=== PATIENT | female | born 1945 ===

== ENCOUNTER 2020-05-01 12:33 | Inpatient (IN) | payer MEDICARE, OTHER ==
[~2020-05-01] VITALS: Ht 157 cm; Wt 63.8 kg
[2020-05-01] MEDS ORDERED: LACTULOSE SYRUP 10GM/15ML (ENULOSE) 30ML UDC PO PRN (12:45)
[2020-05-01] MEDS ORDERED: DOCUSATE SODIUM 100 MG (COLACE) CAP PO PRN (12:45)
[2020-05-01] MEDS ORDERED: ONDANSETRON 4 MG (ZOFRAN) ORAL DISSOLVE TAB PO PRN (12:45)
[2020-05-01] MEDS ORDERED: FLEET ENEMA ADULT 1 EA BTL PR PRN (12:45)
[2020-05-01] MEDS ORDERED: guaiFENesin/CODEINE (ROBITUSSIN AC) 10ML UDC PO PRN (12:45)
[2020-05-01] MEDS ORDERED: diphenhydrAMINE 25 MG TAB (BENADRYL) PO PRN (12:45)
[2020-05-01] MEDS ORDERED: LOPERAMIDE 2 MG (IMODIUM) TABLET PO PRN (12:45)
[2020-05-01] MEDS ORDERED: ALPRAZolam 0.25 MG (XANAX) TAB PO PRN (12:45)
[2020-05-01] MEDS ORDERED: BISACODYL 10 MG SUPP (DULCOLAX) PR PRN (12:45)
[2020-05-01] MEDS ORDERED: CALCIUM CARBONATE 500 MG (TUMS) TAB.CHEW PO PRN (12:45)
[2020-05-01] MEDS ORDERED: SUCR1TAB PO (13:51)
[2020-05-01] MEDS ORDERED: ASPI-1238 PO (13:51)
[2020-05-01] MEDS ORDERED: LEVE500T6 PO (13:51)
[2020-05-01] MEDS ORDERED: [UNRECOGNIZED DRUG - CODE] IJ (13:51)
[2020-05-01] MEDS ORDERED: ONDA8TAB15 PO (13:51)
[2020-05-01] MEDS ORDERED: FOLIC ACID PO (13:51)
[2020-05-01] MEDS ORDERED: FURO40TA4 PO (13:51)
[2020-05-01] MEDS ORDERED: ATOR40TA70 PO (13:51)
[2020-05-01] MEDS ORDERED: MULT-1136 PO (13:51)
[2020-05-01] MEDS ORDERED: DASA100T PO (13:51)
[2020-05-01] MEDS ORDERED: MAGN400O7 PO (13:51)
[2020-05-01] MEDS ORDERED: CARV3.12 PO (13:51)
[2020-05-01] MEDS ORDERED: SPIR25TA5 PO (13:51)
[2020-05-01] MEDS ORDERED: ACHD5005 PO (13:51)
[2020-05-01] MEDS ORDERED: BISA10SU8 RC (13:51)
[2020-05-01] MEDS ORDERED: [UNRECOGNIZED DRUG - CODE] IH (13:51)
[2020-05-01] MEDS ORDERED: CITA20TA9 PO (13:51)
--- NOTE | 2020-05-01 14:27 | NUR ---
BOB CHICAS admitted to room 233-1, with an admitting diagnosis of CVA, on 05/01/[address] [facility] via PRIVATE VEHICLE, accompanied by FAMILY. BOB CHICAS introduced to surroundings, call light, bed controls, phone, TV, temperature control, lights, meal times, smoking policy, visitor policy, side rail policy, bathrooms and showers. Patient Rights given to patient in the handbook. BOB CHICAS verbalizes understanding that [facility] is not responsible for the loss or damage to any personal effects or valuables that are kept in the patient's possession during their hospitalization. The following Patient Care Plans were discussed with the PATIENT: Discharge Planning, ACTIVITY INTOLERANCE, FATIGUE, HIGH RISK: INJURY, HIGH RISK: IMPAIRED SKIN INTEGRITY, PAIN, POTENTIAL FOR FALL, and KNOWLEDGE DEFICIT. BOB CHICAS verbalizes understanding of Interdisciplinary Patient Education. Patient received Patient Rights Booklet, which includes Privacy Act Statement and Data Collection Information Summary.
[2020-05-01 14:34] VITALS: BP 147/66
[2020-05-01] MEDS ORDERED: FUROSEMIDE 40 MG (LASIX) TAB PO PRN (15:00)
[2020-05-01] MEDS ORDERED: MILK OF MAGNESIA 400 MG/5 ML 30 ML UDC PO PRN (15:00)
[2020-05-01] MEDS ORDERED: NON-FORMULARY MEDICATION 1 EA EA (Ondansetron HCl 8 MG) PO PRN (15:00)
[2020-05-01] MEDS ORDERED: PENTAMIDINE ISETHIONATE 300 MG IH SCH (15:00)
[2020-05-01] MEDS ORDERED: PENTAMIDINE 300 MG IJ SCH (15:00)
--- NOTE | 2020-05-01 15:00 | NUR ---
MED REC WAS ENTERED USING THE [facility] DISCHARGE ORDERS. I WILL SPEAK WITH THE PT AFTER MEDICATIONS ARE CONTINUED AND UPDATE THE MED REC/NOTES NEEDED Addendum: 05/01/20 at 1604 by STEPHANE PEOPLES CPhT BOTH PENTAMIDINE 300MG INHALATION AND INJECTABLE WERE ENTERED ON THE MED REC- THE PT IS ONLY USING THE INHALATION SOLUTION AND NOT THE INJECTABLE. THE MED REC HAS BEEN UPDATED TO REFLECT THOSE CHANGES Addendum: 05/05/20 at 1412 by STEPHANE PEOPLES CPhT MEDICATIONS THAT HAVE BEEN REMOVED DUE TO PT NOT TAKING PRIOR TO [facility]: ASPIRIN 81MG MEDICATIONS THAT HAVE CHANGED: ATORVASTATIN: PRIOR TO [facility] PT WAS TAKING 10MG- [facility] CHANGED THE MED AT DISCHARGE TO 40MG SPIRONOLACTONE 25MG:PRIOR TO [facility] PT WAS TAKING 12.5MG ( OF A 25MG TAB) AND AT DISCHARGE [facility] CHANGED THIS TO 25MG DAILY
[2020-05-01] MEDS: ACETAMINOPHEN 325 MG TABLET PO PRN (15:04)
[2020-05-01] MEDS ORDERED: ACYC800T PO (15:08)
[2020-05-01] MEDS ORDERED: CARV25TA PO (15:34)
--- NOTE | 2020-05-01 15:46 | Physical Therapy Evaluation ---
PT Evaluation-General Medical Diagnosis Admission Date May 01, 2020 at 12:47 Medical Diagnosis: CVA Onset Date: May 01, 2020 Therapy Diagnosis Therapy Diagnosis: weakness; abn gait Precautions Precautions/Isolations: Fall Prevention, Standard Precautions Referral Physician: Leonardo Reason for Referral: Evaluation/Treatment Medical History Pertinent Medical History: Atrial Fib, CVA, DM, Fractures (R LE; right olecranon prcess), HTN, Renal Insufficiency, TBI Additional Medical History Acute respiratory failure with hypoxia, recent olecranon fx right arm ( approx 3 weeks ago), hyperkalemia, anemia, subdural hematoma, CHF Splint in place right UE for ulna/olecranon process fx Current History Pt was found to have a right sided CVA on 04/28/2020, she was treated at an acute care hospital and transferred to this ARU on this date for continued medical managment and skilled therapy services. Reviewed History: Yes Social History Home: Single Level Current Living Status: Spouse Entry Into Home: Ramp Pt reports she rarely is required to use steps. Prior Prior Level of Function SCALE: Activities may be completed with or without assistive devices. 6-Mgjkqvnhpx-ledxtvx completes the activity by him/herself with no assistance from a helper. 5-Set-up or Clean-up Assistance-helper sets up or cleans up; patient completes activity. [place] assists only prior to or following the activity. 4-Supervision or Touching Assistance-helper provides verbal cues and/or touching/steadying and/or contact guard assistance as patient completes activity. Assistance may be provided throughout the activity or intermittently. 3-Partial/Moderate Assistance-helper does LESS THAN HALF the effort. [place] lifts, holds or supports trunk or limbs, but provides less than half the effort. 2-Substantial/Maximal Assistance-helper does MORE THAN HALF the effort. [place] lifts or holds trunk or limbs and provides more than half the effort. 0-Qkwfupdfu-klsevk does ALL the effort. Patient does none of the effort to complete the activity. Or, the assistance of 2 or more helpers is required for the patient to complete the activity. If activity was not attempted, code reason: 7-Patient Refused. 9-Not Applicable-not attempted and the patient did not perform the activity before the current illness, exacerbation or injury. 10-Not Attempted due to Environmental Limitations-(lack of equipment, weather restraints, etc.). 88-Not Attempted due to Medical Conditions or Safety Concerns. Bed Mobility: 6 Transfers (B,C,W/C): 6 Gait: 6 Stairs: 6 Indoor Mobility (Ambulation): Independent Stairs: Independent Prior Device Use: none Pt was indep with all mobility and self care; she was able to drive and ambulate community distances. Reports her is in fairly good health. PT Evaluation-Current Subjective Pt agreeable to PT. No complaints except a oncoming headache, which she reports she has been experiencing since the stroke. Pain Numeric Pain Scale: 2 Location Body Site: Head Pain Description: Ache Comment: "headache" Pt/Family Goals Her goal is to return home with her spouse as befor eand care for herself. Objective Patient Orientation: Person, Place, Time, Situation ROM/Strength ROM Lower Extremities WNL Strength Lower Extremities R LE strength is grossly 5/5 throughout; left LE strength is grossly 4-/5 throughout. Integumentary/Posture Integumentary Refer to nursing notes. Bowel Incontinence: No Bladder Incontinence: No Posture symmetrical Neuromuscular (Tone, Coordination, Reflexes) Intact and functional Sensory Vision: Functional Hearing: Functional Hand Dominance: Right Sensation Right Upper Extremit: Intact Sensation Left Upper Extremity: Intact Sensation Right Lower Extremit: Intact Sensation Left Lower Extremity: Intact Transfers Roll Left & Right (QC): 3 Sit to Lying (QC): 3 Lying to Sitting/Side of Bed(Q: 3 Sit to Stand (QC): 4 Chair/Eeh-fd-Eqpxi Xfer(QC): 4 Toilet Transfer (QC): 3 Car Transfer (QC): 3 Pt requires assist specifically with her left LE for functional transfers and cues for sequencing. Skilled cues for hand placement with sit to stand. Gait Does the Patient Walk?: Yes Mode of Locomotion: Walk Anticipated Mode of Locomotion: Walk Walk 10 feet (QC): 3 Walk 50 ft with 2 Turns(QC): 3 Walk 150 ft (QC): 3 Walking 10ft/uneven surface-QC: 3 Distance: 140 ft with HHC and occas steadying assist for balance. Comments/Gait Description Decreased step length and decreased velocity; slightly unsteady with need for balancing assist at times. Trialed use of SPC in left hand and then in right, pt unable to safely or effectively use in either hand. Pt is walking with HHC currently, may assess use of walker for functional balance and safety--will continue to monitor. Wheelchair Training Does the Pt Use a Wheelchair?: No Wheel 50 ft with 2 turns (QC): 9 Wheel 150 ft (QC): 9 Stairs 1 Step (curb) (QC): 3 4 Steps (QC): 3 12 Steps (QC): 88 min assist for balance and safety. Balance Sitting Static: Normal Sitting Dynamic: Normal Standing Static: Fair Standing Dynamic: Fair Picking up an Object (QC): 88 Treatment Co treat with OT; due to the need for the skill of 2 clinicians to safely and effectively complete treatment tasks. OT addressed use, placment and tasks with the UE as well as self care as PT addressed functional balance, gait, transitional movements with each discipline providing tactile and verbal cues for sequence, technique and completion of task as pt performed bed mobility, multiple transfers from multiple surfaces, toileting, gait training and high level functional balance training. Pt in room post treatment with needs met, up in her chair with call light in reach. Assessment/Needs Post CVA with residual left sided weakness that impairs her functional transfers, bed mobility and gait; she has decreased functional balance and activity tolerance. In addition, recent right olecranon fx of the ulna limits use and mobility of the right UE, she has a splint in place. She will benefit from skilled therapy services to promote functional strength , balance, functional mobility to allow her to return home at a mod indep level of care. Rehab Potential: Good PT Short Term Goals Short Term Goals Time Frame: May 08, 2020 Sit to lyin Lying to sitting on side of be: 4 Sit to stand: 4 Chair/nws-jg-wcvuy transfer: 4 Walk 150 feet: 4 PT Senior Care Goals Petroleum Laboratory Technician Goals PT Petroleum Laboratory Technician Goals Time Frame: May 16, 2020 Roll Left & Right (QC): 6 Sit to Lying (QC): 6 Lying-Sitting on Side/Bed(QC): 6 Sit to Stand (QC): 6 Chair/Wiw-ln-Shxbi Xfer(QC): 6 Toilet Transfer (QC): 6 Car Transfer (QC): 6 Does the Patient Walk: Yes Walk 10 feet (QC): 6 Walk 50ft with 2 Turns (QC): 6 Walk 150 ft (QC): 6 Walking 10ft on Uneven Surface: 6 1 Step (curb) (QC): 6 4 Steps (QC): 6 12 Steps (QC): 6 Picking up an Object (QC): 4 Does the Pt use WC or Scooter?: No Wheel 50 feet with 2 turns (QC: 9 Wheel 150 feet: 9 PT Plan Problem List Problem List: Activity Tolerance, Functional Strength, Safety, Balance, Gait, Transfer, Bed Mobility Treatment/Plan Treatment Plan: Continue Plan of Care Treatment Plan: Bed Mobility, Education, Functional Activity Concepcion, Functional Strength, Group Therapy, Gait, Safety, Therapeutic Exercise, Transfers Treatment Duration: May 16, 2020 Frequency: At least 5 of 7 days/Wk (IRF) Estimated Hrs Per Day: 1.5 hours per day Patient and/or Family Agrees t: Yes Safety Risks/Education Patient Education: Transfer Techniques, Safety Issues Teaching Recipient: Patient Teaching Methods: Demonstration, Discussion Response to Teaching: Reinforcement Needed Discharge Recommendations Therapy Discharge Recommendati: Post Acute PT Time/GCodes Time In: 1400 Time Out: 1410 ([id number]--co treat with OT) Total Billed Treatment Time: 90 Total Billed Treatment visit EVM 10 FA 80 (co treat with OT) JACKLYN GASTON PT May 01, 2020 15:46
--- NOTE | 2020-05-01 15:48 | Occupational Therapy Eval ---
OT Evaluation-General/PLF Medical Diagnosis Admission Date May 01, 2020 at 12:47 Medical Diagnosis: CVA Onset Date: Apr 28, 2020 Therapy Diagnosis Therapy Diagnosis: decreased ADL status, weakness Precautions Precautions/Isolations: Fall Prevention, Standard Precautions Referral Physician: Leonardo Hunter Reason: Evaluation/Treatment Medical History Pertinent Medical History: Atrial Fib, Arthritis, CVA, DM, Fractures (RLE, R olecranon process), HTN, Renal Insufficiency, TBI Additional Medical History Acute respiratory failure with hypoxia, recent olecranon fx right arm ( approx 3 weeks ago), hyperkalemia, anemia, subdural hematoma, CHF Current History Pt was found to have a right sided CVA on 04/28/2020, she was treated at an acute care hospital and transferred to this ARU on this date for continued medical managment and skilled therapy services. Social History Home: Single Level Current Living Status: Significant Other Entry Into Home: Ramp ADL-Prior Level of Function SCALE: Activities may be completed with or without assistive devices. 7-Hkqzklpgoc-fotjylg completes the activity by him/herself with no assistance from a helper. 5-Set-up or Clean-up Assistance-helper sets up or cleans up; patient completes activity. [place] assists only prior to or following the activity. 4-Supervision or Touching Assistance-helper provides verbal cues and/or touching/steadying and/or contact guard assistance as patient completes activity. Assistance may be provided throughout the activity or intermittently. 3-Partial/Moderate Assistance-helper does LESS THAN HALF the effort. [place] lifts, holds or supports trunk or limbs, but provides less than half the effort. 2-Substantial/Maximal Assistance-helper does MORE THAN HALF the effort. [place] lifts or holds trunk or limbs and provides more than half the effort. 0-Jqedmdguw-noslai does ALL the effort. Patient does none of the effort to complete the activity. Or, the assistance of 2 or more helpers is required for the patient to complete the activity. If activity was not attempted, code reason: 7-Patient Refused. 9-Not Applicable-not attempted and the patient did not perform the activity before the current illness, exacerbation or injury. 10-Not Attempted due to Environmental Limitations-(lack of equipment, weather restraints, etc.). 88-Not Attempted due to Medical Conditions or Safety Concerns. ADL PLOF Comments Pt reports being independent with all ADLS and functional mobility at PLOF, no AD/AE. She has a walk in shower with a chair and grab bars, and a tall toilet with grab bars. Self Care: Independent Functional Cognition: Independent DME/Equipment: Bath Chair, Grab Bars, Shower, Tall Toilet OT Current Status Subjective Pt agreeable to OT evaluation and tx. Pt initially denies pain but then reports slight headache starting, nurse notified. Pt did not provide pain rating of head ache. Mental Status/Objective Patient Orientation: Person, Place, Time, Situation Current Hand Dominance: Right Upper Extremity ROM LUE shoulder flexion to approx 130 degrees, WFL at elbow/wrist/hand RUE shoulder flexion to approx 90 degrees, WFL at fingers, elbow/wrist not tested due to UE fracture. Upper Extremity Coordination slightly decreased due RUE fx and slightly decreased LUE due to recent CVA Upper Extremity Sensation pt reports intact sensation BUEs, no tingling/numbness Upper Extremity Strength RUE not tested due to fx, LUE approx 4-/5 MMT ADL-Treatment Eating (QC): 5 (Pt reports requiring set up assistance with breakfast to open containers and cut food, pt states she is then able to use utensils to eat.) Oral Hygiene (QC): 7 Shower/Bathe Self (QC): 7 Upper Body Dressing (QC): 7 Lower Body Dressing (QC): 7 On/Off Footwear (QC): 1 (Pt attempted to bend forward to remove socks but was unsuccessful. Required total assistance doffing/donning gripper socks) Toileting Hygiene (QC): 2 (Pt able to push R side of pants down, required assistance wtih L side. Pt required assistance with hygiene and managing clothes up.) Other Treatments OT educated pt on purpose and benefit of OT, she verbalized understanding. Pt provided information about home set up and PLOF, and participated in UE screen. OT/PT cotreat due to skill of 2 clinicians required that a vocational rehabilitation specialist could not perform in order to coordinate UE/LEs, focus on dynamic standing balance, functional ambulation, and ADLs. OT focused on ADLs, UE placement, and cues for sequencing and safety, while PT focused on LE placement, overall gross movements, functional ambulation/transfers. Each discipline provided tactile and verbal cues for sequence, technique and completion of tasks as pt participated in tx. Pt transferred from EOB to supine, requiring assistance with BLEs and assist with trunk. Pt able to transfer supine to sit EOB with SBA. Pt performed functional mobility with hand held assistance around ARU common area, across uneven surface, up/down 1 step x2 trials, and up/down staircase of 4 steps. Pt took seated rest break stating fatigue with tasks. Pt then trialed cane around therapy gym in L hand, pt had difficulty moving cane while performing functional mobility. Pt then completed functional mobility around ARU common area with hand held assistance, OT/PT introduced pt to surroundings on the unit and then pt returned to gym. In order to focus on increasing BUE strength and functional endurance and dynamic standing balance, completed higher level balance task with OT/PT. Pt able to complete task to tolerance, then required seated rest break. Pt returned to room with hand held assistance, completed toileting, then returned to recliner where footwear was complete. Post OT/PT cotreat, pt seated in recliner, call light in reach and all needs met. Education OT Patient Education: Correct positioning, Energy conservation, Exercise program, Modified ADL techniques, Progress toward Goal/Update tx plan, Purpose of tx/functional activities, Rehab process, Safety issues, Transfer techniques Teaching Recipient: Patient Teaching Methods: Discussion Response to Teaching: Verbalize Understanding OT Senior Living Goals Senior Living Goals Time Frame: May 16, 2020 Eating (QC): 6 Oral Hygiene (QC): 6 Toileting Hygiene (QC): 6 Shower/Bathe Self (QC): 5 Upper Body Dressing (QC): 6 Lower Body Dressing (QC): 6 On/Off Footwear (QC): 6 Additional Goals: 1-Demonstrate ADL Tasks, 2-Verbalize Understanding, 3- ImproveStrength/Concepcion 1=Demonstrate adherence to instructed precautions during ADL tasks. 2=Patient will verbalize/demonstrate understanding of assistive devices/modifications for ADL. 3=Patient will improve strength/tolerance for activity to enable patient to perform ADL's. OT Education/Plan Problem List/Assessment Assessment: Decreased Activ Tolerance, Decreased UE Strength, Impaired Bed Mobility, Impaired Funct Balance, Impaired I ADL's, Impaired Self-Care Skills, Restricted Funct UE ROM Discharge Recommendations Plan/Recommendations: Continue POC Treatment Plan/Plan of Care Patient would benefit from OT for education, treatment and training to promote independence in ADL's, mobility, safety and/or upper extremity function for ADL's. Plan of Care: ADL Retraining, Functional Mobility, Group Exercise/Act as Ind, UE Funct Exercise/Act, UE Neuromus Re-Ed/Coord Treatment Duration: May 16, 2020 Frequency: At least 5 of 7 days/Wk (IRF) Estimated Hrs Per Day: 1.5 hours per day Agreement: Yes Rehab Potential: Good Time/GCodes Start Time: 14:10 Stop Time: 15:40 Total Time Billed (hr/min): 90 Billed Treatment Time 6926-0582 OT evaluation, [id number] OT/PT cotreat 1, EVM (10'), ADL (20'), FA 4 (60') BERTA ARAMBULA OT May 01, 2020 15:48
[2020-05-01] MEDS: SUCRALFATE 1 GM (CARAFATE) TAB PO SCH ×2 (16:36→20:50)
[2020-05-01 17:05] VITALS: BP 153/65
[2020-05-01] MEDS ORDERED: PATIENT MAY USE OWN MED,SINGLE MED PO SCH (18:30)
[2020-05-01] MEDS: HYDROcodone/APAP 5 MG/325 MG (LORTAB) TAB PO PRN (19:17)
--- NOTE | 2020-05-01 20:47 | PM&R Post Admission Assessment ---
PM&R HP Date of Visit: May 01, 2020 Time of Visit: 18:45 History of Present Illness CC: CVA with left sided weakness HPI: This is a 74yoWF clinic patient of Dr Goldman PCP, Dr Robertson Oncology and Dr Jansen Cardiology who has a h/o CLL and 4 previous strokes who presents to the IRF from [facility] in need of recovery from CVA with residual left sided weakness. She suffered a fall 3 weeks before and has a right olecranon fracture along with a subdural hematoma so she was not a tPa candidate. Patient reports she had a BM this evening and is eating and drinking well. Headache pain has been managed. Patient is a fall risk. She has been for 56 years. [facility] summary 04/28/20-05/01/20: History is obtained from the patient. Patient was in the emergency with complaints of left-sided weakness started around 8 AM today morning. Patient was speaking to her daughter the morning and suddenly started having left facial droop, right-sided gaze. Weakness of left upper extremity or lower extremities. Inspection was brought to the emergency room. Patient was presented emergency room at around 9:55 AM. Patient is a known case of chronic lymphoid leukemia, history of DVT [several years back] was on anticoagulation which was discontinued last month. Patient has a traumatic subdural hematoma and was discharged to rehab after rehab she was discharged home 2 days back. Patient also has a right upper fracture which has been managed conservatively. Patient Is have weakness of the left side of the body and reports that this slightly getting better the time of admission. Denies any dizziness seizure. Delivery was involved. CT head was normal. However CT perfusion study shows small stroke.As patient is intact hematoma in the last 1 month patient is not a candidate for thrombolytic agent I am not a candidate for endovascular intervention. However patient was advised to admit to the intensive care unit for further management continues neurological status for the next 24 hours. Patient transferred to general medical floor the morning of 04/29. Dr. Gonzalez determined the patient did not need critical care coverage at this time. Neurology has been consulted and recommends MRI brain for further delineation of stroke, ultrasound carotids, echocardiogram with bubble study to rule out intracardiac thrombus, continue aspirin 81 mg and Lipitor 40 mg for secondary stroke prevention. MRI brain without contrast 04/30: IMPRESSION: 1. Multifocal right frontal and parietal cortical acute ischemia with the largest region in the anterior inferior right frontal lobe. 2. Right subdural hematoma with mild mass effect on the right parietal lobe. There is no midline shift. 3. Posterior midline left parietal subdural hematoma. Patient will not be started on anticoagulation at the time of discharge due to recent history of subdural hematoma. Patient symptomatology has improved today. Patient will follow up with neurology in 4 to 6 weeks to make further treatment recommendations. Patient will be discharged to [facility] rehab.No further questions at the time of discharge. [facility] summary 04/07/20-04/14/20: Diagnosis PAF (paroxysmal atrial fibrillation) Subarachnoid bleed TBI (traumatic brain injury) Debility Closed fracture of proximal end of right humerus Closed fracture of olecranon process of right ulna CRI (chronic renal insufficiency) Elevated brain natriuretic peptide (BNP) level Acute on chronic diastolic congestive heart failure Pulmonary hypertension due to left ventricular diastolic dysfunction Subdural hematoma CHF (congestive heart failure) Humeral head fracture, right, closed, initial encounter Anemia Fall Hyperlipidemia HTN (hypertension) Diabetes mellitus type II, uncontrolled Resolved Hospital Problems Diagnosisl Date Resolved Poor fluid intake 04/14/2020 Syncope 04/14/2020 Class: Acute Nae White a 74 y.o.femalewho was admitted to [facility] on [facility]07[facility]2020and found to have a principle diagnosis of subdural hematoma. Patient has a past medical history ofAcuteLymphoblasticLeukemia,hypertension, diabetes, hyperlipidemia, history of DVT on Eliquis,CKD stage unknown admitted initially to ICU status post syncopal episode/fallwithacute traumatic brain injury admitted for subdural hematoma with small subarachnoid hemorrhage with neurosurgery following. Orthopedic surgery also following for left elbow and humeral head fracture with patient's arm in sling. Hospital course complicated by acute on chronic kidney disease,with high anion gap metabolic acidosis on sodium bicarb drip with acute metabolic encephalopathy improving and subsequently she was transferred to floor on 04/10. Her mental status slowly improved and currently she is alert and oriented x3. Her lasix has been stopped due to RAS. Her eliquis has been held due to subdural hematoma. keppra has been started for seizure prophylaxis. Today patient is doing well, vitals are stable and therefore plan to discharge her to the rehab. Neurosurgery recommends follow up in [address] head. Follow up appointments have been made with neurosurgery, orthopedics and oncology/hematology. Past Ugyosdm-Zskwzk-Wtooux Hx Past Med/Social Hx: Reviewed Nursing Past Med/Soc Hx, Reviewed and Corrections made Patient Social History Marrital Status: Employed/Student: retired Alcohol Use: Denies Use Recreational Drug Use: No Smoking Status: Never a Smoker Physical Abuse Screen: No Sexual Abuse: No Recent Foreign Travel: No Contact w/other who traveled: No Recent Hopitalizations: Yes ([facility]) Recent Infectious Disease Expo: No Immunizations Up To Date Date of Influenza Vaccine: Apr 14, 2019 Seasonal Allergies Seasonal Allergies: No Past Medical History Currently Using CPAP: No Currently Using BIPAP: No Cardiac: High Cholesterol, Hypertension Neurological: Stroke Gastrointestinal: Chronic Diarrhea Musculoskeletal: Arthritis HEENT: Cataract Cancer: Leukemia Did You Recieve Any Treatments: Yes What Type of Treatment Did You: Chemotherapy Cancer: STATES, FINISHED CHEMO IN DECEMBER 2019. Psychosocial: Anxiety History of Blood Disorders: Yes (LEUKEMIA) Prior Level of Function Bed Mobility: 6 Transfers: 6 Gait: 6 Stairs: 6 Indoor Mobility (Ambulation): Independent Stairs: Independent none Self Care: Independent Functional Cognition: Independent Current Level of Fuctioning Roll Left to Right: 3 Sit to Lyin Lying to Sitting/Side of Bed: 3 Sit to Stand: 4 Chair/Kzp-zw-Ddjbh Xfer: 4 Car Transfer: 3 Does the Patient Walk: Yes Mode of Locomotion: Walk Anticipated Mode of Locomotion: Walk Walk 10 feet: 3 Walk 50 ft with 2 Turns: 3 Walk 150 ft: 3 Walking 10ft on uneven surface: 3 Does the Pt Use a Wheelchair: No Wheel 50 ft with 2 turns: 9 Wheel 150 ft: 9 1 Step (curb): 3 4 Steps: 3 12 Steps: 88 Picking up an Object: 88 Eatin (Pt reports requiring set up assistance with breakfast to open containers and cut food, pt states she is then able to use utensils to eat.) Oral Hygiene: 7 Shower/Bathe Self: 7 Upper Body Dressin Lower Body Dressin On/Off Footwear: 1 (Pt attempted to bend forward to remove socks but was unsuccessful. Required total assistance doffing/donning gripper socks) Toileting Hygiene: 2 (Pt able to push R side of pants down, required assistance wtih L side. Pt required assistance with hygiene and managing clothes up.) PM&R Allergy/Meds/Data Review Allergies Coded Allergies: No Allergy Information Available (Unverified , 05/01/20) Home Medications Scheduled Acyclovir (Acyclovir), 800 MG PO BID, (Reported) Aspirin (Aspirin EC), 81 MG PO DAILY, (Reported) Atorvastatin Calcium (Atorvastatin Calcium), 40 MG PO DAILY, (Reported) Bisacodyl (Bisacodyl), 10 MG RC DAILY, (Reported) Carvedilol (Carvedilol), 25 MG PO BID, (Reported) Citalopram Hydrobromide (Citalopram HBr), 20 MG PO DAILY, (Reported) Dasatinib (Sprycel), 100 MG PO DAILY, (Reported) Levetiracetam (Levetiracetam), 500 MG PO BID, (Reported) Multivitamin (Multivitamin), 1 EACH PO DAILY, (Reported) Pentamidine Isethionate (Pentamidine Isethionate), 300 MG IH MONTHLY, (Reported) Spironolactone (Spironolactone), 25 MG PO HS, (Reported) Sucralfate (Sucralfate), 1 GM PO QID, (Reported) [Folic Acid], 1 MG PO DAILY, (Reported) Scheduled PRN Furosemide (Furosemide), 40 MG PO DAILY PRN for INCRASED EDEMA/DYSPNEA, (Reported) Hydrocodone/Acetaminophen (Hydrocodone-Acetamin 5-325 mg), 1 EACH PO Q8H PRN for PAIN-MODERATE (5-7), (Reported) Magnesium Hydroxide (Milk of Magnesia), 30 ML PO DAILY PRN for CONSTIPATION-7TH LINE, (Reported) Ondansetron HCl (Ondansetron HCl), 8 MG PO Q8H PRN for NAUSEA/VOMITING-1ST LINE, (Reported) Discontinued Medications Carvedilol (Coreg), 3.125 MG PO BID, (Reported) Discontinued Reason: Duplicate Order Pentamidine Isethionate (Pentam 300), 300 MG IJ, (Reported) Discontinued Reason: No Longer Taking Current Medications Current Medications Reviewed Laboratory Data Laboratory Tests 05/01/20 16:42: Glucometer 90 Review of Systems Constitutional: see HPI, malaise, weakness EENTM: no symptoms reported Respiratory: no symptoms reported Cardiovascular: no symptoms reported Gastrointestinal: no symptoms reported Genitourinary: no symptoms reported Musculoskeletal: joint pain (right arm pain), muscle weakness Psychiatric/Neurological: Numbness, Tingling, Weakness All Other Systems Reviewed Negative Unless Noted: Yes Physical Exam Physical Exam Vital Signs Vital Signs - First Documented 05/01/20 14:34 Temp 36.8 Pulse 81 Resp 18 B/P (MAP) 147/66 Pulse Ox 98 O2 Delivery Room Air Capillary Refill : Less Than 3 SecondsLess Than 3 Seconds Height, Weight, BMI Height: '" Weight: lbs. oz. kg; 26.89 BMI Method: General Appearance: No Apparent Distress, WD/WN, Chronically ill, Thin Eyes: Bilateral Eye Normal Inspection, Bilateral Eye PERRL HEENT: PERRL/EOMI, Normal ENT Inspection, Pharynx Normal Neck: Full Range of Motion, Normal Inspection, Non Tender, Supple, Carotid Bruit Respiratory: Chest Non Tender, Lungs Clear, Normal Breath Sounds, No Accessory Muscle Use, No Respiratory Distress Cardiovascular: Regular Rate, Rhythm, No Edema, No Gallop, No JVD, No Murmur, Normal Peripheral Pulses Gastrointestinal: Normal Bowel Sounds, No Organomegaly, No Pulsatile Mass, Non Tender, Soft Back: Normal Inspection, No CVA Tenderness, No Vertebral Tenderness Extremity: Normal Capillary Refill, Normal Inspection, Normal Range of Motion (except left sided weakness 3/5 and right arm in sling and soft cast), Non Tender, No Calf Tenderness, No Pedal Edema Neurologic/Psychiatric: Alert, Oriented x3, No Motor/Sensory Deficits, Normal Mood/Affect, Abnormal Gait, Facial Droop, Motor Weakness Skin: Normal Color, Warm/Dry Lymphatic: No Adenopathy PM&R Medical Assessment & Plan REHAB/MEDICAL ASSESSMENT AND PLAN: REHAB IMPAIRMENT GROUP: CVA ETIOLOGIC DIAGNOSIS: CVA The comorbidities that impact the patients function and/or functional outcome by: severe left sided weakness along with right arm fracture in sling and CLL with subdural hematoma REHAB PLAN: The patient is being admitted to our comprehensive inpatient rehabilitation facility and can tolerate the intensity of service consisting of at least: 180 minutes of therapy a day, 5 out of 7 days a week Rehab treatment will consist of: PT OT will focus on regaining function of left side while managing restriction of right arm due to fracture in order to return home with spouse The patient/family has a good understanding of our discharge process and will benefit from an interdisciplinary inpatient rehabilitation program. The patient has potential to make improvement and is in need of at least two of the following multidisciplinary therapies including but not limited to physical, occupational, speech, and prosthetics and orthotics. Additionally the patient will need services from respiratory, nutritional services, wound care, psychology, etc. (Customize this to each patient). Given the patients complex condition and risk of further medical complications, rehabilitation services cannot be safely or effectively provided at a lower level of care such as a jail facility. BARRIERS TO DISCHARGE: Right arm fracture in sling and left sided CVA weakness ESTIMATED LOS: 14 days DISPOSITION: Home with spouse RELEVANT CHANGES SINCE PREADMISSION SCREENING: I have compared the patients medical and functional status at the time of the preadmission screening and there are: no changes PROGNOSIS: Good REHABILITATION GOALS: 1. PT OT will focus on regaining function of left side while managing restriction of right arm due to fracture in order to return home with spouse All the above goals were reviewed with the patient and he/she is in agreement. By signing this document, I acknowledge that I have personally performed a full physical examination on this patient within 24 hours of admission to this inpatient rehabilitation facility and have determined the patient to be able to tolerate the above course of treatment at an intensive level for a reasonable period of time. I will be completing a detailed individualized Plan of Care for this patient by day #4 of the patients stay based upon the Preadmission Screen, the Post-Admission Evaluation, and the therapy evaluations. Admission Dx/Comorbidities: (1) CVA (cerebral vascular accident) ICD Codes: I63.9 - Cerebral infarction, unspecified (2) CLL (chronic lymphocytic leukemia) ICD Codes: C91.10 - Chronic lymphocytic leukemia of B-cell type not having achieved remission (3) Subdural hematoma ICD Codes: S06.5X9A - Traumatic subdural hemorrhage with loss of consciousness of unspecified duration, initial encounter (4) Closed fracture of right olecranon process ICD Codes: S52.021A - Displaced fracture of olecranon process without intraarticular extension of right ulna, initial encounter for closed fracture (5) Hyperlipemia ICD Codes: E78.5 - Hyperlipidemia, unspecified (6) GERD (gastroesophageal reflux disease) ICD Codes: K21.9 - Gastro-esophageal reflux disease without esophagitis Assessment/Plan Assessment and Plan Assess & Plan/Chief Complaint Assessment: 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 Recent subdural hematoma Falls Right olecranon fracture AF Anemia CLL GERD Plan: IRF protocol Monitor BP Fall risk BM regimen ANTOINE SALDAÑA DO May 01, 2020 20:47
[2020-05-01] MEDS: ACYCLOVIR 400 MG TABLET (ZOVIRAX) PO SCH (20:49)
[2020-05-01] MEDS: CARVEDILOL 12.5 MG (COREG) TABLET PO SCH (20:50)
[2020-05-01] MEDS: SPIRONOLACTONE 25 MG (ALDACTONE) TAB PO SCH (20:50)
[2020-05-01] MEDS: LEVETIRACETAM 500 MG (KEPPRA) TAB PO SCH (20:50)
[2020-05-01] MEDS ORDERED: NON-FORMULARY MEDICATION 1 EA EA (Carvedilol 25 MG) PO SCH (21:00)
[2020-05-01] MEDS ORDERED: NON-FORMULARY MEDICATION 1 EA EA (Acyclovir 800 MG) PO SCH (21:00)
[2020-05-01] MEDS: polyethylene glycoL POWDER 17 GM (MIRALAX) PACK PO SCH (21:06)
[2020-05-01] MEDS: SENNA W/DOCUSATE (SENOKOT S) TABLET PO SCH (21:06)
[2020-05-01] MEDS: DOCUSATE SODIUM 100 MG (COLACE) CAP PO SCH (21:06)
[2020-05-02] VITALS (9 sets, daily range): BP systolic 128–147; BP diastolic 57–67
[2020-05-02 05:38] LABS: BASOPHILS % (AUTO) 1 % (0-10); EOSINOPHILS # (AUTO) 0.1 10^3/uL (0.0-0.3); EOSINOPHILS % (AUTO) 4 % (0-10); HEMATOCRIT 23 % (35-52); HEMOGLOBIN 7.1 g/dL (11.5-16.0); LYMPHOCYTES # (AUTO) 0.9 10^3/uL (1.0-4.0); LYMPHOCYTES % (AUTO) 26 % (12-44); MEAN CORPUSCULAR HEMOGLOBIN 37 pg (25-34); MEAN CORPUSCULAR HGB CONC 32 g/dL (32-36); MEAN CORPUSCULAR VOLUME 116 fL (80-99); MEAN PLATELET VOLUME 10.8 fL (9.0-12.2); MONOCYTES # (AUTO) 0.3 10^3/uL (0.0-1.0); MONOCYTES % (AUTO) 9 % (0-12); NEUTROPHILS # (AUTO) 2.1 10^3/uL (1.8-7.8); NEUTROPHILS % (AUTO) 61 % (42-75); PLATELET COUNT 144 10^3/uL (130-400); WHITE BLOOD COUNT 3.5 10^3/uL (4.3-11.0)
[2020-05-02 05:47] LABS: ALBUMIN 3.2 GM/DL (3.2-4.5); POTASSIUM 3.8 MMOL/L (3.6-5.0)
[2020-05-02 05:50] LABS: TOTAL PROTEIN 5.2 GM/DL (6.4-8.2)
[2020-05-02 05:52] LABS: BILIRUBIN,TOTAL 0.3 MG/DL (0.1-1.0)
[2020-05-02 05:53] LABS: CREATININE SERUM 1.56 MG/DL (0.60-1.30)
[2020-05-02] MEDS: MULTIVIT W/MINERALS TAB (THERAGRAN M) PO SCH (06:13)
--- NOTE | 2020-05-02 07:22 | Individualized Plan of Care ---
Individualized Plan of Care Rehab Nursing IPOC Order Admission Date May 01, 2020 at 12:47 Current Orders Orders Admission Order(Inpt,Obs,Sdc) (05/01/20 12:45) Vital Signs: Per Unit Policy ( 08,16,00 (05/01/20 12:45) Joseph Rivero 09,21 (05/01/20 12:45) Sequential Compression Device Q4H (05/01/20 12:45) Core Blower Operator-Inpt Rehab Con (05/01/20 12:45) Rehab Nursing Orders-Ipoc (05/01/20 12:45) Physical Therapy Rehab Orders (05/01/20 12:45) Occupational Therapy Rehab Ord (05/01/20 12:45) Speech Therapy Rehab Orders (05/01/20 12:45) Cbc With Automated Diff (05/02/20 06:00) Comprehensive Metabolic Panel (05/02/20 06:00) General/Regular (05/01/20 Lunch) Intake & Output 06,14,22 (05/01/20 12:45) Precautions (Aru) (05/01/20 12:45) Rehab-Intensity Of Therapy (05/01/20 12:45) Initiate Admission Nursing Pro .admission (05/01/20 12:45) Alprazolam Tablet (Xanax Tablet) (05/01/20 12:45) Calcium Carbonate Chew Tablet (Antacid C (05/01/20 12:45) Diphenhydramine Tablet (Benadryl Tablet) (05/01/20 12:45) Docusate Sodium Capsule (Colace Capsule) (05/01/20 21:00) Docusate Sodium Capsule (Colace Capsule) (05/01/20 12:45) Bisacodyl Suppository (Dulcolax Supposit (05/01/20 12:45) Lactulose Oral Solution (Enulose Oral So (05/01/20 12:45) Na Phos/Na Biphos Enema (Fleet Enema Chriss (05/01/20 12:45) Guaifenesin/Codeine Syrup (Robitussin Ac (05/01/20 12:45) Loperamide Tablet (Imodium Tablet) (05/01/20 12:45) Melatonin Tablet (Melatonin Tablet) (05/01/20 12:45) Polyethylene Glycol Powder Pkt (Miralax (05/01/20 21:00) Ondansetron Oral Dissolve Tab (Zofran (05/01/20 12:45) Senna S Tablet (Senokot S Tablet) (05/01/20 21:00) Initiate Admission Nursing Pro .admission (05/01/20 12:45) Acetaminophen Tablet/Caplet (Tylenol T (05/01/20 14:45) Aspirin Enteric Coated Tablet (Ecotrin T (05/02/20 09:00) Atorvastatin Tablet (Lipitor) (05/02/20 09:00) Bisacodyl Suppository (Dulcolax Supposit (05/02/20 09:00) Citalopram Tablet (Celexa Tablet) (05/02/20 09:00) Furosemide Tablet (Lasix Tablet) (05/01/20 15:00) Hydrocodone/Apap 5/325 Tablet (Lortab 5 (05/01/20 15:00) Levetiracetam Tablet (Keppra Tablet) (05/01/20 21:00) Magnesium Hydroxide Oral Susp (Mom Oral (05/01/20 15:00) Pentamidine Injection (Pentamidine Injec (05/01/20 15:00) Spironolactone Tablet (Aldactone Tablet) (05/01/20 21:00) Sucralfate Tablet (Carafate Tablet) (05/01/20 17:00) (Nf) Dasatinib (Sprycel) (05/02/20 09:00) (Nf) Multivitamin (05/02/20 09:00) (Nf) Ondansetron Hcl (05/01/20 15:00) (Nf) Pentamidine Isethionate (05/01/20 15:00) (Nf) [Folic Acid] (05/02/20 09:00) Vte Contraindication (05/01/20 14:58) Folic Acid Tablet (Folic Acid Tablet) (05/02/20 09:00) Therapeutic Multivitamin Tab (Vitamins, (05/02/20 07:00) Ondansetron Oral Dissolve Tab (Zofran (05/01/20 15:30) Patient Visit (05/01/20 ) Pt Eval Moderate Complexity (05/01/20 ) Functional Activities, Ea 15 (05/01/20 ) Patient May Use Own Med,Single (Patient (05/01/20 18:30) (Nf) Acyclovir (05/01/20 21:00) (Nf) Carvedilol (05/01/20 21:00) Carvedilol Tablet (Coreg Tablet) (05/01/20 21:00) Acyclovir Capsule/Tablet (Zovirax Caps (05/01/20 21:00) Iron Test (Fe) (05/02/20 05:45) Furosemide Tablet (Lasix Tablet) (05/02/20 11:00) Ekg Tracing (05/02/20 11:30) Patient Visit (05/02/20 ) Speech Sound Lang Comp (05/02/20 ) Treat. Speech/Lang/Voice (05/02/20 ) Vital Signs: Special (Order) (05/02/20 12:49) Consent-Obtain Consent For (05/02/20 12:49) Monitor S/S Transfusion Reacti (05/02/20 12:49) Furosemide Injection (Lasix Injection) (05/02/20 13:00) Type And Screen (05/02/20 12:49) Furosemide Injection (Lasix Injection) (05/02/20 13:00) Red Cells Leukocytes Reduced (05/02/20 12:49) Ns Iv 500 Ml (Sodium Chloride 0.9%) (05/02/20 13:00) Patient Visit (05/02/20 ) Exercise Therap, Ea 15 Min (05/02/20 ) Gait Training, Ea 15 Min (05/02/20 ) Functional Activities, Ea 15 (05/02/20 ) Ns Iv 500 Ml (Sodium Chloride 0.9%) (05/02/20 14:31) Ns Iv 500 Ml (Sodium Chloride 0.9%) (05/02/20 19:39) Cbc With Automated Diff (05/03/20 06:00) Comprehensive Metabolic Panel (05/03/20 06:00) Rehab Nursing Orders: Ongoing Assess. of Cognitive Status, Ongoing Assess. of Function Status, Bladder Management, Bladder Scan, Bladder Training, Bowel Management, Bowel Training, Disease Management & Educaiton, DVT Prophylaxis, Fall Prevention, Fluid/Electrolyte/Nutrition Mgmt, Infection Prevention, Medication Management & Education, Management of Risks & Complications, Management of Skin Intergrity, Nutrition Management, Pain Management, Patient/Family Support, Safety Management Intensity of Therapy to be met Patient to be seen: Min.3h per day/5 of 7d PT IPOC Problem List: Activity Tolerance, Functional Strength, Safety, Balance, Gait, Transfer, Bed Mobility Treatment Plan: Continue Plan of Care Bed Mobility, Education, Functional Activity Concepcion, Functional Strength, Group Therapy, Gait, Safety, Therapeutic Exercise, Transfers Treatment Duration: May 16, 2020 Frequency: At least 5 of 7 days/Wk (IRF) Estimated Hrs Per Day: 1.5 hours per day OT IPOC Problems: Decreased Activ Tolerance, Decreased UE Strength, Impaired Bed Mobi lity, Impaired Funct Balance, Impaired I ADL's, Impaired Self-Care Skills, Restricted Funct UE ROM OT Treatment, Training and Edu: Yes Plan of Care: ADL Retraining, Functional Mobility, Group Exercise/Act as Ind, UE Funct Exercise/Act, UE Neuromus Re-Ed/Coord Treatment Duration: May 16, 2020 Frequency: At least 5 of 7 days/Wk (IRF) Estimated Hrs Per Day: 1.[address] IPOC Speech Therapy Treatment Plan: Discontinue ST Treatment Duration: May 02, 2020 Frequency: Modified Program (IRF) Estimated Hrs Per Day: Other Core Blower Operator/Case Mgmt Core Blower Operator/Case Managemen: Discharge Planning Dietitian/Fur Drummer Dietitian/Fur Drummer to monitor nutritional status and make changes and/or recommendations as needed and work with speech pathology on dietary upgrades as the occur. Physician IPOC Medical Issues being managed closely and that require the 24 hour availability of a physician: Recent CVA with right arm fracture and severe anemia from CLL and leukemia treatment will be at high risk for decompensation Brief Synthesis of Preadmission Screen, Post-Admission Evaluation, and Therapy Evaluations: PT OT will focus on regaining function with right arm in sling with CVA deficits at high risk for additional issues from CLL. Medical Prognosis: Good Anticipated Length of Stay: 12 days ANTOINE SALDAÑA DO May 02, 2020 07:22
--- NOTE | 2020-05-02 07:22 | PM&R Progress Note ---
Subjective HPI/CC On Admission Date Seen by Provider: May 02, 2020 Time Seen by Provider: 11:45 Subjective/Events-last exam Hgb 7.1 will need 2 units of blood Creatinine 1.56 Talked to her about overall status and she is doing well otherwise Checked meds and labs Conferred with RN Reviewed therapy notes Review of Systems General: Fatigue, Malaise Neurological: Weakness, Incoordination Objective Exam Vital Signs Vital Signs Date Time Temp Pulse Resp B/P (MAP) Pulse Ox O2 Delivery O2 Flow Rate FiO2 05/03/20 05:18 36.6 54 18 129/61 (83) 96 Room Air Capillary Refill : Less Than 3 SecondsLess Than 3 Seconds General Appearance: No Apparent Distress, WD/WN, Chronically ill, Thin HEENT: PERRL/EOMI, Normal ENT Inspection, Pharynx Normal Neck: Full Range of Motion, Normal Inspection, Non Tender, Supple, Carotid Bruit Respiratory: Chest Non Tender, Lungs Clear, Normal Breath Sounds, No Accessory Muscle Use, No Respiratory Distress Cardiovascular: Regular Rate, Rhythm, No Edema, No Gallop, No JVD, No Murmur, Normal Peripheral Pulses Gastrointestinal: Normal Bowel Sounds, No Organomegaly, No Pulsatile Mass, Non Tender, Soft Back: Normal Inspection, No CVA Tenderness, No Vertebral Tenderness Extremity: Normal Capillary Refill, Normal Inspection, Normal Range of Motion (except left sided weakness 3/5 and right arm in sling and soft cast), Non Tender, No Calf Tenderness, No Pedal Edema Neurologic/Psychiatric: Alert, Oriented x3, No Motor/Sensory Deficits, Normal Mood/Affect, Abnormal Gait, Facial Droop, Motor Weakness Skin: Normal Color, Warm/Dry Lymphatic: No Adenopathy Results/Procedures Lab Laboratory Tests 05/03/20 05:00 Patient resulted labs reviewed. FIM Transfers Therapy Code Descriptions/Definitions Functional [place] Measure: 0=Not Assessed/NA 4=Minimal Assistance 1=Total Assistance 5=Supervision or Setup 2=Maximal Assistance 6=Modified [place] 3=Moderate Assistance 7=Complete IndependenceSCALE: Activities may be completed with or without assistive devices. 0-Ikgakpyvwc-ihzzypk completes the activity by him/herself with no assistance from a helper. 5-Set-up or Clean-up Assistance-helper sets up or cleans up; patient completes activity. [place] assists only prior to or following the activity. 4-Supervision or Touching Assistance-helper provides verbal cues and/or touching/steadying and/or contact guard assistance as patient completes activ ity. Assistance may be provided throughout the activity or intermittently. 3-Partial/Moderate Assistance-helper does LESS THAN HALF the effort. Shelby lifts, holds or supports trunk or limbs, but provides less than half the effort. 2-Substantial/Maximal Assistance-helper does MORE THAN HALF the effort. [place] lifts or holds trunk or limbs and provides more than half the effort. 1-Pkmhevrgt-qcmbjd does ALL the effort. Patient does none of the effort to complete the activity. Or, the assistance of 2 or more helpers is required for the patient to complete the activity. If activity was not attempted, code reason: 7-Patient Refused. 9-Not Applicable-not attempted and the patient did not perform the activity before the current illness, exacerbation or injury. 10-Not Attempted due to Environmental Limitations-(lack of equipment, weather restraints, etc.). 88-Not Attempted due to Medical Conditions or Safety Concerns. Roll Left to Right (QC): 3 Sit to Lying (QC): 3 Sit to Stand (QC): 4 Chair/Dts-rn-Bywkb Xfer(QC): 4 Car Transfer (QC): 3 Gait Training Does the Patient Walk?: Yes Walk 10 feet (QC): 3 Walk 50 ft with 2 Turns(QC): 3 Walk 150 ft (QC): 3 Walking 10ft/uneven surface-QC: 3 Wheelchair Training Does the Pt Use a Wheelchair?: No Wheel 50 ft with 2 turns (QC): 9 Wheel 150 ft (QC): 9 Stair Training 1 Step (curb) (QC): 3 4 Steps (QC): 3 12 Steps (QC): 88 Balance Picking up an Object (QC): 88 ADL-Treatment Eating (QC): 5 (Pt reports requiring set up assistance with breakfast to open containers and cut food, pt states she is then able to use utensils to eat.) Oral Hygiene (QC): 7 Shower/Bathe Self (QC): 7 Upper Body Dressing (QC): 7 Lower Body Dressing (QC): 7 On/Off Footwear (QC): 1 (Pt attempted to bend forward to remove socks but was unsuccessful. Required total assistance doffing/donning gripper socks) Toileting Hygiene (QC): 2 (Pt able to push R side of pants down, required assistance wtih L side. 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
[2020-05-02] MEDS ORDERED: NON-FORMULARY MEDICATION 1 EA EA (Multivitamin 1 EACH) PO SCH (09:00)
[2020-05-02] MEDS ORDERED: NON-FORMULARY MEDICATION 1 EA EA ([Folic Acid] 1 MG) PO SCH (09:00)
--- NOTE | 2020-05-02 09:00 | Physical Therapy Daily Note ---
PT Daily Note-Current Subjective Pt. agrees to Rx. States she feels she is making great progress. Pt. states she doesnt mind going out of the room but she doesnt breathe well in a mask. Pain Numeric Pain Scale: 2 Location: Right Location Body Site: Chest (ribs) Pain Description: Ache Mental Status Patient Orientation: Normal For Age Attachments: Other-See Comments (mask, RUE immoblizer) Transfers SCALE: Activities may be completed with or without assistive devices. 6-Vkggpcoqrz-epjxwbp completes the activity by him/herself with no assistance from a helper. 5-Set-up or Clean-up Assistance-helper sets up or cleans up; patient completes activity. [place] assists only prior to or following the activity. 4-Supervision or Touching Assistance-helper provides verbal cues and/or touching/steadying and/or contact guard assistance as patient completes activity. Assistance may be provided throughout the activity or intermittently. 3-Partial/Moderate Assistance-helper does LESS THAN HALF the effort. [place] lifts, holds or supports trunk or limbs, but provides less than half the effort. 2-Substantial/Maximal Assistance-helper does MORE THAN HALF the effort. [place] lifts or holds trunk or limbs and provides more than half the effort. 7-Zrlrkcjqe-lkiltf does ALL the effort. Patient does none of the effort to complete the activity. Or, the assistance of 2 or more helpers is required for the patient to complete the activity. If activity was not attempted, code reason: 7-Patient Refused. 9-Not Applicable-not attempted and the patient did not perform the activity before the current illness, exacerbation or injury. 10-Not Attempted due to Environmental Limitations-(lack of equipment, weather restraints, etc.). 88-Not Attempted due to Medical Conditions or Safety Concerns. Roll Left & Right (QC): 4 Sit to Lying (QC): 4 Lying to Sitting/Side of Bed(Q: 4 Sit to Stand (QC): 4 Chair/Wbn-ok-Naiwp Xfer(QC): 4 Gait Training Does the Patient Walk?: Yes Walk 10 feet (QC): 4 Walk 50 ft with 2 Turns(QC): 4 Walk 150 ft (QC): 4 Gait Persons Needed: 1 Gait Assistive Device: None SEWER REPAIRER at pts left with no LOB, pt steady throughout. good step length and good LUIS EDUARDO Exercises Seated Therapy Exercises: Ankle pumps, Sit to stand, Long arc quads, Hip flexion, Hip abd/add Seated Reps: 15 Standing: Retro gait, Side steps Standing Reps: 5 NuStep Minutes: 8 NuStep Workload: 4 Assessment Current Status: Good Progress good progress in all phases PT Short Term Goals Short Term Goals Time Frame: May 08, 2020 Sit to lyin Lying to sitting on side of be: 4 Sit to stand: 4 Chair/sff-hj-mtcys transfer: 4 Walk 150 feet: 4 PT Survival Equipment Repairer Goals Survival Equipment Repairer Goals PT Survival Equipment Repairer Goals Time Frame: May 16, 2020 Roll Left & Right (QC): 6 Sit to Lying (QC): 6 Lying-Sitting on Side/Bed(QC): 6 Sit to Stand (QC): 6 Chair/Chd-sc-Msueb Xfer(QC): 6 Toilet Transfer (QC): 6 Car Transfer (QC): 6 Does the Patient Walk: Yes Walk 10 feet (QC): 6 Walk 50ft with 2 Turns (QC): 6 Walk 150 ft (QC): 6 Walking 10ft on Uneven Surface: 6 1 Step (curb) (QC): 6 4 Steps (QC): 6 12 Steps (QC): 6 Picking up an Object (QC): 4 Does the Pt use WC or Scooter?: No Wheel 50 feet with 2 turns (QC: 9 Wheel 150 feet: 9 PT Plan Treatment/Plan Treatment Plan: Continue Plan of Care Treatment Plan: Bed Mobility, Education, Functional Activity Concepcion, Functional Strength, Group Therapy, Gait, Safety, Therapeutic Exercise, Transfers Treatment Duration: May 16, 2020 Frequency: At least 5 of 7 days/Wk (IRF) Estimated Hrs Per Day: 1.5 hours per day Patient and/or Family Agrees t: Yes Safety Risks/Education Patient Education: Gait Training, Transfer Techniques, Correct Positioning, Disease Process, Safety Issues Teaching Recipient: Patient Teaching Methods: Demonstration, Discussion Response to Teaching: Verbalize Understanding, Return Demonstration, Reinforcement Needed Time/GCodes Time In: 800 Time Out: 900 Total Billed Treatment Time: 60 Total Billed Treatment 1,EX30m,GT15m,FA15m SANDRA LEE CVT RN May 02, 2020 09:00
[2020-05-02] MEDS: ASPIRIN E.C. 81 MG (ECOTRIN) TAB PO SCH (09:41)
[2020-05-02] MEDS: FOLIC ACID 1 MG TAB PO SCH (09:41)
[2020-05-02] MEDS: polyethylene glycoL POWDER 17 GM (MIRALAX) PACK PO SCH ×2 (09:42→19:57)
[2020-05-02] MEDS: BISACODYL 10 MG SUPP (DULCOLAX) RC SCH (09:42)
[2020-05-02] MEDS: LEVETIRACETAM 500 MG (KEPPRA) TAB PO SCH ×2 (09:42→19:56)
[2020-05-02] MEDS: CARVEDILOL 12.5 MG (COREG) TABLET PO SCH ×2 (09:42→19:56)
[2020-05-02] MEDS: DOCUSATE SODIUM 100 MG (COLACE) CAP PO SCH ×2 (09:43→19:57)
[2020-05-02] MEDS: SPRYCEL 100 MG PO SCH (09:45)
[2020-05-02] MEDS: ACYCLOVIR 400 MG TABLET (ZOVIRAX) PO SCH ×2 (09:46→19:56)
[2020-05-02] MEDS: SENNA W/DOCUSATE (SENOKOT S) TABLET PO SCH ×2 (09:48→19:57)
[2020-05-02] MEDS: HYDROcodone/APAP 5 MG/325 MG (LORTAB) TAB PO PRN ×2 (10:27→20:54)
[2020-05-02] MEDS: SUCRALFATE 1 GM (CARAFATE) TAB PO SCH ×4 (10:31→19:57)
[2020-05-02] MEDS ORDERED: FUROSEMIDE 20 MG (LASIX) TAB PO NR (11:00)
--- NOTE | 2020-05-02 11:31 | NUR ---
DR. BARNES IN TO SEE PT, CONSULTED BY DR. SALDAÑA. PT HAD STATED THAT SHE THOUGHT THAT SHE NEEDED SOME LASIX. PT STATES THAT SHE USED TO BE ON LASIX, BUT, HER KU DR TOOK HER OFF OF IT. PT STATES THAT HER KU . SAID THAT THE LASIX WAS DEHYDRATING HER AT THAT TIME. DR. BARNES ASKED FOR ROUTINE EKG TO BE DONE, NOT URGENT.
--- NOTE | 2020-05-02 11:58 | ST Cognitive Linguistic Eval ---
Speech Evaluation-General Medical Diagnosis CVA Onset Date: May 01, 2020 Therapy Diagnosis Therapy Diagnosis: Dysarthria, cognitive-communication Referral Referring Physician: Dr. Patterson Medical History Pertinent Medical History: Atrial Fib, CVA, DM, Fractures (R LE; right olecranon prcess), HTN, Renal Insufficiency, TBI Reviewed History: Yes Social History Current Living Status: Spouse Speech PLF-Current Status Prior Level of Function Patient lives in the home with her where she lives an active lifestyle. Subjective Patient was pleasant and cooperative with the evaluation process. Language Eval: Auditory Comprehends Simple Yes/No Ques: Functional Indent/Objects Multiple Green: Functional Ident/Pics in Multiple Green: Functional Follows 1-Step Commands: Functional Follows Complex Directions: Mild Follows General Conversations: Functional Language Eval: Verbal Language Completes Spontaneous Greeting: Functional Produces Auto, Serial Info: Functional Imitates Simple Words/Phrases: Functional Word Finding: Mild Requests Basic Needs: Functional States Basic Personal Info: Functional Expresses Complex Ideas: Mild Objective Cognitive Domain Attention: WNL Memory: WNL Problem Solving: Mild Executive Functions: WNL Visuospatial Skills: WNL Composite Severity Rating: Mild Clock Drawing Severity Rating: Mild Objective Formal/Standardized Tests [facility] Mental Status (UMS), informal speech tasks Results 24/30, Mild Neurocognitive Disorder range of function, speech is 90% intelligible with mild left side facial droop Oral Motor/Speech Production speech is 90% intelligible with mild left side facial droop Impression Patient is a pleasant 74 y/o female who was admitted to the ARU s/p CVA. Patient states she has had five strokes. The patient was given the SLUMS with a score of 25/30 obtained. This score is in the MNCD range of function. The patient's speech is 90% intelligible with mild left side facial droop. The patient will receive skilled services for speech production and improving cognitive function so that she may return home safer. Speech Patient Assess Expression of Ideas/Wants: Exhibits (3) Understanding Verbal Content: Understands (4) Brief Interview-Mental Status: Yes Repetition of Three Words: Three (3) Temporal Orientation: Year: Correct (3) Temporal Orientation: Month: Accurate within 5 days(2) Temporal Orientation: Day: Correct (1) Recall : Wear to say "Sock": Yes, no cue required (2) Recall : Color: Yes, no cue required (2) Recall : Bed: Yes,after cueing (1) Memory/Recall Ability: Current season, Location of own room, That he or she is in a hsp/hsp unit Speech Short Term Goals Short Term Goals Short Term Goals 1) The patient will complete memory tasks related to her daily needs with minimal cues at 90% or greater. 2) The patient will complete safety awareness tasks related to her daily needs with minimal cues at 90% or greater. 3) The patient will complete problem solving tasks related to her daily needs with minimal cues at 90% or greater. 4) The patient will complete OME at 90% or greater with minimal cues. Speech Carbonizer Goals Alf Goals Patient will improve her speech production and cognitive function in order to return home safer. Speech-Plan Patient/Family Goals Patient/Family Goals: The patient plans on returning home where she lives with her . Treatment Plan Speech Therapy Treatment Plan: Continue Plan of Care Frequency: 4 times per week (Patient will receive skilled ST 4-5x per week) Estimated Hrs Per Day: .5 hour per day Rehab Potential: Good Barriers to Learning: Recent new CVA Pt/Family Agrees to Plan: Yes Safety Risks/Education Teaching Recipient: Patient Teaching Methods: Discussion Response to Teaching: Verbalize Understanding Education Topics Provided: Safety in her room, communication of needs/wants Time Speech Therapy Time In: 10:30 Speech Therapy Time Out: 11:00 Total Billed Time: 30 Billed Treatment Time 1, SAM MANE BETHANIA ST May 02, 2020 11:58
--- NOTE | 2020-05-02 12:12 | Occupational Ther Daily Note ---
OT Current Status-Daily Note Subjective Pt was in bed upon arrival. Pt no c/o pain. Pt agreed to therapy. Mental Status/Objective Patient Orientation: Person, Place, Time, Situation Attachments: IV, Other-See Comments (arm cast ) ADL-Treatment Pt ambulated to restroom with hand held assists. Pt stated needing to used restroom. Pt used grab bars to stabilize while hiking pants over hips by self. Pt used grab bars to stabilize while standing, BLACKBURN cleansed buttocks. Pt doff clothing by self. Pt ambulated to shower hand held assists, using grab bars to stabilize while getting into shower. Pt able to perform upper body washing with Min A to clean under L arm. Pt performed lower body washing by self. Pt used grab bars to stabilize while cleansing buttocks, perineal area by self. Pt sat in chair to perform lower body dressing. Pt had Mod A threading feet into underwear, used BLACKBURN to stabilize while hiking underwear over hips by self. Pt had Max A threading socks onto feet. Pt ambulated to sink with hand held assists using sink to stabilize while performing oral care. Pt needed chair to sit in to perform hair brushing, blow drying due to fatigue. Pt ambulated back to room with hand held assist to get into bed. Pt call light/phone in reach. All needs met. Therapy Code Descriptions/Definitions Functional [place] Measure: 0=Not Assessed/NA 4=Minimal Assistance 1=Total Assistance 5=Supervision or Setup 2=Maximal Assistance 6=Modified [place] 3=Moderate Assistance 7=Complete IndependenceSCALE: Activities may be completed with or without assistive devices. 1-Lvisemgipj-eeufuus completes the activity by him/herself with no assistance from a helper. 5-Set-up or Clean-up Assistance-helper sets up or cleans up; patient completes activity. [place] assists only prior to or following the activity. 4-Supervision or Touching Assistance-helper provides verbal cues and/or touching/steadying and/or contact guard assistance as patient completes activity. Assistance may be provided throughout the activity or intermittently. 3-Partial/Moderate Assistance-helper does LESS THAN HALF the effort. Shirley lifts, holds or supports trunk or limbs, but provides less than half the effort. 2-Substantial/Maximal Assistance-helper does MORE THAN HALF the effort. [place] lifts or holds trunk or limbs and provides more than half the effort. 4-Rkvdlvnjw-gdmngb does ALL the effort. Patient does none of the effort to complete the activity. Or, the assistance of 2 or more helpers is required for the patient to complete the activity. If activity was not attempted, code reason: 7-Patient Refused. 9-Not Applicable-not attempted and the patient did not perform the activity before the current illness, exacerbation or injury. 10-Not Attempted due to Environmental Limitations-(lack of equipment, weather restraints, etc.). 88-Not Attempted due to Medical Conditions or Safety Concerns. Oral Hygiene (QC): 6 Bathing Location: R Arm, L Upper Leg, R Upper Leg, L Lower Leg (including foot), R Lower Leg (including foot), Chest, Abdomen, Buttocks, Perineal Area Shower/Bathe Self (QC): 4 Lower Body Dressing (QC): 3 On/Off Footwear: 2 Toileting Hygiene (QC): 3 Toilet Transfer (QC): 4 OT Retirement Goals Wrapper Rewinder Goals Time Frame: May 16, 2020 Eating (QC): 6 Oral Hygiene (QC): 6 Toileting Hygiene (QC): 6 Shower/Bathe Self (QC): 5 Upper Body Dressing (QC): 6 Lower Body Dressing (QC): 6 On/Off Footwear (QC): 6 Additional Goals: 1-Demonstrate ADL Tasks, 2-Verbalize Understanding, 3-Imp roveStrength/Concepcion 1=Demonstrate adherence to instructed precautions during ADL tasks. 2=Patient will verbalize/demonstrate understanding of assistive devices/modifications for ADL. 3=Patient will improve strength/tolerance for activity to enable patient to perform ADL's. OT Education/Plan Problem List/Assessment Assessment: Decreased Activ Tolerance, Decreased UE Strength, Impaired Funct Balance, Impaired Self-Care Skills, Restricted Funct UE ROM Discharge Recommendations Plan/Recommendations: Continue POC Treatment Plan/Plan of Care Patient would benefit from OT for education, treatment and training to promote independence in ADL's, mobility, safety and/or upper extremity function for ADL's. Plan of Care: ADL Retraining, Functional Mobility, Group Exercise/Act as Ind, UE Funct Exercise/Act, UE Neuromus Re-Ed/Coord Treatment Duration: May 16, 2020 Frequency: At least 5 of 7 days/Wk (IRF) Estimated Hrs Per Day: 1.5 hours per day Agreement: Yes Rehab Potential: Good Time/GCodes Start Time: 09:00 Stop Time: 10:30 Total Time Billed (hr/min): 90 Billed Treatment Time 1 visit- ADL 6 (90mins) JACKLYN DE LEON May 02, 2020 12:12
[2020-05-02] MEDS ORDERED: NS IV 500 ML 500 ML IV SCH (13:00)
[2020-05-02] MEDS ORDERED: FUROSEMIDE 40 MG/4 ML INJ (LASIX) IVP NR ×2 (13:00)
--- NOTE | 2020-05-02 13:21 | Physical Therapy Daily Note ---
PT Daily Note-Current Subjective Pt. states she is tired, agrees to ther ex in bed Pain Location: No Pain Reported Transfers SCALE: Activities may be completed with or without assistive devices. 5-Cwqlbeigtb-rdpwccv completes the activity by him/herself with no assistance from a helper. 5-Set-up or Clean-up Assistance-helper sets up or cleans up; patient completes activity. [place] assists only prior to or following the activity. 4-Supervision or Touching Assistance-helper provides verbal cues and/or touching/steadying and/or contact guard assistance as patient completes activity. Assistance may be provided throughout the activity or intermittently. 3-Partial/Moderate Assistance-helper does LESS THAN HALF the effort. [place] lifts, holds or supports trunk or limbs, but provides less than half the effort. 2-Substantial/Maximal Assistance-helper does MORE THAN HALF the effort. [place] lifts or holds trunk or limbs and provides more than half the effort. 3-Cpznujxje-bfvtlx does ALL the effort. Patient does none of the effort to complete the activity. Or, the assistance of 2 or more helpers is required for the patient to complete the activity. If activity was not attempted, code reason: 7-Patient Refused. 9-Not Applicable-not attempted and the patient did not perform the activity before the current illness, exacerbation or injury. 10-Not Attempted due to Environmental Limitations-(lack of equipment, weather restraints, etc.). 88-Not Attempted due to Medical Conditions or Safety Concerns. rolling and pushing up in bed indep Exercises Supine Ex: Bridging, Ankle pumps, Quad Set, Rolling, Glut sets, Heel Slides, Short Arc Quads, Scooting, Straight leg raise, Hip abd/add Supine Reps: 15 Assessment Current Status: Good Progress PT Short Term Goals Short Term Goals Time Frame: May 08, 2020 Sit to lyin Lying to sitting on side of be: 4 Sit to stand: 4 Chair/pri-ax-ccxxo transfer: 4 Walk 150 feet: 4 PT Correction Goals Correction Goals PT Correction Goals Time Frame: May 16, 2020 Roll Left & Right (QC): 6 Sit to Lying (QC): 6 Lying-Sitting on Side/Bed(QC): 6 Sit to Stand (QC): 6 Chair/Loq-zv-Iqyzf Xfer(QC): 6 Toilet Transfer (QC): 6 Car Transfer (QC): 6 Does the Patient Walk: Yes Walk 10 feet (QC): 6 Walk 50ft with 2 Turns (QC): 6 Walk 150 ft (QC): 6 Walking 10ft on Uneven Surface: 6 1 Step (curb) (QC): 6 4 Steps (QC): 6 12 Steps (QC): 6 Picking up an Object (QC): 4 Does the Pt use WC or Scooter?: No Wheel 50 feet with 2 turns (QC: 9 Wheel 150 feet: 9 PT Plan Treatment/Plan Treatment Plan: Continue Plan of Care Treatment Plan: Bed Mobility, Education, Functional Activity Concepcion, Functional Strength, Group Therapy, Gait, Safety, Therapeutic Exercise, Transfers Treatment Duration: May 16, 2020 Frequency: At least 5 of 7 days/Wk (IRF) Estimated Hrs Per Day: 1.5 hours per day Patient and/or Family Agrees t: Yes Safety Risks/Education Patient Education: Correct Positioning Time/GCodes Time In: 1300 Time Out: 1315 Total Billed Treatment Time: 15 Total Billed Treatment 1,EX15m SANDRA LEE RAILROAD BRAKE REPAIRER May 02, 2020 13:21
[2020-05-02] MEDS ORDERED: NS IV 500 ML 500 ML ONE ×2 (14:31→19:39)
--- NOTE | 2020-05-02 15:38 | NUR ---
"RD ASSESSMENT PMHx: hypercholesterolemia; HTN; stroke; chronic diarrhea; leukemia PT INTERACTION: Pt was awake and pleasant during nutrition assessment. Pt states current appetite is pretty good. Note avg PO intake 75% x2meal, per chart review. Pt states following a regular diet at home, and has no issues with chewing/swallowing food. Pt states no recent issues with nausea, vomiting, constipation, or diarrhea. Note last BM was 05/02, and pt currently on bowel regimen of colace BID, senna BID, and miralax BID, per chart review. Pt states no recent wt changes. Note unable to determine recent wt hx, per chart review. ABNORMAL NUTRITION-RELATED LAB VALUES LOW: Ca 8.0; Pro 5.2; HIGH: Cl 114; BUN 34; cr 1.56; Est. kcal needs: 5406-9362 kcal | 20-25 kcal/kg Est. Pro needs: 54-69 g Pro | 0.8-1.0 g Pro/kg PES STATEMENT: Given current appetite and PO intake, no nutrition diagnosis at this time (NO-1.1) INTERVENTION: Continue with current diet order of Regular diet. Will continue to follow and reassess as pt needs, intake, and status change. Boliavr Owens, MS RD LD"
--- NOTE | 2020-05-02 17:27 | NUR ---
CM/SS ADMISSION Patient was admitted to ARU 05/01 from [facility] for CVA, subdural hematoma. Additional comorbidities are, in part, CLL with last chemo 12/2019, fall with closed fracture of right olecranon approx 3 weeks ago. Patient resides at home with her spouse of 56 years, Paul Zavala. Her goal is to return there when able. Records reflect that she was independent of all activities prior to the fall with injury and the later onset of stroke symptoms 04/07/20. PCP: Karl Goldman MD, Donya GRANT. [phone] PHARMACY: [facility] INSURANCE: Medicare and [employer] DME: Patient has a ramp at home, other established and recommended DME to be explored by therapy team. BARRIERS TO DISCHARGE PLANNING: Complex issues challenge level of functioning, right fracture with immobilizer and sling compounded by CVA with residual left sided weakness. Both upper body extremities compromised. CONTACTS: Paul Zavala, spouse Donya, [place] [id number] Will explore other family network. Patient understands the purpose and process of the weekly team conference and that her first review will be Tuesday, May 07, 2020.
[2020-05-02] MEDS: SPIRONOLACTONE 25 MG (ALDACTONE) TAB PO SCH (19:55)
--- NOTE | 2020-05-02 20:12 | Consultation-Cardiology ---
HPI-Cardiology Cardiology Consultation: Date of Consultation 05/02/20 Date of Admission Attending Physician Radha Patterson DO Admitting Physician Karl Goldman MD Consulting Physician Michael VIGIL MD HPI: Time Seen by a Provider: 11:00 Chief Complaint: Atrial fibrillation This is a 74-year-old lady who has been transferred from [facility] for inpatient rehabilitation. She had history of CVA with left-sided weakness. Also has recent subdural hematoma. History of atrial fibrillation not on oral anticoagulation due to subdural hematoma. No other significant cardiac complaints. Denies active smoking. Review of Systems-Cardiology Review of Systems Constitutional: As described under HPI; No As described under HPI, No no symptoms reported, No chills, No fever, No lightheadedness Eyes: No As described under HPI, No no symptoms reported, No blindness, No blurred vision, No contact lenses, No drainage, No decreased acuity, No foreign body sensation, No pain, No vision change Ears/Nose/Throat: No As described under HPI, No no symptoms reported, No chronic hearing loss, No ear discharge, No ear pain, No nasal drainage, No ulcerations Respiratory: No no symptoms reported; As described under HPI; No As described under HPI, No cough, No orthopnea, No shortness of breath, No SOB with excertion Cardiovascular: No no symptoms reported; As described under HPI; No As described under HPI, No chest pain, No edema, No irregular heart rate, No lightheadedness, No palpitations Gastrointestinal: No no symptoms reported, No As described under HPI, No abdomen distended, No abdominal pain, No blood streaked bowels, No constipation, No diarrhea, No nausea, No vomiting, No stool coloration changes Genitourinary: No As described under HPI, No burning, No dysuria, No discharge, No frequency, No flank pain, No hematuria, No urgency : Yes : No Skin: No rash, No skin related problems, No ulcerations Psychiatric/Neurological: No anxiety, No depression, No seizure, No focal weakness, No syncope Hematologic: No bleeding abnormalities All Other Systems Reviewed Negative Unless Noted: Yes LLO-Wncyiu-Nzqpiq Hx Patient Social History Marrital Status: Employed/Student: retired Alcohol Use: Denies Use Recreational Drug Use: No Smoking Status: Never a Smoker Recent Foreign Travel: No Recent Infectious Disease Expo: No Physical Abuse Screen: No Sexual Abuse: No Immunizations Up To Date Date of Influenza Vaccine: Apr 14, 2019 Past Medical History PMH As described under Assessment. Allergies and Home Medications Allergies Coded Allergies: Sulfa (Sulfonamide Antibiotics) (Verified Allergy, Mild, Rash, 05/02/20) NSAIDS (Non-Steroidal Anti-Inflamma (Verified Adverse Reaction, Unknown, 05/02/20) PT STATES THAT SHE WAS TOLD NOT TO TAKE NSAIDS AFTER HAVING GASTRIC BYPASS SURGERY Home Medications Acyclovir 800 Mg Tablet, 800 MG PO BID, (Reported) Atorvastatin Calcium 10 Mg Tablet, 10 MG PO DAILY, (Reported) Bisacodyl 10 Mg Supp.rect, 10 MG RC DAILY, (Reported) Carvedilol 25 Mg Tablet, 25 MG PO BID, (Reported) Citalopram Hydrobromide 20 Mg Tablet, 20 MG PO DAILY, (Reported) Dasatinib 100 Mg Tablet, 100 MG PO DAILY, (Reported) Furosemide 40 Mg Tablet, 40 MG PO DAILY PRN for INCRASED EDEMA/DYSPNEA, (Reported) WEIGHT GAIN >3LBS IN 24 HOURS Hydrocodone/Acetaminophen 1 Each Tablet, 1 EACH PO Q8H PRN for PAIN-MODERATE (5- 7), (Reported) Levetiracetam 500 Mg Tablet, 500 MG PO BID, (Reported) Magnesium Hydroxide 400 Mg/5 Ml Oral.susp, 30 ML PO DAILY PRN for CONSTIPATION- 7TH LINE, (Reported) Multivitamin 1 Each Tablet, 1 EACH PO DAILY, (Reported) Ondansetron HCl 8 Mg Tablet, 8 MG PO Q8H PRN for NAUSEA/VOMITING-1ST LINE, (Reported) Spironolactone 25 Mg Tablet, 12.5 MG PO HS, (Reported) TAKES OF A 25MG Sucralfate 1 Gm Tablet, 1 GM PO QID, (Reported) [Folic Acid] , 1 MG PO DAILY, (Reported) Patient Home Medication List Home Medication List Reviewed: Yes Physical Exam-Cardiology Physical Exam Vital Signs/I&O 05/06/20 05/06/20 05/06/20 05/06/20 06:34 09:36 10:01 16:02 Temp 36.6 37.0 Pulse 71 77 74 Resp 18 16 B/P (MAP) 149/67 (94) 150/70 (96) 156/67 (96) Pulse Ox 96 97 O2 Delivery Room Air Room Air Room Air 05/06/20 00:00 Intake Total 700 ml Balance 700 ml Capillary Refill : Less Than 3 SecondsLess Than 3 Seconds Constitutional: appears stated age, AAO x 3; No apparent distress; well- developed, well-nourished HEENT: PERRL; No discharge; hearing is well preserved, oral hygience is good; No ulceration, No xanthelasmas are seen Neck: No carotid bruit; carotid pulses are 2 + bilaterally Respiratory: chest is bilaterally symmetric, lungs clear to auscultation Cardiovascular: irregularly irregular, S1 and S2 Gastrointestinal: soft, audible bowel sounds; No spleenomegaly Rectal: deferred Extremities: normal range of motion, non-tender, normal inspection; No clubbing, No cyanosis; no lower extremity edema bilateral; No significant edema Neurologic/Psychiatric: alert, normal mood/affect, oriented x 3, power is 5/5 both on sides Skin: normal color; No rash, No ulcerations Data Review Labs Laboratory Tests 05/05/20 18:58: White Blood Count 5.7, Red Blood Count 2.83L, Hemoglobin 9.9L, Hematocrit 31L, Mean Corpuscular Volume 110H, Mean Corpuscular Hemoglobin 35H, Mean Corpuscular Hemoglobin Concent 32, Red Cell Distribution Width 18.5H, Platelet Count 108L, Mean Platelet Volume 11.3, Immature Granulocyte % (Auto) 0, Neutrophils (%) (Au to) 73, Lymphocytes (%) (Auto) 17, Monocytes (%) (Auto) 7, Eosinophils (%) (Auto) 3, Basophils (%) (Auto) 0, Neutrophils # (Auto) 4.1, Lymphocytes # (Auto) 0.9L, Monocytes # (Auto) 0.4, Eosinophils # (Auto) 0.2, Basophils # (Auto) 0.0, Immature Granulocyte # (Auto) 0.0, Sodium Level 138, Potassium Level 4.7, Chloride Level 112H, Carbon Dioxide Level 17L, Anion Gap 9, Blood Urea Nitrogen 46H, Creatinine 1.90H, Estimat Glomerular Filtration Rate 26, BUN/Creatinine Ratio 24, Glucose Level 191H, Lactic Acid Level 0.43L, Calcium Level 8.1L, Corrected Calcium 8.5, Total Bilirubin 0.4, Aspartate Amino Transf (AST/SGOT) 23, Alanine Aminotransferase (ALT/SGPT) 24, Alkaline Phosphatase 98, B-Type Natriuretic Peptide 553.3H, Total Protein 5.7L, Albumin 3.5, Procalcitonin 0.06 05/05/20 20:20: Blood Gas Puncture Site LEFT RADIAL, Blood Gas Patient Temperature 37.2, Arterial Blood pH 7.25*L, Arterial Blood Partial Pressure CO2 42, Arterial Blood Partial Pressure O2 89, Arterial Blood HCO3 18L, Arterial Blood Total CO2 19.1L, Arterial Blood Oxygen Saturation 93L, Arterial Blood Base Excess -8.1L, Tello Test POSITIVE, Blood Gas Ventilator Setting NO, Blood Gas Inspired Oxygen RA 05/06/20 05:45: White Blood Count 4.9, Red Blood Count 2.79L, Hemoglobin 9.6L, Hematocrit 31L, Mean Corpuscular Volume 109H, Mean Corpuscular Hemoglobin 34, Mean Corpuscular Hemoglobin Concent 32, Red Cell Distribution Width 18.1H, Platelet Count 109L, M merlene Platelet Volume 11.3, Immature Granulocyte % (Auto) 0, Neutrophils (%) (Auto) 71, Lymphocytes (%) (Auto) 18, Monocytes (%) (Auto) 8, Eosinophils (%) (Auto) 4, Basophils (%) (Auto) 0, Neutrophils # (Auto) 3.5, Lymphocytes # (Auto) 0.9L, Monocytes # (Auto) 0.4, Eosinophils # (Auto) 0.2, Basophils # (Auto) 0.0, Immature Granulocyte # (Auto) 0.0, Sodium Level 137, Potassium Level 4.2, Chloride Level 111H, Carbon Dioxide Level 18L, Anion Gap 8, Blood Urea Nitrogen 48H, Creatinine 1.90H, Estimat Glomerular Filtration Rate 26, BUN/Creatinine Ratio 25, Glucose Level 94, Lactic Acid Level 0.35L, Calcium Level 8.2L, Cor rected Calcium 8.7, Total Bilirubin 0.5, Aspartate Amino Transf (AST/SGOT) 22, Alanine Aminotransferase (ALT/SGPT) 23, Alkaline Phosphatase 97, Total Protein 5.8L, Albumin 3.4, Procalcitonin 0.06 05/06/20 09:29: ECG Impression ECG Initial ECG Impression: Atrial Fibrillation A/P-Cardiology Assessment/Admission Diagnosis Recent CVA, Persistent atrial fibrillation, Subdural hematoma Plan EKG shows persistent atrial fibrillation. However due to history of recent stroke and subdural hematoma oral anticoagulation is not recommended. Echocardiogram. Thank you for your consultation. Please call me if you have any questions. Gómez Vigil MD, FACP, FACC, FSCAI, FHRS, CCDS Interventional Cardiology Cardiac Electrophysiology Vascular Medicine and Endovascular Interventions Clinical Quality Measures DVT/VTE Risk/Contraindication: Risk Factor Score Per Nursin RFS Level Per Nursing on Admit: 4+=Very High Contraindications-Pharm: Other *list below* Other: recent subarachnoid hemorrhage Michael VIGIL MD May 02, 2020 20:12
[2020-05-03] MEDS: HYDROcodone/APAP 5 MG/325 MG (LORTAB) TAB PO PRN ×3 (05:08→20:56)
[2020-05-03] MEDS: MULTIVIT W/MINERALS TAB (THERAGRAN M) PO SCH (05:08)
[2020-05-03 05:13] LABS: BASOPHILS % (AUTO) 0 % (0-10); EOSINOPHILS # (AUTO) 0.2 10^3/uL (0.0-0.3); EOSINOPHILS % (AUTO) 5 % (0-10); HEMATOCRIT 30 % (35-52); HEMOGLOBIN 9.8 g/dL (11.5-16.0); LYMPHOCYTES # (AUTO) 1.4 10^3/uL (1.0-4.0); LYMPHOCYTES % (AUTO) 35 % (12-44); MEAN CORPUSCULAR HEMOGLOBIN 35 pg (25-34); MEAN CORPUSCULAR HGB CONC 33 g/dL (32-36); MEAN CORPUSCULAR VOLUME 106 fL (80-99); MEAN PLATELET VOLUME 10.1 fL (9.0-12.2); MONOCYTES # (AUTO) 0.4 10^3/uL (0.0-1.0); MONOCYTES % (AUTO) 11 % (0-12); NEUTROPHILS % (AUTO) 50 % (42-75); PLATELET COUNT 127 10^3/uL (130-400); WHITE BLOOD COUNT 4.1 10^3/uL (4.3-11.0)
[2020-05-03 05:18] VITALS: BP 129/61
[2020-05-03 05:42] LABS: ALBUMIN 3.4 GM/DL (3.2-4.5)
[2020-05-03 05:44] LABS: CALCIUM 8.1 MG/DL (8.5-10.1)
[2020-05-03 05:45] LABS: TOTAL PROTEIN 5.5 GM/DL (6.4-8.2)
[2020-05-03 05:47] LABS: BILIRUBIN,TOTAL 0.5 MG/DL (0.1-1.0)
[2020-05-03 05:49] LABS: CREATININE SERUM 1.7 MG/DL (0.60-1.30)
--- NOTE | 2020-05-03 06:26 | PM&R Progress Note ---
Subjective HPI/CC On Admission Date Seen by Provider: May 03, 2020 Time Seen by Provider: 10:15 Subjective/Events-last exam 05/03/20: Hgb 9.8 today after 2 units of blood yesterday She receives a lot of transfusions due to leukemia Coloring is improved now since transfusion BM yesterday Creat 1.7 Hgb 7.1 will need 2 units of blood Creatinine 1.56 Talked to her about overall status and she is doing well otherwise Checked meds and labs Conferred with RN Reviewed therapy notes Review of Systems General: Fatigue, Malaise Musculoskeletal: arm pain Neurological: Weakness, Incoordination Objective Exam Vital Signs Vital Signs Date Time Temp Pulse Resp B/P (MAP) Pulse Ox O2 Delivery O2 Flow Rate FiO2 05/03/20 18:05 36.8 74 18 144/65 (91) 98 Room Air Capillary Refill : Less Than 3 SecondsLess Than 3 Seconds General Appearance: No Apparent Distress, WD/WN, Chronically ill, Thin HEENT: PERRL/EOMI, Normal ENT Inspection, Pharynx Normal Neck: Full Range of Motion, Normal Inspection, Non Tender, Supple, Carotid Bruit Respiratory: Chest Non Tender, Lungs Clear, Normal Breath Sounds, No Accessory Muscle Use, No Respiratory Distress Cardiovascular: Regular Rate, Rhythm, No Edema, No Gallop, No JVD, No Murmur, Normal Peripheral Pulses Gastrointestinal: Normal Bowel Sounds, No Organomegaly, No Pulsatile Mass, Non Tender, Soft Back: Normal Inspection, No CVA Tenderness, No Vertebral Tenderness Extremity: Normal Capillary Refill, Normal Inspection, Normal Range of Motion (except left sided weakness 3/5 and right arm in sling and soft cast), Non Tender, No Calf Tenderness, No Pedal Edema Neurologic/Psychiatric: Alert, Oriented x3, No Motor/Sensory Deficits, Normal Mood/Affect, Abnormal Gait, Facial Droop, Motor Weakness Skin: Normal Color, Warm/Dry Lymphatic: No Adenopathy Results/Procedures Lab Laboratory Tests 05/03/20 05:00 Patient resulted labs reviewed. FIM Transfers Therapy Code Descriptions/Definitions Functional [place] Measure: 0=Not Assessed/NA 4=Minimal Assistance 1=Total Assistance 5=Supervision or Setup 2=Maximal Assistance 6=Modified [place] 3=Moderate Assistance 7=Complete IndependenceSCALE: Activities may be completed with or without assistive devices. 1-Mjdjfzmbnd-dkbemuw completes the activity by him/herself with no assistance from a helper. 5-Set-up or Clean-up Assistance-helper sets up or cleans up; patient completes activity. [place] assists only prior to or following the activity. 4-Supervision or Touching Assistance-helper provides verbal cues and/or touching/steadying and/or contact guard assistance as patient completes activity. Assistance may be provided throughout the activity or intermittently. 3-Partial/Moderate Assistance-helper does LESS THAN HALF the effort. [place] lifts, holds or supports trunk or limbs, but provides less than half the effort. 2-Substantial/Maximal Assistance-helper does MORE THAN HALF the effort. [place] lifts or holds trunk or limbs and provides more than half the effort. 2-Zspnnzzsd-huzqcq does ALL the effort. Patient does none of the effort to complete the activity. Or, the assistance of 2 or more helpers is required for the patient to complete the activity. If activity was not attempted, code reason: 7-Patient Refused. 9-Not Applicable-not attempted and the patient did not perform the activity before the current illness, exacerbation or injury. 10-Not Attempted due to Environmental Limitations-(lack of equipment, weather restraints, etc.). 88-Not Attempted due to Medical Conditions or Safety Concerns. Roll Left to Right (QC): 4 Sit to Lying (QC): 4 Sit to Stand (QC): 4 Chair/Oaf-vt-Ozzmy Xfer(QC): 4 Car Transfer (QC): 3 Gait Training Does the Patient Walk?: Yes Walk 10 feet (QC): 4 Walk 50 ft with 2 Turns(QC): 4 Walk 150 ft (QC): 4 Walking 10ft/uneven surface-QC: 3 Gait Persons Needed: 1 Gait Assistive Device: None Wheelchair Training Does the Pt Use a Wheelchair?: No Wheel 50 ft with 2 turns (QC): 9 Wheel 150 ft (QC): 9 Stair Training 1 Step (curb) (QC): 3 4 Steps (QC): 3 12 Steps (QC): 88 Balance Picking up an Object (QC): 88 ADL-Treatment Eating (QC): 5 (Pt reports requiring set up assistance with breakfast to open containers and cut food, pt states she is then able to use utensils to eat.) Oral Hygiene (QC): 6 Bathing Location: R Arm, L Upper Leg, R Upper Leg, L Lower Leg (including foot), R Lower Leg (including foot), Chest, Abdomen, Buttocks, Perineal Area Shower/Bathe Self (QC): 4 Upper Body Dressing (QC): 7 Lower Body Dressing (QC): 3 On/Off Footwear (QC): 2 Toileting Hygiene (QC): 3 Toilet Transfer (QC): 4 Assessment/Plan Assessment and Plan Assess & Plan/Chief Complaint Assessment: 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 Recent subdural hematoma Falls Right olecranon fracture AF Anemia CLL GERD Plan: IRF protocol Monitor BP Fall risk BM regimen 05/02/20: 2 units of blood Continue therapy Monitor pain 05/03/20: Monitor hgb IRF protocol BM regimen (1) CVA (cerebral vascular accident) (2) CLL (chronic lymphocytic leukemia) (3) Subdural hematoma (4) Closed fracture of right olecranon process (5) Hyperlipemia (6) GERD (gastroesophageal reflux disease) ANTOINE SALDAÑA DO May 03, 2020 06:26
[2020-05-03] MEDS: ASPIRIN E.C. 81 MG (ECOTRIN) TAB PO SCH (09:15)
[2020-05-03] MEDS: SUCRALFATE 1 GM (CARAFATE) TAB PO SCH ×4 (09:15→20:55)
[2020-05-03] MEDS: FOLIC ACID 1 MG TAB PO SCH (09:15)
[2020-05-03] MEDS: ACYCLOVIR 400 MG TABLET (ZOVIRAX) PO SCH ×2 (09:15→20:55)
[2020-05-03] MEDS: BISACODYL 10 MG SUPP (DULCOLAX) RC SCH (09:16)
[2020-05-03] MEDS: LEVETIRACETAM 500 MG (KEPPRA) TAB PO SCH ×2 (09:16→20:55)
[2020-05-03] MEDS: SENNA W/DOCUSATE (SENOKOT S) TABLET PO SCH ×2 (09:16→21:02)
[2020-05-03] MEDS: DOCUSATE SODIUM 100 MG (COLACE) CAP PO SCH ×2 (09:16→21:02)
[2020-05-03] MEDS: CARVEDILOL 12.5 MG (COREG) TABLET PO SCH ×2 (09:16→20:56)
[2020-05-03] MEDS: polyethylene glycoL POWDER 17 GM (MIRALAX) PACK PO SCH ×2 (09:16→21:02)
[2020-05-03] MEDS: SPRYCEL 100 MG PO SCH (09:19)
--- NOTE | 2020-05-03 10:57 | Physical Therapy Daily Note ---
PT Daily Note-Current Subjective Pt up in recliner, agreeable to PT. Pt denies pain at this time. Mental Status Patient Orientation: Person, Place, Situation Transfers SCALE: Activities may be completed with or without assistive devices. 5-Cxyydbqdcq-ztnegwe completes the activity by him/herself with no assistance from a helper. 5-Set-up or Clean-up Assistance-helper sets up or cleans up; patient completes activity. [place] assists only prior to or following the activity. 4-Supervision or Touching Assistance-helper provides verbal cues and/or touching/steadying and/or contact guard assistance as patient completes activity. Assistance may be provided throughout the activity or intermittently. 3-Partial/Moderate Assistance-helper does LESS THAN HALF the effort. [place] lifts, holds or supports trunk or limbs, but provides less than half the effort. 2-Substantial/Maximal Assistance-helper does MORE THAN HALF the effort. [place] lifts or holds trunk or limbs and provides more than half the effort. 7-Zgulhwvea-qftyte does ALL the effort. Patient does none of the effort to complete the activity. Or, the assistance of 2 or more helpers is required for the patient to complete the activity. If activity was not attempted, code reason: 7-Patient Refused. 9-Not Applicable-not attempted and the patient did not perform the activity before the current illness, exacerbation or injury. 10-Not Attempted due to Environmental Limitations-(lack of equipment, weather restraints, etc.). 88-Not Attempted due to Medical Conditions or Safety Concerns. Exercises Seated Therapy Exercises: Ankle pumps, Long arc quads Seated Reps: [address] Ex=Flex, Abd, Ext Standing Reps: 15 Pt performed sit to stand from recliner x 7 reps, fatigued at 7 reps. 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 Assessment Current Status: Good Progress Pt phuong well. Pt would benefit from continued balance training. Somewhat unsteady, no LOB during treatment. PT resting in recliner with (R) UE resting on pillow, call light in reach and all needs met. PT Short Term Goals Short Term Goals Time Frame: May 08, 2020 Sit to lyin Lying to sitting on side of be: 4 Sit to stand: 4 Chair/rqp-lw-svouz transfer: 4 Walk 150 feet: 4 PT Retirement Goals [employer] Goals PT Retirement Goals Time Frame: May 16, 2020 Roll Left & Right (QC): 6 Sit to Lying (QC): 6 Lying-Sitting on Side/Bed(QC): 6 Sit to Stand (QC): 6 Chair/Ptu-pv-Dxokp Xfer(QC): 6 Toilet Transfer (QC): 6 Car Transfer (QC): 6 Does the Patient Walk: Yes Walk 10 feet (QC): 6 Walk 50ft with 2 Turns (QC): 6 Walk 150 ft (QC): 6 Walking 10ft on Uneven Surface: 6 1 Step (curb) (QC): 6 4 Steps (QC): 6 12 Steps (QC): 6 Picking up an Object (QC): 4 Does the Pt use WC or Scooter?: No Wheel 50 feet with 2 turns (QC: 9 Wheel 150 feet: 9 PT Plan Treatment/Plan Treatment Plan: Continue Plan of Care Treatment Plan: Bed Mobility, Education, Functional Activity Concepcion, Functional Strength, Group Therapy, Gait, Safety, Therapeutic Exercise, Transfers Treatment Duration: May 16, 2020 Frequency: At least 5 of 7 days/Wk (IRF) Estimated Hrs Per Day: 1.5 hours per day Patient and/or Family Agrees t: Yes Time/GCodes Time In: 838 Time Out: 852 Total Billed Treatment Time: 14 Total Billed Treatment 1, gait 10', Ex 4' GUILLERMO NICOLE CPTA May 03, 2020 10:57
[2020-05-03 18:05] VITALS: BP 144/65
--- NOTE | 2020-05-03 19:22 | NUR ---
Bedside report received from ALVINA HOFFMAN, assume care of pt
[2020-05-03 20:50] VITALS: BP 148/65
[2020-05-03] MEDS: SPIRONOLACTONE 25 MG (ALDACTONE) TAB PO SCH (20:56)
--- NOTE | 2020-05-03 20:56 | NUR ---
pt refused Colace, Senokot & miralax, states had loose stools today, fsbs 125, c/o rt shoulder pain, level 5/10 on numeric scale, Lortab 5 1 tab given
--- NOTE | 2020-05-03 21:45 | NUR ---
resting quietly in bed, pain level 0/10 on CNPI scale
[2020-05-04 05:09] VITALS: BP 132/71
[2020-05-04] MEDS: MULTIVIT W/MINERALS TAB (THERAGRAN M) PO SCH (06:54)
[2020-05-04] MEDS: ONDANSETRON 4 MG (ZOFRAN) ORAL DISSOLVE TAB PO PRN ×2 (07:50→22:20)
[2020-05-04 10:00] VITALS: BP 145/66
[2020-05-04] MEDS: SUCRALFATE 1 GM (CARAFATE) TAB PO SCH ×4 (10:30→20:28)
[2020-05-04] MEDS: ACYCLOVIR 400 MG TABLET (ZOVIRAX) PO SCH ×2 (10:30→20:22)
[2020-05-04] MEDS: ASPIRIN E.C. 81 MG (ECOTRIN) TAB PO SCH (10:30)
[2020-05-04] MEDS: CARVEDILOL 12.5 MG (COREG) TABLET PO SCH ×2 (10:30→20:23)
[2020-05-04] MEDS: FOLIC ACID 1 MG TAB PO SCH (10:30)
[2020-05-04] MEDS: LEVETIRACETAM 500 MG (KEPPRA) TAB PO SCH ×2 (10:32→20:23)
[2020-05-04] MEDS: DOCUSATE SODIUM 100 MG (COLACE) CAP PO SCH ×2 (10:33→20:28)
[2020-05-04] MEDS: BISACODYL 10 MG SUPP (DULCOLAX) RC SCH (10:33)
[2020-05-04] MEDS: SENNA W/DOCUSATE (SENOKOT S) TABLET PO SCH ×2 (10:33→20:29)
[2020-05-04] MEDS: polyethylene glycoL POWDER 17 GM (MIRALAX) PACK PO SCH ×2 (10:33→20:29)
[2020-05-04] MEDS: SPRYCEL 100 MG PO SCH (10:36)
[2020-05-04] MEDS: HYDROcodone/APAP 5 MG/325 MG (LORTAB) TAB PO PRN ×2 (11:21→20:23)
[2020-05-04 17:05] VITALS: BP 143/64
--- NOTE | 2020-05-04 17:22 | PM&R Progress Note ---
Subjective HPI/CC On Admission Date Seen by Provider: May 04, 2020 Time Seen by Provider: 17:30 Subjective/Events-last exam 05/04/20: Loose stools today Nausea today but has passed Doing OK 05/03/20: Hgb 9.8 today after 2 units of blood yesterday She receives a lot of transfusions due to leukemia Coloring is improved now since transfusion BM yesterday Creat 1.7 Hgb 7.1 will need 2 units of blood Creatinine 1.56 Talked to her about overall status and she is doing well otherwise Checked meds and labs Conferred with RN Reviewed therapy notes Review of Systems General: Fatigue, Malaise Neurological: Weakness, Incoordination Objective Exam Vital Signs Vital Signs Date Time Temp Pulse Resp B/P (MAP) Pulse Ox O2 Delivery O2 Flow Rate FiO2 05/04/20 20:26 95 Room Air 05/04/20 17:05 36.8 65 16 143/64 (90) Capillary Refill : Less Than 3 SecondsLess Than 3 Seconds General Appearance: No Apparent Distress, WD/WN, Chronically ill, Thin HEENT: PERRL/EOMI, Normal ENT Inspection, Pharynx Normal Neck: Full Range of Motion, Normal Inspection, Non Tender, Supple, Carotid Bruit Respiratory: Chest Non Tender, Lungs Clear, Normal Breath Sounds, No Accessory Muscle Use, No Respiratory Distress Cardiovascular: Regular Rate, Rhythm, No Edema, No Gallop, No JVD, No Murmur, Normal Peripheral Pulses Gastrointestinal: Normal Bowel Sounds, No Organomegaly, No Pulsatile Mass, Non Tender, Soft Back: Normal Inspection, No CVA Tenderness, No Vertebral Tenderness Extremity: Normal Capillary Refill, Normal Inspection, Normal Range of Motion (except left sided weakness 3/5 and right arm in sling and soft cast), Non Tender, No Calf Tenderness, No Pedal Edema Neurologic/Psychiatric: Alert, Oriented x3, No Motor/Sensory Deficits, Normal Mood/Affect, Abnormal Gait, Facial Droop, Motor Weakness Skin: Normal Color, Warm/Dry Lymphatic: No Adenopathy Results/Procedures Lab Patient resulted labs reviewed. FIM Transfers Therapy Code Descriptions/Definitions Functional [place] Measure: 0=Not Assessed/NA 4=Minimal Assistance 1=Total Assistance 5=Supervision or Setup 2=Maximal Assistance 6=Modified [place] 3=Moderate Assistance 7=Complete IndependenceSCALE: Activities may be completed with or without assistive devices. 9-Ytrdbksnes-klyuuvr completes the activity by him/herself with no assistance from a helper. 5-Set-up or Clean-up Assistance-helper sets up or cleans up; patient completes activity. [place] assists only prior to or following the activity. 4-Supervision or Touching Assistance-helper provides verbal cues and/or touching/steadying and/or contact guard assistance as patient completes activity. Assistance may be provided throughout the activity or intermittently. 3-Partial/Moderate Assistance-helper does LESS THAN HALF the effort. [place] lifts, holds or supports trunk or limbs, but provides less than half the effort. 2-Substantial/Maximal Assistance-helper does MORE THAN HALF the effort. [place] lifts or holds trunk or limbs and provides more than half the effort. 4-Hhqxbpxky-uxllmv does ALL the effort. Patient does none of the effort to complete the activity. Or, the assistance of 2 or more helpers is required for the patient to complete the activity. If activity was not attempted, code reason: 7-Patient Refused. 9-Not Applicable-not attempted and the patient did not perform the activity before the current illness, exacerbation or injury. 10-Not Attempted due to Environmental Limitations-(lack of equipment, weather restraints, etc.). 88-Not Attempted due to Medical Conditions or Safety Concerns. Roll Left to Right (QC): 4 Sit to Lying (QC): 4 Sit to Stand (QC): 4 Chair/Cio-hl-Asgox Xfer(QC): 4 Car Transfer (QC): 3 Gait Training Does the Patient Walk?: Yes Walk 10 feet (QC): 4 Walk 50 ft with 2 Turns(QC): 4 Walk 150 ft (QC): 4 Walking 10ft/uneven surface-QC: 3 Gait Persons Needed: 1 Gait Assistive Device: None Wheelchair Training Does the Pt Use a Wheelchair?: No Wheel 50 ft with 2 turns (QC): 9 Wheel 150 ft (QC): 9 Stair Training 1 Step (curb) (QC): 3 4 Steps (QC): 3 12 Steps (QC): 88 Balance Picking up an Object (QC): 88 ADL-Treatment Eating (QC): 5 (Pt reports requiring set up assistance with breakfast to open containers and cut food, pt states she is then able to use utensils to eat.) Oral Hygiene (QC): 6 Bathing Location: R Arm, L Upper Leg, R Upper Leg, L Lower Leg (including foot), R Lower Leg (including foot), Chest, Abdomen, Buttocks, Perineal Area Shower/Bathe Self (QC): 4 Upper Body Dressing (QC): 7 Lower Body Dressing (QC): 3 On/Off Footwear (QC): 2 Toileting Hygiene (QC): 3 Toilet Transfer (QC): 4 Assessment/Plan Assessment and Plan Assess & Plan/Chief Complaint Assessment: 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 Recent subdural hematoma [place] Right olecranon fracture AF Anemia CLL GERD Plan: IRF protocol Monitor BP Fall risk BM regimen 05/02/20: 2 units of blood Continue therapy Monitor pain 05/03/20: Monitor hgb IRF protocol BM regimen 05/04/20: Loose stools will be monitored Monitor closely (1) CVA (cerebral vascular accident) (2) CLL (chronic lymphocytic leukemia) (3) Subdural hematoma (4) Closed fracture of right olecranon process (5) Hyperlipemia (6) GERD (gastroesophageal reflux disease) ANTOINE SALDAÑA DO May 04, 2020 17:22
--- NOTE | 2020-05-04 18:13 | NUR ---
0800 PT WAS VERY NAUSEATED AFTER BREAKFAST, PT UP IN CHAIR, HELPED PT TO BED AND GAVE ZOFRAN WHICH WAS SUCCESSFUL. PT STATED THAT SHE DIDN'T WANT TO TAKE MORNING PILLS AT THIS TIME. WAITED AND ADMINISTERED MORNING MEDS LATE. 1730 PT HAD MODERATE AMOUNT OF EMESIS AFTER DINNER. PT DENIED ANY ZOFRAN, STATED THAT AFTER SHE VOMITS SHE FEELS BETTER. PT REFUSED 1700 CARAFATE. PT IS CURRENTLY RESTING IN RECLINER WITH EYES CLOSED
--- NOTE | 2020-05-04 19:13 | NUR ---
Bedside report received from ALVINA HOFFMAN, assume care of pt
[2020-05-04 20:20] VITALS: BP 140/65
[2020-05-04] MEDS: SPIRONOLACTONE 25 MG (ALDACTONE) TAB PO SCH (20:23)
--- NOTE | 2020-05-04 20:23 | NUR ---
pt refused Carafate, Colace, Senokot & miralax, states had loose stools today & N&V today, c/o RT shoulder pain level 7/10 on numeric scale, Lortab 5 1 tab given
--- NOTE | 2020-05-04 21:15 | NUR ---
resting quietly in bed, pain level 0/10 on CNPI SCALE
--- NOTE | 2020-05-04 22:20 | NUR ---
c/o nausea, Zofran 8mg given
[2020-05-05 06:11] LABS: BASOPHILS % (AUTO) 0 % (0-10); EOSINOPHILS # (AUTO) 0.2 10^3/uL (0.0-0.3)
[2020-05-05 06:13] LABS: EOSINOPHILS % (AUTO) 3 % (0-10); HEMATOCRIT 31 % (35-52); HEMOGLOBIN 9.9 g/dL (11.5-16.0); LYMPHOCYTES # (AUTO) 0.9 10^3/uL (1.0-4.0); LYMPHOCYTES % (AUTO) 17 % (12-44); MEAN CORPUSCULAR HEMOGLOBIN 35 pg (25-34); MEAN CORPUSCULAR HGB CONC 32 g/dL (32-36); MEAN CORPUSCULAR VOLUME 109 fL (80-99); MEAN PLATELET VOLUME 10.9 fL (9.0-12.2); MONOCYTES # (AUTO) 0.4 10^3/uL (0.0-1.0); MONOCYTES % (AUTO) 8 % (0-12); NEUTROPHILS # (AUTO) 4.1 10^3/uL (1.8-7.8); NEUTROPHILS % (AUTO) 72 % (42-75); PLATELET COUNT 119 10^3/uL (130-400); WHITE BLOOD COUNT 5.7 10^3/uL (4.3-11.0)
[2020-05-05 06:23] LABS: ALBUMIN 3.4 GM/DL (3.2-4.5); POTASSIUM 4.8 MMOL/L (3.6-5.0)
[2020-05-05 06:24] LABS: CALCIUM 8.3 MG/DL (8.5-10.1)
[2020-05-05 06:26] LABS: TOTAL PROTEIN 5.5 GM/DL (6.4-8.2)
[2020-05-05 06:28] LABS: BILIRUBIN,TOTAL 0.4 MG/DL (0.1-1.0)
[2020-05-05 06:29] LABS: CREATININE SERUM 1.83 MG/DL (0.60-1.30)
[2020-05-05 06:32] VITALS: BP 154/65
[2020-05-05] MEDS: MULTIVIT W/MINERALS TAB (THERAGRAN M) PO SCH (06:54)
[2020-05-05 08:00] VITALS: BP 159/70
[2020-05-05] MEDS: ASPIRIN E.C. 81 MG (ECOTRIN) TAB PO SCH (08:07)
[2020-05-05] MEDS: FOLIC ACID 1 MG TAB PO SCH (08:07)
[2020-05-05] MEDS: SUCRALFATE 1 GM (CARAFATE) TAB PO SCH ×4 (08:07→21:10)
[2020-05-05] MEDS: LEVETIRACETAM 500 MG (KEPPRA) TAB PO SCH ×2 (08:08→21:11)
[2020-05-05] MEDS: CARVEDILOL 12.5 MG (COREG) TABLET PO SCH ×2 (08:08→21:10)
[2020-05-05] MEDS: ACYCLOVIR 400 MG TABLET (ZOVIRAX) PO SCH ×2 (08:08→21:10)
[2020-05-05] MEDS: SPRYCEL 100 MG PO SCH (08:09)
[2020-05-05] MEDS: SENNA W/DOCUSATE (SENOKOT S) TABLET PO SCH ×2 (08:17→21:10)
[2020-05-05] MEDS: DOCUSATE SODIUM 100 MG (COLACE) CAP PO SCH ×2 (08:17→21:10)
[2020-05-05] MEDS: polyethylene glycoL POWDER 17 GM (MIRALAX) PACK PO SCH ×2 (08:17→21:10)
[2020-05-05] MEDS: BISACODYL 10 MG SUPP (DULCOLAX) RC SCH (08:18)
--- NOTE | 2020-05-05 08:51 | Physical Therapy Daily Note ---
PT Daily Note-Current Subjective Pt. states she feels she is improving but is so cold ad has a headache when she begins to move around Pain Numeric Pain Scale: 5-Moderate Pain Location: Medial Location Body Site: Head Pain Description: Ache Mental Status Patient Orientation: Normal For Age Transfers SCALE: Activities may be completed with or without assistive devices. 5-Arhseaahtg-xnpcusy completes the activity by him/herself with no assistance from a helper. 5-Set-up or Clean-up Assistance-helper sets up or cleans up; patient completes a ctivity. [place] assists only prior to or following the activity. 4-Supervision or Touching Assistance-helper provides verbal cues and/or touching/steadying and/or contact guard assistance as patient completes activity. Assistance may be provided throughout the activity or intermittently. 3-Partial/Moderate Assistance-helper does LESS THAN HALF the effort. [place] lifts, holds or supports trunk or limbs, but provides less than half the effort. 2-Substantial/Maximal Assistance-helper does MORE THAN HALF the effort. [place] lifts or holds trunk or limbs and provides more than half the effort. 5-Hnwtmyyev-ejboch does ALL the effort. Patient does none of the effort to complete the activity. Or, the assistance of 2 or more helpers is required for the patient to complete the activity. If activity was not attempted, code reason: 7-Patient Refused. 9-Not Applicable-not attempted and the patient did not perform the activity before the current illness, exacerbation or injury. 10-Not Attempted due to Environmental Limitations-(lack of equipment, weather restraints, etc.). 88-Not Attempted due to Medical Conditions or Safety Concerns. Roll Left & Right (QC): 6 Sit to Lying (QC): 6 (with much effort) Lying to Sitting/Side of Bed(Q: 6 (using rail) Sit to Stand (QC): 6 Chair/Ylr-fd-Ojyto Xfer(QC): 6 Car Transfer (QC): 4 Gait Training Does the Patient Walk?: Yes Walk 10 feet (QC): 4 Walk 50 ft with 2 Turns(QC): 4 Walk 150 ft (QC): 4 Gait Persons Needed: 1 Gait Assistive Device: Handheld Assist (L) slow, no LOB, equal step length Exercises Supine Ex: Rolling, Heel Slides Supine Reps: 5 Seated Therapy Exercises: Ankle pumps, Sit to stand, Long arc quads, Hip flexion, Hip abd/add Seated Reps: 15 NuStep Minutes: 11 NuStep Workload: 2 Assessment Current Status: Good Progress PT Short Term Goals Short Term Goals Time Frame: May 08, 2020 Sit to lyin Lying to sitting on side of be: 4 Sit to stand: 4 Chair/ljp-lk-rztha transfer: 4 Walk 150 feet: 4 PT Fdc Goals Fdc Goals PT Telesales Representative Goals Time Frame: May 16, 2020 Roll Left & Right (QC): 6 Sit to Lying (QC): 6 Lying-Sitting on Side/Bed(QC): 6 Sit to Stand (QC): 6 Chair/Wzs-gh-Degom Xfer(QC): 6 Toilet Transfer (QC): 6 Car Transfer (QC): 6 Does the Patient Walk: Yes Walk 10 feet (QC): 6 Walk 50ft with 2 Turns (QC): 6 Walk 150 ft (QC): 6 Walking 10ft on Uneven Surface: 6 1 Step (curb) (QC): 6 4 Steps (QC): 6 12 Steps (QC): 6 Picking up an Object (QC): 4 Does the Pt use WC or Scooter?: No Wheel 50 feet with 2 turns (QC: 9 Wheel 150 feet: 9 PT Plan Treatment/Plan Treatment Plan: Continue Plan of Care Treatment Plan: Bed Mobility, Education, Functional Activity Concepcion, Functional Strength, Group Therapy, Gait, Safety, Therapeutic Exercise, Transfers Treatment Duration: May 16, 2020 Frequency: At least 5 of 7 days/Wk (IRF) Estimated Hrs Per Day: 1.5 hours per day Patient and/or Family Agrees t: Yes Safety Risks/Education Patient Education: Gait Training, Transfer Techniques, Correct Positioning, Disease Process, Safety Issues Teaching Recipient: Patient, Primary Caregiver Teaching Methods: Discussion Response to Teaching: Verbalize Understanding, Return Demonstration, Reinforcement Needed Time/GCodes Time In: 800 Time Out: 900 Total Billed Treatment Time: 60 Total Billed Treatment 1,FA15m,GT15n,EX30m SANDRA LEE SALES ACCOUNT SPECIALIST May 05, 2020 08:51
--- NOTE | 2020-05-05 09:01 | PM&R Progress Note ---
Subjective HPI/CC On Admission Date Seen by Provider: May 05, 2020 Time Seen by Provider: 09:00 Subjective/Events-last exam 05/05/20: Bowels moved yesterday Nausea and emesis continue Labs stable, Hgb 9.9 Hemoccult positive stools so Dr. Rosas has been consulted BUN elevated suspicious for blood in the gut 05/04/20: Loose stools today Nausea today but has passed Doing OK 05/03/20: Hgb 9.8 today after 2 units of blood yesterday She receives a lot of transfusions due to leukemia Coloring is improved now since transfusion BM yesterday Creat 1.7 Hgb 7.1 will need 2 units of blood Creatinine 1.56 Talked to her about overall status and she is doing well otherwise Checked meds and labs Conferred with RN Reviewed therapy notes Review of Systems General: Fatigue, Malaise Focused Exam Lactate Level 05/05/20 18:58: Lactic Acid Level 0.43L 05/06/20 05:45: Lactic Acid Level Laboratory Tests Test 05/06/20 05:45 Objective Exam Vital Signs Vital Signs Date Time Temp Pulse Resp B/P (MAP) Pulse Ox O2 Delivery O2 Flow Rate FiO2 05/05/20 20:40 95 Room Air 05/05/20 16:30 76 18 122/63 (82) 05/05/20 16:19 36.8 Capillary Refill : Less Than 3 SecondsLess Than 3 Seconds General Appearance: No Apparent Distress, WD/WN, Chronically ill, Thin HEENT: PERRL/EOMI, Normal ENT Inspection, Pharynx Normal Neck: Full Range of Motion, Normal Inspection, Non Tender, Supple, Carotid Bruit Respiratory: Chest Non Tender, Lungs Clear, Normal Breath Sounds, No Accessory Muscle Use, No Respiratory Distress Cardiovascular: Regular Rate, Rhythm, No Edema, No Gallop, No JVD, No Murmur, Normal Peripheral Pulses Gastrointestinal: Normal Bowel Sounds, No Organomegaly, No Pulsatile Mass, Non Tender, Soft Back: Normal Inspection, No CVA Tenderness, No Vertebral Tenderness Extremity: Normal Capillary Refill, Normal Inspection, Normal Range of Motion (except left sided weakness 3/5 and right arm in sling and soft cast), Non Tender, No Calf Tenderness, No Pedal Edema Neurologic/Psychiatric: Alert, Oriented x3, No Motor/Sensory Deficits, Normal Mood/Affect, Abnormal Gait, Facial Droop, Motor Weakness Skin: Normal Color, Warm/Dry Lymphatic: No Adenopathy Results/Procedures Lab Laboratory Tests 05/05/20 05:55 05/05/20 18:58 Patient resulted labs reviewed. FIM Transfers Therapy Code Descriptions/Definitions Functional [place] Measure: 0=Not Assessed/NA 4=Minimal Assistance 1=Total Assistance 5=Supervision or Setup 2=Maximal Assistance 6=Modified [place] 3=Moderate Assistance 7=Complete IndependenceSCALE: Activities may be completed with or without assistive devices. 4-Gsrosdcgya-wdjolhq completes the activity by him/herself with no assistance from a helper. 5-Set-up or Clean-up Assistance-helper sets up or cleans up; patient completes activity. [place] assists only prior to or following the activity. 4-Supervision or Touching Assistance-helper provides verbal cues and/or touching/steadying and/or contact guard assistance as patient completes activity. Assistance may be provided throughout the activity or intermittently. 3-Partial/Moderate Assistance-helper does LESS THAN HALF the effort. [place] lifts, holds or supports trunk or limbs, but provides less than half the effort. 2-Substantial/Maximal Assistance-helper does MORE THAN HALF the effort. [place] lifts or holds trunk or limbs and provides more than half the effort. 3-Qbiriwhkb-wuwoxn does ALL the effort. Patient does none of the effort to complete the activity. Or, the assistance of 2 or more helpers is required for t he patient to complete the activity. If activity was not attempted, code reason: 7-Patient Refused. 9-Not Applicable-not attempted and the patient did not perform the activity before the current illness, exacerbation or injury. 10-Not Attempted due to Environmental Limitations-(lack of equipment, weather restraints, etc.). 88-Not Attempted due to Medical Conditions or Safety Concerns. Roll Left to Right (QC): 6 Sit to Lying (QC): 6 (with much effort) Sit to Stand (QC): 6 Chair/Iwm-wb-Xnbnj Xfer(QC): 6 Car Transfer (QC): 4 Gait Training Does the Patient Walk?: Yes Walk 10 feet (QC): 4 Walk 50 ft with 2 Turns(QC): 4 Walk 150 ft (QC): 4 Walking 10ft/uneven surface-QC: 3 Gait Persons Needed: 1 Gait Assistive Device: Handheld Assist (L) Wheelchair Training Does the Pt Use a Wheelchair?: No Wheel 50 ft with 2 turns (QC): 9 Wheel 150 ft (QC): 9 Stair Training 1 Step (curb) (QC): 3 4 Steps (QC): 3 12 Steps (QC): 88 Balance Picking up an Object (QC): 88 ADL-Treatment Eating (QC): 5 (Pt reports requiring set up assistance with breakfast to open containers and cut food, pt states she is then able to use utensils to eat.) Oral Hygiene (QC): 6 Bathing Location: R Arm, L Upper Leg, R Upper Leg, L Lower Leg (including foot), R Lower Leg (including foot), Chest, Abdomen, Buttocks, Perineal Area Shower/Bathe Self (QC): 4 Upper Body Dressing (QC): 7 Lower Body Dressing (QC): 3 On/Off Footwear (QC): 2 Toileting Hygiene (QC): 3 Toilet Transfer (QC): 4 Assessment/Plan Assessment and Plan Assess & Plan/Chief Complaint Assessment: 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
[2020-05-05] MEDS: HYDROcodone/APAP 5 MG/325 MG (LORTAB) TAB PO PRN ×2 (09:02→21:10)
[2020-05-05] MEDS: NS IV 1000 ML 1,000 ML IV SCH ×2 (10:12→22:00)
--- NOTE | 2020-05-05 10:45 | Occupational Ther Daily Note ---
OT Current Status-Daily Note Subjective Pt alert, sitting in recliner. Pt stated that she was very tired. Pt also has slower reactions verbal and physical. Reported to nrsg pt's change, BP taken 105/65 and pulse 74. Pt agrees to therapy. Mental Status/Objective Patient Orientation: Person, Place, Time, Situation Attachments: IV (midline) ADL-Treatment Pt agrees to sponge bath, declines shower. Supine <--> EOB, independent using bed rail. Pt ambulates from recliner to closet with hand hold assist. Pt gathered clothing with SBA. Pt transported clothing to bathroom with hand hold assist. Pt stated that she needed to use toilet. Transferred to toilet with supervision. Manipulated clothing with min A and cleansed self. Pt began sponge bath then requested to use toilet again. Supervision for transfer and cleansing. Pt able to complete bathing sitting at the sink for most areas, standing at sink to complete buttocks and jairo area by self after set up. Min A for upper body dressing and mod A for lower body dressing. Mod A for footwear, assist given to felice portillo. After therapy, pt lying in bed with call light/phone in reach. All needs met in room. Therapy Code Descriptions/Definitions Functional [place] Measure: 0=Not Assessed/NA 4=Minimal Assistance 1=Total Assistance 5=Supervision or Setup 2=Maximal Assistance 6=Modified [place] 3=Moderate Assistance 7=Complete IndependenceSCALE: Activities may be completed with or without assistive devices. 7-Fzraeozwvp-rghupjy completes the activity by him/herself with no assistance from a helper. 5-Set-up or Clean-up Assistance-helper sets up or cleans up; patient completes activity. [place] assists only prior to or following the activity. 4-Supervision or Touching Assistance-helper provides verbal cues and/or touching/steadying and/or contact guard assistance as patient completes activity. Assistance may be provided throughout the activity or intermittently. 3-Partial/Moderate Assistance-helper does LESS THAN HALF the effort. [place] lifts, holds or supports trunk or limbs, but provides less than half the effort. 2-Substantial/Maximal Assistance-helper does MORE THAN HALF the effort. [place] lifts or holds trunk or limbs and provides more than half the effort. 5-Zwtzciabw-cfgpcf does ALL the effort. Patient does none of the effort to co mplete the activity. Or, the assistance of 2 or more helpers is required for the patient to complete the activity. If activity was not attempted, code reason: 7-Patient Refused. 9-Not Applicable-not attempted and the patient did not perform the activity before the current illness, exacerbation or injury. 10-Not Attempted due to Environmental Limitations-(lack of equipment, weather restraints, etc.). 88-Not Attempted due to Medical Conditions or Safety Concerns. Oral Hygiene (QC): 6 Shower/Bathe Self (QC): 4 Upper Body Dressing (QC): 3 Lower Body Dressing (QC): 3 On/Off Footwear: 3 Toileting Hygiene (QC): 3 Toilet Transfer (QC): 4 OT Skilled Nursing Goals Line Up Worker Goals Time Frame: May 16, 2020 Eating (QC): 6 Oral Hygiene (QC): 6 Toileting Hygiene (QC): 6 Shower/Bathe Self (QC): 5 Upper Body Dressing (QC): 6 Lower Body Dressing (QC): 6 On/Off Footwear (QC): 6 Additional Goals: 1-Demonstrate ADL Tasks, 2-Verbalize Understanding, 3- ImproveStrength/Concepcion 1=Demonstrate adherence to instructed precautions during ADL tasks. 2=Patient will verbalize/demonstrate understanding of assistive devices/modifications for ADL. 3=Patient will improve strength/tolerance for activity to enable patient to perform ADL's. OT Education/Plan Problem List/Assessment Assessment: Decreased Activ Tolerance, Decreased UE Strength, Impaired Self- Care Skills, Restricted Funct UE ROM (R UE in cast) Discharge Recommendations Plan/Recommendations: Continue POC Treatment Plan/Plan of Care Patient would benefit from OT for education, treatment and training to promote independence in ADL's, mobility, safety and/or upper extremity function for ADL's. Plan of Care: ADL Retraining, Functional Mobility, Group Exercise/Act as Ind, UE Funct Exercise/Act, UE Neuromus Re-Ed/Coord Treatment Duration: May 16, 2020 Frequency: At least 5 of 7 days/Wk (IRF) Estimated Hrs Per Day: 1.5 hours per day Agreement: Yes Rehab Potential: Good Time/GCodes Start Time: 09:30 Stop Time: 10:45 Total Time Billed (hr/min): 75 Billed Treatment Time 1 visit-ADL 5 (75 min) JACKLYN DE LEON May 05, 2020 10:45
--- NOTE | 2020-05-05 11:38 | Progress Note ---
EMIL JONES MED STUDENT 05/05/20 1138: Progress Note This is a patient with a history of strokes. She suffered a fall a couple of weeks ago where she suffered a R olecranon fracture and a subdural hematoma. Because of this, she was not a candidate for TPA. Later she had a sudden onset of L side weakness and facial droop and presented to the ER. She was then admitted to the rehab unit to work on regaining function. She states that she believes that she is making improvements with her therapy. She is currently working to overcome the R sided arm fracture combined with the L sided weakness. She continues to make improvements with PT and OT. She has had slight increases in BUN and CREATINE and is being monitored. Supervisory-Addendum Brief Verification & Attestation Participated in pt care: history, physical Personally performed: exam, history Care discussed with: other Procedures: n/a RADHA SALDAÑA DO 05/06/20 0512: Supervisory-Addendum Brief Verification & Attestation Participated in pt care: history, MDM, physical Personally performed: exam, history, MDM, supervision of care Care discussed with: Medical Student Procedures: n/a Results interpretation: Verified all documentation Verification and Attestation of Medical Student E/M Service A medical student performed and documented this service in my presence. I reviewed and verified all information documented by the medical student and made modifications to such information, when appropriate. I personally performed the physical exam and medical decision making. Radha Saldaña, May 06, 2020,05:12 EMIL JONES MED STUDENT May 05, 2020 11:38 RADHA SALDAÑA DO May 06, 2020 05:12
--- NOTE | 2020-05-05 11:47 | Consultation - Surgery ---
SMILEY CHO MED STUDENT 05/05/20 1147: History of Present Illness History of Present Illness Patient Consulted On(chao/time) 05/05/20 11:35 Date Seen by Provider: May 05, 2020 Time Seen by Provider: 11:25 History of Present Illness surgery consult for occult GI bleed 74 y/o F in rehab for fall and stroke causing L sided weakness. Pt was transfered from [facility]. She fell backward on concrete 3 wks ago. Pt was on eloquist before fall and had hematoma, broke some ribs, and fractured her R olecranon. Pt had stroke 1 wk ago and had L sided weakness.Pt had diarrhea yesterday and nurses obtained a stool sample. Pt denies seeing blood and the sample showed occult blood. Pt denies abdominal pain but had some abdominal pain yesterday across her lower quadrants. Pt vomited yesterday but denies blood. Pt had flatulence today and denies pain or difficulty with BM. Pt had previous GILLETTE that has been managed, but denies other sx. Pt denies previous occurrences. Pt states she thinks she's had a colonoscopy w/in the last 10 yrs w/o findings but denies having EGD. HPI per [facility] summary 04/28/20-05/01/20: History is obtained from the patient. Patient was in the emergency with complaints of left-sided weakness started around 8 AM today morning. Patient was speaking to her daughter the morning and suddenly started having left facial droop, right-sided gaze. Weakness of left upper extremity or lower extremities. Inspection was brought to the emergency room. Patient was presented emergency room at around 9:55 AM. Patient is a known case of chronic lymphoid leukemia, history of DVT [several years back] was on anticoagulation which was discontinued last month. Patient has a traumatic subdural hematoma and was discharged to rehab after rehab she was discharged home 2 days back. Patient also has a right upper fracture which has been managed conservatively. Patient Is have weakness of the left side of the body and reports that this slightly getting better the time of admission. Denies any dizziness seizure. Delivery was involved. CT head was normal. However CT perfusion study shows small stroke.As patient is intact hematoma in the last 1 month patient is not a candidate for thrombolytic agent I am not a candidate for endovascular intervention. However patient was advised to admit to the intensive care unit for further management continues neurological status for the next 24 hours. Patient transferred to general medical floor the morning of 04/29. Dr. Gonzalez determined the patient did not need critical care coverage at this time. Neurology has been consulted and recommends MRI brain for further delineation of stroke, ultrasound carotids, echocardiogram with bubble study to rule out intracardiac thrombus, continue aspirin 81 mg and Lipitor 40 mg for secondary stroke prevention. Allergies and Home Medications Allergies Coded Allergies: Sulfa (Sulfonamide Antibiotics) (Verified Allergy, Mild, Rash, 05/02/20) NSAIDS (Non-Steroidal Anti-Inflamma (Verified Adverse Reaction, Unknown, 05/02/20) PT STATES THAT SHE WAS TOLD NOT TO TAKE NSAIDS AFTER HAVING GASTRIC BYPASS SURGERY Home Medications Acyclovir 800 Mg Tablet, 800 MG PO BID, (Reported) Aspirin 81 Mg Tablet.dr, 81 MG PO DAILY, (Reported) Atorvastatin Calcium 40 Mg Tablet, 40 MG PO DAILY, (Reported) Bisacodyl 10 Mg Supp.rect, 10 MG RC DAILY, (Reported) Carvedilol 25 Mg Tablet, 25 MG PO BID, (Reported) Citalopram Hydrobromide 20 Mg Tablet, 20 MG PO DAILY, (Reported) Dasatinib 100 Mg Tablet, 100 MG PO DAILY, (Reported) Furosemide 40 Mg Tablet, 40 MG PO DAILY PRN for INCRASED EDEMA/DYSPNEA, (Reported) WEIGHT GAIN >3LBS IN 24 HOURS Hydrocodone/Acetaminophen 1 Each Tablet, 1 EACH PO Q8H PRN for PAIN-MODERATE (5- 7), (Reported) Levetiracetam 500 Mg Tablet, 500 MG PO BID, (Reported) Magnesium Hydroxide 400 Mg/5 Ml Oral.susp, 30 ML PO DAILY PRN for CONSTIPATION- 7TH LINE, (Reported) Multivitamin 1 Each Tablet, 1 EACH PO DAILY, (Reported) Ondansetron HCl 8 Mg Tablet, 8 MG PO Q8H PRN for NAUSEA/VOMITING-1ST LINE, (Reported) Pentamidine Isethionate 300 Mg Vial.neb, 300 MG IH MONTHLY, (Reported) Spironolactone 25 Mg Tablet, 25 MG PO HS, (Reported) Sucralfate 1 Gm Tablet, 1 GM PO QID, (Reported) [Folic Acid] , 1 MG PO DAILY, (Reported) Past Frfukia-Prrwew-Rtetsq Hx Patient Social History Alcohol Use: Denies Use Recreational Drug Use: No Smoking Status: Never a Smoker Recent Foreign Travel: No Contact w/Someone Who Travel: No Recent Infectious Disease Expo: No Recent Hopitalizations: Yes ([facility]) Physical Abuse Screen: No Sexual Abuse: No Immunizations Up To Date Date of Influenza Vaccine: Apr 14, 2019 Seasonal Allergies Seasonal Allergies: No Surgeries History of Surgeries: Yes (GASTRIC BYPASS, CATARACT) Surgeries: Appendectomy, Bowel Surgery (gastric bypass), Eye Surgery (cataracts) Respiratory History of Respiratory Disorde: Yes Respiratory Disorders: Pneumonia Cardiovascular Cardiac Disorders: High Cholesterol, Hypertension Neurological History of Neurological Disord: Yes (SUBDURAL HEMATOMA) Neurological Disorders: Stroke Gastrointestinal Gastrointestinal Disorders: Chronic Diarrhea Musculoskeletal History of Musculoskeletal Dis: Yes Musculoskeletal Disorders: Arthritis Endocrine History of Endocrine Disorders: Yes HEENT History of HEENT Disorders: Yes (CATARACTS REMOVED. ) HEENT Disorders: Cataract Cancer History of Cancer: Yes (ALL) Cancer: Leukemia Psychosocial History of Psychiatric Problem: Yes Behavioral Health Disorders: Anxiety Integumentary History of Skin or Integumenta: No Blood Transfusions History of Blood Disorders: Yes (LEUKEMIA) Family Medical History Significant Family History: Heart Disease (Dad ( of heart attack >50 y/o)), Cancer (mom - GI cancer) Review of Systems-General Constitutional: No fever EENTM: No hearing loss, No ear pain, No blurred vision, No eye pain, No vision loss Respiratory: No cough Cardiovascular: No chest pain Gastrointestinal: No abdominal pain Musculoskeletal: muscle weakness (L arm and L side of face) Skin: no symptoms reported Psychiatric/Neurological: Headache Physical Exam-General Problems Physical Exam Vital Signs Vital Signs - First Documented 05/01/20 14:34 Temp 36.8 Pulse 81 Resp 18 B/P (MAP) 147/66 Pulse Ox 98 O2 Delivery Room Air Capillary Refill : Less Than 3 SecondsLess Than 3 Seconds General Appearance: WD/WN, no apparent distress HEENT: PERRL/EOMI, other (facial droop on L) Respiratory: lungs clear, normal breath sounds, no respiratory distress, no accessory muscle use Cardiovascular: other (murmur) Gastrointestinal: non tender, soft Extremities: normal capillary refill, other (calf edema, weakness in L arm. no weakness in L leg.) Neurologic/Psychiatric: alert, normal mood/affect, oriented x 3 Skin: normal color, warm/dry Data Review Labs Laboratory Tests 05/04/20 11:40: Glucometer 103 05/04/20 16:18: Glucometer 103 05/05/20 05:55: White Blood Count 5.7, Red Blood Count 2.87L, Hemoglobin 9.9L, Hematocrit 31L, Mean Corpuscular Volume 109H, Mean Corpuscular Hemoglobin 35H, Mean Corpuscular Hemoglobin Concent 32, Red Cell Distribution Width 18.5H, Platelet Count 119L, Mean Platelet Volume 10.9, Immature Granulocyte % (Auto) 0, Neutrophils (%) (Auto) 72, Lymphocytes (%) (Auto) 17, Monocytes (%) (Auto) 8, Eosinophils (%) (Auto) 3, Basophils (%) (Auto) 0, Neutrophils # (Auto) 4.1, Lymphocytes # (Auto) 0.9L, Monocytes # (Auto) 0.4, Eosinophils # (Auto) 0.2, Basophils # (Auto) 0.0, Immature Granulocyte # (Auto) 0.0, Sodium Level 140, Potassium Level 4.8, Chloride Level 113H, Carbon Dioxide Level 17L, Anion Gap 10, Blood Urea Nitrogen 46H, Creatinine 1.83H, Estimat Glomerular Filtration Rate 27, BUN/Creatinine Ratio 25, Glucose Level 94, Calcium Level 8.3L, Corrected Calcium 8.8, Total Bilirubin 0.4, Aspartate Amino Transf (AST/SGOT) 21, Alanine Aminotransferase (ALT/SGPT) 21, Alkaline Phosphatase 104, Total Protein 5.5L, Albumin 3.4 05/05/20 10:00: Stool Occult Blood Immunoassay POSITIVEH Assessment/Plan Assessment/Plan Assessment/Plan hemoccult blood - no food/drink after midnight. EGD tomorrow. Clinical Quality Measures DVT/VTE Risk/Contraindication: Risk Factor Score Per Nursin RFS Level Per Nursing on Admit: 4+=Very High Contraindications-Pharm: Other *list below* Other: recent subarachnoid hemorrhage MASSIMO WATSON DO 05/05/20 1217: History of Present Illness History of Present Illness Time Seen by Provider: 11:52 History of Present Illness When I saw pt she denied any complaints, has not noticed any melena or hematochezia. She states her Hg is always low, "I run in the 8's". Allergies and Home Medications Allergies Coded Allergies: Sulfa (Sulfonamide Antibiotics) (Verified Allergy, Mild, Rash, 05/02/20) NSAIDS (Non-Steroidal Anti-Inflamma (Verified Adverse Reaction, Unknown, 05/02/20) PT STATES THAT SHE WAS TOLD NOT TO TAKE NSAIDS AFTER HAVING GASTRIC BYPASS SURGERY Home Medications Acyclovir 800 Mg Tablet, 800 MG PO BID, (Reported) Aspirin 81 Mg Tablet.dr, 81 MG PO DAILY, (Reported) Atorvastatin Calcium 40 Mg Tablet, 40 MG PO DAILY, (Reported) Bisacodyl 10 Mg Supp.rect, 10 MG RC DAILY, (Reported) Carvedilol 25 Mg Tablet, 25 MG PO BID, (Reported) Citalopram Hydrobromide 20 Mg Tablet, 20 MG PO DAILY, (Reported) Dasatinib 100 Mg Tablet, 100 MG PO DAILY, (Reported) Furosemide 40 Mg Tablet, 40 MG PO DAILY PRN for INCRASED EDEMA/DYSPNEA, (Reported) WEIGHT GAIN >3LBS IN 24 HOURS Hydrocodone/Acetaminophen 1 Each Tablet, 1 EACH PO Q8H PRN for PAIN-MODERATE (5- 7), (Reported) Levetiracetam 500 Mg Tablet, 500 MG PO BID, (Reported) Magnesium Hydroxide 400 Mg/5 Ml Oral.susp, 30 ML PO DAILY PRN for CONSTIPATION- 7TH LINE, (Reported) Multivitamin 1 Each Tablet, 1 EACH PO DAILY, (Reported) Ondansetron HCl 8 Mg Tablet, 8 MG PO Q8H PRN for NAUSEA/VOMITING-1ST LINE, (Reported) Pentamidine Isethionate 300 Mg Vial.neb, 300 MG IH MONTHLY, (Reported) Spironolactone 25 Mg Tablet, 25 MG PO HS, (Reported) Sucralfate 1 Gm Tablet, 1 GM PO QID, (Reported) [Folic Acid] , 1 MG PO DAILY, (Reported) Patient Home Medication List Home Medication List Reviewed: Yes Past Aqzpjwh-Isyowp-Vtalqr Hx Patient Social History Alcohol Use: Denies Use Recreational Drug Use: No Smoking Status: Never a Smoker Surgeries History of Surgeries: Yes Respiratory History of Respiratory Disorde: No Cardiovascular History of Cardiac Disorders: Yes Cardiac Disorders: Atrial Fibrillation, Hypertension Neurological History of Neurological Disord: No Gastrointestinal History of Gastrointestinal Di: No Musculoskeletal Musculoskeletal Disorders: Arthritis Endocrine History of Endocrine Disorders: Yes Endocrine Disorders: Diabetes, Non-Insulin dep Cancer History of Cancer: Yes (ALL) Psychosocial History of Psychiatric Problem: No Family Medical History Significant Family History: Heart Disease (Dad ( of heart attack >50 y/o)), Cancer (mom - GI cancer) Review of Systems-General Constitutional: No fever; malaise EENTM: No hearing loss, No ear pain, No blurred vision, No epistaxis Respiratory: No cough Cardiovascular: No chest pain; palpitations Gastrointestinal: No abdominal pain, No nausea, No vomiting Genitourinary: No dysuria, No frequency Musculoskeletal: muscle weakness (L arm and L side of face) Skin: No change in color, No change in hair/nails Psychiatric/Neurological: Denies Anxiety, Denies Depressed, Denies Headache; Pre-Existing Deficit; Denies Seizure; Weakness Physical Exam-General Problems Physical Exam General Appearance: no apparent distress, thin Eyes: Bilateral Eye PERRL, Bilateral Eye EOMI HEENT: No scleral icterus (R), No scleral icterus (L); other (facial droop on L) Respiratory: lungs clear, normal breath sounds, no respiratory distress, no accessory muscle use Cardiovascular: regular rate, rhythm, systolic murmur (II/) Gastrointestinal: non tender, soft Neurologic/Psychiatric: alert, normal mood/affect, oriented x 3, motor weakness (left arm) Assessment/Plan Assessment/Plan Assessment/Plan + Hemoccult N/V Anemia Pt had a colonoscopy (maybe less than 10 yrs ago) and does not think anything was found; we will get that report. Pt is anemic, but this is long standing. She did have a positive hemoccult. I gave pt options of do nothing, EGD and colonoscopy. I think it would be best if she at least does EGD; this will rule out any ulcers and may help us with her Nausea and Vomiting. She is agreeable to this. Will make her npo and get consent for EGD. Discussed risks and complications with her, not limited to pain, bleeding, infection and even esophageal perforation. All questions answered to her satisfaction. Supervisory-Addendum Brief Verification & Attestation Participated in pt care: history, MDM, physical Personally performed: exam, history, MDM Care discussed with: Medical Student Procedures: n/a Verification and Attestation of Medical Student E/M Service A medical student performed and documented this service. I then reviewed and verified all information documented by the medical student and made modificat ions to such information, when appropriate. I personally performed a physical exam, medical decision making and then discussed any differences between the notes and made revisions as necessary to create one note. Massimo Watson , 05/05/20 , 12:17 SMILEY CHO MED STUDENT May 05, 2020 11:47 MASSIMO WATSON DO May 05, 2020 12:17
--- NOTE | 2020-05-05 11:51 | Speech Therapy Daily Note ---
Speech Daily Progress Note Subjective Date Seen by Provider: May 05, 2020 Time Seen by Provider: 00:30 Patient was resting in her bed. She stated she didn't rest well this weekend. Objective Patient completed a series of memory tasks related to her daily needs and recent events at 80% with 15% cues. Assessment Assessment Current Status: Fair Progress Treatment Plan Continue Plan of Care Speech Short Term Goals Short Term Goals Short Term Goals 1) The patient will complete memory tasks related to her daily needs with minimal cues at 90% or greater. 2) The patient will complete safety awareness tasks related to her daily needs with minimal cues at 90% or greater. 3) The patient will complete problem solving tasks related to her daily needs with minimal cues at 90% or greater. 4) The patient will complete OME at 90% or greater with minimal cues. Speech Fusing Machine Operator Goals Fusing Machine Operator Goals Patient will improve her speech production and cognitive function in order to return home safer. Speech-Plan Patient/Family Goals Patient/Family Goals: Patient plans on returning to her home upon discharge. Treatment Plan Speech Therapy Treatment Plan: Continue Plan of Care Treatment Duration: May 02, 2020 Frequency: 4 times per week (Patient will receive skilled ST 4-5x per week) Estimated Hrs Per Day: .5 hour per day Rehab Potential: Good Barriers to Learning: Patient's recent CVA, mild cognitive deficits Pt/Family Agrees to Plan: Yes Safety Risks/Education Teaching Recipient: Patient Teaching Methods: Demonstration, Discussion Response to Teaching: Verbalize Understanding, Return Demonstration Education Topics Provided: Continued safety within her room and communication of wants/needs Time Speech Therapy Time In: 11:30 Speech Therapy Time Out: 12:00 Total Billed Time: 30 Billed Treatment Time 1, SHARRI Cruz May 05, 2020 11:51
--- NOTE | 2020-05-05 13:24 | Physical Therapy Daily Note ---
PT Daily Note-Current Subjective Pt. in bed finishing lunch and states she just wants to sleep. Agrees to therex in bed. Pain Location: No Pain Reported Mental Status Patient Orientation: Normal For Age Transfers SCALE: Activities may be completed with or without assistive devices. 3-Rrxkfcjuur-vwffsnh completes the activity by him/herself with no assistance f rom a helper. 5-Set-up or Clean-up Assistance-helper sets up or cleans up; patient completes activity. [place] assists only prior to or following the activity. 4-Supervision or Touching Assistance-helper provides verbal cues and/or touching/steadying and/or contact guard assistance as patient completes activity. Assistance may be provided throughout the activity or intermittently. 3-Partial/Moderate Assistance-helper does LESS THAN HALF the effort. [place] lifts, holds or supports trunk or limbs, but provides less than half the effort. 2-Substantial/Maximal Assistance-helper does MORE THAN HALF the effort. [place] lifts or holds trunk or limbs and provides more than half the effort. 0-Yfbwsrrqe-cgmfix does ALL the effort. Patient does none of the effort to complete the activity. Or, the assistance of 2 or more helpers is required for the patient to complete the activity. If activity was not attempted, code reason: 7-Patient Refused. 9-Not Applicable-not attempted and the patient did not perform the activity before the current illness, exacerbation or injury. 10-Not Attempted due to Environmental Limitations-(lack of equipment, weather restraints, etc.). 88-Not Attempted due to Medical Conditions or Safety Concerns. Exercises Supine Ex: Bridging, Ankle pumps, Quad Set, Rolling, Glut sets, Heel Slides, Short Arc Quads, Scooting (up in bed with assist), Straight leg raise, Hip abd/add Supine Reps: 15 Treatments assisted with positioning , [place] at hand Assessment Current Status: Good Progress PT Short Term Goals Short Term Goals Time Frame: May 08, 2020 Sit to lyin Lying to sitting on side of be: 4 Sit to stand: 4 Chair/jdl-oj-ncdau transfer: 4 Walk 150 feet: 4 PT Snf Goals Snf Goals PT Clinical Research Coordinator Goals Time Frame: May 16, 2020 Roll Left & Right (QC): 6 Sit to Lying (QC): 6 Lying-Sitting on Side/Bed(QC): 6 Sit to Stand (QC): 6 Chair/Tca-on-Bzlwa Xfer(QC): 6 Toilet Transfer (QC): 6 Car Transfer (QC): 6 Does the Patient Walk: Yes Walk 10 feet (QC): 6 Walk 50ft with 2 Turns (QC): 6 Walk 150 ft (QC): 6 Walking 10ft on Uneven Surface: 6 1 Step (curb) (QC): 6 4 Steps (QC): 6 12 Steps (QC): 6 Picking up an Object (QC): 4 Does the Pt use WC or Scooter?: No Wheel 50 feet with 2 turns (QC: 9 Wheel 150 feet: 9 PT Plan Treatment/Plan Treatment Plan: Continue Plan of Care Treatment Plan: Bed Mobility, Education, Functional Activity Concepcion, Functional Strength, Group Therapy, Gait, Safety, Therapeutic Exercise, Transfers Treatment Duration: May 16, 2020 Frequency: At least 5 of 7 days/Wk (IRF) Estimated Hrs Per Day: 1.5 hours per day Patient and/or Family Agrees t: Yes Safety Risks/Education Patient Education: Correct Positioning Time/GCodes Time In: 1305 Time Out: 1320 Total Billed Treatment Time: 15 Total Billed Treatment 1,EX15m SANDRA LEE TOUR COORDINATOR May 05, 2020 13:24
[2020-05-05] MEDS ORDERED: ATOR10TA66 PO (14:02)
--- NOTE | 2020-05-05 14:20 | NUR ---
PER REQUEST OF DR. WATSON, FAXED ([phone]) RELEASE OF INFORMATION TO MEDICAL RECORDS [facility] TO RETRIEVE OPERATION NOTES FROM LAST COLONOSCOPY DONE BY DR. BROWN.
[2020-05-05 16:19] VITALS: BP 137/61
[2020-05-05 16:30] VITALS: BP 122/63
--- NOTE | 2020-05-05 18:15 | NUR ---
WHILE ASSISTING PT TO BR NOTICED INCREASED EDEMA TO BILATERAL LEGS. ON THE WAY BACK FROM [place] PT STATED "I FEEL SHORT OF BREATHE AND FEEL LIKE I AM DROWNING" NOTIFIED DR. SALDAÑA AND ADMINISTERED PRN LASIX. NEW ORDERS REC'D FROM DR. SALDAÑA. VS: BP 122/63 HR 76 RR 18.
[2020-05-05 19:33] LABS: BASOPHILS % (AUTO) 0 % (0-10); HEMOGLOBIN 9.9 g/dL (11.5-16.0); MEAN PLATELET VOLUME 11.3 fL (9.0-12.2)
[2020-05-05 19:35] LABS: EOSINOPHILS # (AUTO) 0.2 10^3/uL (0.0-0.3); EOSINOPHILS % (AUTO) 3 % (0-10); HEMATOCRIT 31 % (35-52); LYMPHOCYTES # (AUTO) 0.9 10^3/uL (1.0-4.0); LYMPHOCYTES % (AUTO) 17 % (12-44); MEAN CORPUSCULAR HEMOGLOBIN 35 pg (25-34); MEAN CORPUSCULAR HGB CONC 32 g/dL (32-36); MEAN CORPUSCULAR VOLUME 110 fL (80-99); MONOCYTES # (AUTO) 0.4 10^3/uL (0.0-1.0); MONOCYTES % (AUTO) 7 % (0-12); NEUTROPHILS # (AUTO) 4.1 10^3/uL (1.8-7.8); NEUTROPHILS % (AUTO) 73 % (42-75); PLATELET COUNT 108 10^3/uL (130-400); WHITE BLOOD COUNT 5.7 10^3/uL (4.3-11.0)
[2020-05-05 19:46] LABS: ALBUMIN 3.5 GM/DL (3.2-4.5); BILIRUBIN,TOTAL 0.4 MG/DL (0.1-1.0); CALCIUM 8.1 MG/DL (8.5-10.1); CREATININE SERUM 1.9 MG/DL (0.60-1.30); POTASSIUM 4.7 MMOL/L (3.6-5.0); TOTAL PROTEIN 5.7 GM/DL (6.4-8.2)
--- NOTE | 2020-05-05 19:56 | Diagnostic Imaging Report ---
INDICATION: Short of breath 2 views of the chest show cardiomegaly with normal vascularity. There is left infrahilar infiltrate. There are small effusions. No mass is seen. There is no pneumothorax. A Port-A-Cath is present. IMPRESSION: Cardiomegaly. There is left lower lobe infiltrate. There are small bilateral effusions. Dictated by: Dictated on workstation # [id number]
[2020-05-05 20:34] LABS: ABG BASE EXCESS -8.1 MMOL/L (-2.5-2.5); ABG OXYGEN SATURATION 93 % (94-100); ABG PCO2 42 MMHG (35-45); ABG PO2 89 MMHG (79-93); ABG TCO2 19.1 MMOL/L (21.0-31.0)
[2020-05-05 20:44] LABS: ALLENS TEST POSITIVE; INSPIRED O2 RA; PATIENT TEMP 37.2; VENTILATOR NO
[2020-05-05 20:45] LABS: ABG PH 7.25 (7.37-7.43)
[2020-05-05] MEDS: SPIRONOLACTONE 25 MG (ALDACTONE) TAB PO SCH (21:11)
[2020-05-05] MEDS: MELATONIN 3 MG TABLET PO PRN (21:11)
[2020-05-06] MEDS: MULTIVIT W/MINERALS TAB (THERAGRAN M) PO SCH (05:49)
[2020-05-06 05:54] LABS: BASOPHILS % (AUTO) 0 % (0-10); EOSINOPHILS # (AUTO) 0.2 10^3/uL (0.0-0.3); EOSINOPHILS % (AUTO) 4 % (0-10); HEMATOCRIT 31 % (35-52); HEMOGLOBIN 9.6 g/dL (11.5-16.0); LYMPHOCYTES # (AUTO) 0.9 10^3/uL (1.0-4.0); LYMPHOCYTES % (AUTO) 18 % (12-44); MEAN CORPUSCULAR HEMOGLOBIN 34 pg (25-34); MEAN CORPUSCULAR HGB CONC 32 g/dL (32-36); MEAN CORPUSCULAR VOLUME 109 fL (80-99); MEAN PLATELET VOLUME 11.3 fL (9.0-12.2); MONOCYTES # (AUTO) 0.4 10^3/uL (0.0-1.0); MONOCYTES % (AUTO) 8 % (0-12); NEUTROPHILS # (AUTO) 3.5 10^3/uL (1.8-7.8); NEUTROPHILS % (AUTO) 71 % (42-75); PLATELET COUNT 109 10^3/uL (130-400); WHITE BLOOD COUNT 4.9 10^3/uL (4.3-11.0)
--- NOTE | 2020-05-06 06:18 | PM&R Progress Note ---
Subjective HPI/CC On Admission Date Seen by Provider: May 06, 2020 Time Seen by Provider: 09:30 Subjective/Events-last exam 05/06/20: Septic workup last night returned without evidence of sepsis Dr. Orlando consulted and started her on Sodium Bicarbonate for metabolic acidosis with pH of 7. 25 Overall very fragile Has become a bit somatic EGD today by Dr. Rosas Echocardiogram will be performed Remains on lactated ringers at 80 CCs per hour Overall improved Hgb stable 05/05/20: Bowels moved yesterday Nausea and emesis continue Labs stable, Hgb 9.9 Hemoccult positive stools so Dr. Rosas has been consulted BUN elevated suspicious for blood in the gut 05/04/20: Loose stools today Nausea today but has passed Doing OK 05/03/20: Hgb 9.8 today after 2 units of blood yesterday She receives a lot of transfusions due to leukemia Coloring is improved now since transfusion BM yesterday Creat 1.7 Hgb 7.1 will need 2 units of blood Creatinine 1.56 Talked to her about overall status and she is doing well otherwise Checked meds and labs Conferred with RN Reviewed therapy notes Review of Systems General: Fatigue, Malaise Gastrointestinal: Nausea, Vomiting, Abdominal Pain Neurological: Weakness, Incoordination Focused Exam Lactate Level 05/05/20 18:58: Lactic Acid Level 0.43L 05/06/20 05:45: Lactic Acid Level 0.35L Lactic Acid Level Objective Exam Vital Signs Vital Signs Date Time Temp Pulse Resp B/P (MAP) Pulse Ox O2 Delivery O2 Flow Rate FiO2 05/06/20 21:15 97 Room Air 05/06/20 16:02 37.0 74 16 156/67 (96) Capillary Refill : Less Than 3 SecondsLess Than 3 Seconds General Appearance: No Apparent Distress, WD/WN, Chronically ill, Thin HEENT: PERRL/EOMI, Normal ENT Inspection, Pharynx Normal Neck: Full Range of Motion, Normal Inspection, Non Tender, Supple, Carotid Bruit Respiratory: Chest Non Tender, Lungs Clear, Normal Breath Sounds, No Accessory Muscle Use, No Respiratory Distress Cardiovascular: Regular Rate, Rhythm, No Edema, No Gallop, No JVD, No Murmur, Normal Peripheral Pulses Gastrointestinal: Normal Bowel Sounds, No Organomegaly, No Pulsatile Mass, Non Tender, Soft Back: Normal Inspection, No CVA Tenderness, No Vertebral Tenderness Extremity: Normal Capillary Refill, Normal Inspection, Normal Range of Motion (except left sided weakness 3/5 and right arm in sling and soft cast), Non Tender, No Calf Tenderness, No Pedal Edema Neurologic/Psychiatric: Alert, Oriented x3, No Motor/Sensory Deficits, Normal Mood/Affect, Abnormal Gait, Facial Droop, Motor Weakness Skin: Normal Color, Warm/Dry Lymphatic: No Adenopathy Results/Procedures Lab Laboratory Tests 05/06/20 05:45 Patient resulted labs reviewed. FIM Transfers Therapy Code Descriptions/Definitions Functional [place] Measure: 0=Not Assessed/NA 4=Minimal Assistance 1=Total Assistance 5=Supervision or Setup 2=Maximal Assistance 6=Modified [place] 3=Moderate Assistance 7=Complete IndependenceSCALE: Activities may be completed with or without assistive devices. 7-Qasdmctedf-haymyhv completes the activity by him/herself with no assistance from a helper. 5-Set-up or Clean-up Assistance-helper sets up or cleans up; patient completes activity. [place] assists only prior to or following the activity. 4-Supervision or Touching Assistance-helper provides verbal cues and/or dariel glenn/steadying and/or contact guard assistance as patient completes activity. Assistance may be provided throughout the activity or intermittently. 3-Partial/Moderate Assistance-helper does LESS THAN HALF the effort. [place] lifts, holds or supports trunk or limbs, but provides less than half the effort. 2-Substantial/Maximal Assistance-helper does MORE THAN HALF the effort. [place] lifts or holds trunk or limbs and provides more than half the effort. 0-Cxolnwdxj-loikmi does ALL the effort. Patient does none of the effort to complete the activity. Or, the assistance of 2 or more helpers is required for the patient to complete the activity. If activity was not attempted, code reason: 7-Patient Refused. 9-Not Applicable-not attempted and the patient did not perform the activity b efore the current illness, exacerbation or injury. 10-Not Attempted due to Environmental Limitations-(lack of equipment, weather restraints, etc.). 88-Not Attempted due to Medical Conditions or Safety Concerns. Roll Left to Right (QC): 6 Sit to Lying (QC): 6 (with much effort) Sit to Stand (QC): 6 Chair/Upq-ty-Hornu Xfer(QC): 6 Car Transfer (QC): 4 Gait Training Does the Patient Walk?: Yes Walk 10 feet (QC): 4 Walk 50 ft with 2 Turns(QC): 4 Walk 150 ft (QC): 4 Walking 10ft/uneven surface-QC: 3 Gait Persons Needed: 1 Gait Assistive Device: Handheld Assist (L) Wheelchair Training Does the Pt Use a Wheelchair?: No Wheel 50 ft with 2 turns (QC): 9 Wheel 150 ft (QC): 9 Stair Training 1 Step (curb) (QC): 3 4 Steps (QC): 3 12 Steps (QC): 88 Balance Picking up an Object (QC): 88 ADL-Treatment Eating (QC): 5 (Pt reports requiring set up assistance with breakfast to open containers and cut food, pt states she is then able to use utensils to eat.) Oral Hygiene (QC): 6 Bathing Location: R Arm, L Upper Leg, R Upper Leg, L Lower Leg (including foot), R Lower Leg (including foot), Chest, Abdomen, Buttocks, Perineal Area Shower/Bathe Self (QC): 4 Upper Body Dressing (QC): 3 Lower Body Dressing (QC): 3 On/Off Footwear (QC): 3 Toileting Hygiene (QC): 3 Toilet Transfer (QC): 4 Assessment/Plan Assessment and Plan Assess & Plan/Chief Complaint Assessment: 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 Recent subdural hematoma [place] Right olecranon fracture AF Anemia CLL GERD Plan: IRF protocol Monitor BP Fall risk BM regimen 05/02/20: 2 units of blood Continue therapy Monitor pain 05/03/20: Monitor hgb IRF protocol BM regimen 05/04/20: Loose stools will be monitored Monitor closely 05/05/20: Dr Rosas appreciated Occult + stools IVF gentle 05/06/20: Monitor hgb and creat EGD today Fall risk (1) CVA (cerebral vascular accident) (2) CLL (chronic lymphocytic leukemia) (3) Subdural hematoma (4) Closed fracture of right olecranon process (5) Hyperlipemia (6) GERD (gastroesophageal reflux disease) ANTOINE SALDAÑA DO May 06, 2020 06:18
[2020-05-06 06:29] LABS: ALBUMIN 3.4 GM/DL (3.2-4.5); BILIRUBIN,TOTAL 0.5 MG/DL (0.1-1.0); CALCIUM 8.2 MG/DL (8.5-10.1); CREATININE SERUM 1.9 MG/DL (0.60-1.30); POTASSIUM 4.2 MMOL/L (3.6-5.0); TOTAL PROTEIN 5.8 GM/DL (6.4-8.2)
[2020-05-06 06:34] VITALS: BP 149/67
[2020-05-06] MEDS ORDERED: LACTATED RINGERS 1,000 ML IV ONE (07:00)
[2020-05-06] MEDS ORDERED: SODIUM BICARB 8.4% 50 MEQ/50 ML (ABBOTT) SYR IV NR (07:15)
--- NOTE | 2020-05-06 07:15 | Pulmonary Consultation ---
History of Present Illness History of Present Illness Date Seen by Provider: May 06, 2020 Time Seen by Provider: 07:10 Date of Admission Allergies and Home Medications Allergies Coded Allergies: Sulfa (Sulfonamide Antibiotics) (Verified Allergy, Mild, Rash, 05/02/20) NSAIDS (Non-Steroidal Anti-Inflamma (Verified Adverse Reaction, Unknown, 05/02/20) PT STATES THAT SHE WAS TOLD NOT TO TAKE NSAIDS AFTER HAVING GASTRIC BYPASS SURGERY Home Medications Acyclovir 800 Mg Tablet, 800 MG PO BID, (Reported) Atorvastatin Calcium 10 Mg Tablet, 10 MG PO DAILY, (Reported) Bisacodyl 10 Mg Supp.rect, 10 MG RC DAILY, (Reported) Carvedilol 25 Mg Tablet, 25 MG PO BID, (Reported) Citalopram Hydrobromide 20 Mg Tablet, 20 MG PO DAILY, (Reported) Dasatinib 100 Mg Tablet, 100 MG PO DAILY, (Reported) Furosemide 40 Mg Tablet, 40 MG PO DAILY PRN for INCRASED EDEMA/DYSPNEA, (Reported) WEIGHT GAIN >3LBS IN 24 HOURS Hydrocodone/Acetaminophen 1 Each Tablet, 1 EACH PO Q8H PRN for PAIN-MODERATE (5- 7), (Reported) Levetiracetam 500 Mg Tablet, 500 MG PO BID, (Reported) Magnesium Hydroxide 400 Mg/5 Ml Oral.susp, 30 ML PO DAILY PRN for CONSTIPATION- 7TH LINE, (Reported) Multivitamin 1 Each Tablet, 1 EACH PO DAILY, (Reported) Ondansetron HCl 8 Mg Tablet, 8 MG PO Q8H PRN for NAUSEA/VOMITING-1ST LINE, (Reported) Spironolactone 25 Mg Tablet, 12.5 MG PO HS, (Reported) TAKES OF A 25MG Sucralfate 1 Gm Tablet, 1 GM PO QID, (Reported) [Folic Acid] , 1 MG PO DAILY, (Reported) Past Raugval-Qbgokv-Cibmra Hx Past Med/Social Hx: Reviewed Nursing Past Med/Soc Hx, Reviewed and Corrections made Patient Social History Alcohol Use: Denies Use Recreational Drug Use: No Smoking Status: Never a Smoker Recent Foreign Travel: No Contact w/Someone Who Travel: No Recent Infectious Disease Expo: No Recent [facility]: Yes ([facility] Immunizations Up To Date Date of Influenza Vaccine: Apr 14, 2019 Seasonal Allergies Seasonal Allergies: No Past Medical History Surgeries: Yes Appendectomy, Bowel Surgery (gastric bypass), Eye Surgery (cataracts) Respiratory: No Pneumonia Currently Using CPAP: No Currently Using BIPAP: No Cardiac: Yes Atrial Fibrillation, Hypertension Neurological: No Stroke Gastrointestinal: No Chronic Diarrhea Musculoskeletal: Yes Arthritis Endocrine: Yes Diabetes, Non-Insulin dep HEENT: Yes (CATARACTS REMOVED. ) Cataract Cancer: Yes (ALL) Leukemia Did You Recieve Any Treatments: Yes What Type of Treatment Did You: Chemotherapy STATES, FINISHED CHEMO IN DECEMBER 2019. Psychosocial: No Anxiety Integumentary: No Blood Disorders: Yes (LEUKEMIA) Family Medical History Heart Disease (Dad ( of heart attack >50 y/o)), Cancer (mom - GI cancer) Sepsis Event Evaluation Height, Weight, BMI Height: '" Weight: lbs. oz. kg; 26.89 BMI Method: Exam Exam Vital Signs Date Time Temp Pulse Resp B/P (MAP) Pulse Ox O2 Delivery O2 Flow Rate FiO2 05/06/20 06:34 36.6 71 18 149/67 (94) 96 Room Air 05/05/20 20:40 95 Room Air 05/05/20 16:30 76 18 122/63 (82) 05/05/20 16:19 36.8 70 16 137/61 (86) 95 Room Air 05/05/20 09:32 Room Air 05/05/20 08:00 86 159/70 (99) Room Air I & O 05/06/20 07:00 Intake Total 850 ml Balance 850 ml Height & Weight Height: '" Weight: lbs. oz. kg; 26.89 BMI Method: General Appearance: No Apparent Distress, WD/WN, Chronically ill, Thin HEENT: PERRL/EOMI, Normal ENT Inspection, Pharynx Normal Neck: Full Range of Motion, Normal Inspection, Non Tender, Supple, Carotid Bruit Respiratory: Chest Non Tender, Lungs Clear, Normal Breath Sounds, No Accessory Muscle Use, No Respiratory Distress Cardiovascular: Regular Rate, Rhythm, No Edema, No Gallop, No JVD, No Murmur, Normal Peripheral Pulses Capillary Refill: Less Than 3 Seconds Gastrointestinal: non tender, soft Extremity: Normal Capillary Refill, Normal Inspection, Normal Range of Motion (except left sided weakness 3/5 and right arm in sling and soft cast), Non Tender, No Calf Tenderness, No Pedal Edema Neurologic/Psychiatric: Alert, Oriented x3, No Motor/Sensory Deficits, Normal Mood/Affect, Abnormal Gait, Facial Droop, Motor Weakness Skin: Normal Color, Warm/Dry Lymphatic: No Adenopathy Results Lab Laboratory Tests 05/05/20 05:55 05/05/20 18:58 05/06/20 05:45 Assessment/Plan Assessment/Plan SOB secondary to metabolic acidosis Acute renal failure - worsening -Hold lasix and spironolactone -Give 2 amps of bicarb -Change IVF to LR and give liter bolus -Check echocardiogram 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
--- NOTE | 2020-05-06 08:26 | Occupational Ther Daily Note ---
OT Current Status-Daily Note Subjective Pt alert, sitting in recliner. Pt's responses verbally and physically are much better today. Pt still c/o fatigue though no pain. Mental Status/Objective Patient Orientation: Person, Place, Time, Situation Attachments: IV (midline) ADL-Treatment Pt declines shower and changing clothing today stating that she washed up yesterday and she didn't do anything to get clothing dirty. Pt required assist to don/doff socks without AE. Assist to don UMANG hose. Radiology in room to complete chest x-ray. Using hand hold assist, pt able to ambulate to bathroom to sink. Declined using toilet. Pt stood at sink and complete oral care independently. Therapy Code Descriptions/Definitions Functional [place] Measure: 0=Not Assessed/NA 4=Minimal Assistance 1=Total Assistance 5=Supervision or Setup 2=Maximal Assistance 6=Modified [place] 3=Moderate Assistance 7=Complete IndependenceSCALE: Activities may be completed with or without assistive devices. 6-Uyzacxnifg-sakfnvp completes the activity by him/herself with no assistance from a helper. 5-Set-up or Clean-up Assistance-helper sets up or cleans up; patient completes activity. [place] assists only prior to or following the activity. 4-Supervision or Touching Assistance-helper provides verbal cues and/or touching/steadying and/or contact guard assistance as patient completes activity. Assistance may be provided throughout the activity or intermittently. 3-Partial/Moderate Assistance-helper does LESS THAN HALF the effort. [place] lifts, holds or supports trunk or limbs, but provides less than half the effort. 2-Substantial/Maximal Assistance-helper does MORE THAN HALF the effort. [place] lifts or holds trunk or limbs and provides more than half the effort. 9-Crwgikytx-xtkffc does ALL the effort. Patient does none of the effort to complete the activity. Or, the assistance of 2 or more helpers is required for the patient to complete the activity. If activity was not attempted, code reason: 7-Patient Refused. 9-Not Applicable-not attempted and the patient did not perform the activity before the current illness, exacerbation or injury. 10-Not Attempted due to Environmental Limitations-(lack of equipment, weather restraints, etc.). 88-Not Attempted due to Medical Conditions or Safety Concerns. Oral Hygiene (QC): 6 On/Off Footwear: 4 Other Treatment Pt ambulated to therapy gym using hand hold assist. Pt was introduced to sock aide and dressing stick to don/doff socks/shoes. Pt stated that has sock aide at home that he uses all the time. After demonstration, pt able to use dressing stick to doff socks and use sock aide to don socks with verbal cues for success. Pt then completed resistive clothes pins 1x each hand, L hand is progressing though still weak and R hand WFL. Pt given therapy sponge to increase assurance assistant and pinch strength for daily functional tasks. Pt able to complete 3 exercises after demonstration 20x's each. Pt given sock aide and dressing stick to use in room during ARU stay. Given heavy resistance therapy sponge and exercise program to use in room and at home. Pt then ambulated back to room with hand held assist. Pt chose to sit up in recliner. Feet elevated to decrease edema in B LE's, edema has decreased since yesterday. After session, pt sitting in recliner with call light/phone in reach. All needs met in room. 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 2=Patient will verbalize/demonstrate understanding of assistive devices/modifications for ADL. 3=Patient will improve strength/tolerance for activity to enable patient to perform ADL's. OT Education/Plan Problem List/Assessment Assessment: Decreased Activ Tolerance, Decreased UE Strength, Impaired Coordination, Impaired Funct Balance, Impaired Self-Care Skills, Restricted Funct UE ROM Discharge Recommendations Plan/Recommendations: Continue POC Treatment Plan/Plan of Care Patient would benefit from OT for education, treatment and training to promote independence in ADL's, mobility, safety and/or upper extremity function for ADL's. Plan of Care: ADL Retraining, Functional Mobility, Group Exercise/Act as Ind, UE Funct Exercise/Act, UE Neuromus Re-Ed/Coord Treatment Duration: May 16, 2020 Frequency: At least 5 of 7 days/Wk (IRF) Estimated Hrs Per Day: 1.5 hours per day Agreement: Yes Rehab Potential: Good Time/GCodes Start Time: 07:15 Stop Time: 08:30 Total Time Billed (hr/min): 75 Billed Treatment Time 1 visit-ADL 3 (45 min) FA 1 (15 min) EX 1 (15 min) JACKLYN DE LEON May 06, 2020 08:26
[2020-05-06] MEDS: LACTATED RINGERS 1,000 ML IV SCH ×2 (08:33→18:55)
--- NOTE | 2020-05-06 08:52 | Diagnostic Imaging Report ---
INDICATION: Shortness of breath when laying down. TECHNIQUE: Single view chest 7:27 AM. CORRELATION STUDY: 05/05/2020 FINDINGS: Right IJ Msuckp-l-Wats catheter is present. Tip at the right atrium, stable. Heart size and mediastinum appear unchanged. Blunting costophrenic angles compatible with small pleural effusions. Some consolidation suggested about the bilateral infrahilar regions and lung bases. IMPRESSION: 1. Small effusions with what appears to be bibasilar areas of infiltrate. Dictated by: Dictated on workstation # [id number]
--- NOTE | 2020-05-06 08:58 | Progress Note - Surgery ---
SMILEY CHO MED STUDENT 05/06/20 0858: Subjective Date Seen by a Provider: May 06, 2020 Time Seen by a Provider: 07:30 Subjective/Events-last exam Pt states she's doing better. Pt denies N/V yesterday. Pt denies difficulty w/ BM or urination. Last BM was yesterday. Pt did not look at BM to see the consistency or if bloody. Pt received 2 units of blood a couple of days ago. Pt states she still has weakness and tiredness from leukemia and treatment. Pt has had GILLETTE since fall d/t hematoma. Nurse states her leg edema has improved. Pt is working w/ PT to improve weakness on L side of face and arms from stroke. Review of Systems General: Fatigue (d/t stroke) HEENT: Head Aches (since fall, d/t hematoma); No Visual Changes, No Eye Pain, No Ear Pain Pulmonary: No Cough Cardiovascular: No: Chest Pain Gastrointestinal: No: Nausea, Vomiting, Abdominal Pain Neurological: Weakness (d/t stroke) Focused Exam Lactate Level 05/05/20 18:58: Lactic Acid Level 0.43L 05/06/20 05:45: Lactic Acid Level 0.35L Lactic Acid Level Laboratory Tests Test 05/06/20 05:45 Lactic Acid Level 0.35 MMOL/L (0.50-2.00) L Objective Exam Vital Signs Date Time Temp Pulse Resp B/P (MAP) Pulse Ox O2 Delivery O2 Flow Rate FiO2 05/06/20 06:34 36.6 71 18 149/67 (94) 96 Room Air 05/05/20 20:40 95 Room Air 05/05/20 16:30 76 18 122/63 (82) 05/05/20 16:19 36.8 70 16 137/61 (86) 95 Room Air 05/05/20 09:32 Room Air I & O 05/06/20 07:00 Intake Total 850 ml Balance 850 ml Capillary Refill : Less Than 3 SecondsLess Than 3 Seconds General Appearance: No Apparent Distress, WD/WN, Chronically ill, Thin HEENT: PERRL/EOMI Neck: Full Range of Motion Respiratory: Chest Non Tender, No Accessory Muscle Use, No Respiratory Distress Cardiovascular: Other (murmur) Gastrointestinal: non tender, soft Extremity: Normal Capillary Refill, Non Tender, No Calf Tenderness, Other (slight edema that's improving. L sided arm weakness d/t stroke but improving) Neurologic/Psychiatric: Alert, Oriented x3, Normal Mood/Affect, Facial Droop, Motor Weakness Skin: Normal Color, Warm/Dry Lymphatic: No Adenopathy Results Lab Laboratory Tests 05/05/20 10:00: Stool Occult Blood Immunoassay POSITIVEH 05/05/20 18:58: White Blood Count 5.7, Red Blood Count 2.83L, Hemoglobin 9.9L, Hematocrit 31L, Mean Corpuscular Volume 110H, Mean Corpuscular Hemoglobin 35H, Mean Corpuscular Hemoglobin Concent 32, Red Cell Distribution Width 18.5H, Platelet Count 108L, Mean Platelet Volume 11.3, Immature Granulocyte % (Auto) 0, Neutrophils (%) (Auto) 73, Lymphocytes (%) (Auto) 17, Monocytes (%) (Auto) 7, Eosinophils (%) (Auto) 3, Basophils (%) (Auto) 0, Neutrophils # (Auto) 4.1, Lymphocytes # (Auto) 0.9L, Monocytes # (Auto) 0.4, Eosinophils # (Auto) 0.2, Basophils # (Auto) 0.0, Immature Granulocyte # (Auto) 0.0, Sodium Level 138, Potassium Level 4.7, Chloride Level 112H, Carbon Dioxide Level 17L, Anion Gap 9, Blood Urea Nitrogen 46H, Creatinine 1.90H, Estimat Glomerular Filtration Rate 26, BUN/Creatinine Ratio 24, Glucose Level 191H, Lactic Acid Level 0.43L, Calcium Level 8.1L, Corrected Calcium 8.5, Total Bilirubin 0.4, Aspartate Amino Transf (AST/SGOT) 23, Alanine Aminotransferase (ALT/SGPT) 24, Alkaline Phosphatase 98, B-Type Natriuretic Peptide 553.3H, Total Protein 5.7L, Albumin 3.5, Procalcitonin 0.06 05/05/20 20:20: Blood Gas Puncture Site LEFT RADIAL, Blood Gas Patient Temperature 37.2, Arterial Blood pH 7.25*L, Arterial Blood Partial Pressure CO2 42, Arterial Blood Partial Pressure O2 89, Arterial Blood HCO3 18L, Arterial Blood Total CO2 19.1L, Arterial Blood Oxygen Saturation 93L, Arterial Blood Base Excess -8.1L, Tello Test POSITIVE, Blood Gas Ventilator Setting NO, Blood Gas Inspired Oxygen RA 11/10/20 05:45: White Blood Count 4.9, Red Blood Count 2.79L, Hemoglobin 9.6L, Hematocrit 31L, Mean Corpuscular Volume 109H, Mean Corpuscular Hemoglobin 34, Mean Corpuscular Hemoglobin Concent 32, Red Cell Distribution Width 18.1H, Platelet Count 109L, Mean Platelet Volume 11.3, Immature Granulocyte % (Auto) 0, Neutrophils (%) (Auto) 71, Lymphocytes (%) (Auto) 18, Monocytes (%) (Auto) 8, Eosinophils (%) (Auto) 4, Basophils (%) (Auto) 0, Neutrophils # (Auto) 3.5, Lymphocytes # (Auto) 0.9L, Monocytes # (Auto) 0.4, Eosinophils # (Auto) 0.2, Basophils # (Auto) 0.0, Immature Granulocyte # (Auto) 0.0, Sodium Level 137, Potassium Level 4.2, Chloride Level 111H, Carbon Dioxide Level 18L, Anion Gap 8, Blood Urea Nitrogen 48H, Creatinine 1.90H, Estimat Glomerular Filtration Rate 26, BUN/Creatinine Ratio 25, Glucose Level 94, Lactic Acid Level 0.35L, Calcium Level 8.2L, Corrected Calcium 8.7, Total Bilirubin 0.5, Aspartate Amino Transf (AST/SGOT) 22, Alanine Aminotransferase (ALT/SGPT) 23, Alkaline Phosphatase 97, Total Protein 5.8L, Albumin 3.4, Procalcitonin 0.06 Assessment/Plan Assessment/Plan Assessment/Plan hemoccult anemia - EGD/colonoscopy today. echo for CHF today. Clinical Quality Measures DVT/VTE Risk/Contraindication: Risk Factor Score Per Nursin RFS Level Per Nursing on Admit: 4+=Very High Contraindications-Pharm: Other *list below* Other: recent subarachnoid hemorrhage MASSIMO WATSON DO 05/06/20 1359: Subjective Time Seen by a Provider: 12:02 Subjective/Events-last exam Pt seen and examined, no changes. Review of Systems General: Fatigue (d/t stroke) HEENT: Head Aches (since fall, d/t hematoma); No Visual Changes, No Eye Pain Pulmonary: No Cough Cardiovascular: No: Chest Pain Gastrointestinal: No: Nausea, Vomiting, Abdominal Pain Objective Exam General Appearance: No Apparent Distress, Thin Respiratory: Chest Non Tender, Lungs Clear, Normal Breath Sounds, No Accessory Muscle Use, No Respiratory Distress Cardiovascular: Regular Rate, Rhythm, Systolic Murmur, Other (murmur) Gastrointestinal: non tender, soft Assessment/Plan Assessment/Plan Assessment/Plan + hemoccult Anemia EGD planned for today. Colonoscopy possibly as an outpt. Supervisory-Addendum Brief Verification & Attestation Participated in pt care: history, MDM, physical Personally performed: exam, history, MDM Care discussed with: Medical Student Procedures: n/a Verification and Attestation of Medical Student E/M Service A medical student performed and documented this service. I then reviewed and verified all information documented by the medical student and made modifications to such information, when appropriate. I personally performed a physical exam, medical decision making and then discussed any differences between the notes and made revisions as necessary to create one note. Massimo Watson , 05/06/20 , 14:01 SMILEY CHO MED STUDENT May 06, 2020 08:58 MASSIMO WATSON DO May 06, 2020 13:59
--- NOTE | 2020-05-06 09:04 | Physical Therapy Daily Note ---
PT Daily Note-Current Subjective Pt sitting in recliner upon arrival. Nurse present pushing IV. Pain Location: No Pain Reported Mental Status Patient Orientation: Person, Place, Situation Attachments: IV Transfers SCALE: Activities may be completed with or without assistive devices. 5-Csitiayxzv-qxlhxal completes the activity by him/herself with no assistance from a helper. 5-Set-up or Clean-up Assistance-helper sets up or cleans up; patient completes activity. [place] assists only prior to or following the activity. 4-Supervision or Touching Assistance-helper provides verbal cues and/or touching/steadying and/or contact guard assistance as patient completes activity. Assistance may be provided throughout the activity or intermittently. 3-Partial/Moderate Assistance-helper does LESS THAN HALF the effort. [place] lifts, holds or supports trunk or limbs, but provides less than half the effort. 2-Substantial/Maximal Assistance-helper does MORE THAN HALF the effort. [place] lifts or holds trunk or limbs and provides more than half the effort. 3-Ptevzgtud-joszhy does ALL the effort. Patient does none of the effort to complete the activity. Or, the assistance of 2 or more helpers is required for the patient to complete the activity. If activity was not attempted, code reason: 7-Patient Refused. 9-Not Applicable-not attempted and the patient did not perform the activity before the current illness, exacerbation or injury. 10-Not Attempted due to Environmental Limitations-(lack of equipment, weather restraints, etc.). 88-Not Attempted due to Medical Conditions or Safety Concerns. Weight Bearing Full Weight Bearing Full Weight Bearing Exercises Supine Ex: Ankle pumps, Quad Set, Glut sets, Heel Slides, Straight leg raise, Hip abd/add Supine Reps: 15 Treatments Co-treat with PT ([id number]), skills of 2 clinicians required for skilled instruction and modifications during exercises to decrease pain, increase AROM and activity tolerance. PT focusing on B LE strengthening and OT focusing on B UE strengthening, B UE placement during transitions/mobility. Nurse finishes IV push and hangs bag. student visits with pt before pt & HAT BRIM AND CROWN LAMINATING OPERATOR discuss/perform Supine Ex, Weekly ARU Mtg and what pt needs to continue to do before DC. Assessment Current Status: Fair Progress Pt is very fatigued and takes frequent RB. PT Short Term Goals Short Term Goals Time Frame: May 08, 2020 Sit to lyin Lying to sitting on side of be: 4 Sit to stand: 4 Chair/cwa-zf-fzhvf transfer: 4 Walk 150 feet: 4 PT Group Home Goals Practice Administrator Goals PT Group Home Goals Time Frame: May 16, 2020 Roll Left & Right (QC): 6 Sit to Lying (QC): 6 Lying-Sitting on Side/Bed(QC): 6 Sit to Stand (QC): 6 Chair/Lbx-qg-Xqitk Xfer(QC): 6 Toilet Transfer (QC): 6 Car Transfer (QC): 6 Does the Patient Walk: Yes Walk 10 feet (QC): 6 Walk 50ft with 2 Turns (QC): 6 Walk 150 ft (QC): 6 Walking 10ft on Uneven Surface: 6 1 Step (curb) (QC): 6 4 Steps (QC): 6 12 Steps (QC): 6 Picking up an Object (QC): 4 Does the Pt use WC or Scooter?: No Wheel 50 feet with 2 turns (QC: 9 Wheel 150 feet: 9 PT Plan Problem List Problem List: Activity Tolerance, Functional Strength Treatment/Plan Treatment Plan: Continue Plan of Care Treatment Plan: Bed Mobility, Education, Functional Activity Concepcion, Functional Strength, Group Therapy, Gait, Safety, Therapeutic Exercise, Transfers Treatment Duration: May 16, 2020 Frequency: At least 5 of 7 days/Wk (IRF) Estimated Hrs Per Day: 1.5 hours per day Patient and/or Family Agrees t: Yes Safety Risks/Education Patient Education: Correct Positioning, Safety Issues Teaching Recipient: Patient Teaching Methods: Discussion Response to Teaching: Verbalize Understanding Time/GCodes Time In: 815 Time Out: 900 Total Billed Treatment Time: 45 Total Billed Treatment 1, FA x3 (45m) Co-treat w/OT ([id number]) for 15m JOHANNY RIVAS HAT BRIM AND CROWN LAMINATING OPERATOR May 06, 2020 09:04
--- NOTE | 2020-05-06 09:15 | NUR ---
DR. SALDAÑA ON THE FLOOR. ORDERS TO DC BOLUS OF LR. CONTINUE LR AT 80MLS/HR.
[2020-05-06] MEDS: SUCRALFATE 1 GM (CARAFATE) TAB PO SCH ×4 (09:51→21:10)
[2020-05-06] MEDS: SPRYCEL 100 MG PO SCH ×2 (09:51→14:32)
[2020-05-06] MEDS: SENNA W/DOCUSATE (SENOKOT S) TABLET PO SCH ×2 (09:52→21:15)
[2020-05-06] MEDS: DOCUSATE SODIUM 100 MG (COLACE) CAP PO SCH ×2 (09:52→21:15)
[2020-05-06] MEDS: ACYCLOVIR 400 MG TABLET (ZOVIRAX) PO SCH ×2 (09:52→21:10)
[2020-05-06] MEDS: FOLIC ACID 1 MG TAB PO SCH (09:52)
[2020-05-06] MEDS: polyethylene glycoL POWDER 17 GM (MIRALAX) PACK PO SCH ×2 (09:52→21:15)
[2020-05-06] MEDS: BISACODYL 10 MG SUPP (DULCOLAX) RC SCH (09:52)
[2020-05-06] MEDS: CARVEDILOL 12.5 MG (COREG) TABLET PO SCH ×2 (09:57→21:09)
[2020-05-06] MEDS: LEVETIRACETAM 500 MG (KEPPRA) TAB PO SCH ×2 (09:57→21:09)
[2020-05-06 10:01] VITALS: BP 150/70
[2020-05-06] MEDS: ASPIRIN E.C. 81 MG (ECOTRIN) TAB PO SCH (10:01)
--- NOTE | 2020-05-06 10:44 | Occupational Ther Daily Note ---
OT Current Status-Daily Note Subjective Pt dozing in bed, woke to name. Pt agrees to therapy. Pt states that she always has a headache though it is lessening. Mental Status/Objective Patient Orientation: Person, Place, Time, Situation Attachments: IV ADL-Treatment Therapy Code Descriptions/Definitions Functional [place] Measure: 0=Not Assessed/NA 4=Minimal Assistance 1=Total Assistance 5=Supervision or Setup 2=Maximal Assistance 6=Modified [place] 3=Moderate Assistance 7=Complete IndependenceSCALE: Activities may be completed with or without assistive devices. 3-Pmpmihxkbd-ulvxrgc completes the activity by him/herself with no assistance from a helper. 5-Set-up or Clean-up Assistance-helper sets up or cleans up; patient completes activity. [place] assists only prior to or following the activity. 4-Supervision or Touching Assistance-helper provides verbal cues and/or touching/steadying and/or contact guard assistance as patient completes activity. Assistance may be provided throughout the activity or intermittently. 3-Partial/Moderate Assistance-helper does LESS THAN HALF the effort. [place] lifts, holds or supports trunk or limbs, but provides less than half the effort. 2-Substantial/Maximal Assistance-helper does MORE THAN HALF the effort. [place] lifts or holds trunk or limbs and provides more than half the effort. 8-Gardtszjf-pnjgvg does ALL the effort. Patient does none of the effort to complete the activity. Or, the assistance of 2 or more helpers is required for the patient to complete the activity. If activity was not attempted, code reason: 7-Patient Refused. 9-Not Applicable-not attempted and the patient did not perform the activity before the current illness, exacerbation or injury. 10-Not Attempted due to Environmental Limitations-(lack of equipment, weather restraints, etc.). 88-Not Attempted due to Medical Conditions or Safety Concerns. Other Treatment Pt given yellow theraband and HEP to increase L UE strength. Skilled instructions required for proper technique and modifications when necessary. Pt educated on using L UE only at this time due to broken R olecranon. Pt required verbal and physical cues to position L UE correctly to complete exercises with proper technique. Pt only able to tolerate 1 set 15 reps at this time for 5 exercises. Increased time to complete exercises due to decreased activity tolerance. After session, pt lying in bed with call light/phone in reach. All needs met in room. Education OT Patient Education: Exercise program Teaching Recipient: Patient Teaching Methods: Demonstration, Discussion Response to Teaching: Verbalize Understanding, Return Demonstration, Reinforcement Needed OT Long-Term Goals [place] Goals Time Frame: May 16, 2020 Eating (QC): 6 Oral Hygiene (QC): 6 Toileting Hygiene (QC): 6 Shower/Bathe Self (QC): 5 Upper Body Dressing (QC): 6 Lower Body Dressing (QC): 6 On/Off Footwear (QC): 6 Additional Goals: 1-Demonstrate ADL Tasks, 2-Verbalize Understanding, 3- ImproveStrength/Concepcion 1=Demonstrate adherence to instructed precautions during ADL tasks. 2=Patient will verbalize/demonstrate understanding of assistive devices/modific ations for ADL. 3=Patient will improve strength/tolerance for activity to enable patient to perform ADL's. OT Education/Plan Problem List/Assessment Assessment: Decreased Activ Tolerance, Decreased UE Strength Discharge Recommendations Plan/Recommendations: Continue POC Treatment Plan/Plan of Care Patient would benefit from OT for education, treatment and training to promote independence in ADL's, mobility, safety and/or upper extremity function for ADL's. Plan of Care: ADL Retraining, Functional Mobility, Group Exercise/Act as Ind, UE Funct Exercise/Act, UE Neuromus Re-Ed/Coord Treatment Duration: May 16, 2020 Frequency: At least 5 of 7 days/Wk (IRF) Estimated Hrs Per Day: 1.5 hours per day Agreement: Yes Rehab Potential: Good Time/GCodes Start Time: 10:00 Stop Time: 10:30 Total Time Billed (hr/min): 30 Billed Treatment Time 1 visit-EX 2 (30 min) JACKLYN DE LEON May 06, 2020 10:44
[2020-05-06] MEDS ORDERED: proPOfol 200 MG/20 ML (DIPRIVAN) VIAL IV ONE (12:17)
--- NOTE | 2020-05-06 12:17 | NUR ---
ENDO NURSE HERE TO TAKE PATIENT DOWN FOR EGD.
--- NOTE | 2020-05-06 13:15 | NUR ---
PATIENT BACK TO THE FLOOR. ALERT AND ORIENTED. ASSISTED TO THE BR AND THEN TO THE CHAIR FOR LUNCH.
--- NOTE | 2020-05-06 14:25 | NUR ---
COLONOSCOPY RECORDS FROM [facility]) REC'D AND PLACED IN FRONT POCKET OF CHART. DR. WATSON INFORMED.
[2020-05-06] MEDS: HYDROcodone/APAP 5 MG/325 MG (LORTAB) TAB PO PRN ×2 (14:30→22:15)
--- NOTE | 2020-05-06 15:10 | Physical Therapy Daily Note ---
PT Daily Note-Current Subjective Pt sitting in recliner upon arrival. Pt had returned from EGD procedure and eaten lunch. Pt agrees to PT. Pain Numeric Pain Scale: 5-Moderate Pain Comment: Pt reports generalized pain throughout body as well as fatigue. Mental Status Patient Orientation: Person, Place, Situation Transfers SCALE: Activities may be completed with or without assistive devices. 0-Tzshsvuirv-pmcoshh completes the activity by him/herself with no assistance from a helper. 5-Set-up or Clean-up Assistance-helper sets up or cleans up; patient completes activity. [place] assists only prior to or following the activity. 4-Supervision or Touching Assistance-helper provides verbal cues and/or touching/steadying and/or contact guard assistance as patient completes activity. Assistance may be provided throughout the activity or intermittently. 3-Partial/Moderate Assistance-helper does LESS THAN HALF the effort. [place] lifts, holds or supports trunk or limbs, but provides less than half the effort. 2-Substantial/Maximal Assistance-helper does MORE THAN HALF the effort. [place] lifts or holds trunk or limbs and provides more than half the effort. 7-Kbamkbojw-gizrfa does ALL the effort. Patient does none of the effort to complete the activity. Or, the assistance of 2 or more helpers is required for the patient to complete the activity. If activity was not attempted, code reason: 7-Patient Refused. 9-Not Applicable-not attempted and the patient did not perform the activity before the current illness, exacerbation or injury. 10-Not Attempted due to Environmental Limitations-(lack of equipment, weather restraints, etc.). 88-Not Attempted due to Medical Conditions or Safety Concerns. Weight Bearing Full Weight Bearing Full Weight Bearing Exercises Supine Ex: Ankle pumps, Quad Set, Glut sets, Heel Slides, Straight leg raise, Hip abd/add Supine Reps: 15 Seated Therapy Exercises: Ankle pumps, Long arc quads, Hip flexion, Kicking activity, Hip abd/add Seated Reps: 15 Treatments Pt reviewed the issued written HEP for Supine & Seated Ex. Pt resting in recliner upon arrival. Pt has all needs met, call light in hand. Assessment Current Status: Fair Progress Pt is fatigued this afternoon due to having a long day with procedures as well as Therapy tx. PT Short Term Goals Short Term Goals Time Frame: May 08, 2020 Sit to lyin Lying to sitting on side of be: 4 Sit to stand: 4 Chair/ulk-jr-ubdvk transfer: 4 Walk 150 feet: 4 PT Equity Sales Assistant Goals [facility]it[facility] Goals PT Penitentiary Goals Time Frame: May 16, 2020 Roll Left & Right (QC): 6 Sit to Lying (QC): 6 Lying-Sitting on Side/Bed(QC): 6 Sit to Stand (QC): 6 Chair/Pef-au-Heidc Xfer(QC): 6 Toilet Transfer (QC): 6 Car Transfer (QC): 6 Does the Patient Walk: Yes Walk 10 feet (QC): 6 Walk 50ft with 2 Turns (QC): 6 Walk 150 ft (QC): 6 Walking 10ft on Uneven Surface: 6 1 Step (curb) (QC): 6 4 Steps (QC): 6 12 Steps (QC): 6 Picking up an Object (QC): 4 Does the Pt use WC or Scooter?: No Wheel 50 feet with 2 turns (QC: 9 Wheel 150 feet: 9 PT Plan Problem List Problem List: Activity Tolerance, Functional Strength Treatment/Plan Treatment Plan: Continue Plan of Care Treatment Plan: Bed Mobility, Education, Functional Activity Concepcion, Functional Strength, Group Therapy, Gait, Safety, Therapeutic Exercise, Transfers Treatment Duration: May 16, 2020 Frequency: At least 5 of 7 days/Wk (IRF) Estimated Hrs Per Day: 1.5 hours per day Patient and/or Family Agrees t: Yes Time/GCodes Time In: 1430 Time Out: 1500 Total Billed Treatment Time: 30 Total Billed Treatment 1,EX x2 (30m) JOHANNY RIVAS PTA May 06, 2020 15:10
[2020-05-06 16:02] VITALS: BP 156/67
--- NOTE | 2020-05-06 16:26 | Cardiology Progress Note ---
Cardiology SOAP Progress Note Subjective: Mild shortness of breath. Objective: I&O/Vital Signs 05/06/20 05/06/20 05/06/20 05/06/20 06:34 09:36 10:01 16:02 Temp 36.6 37.0 Pulse 71 77 74 Resp 18 16 B/P (MAP) 149/67 (94) 150/70 (96) 156/67 (96) Pulse Ox 96 97 O2 Delivery Room Air Room Air Room Air 05/06/20 00:00 Intake Total 700 ml Balance 700 ml Constitutional: appears stated age, AAO x 3; No apparent distress; well- developed, well-nourished Respiratory: chest is bilaterally symmetric, lungs clear to auscultation Cardiovascular: irregularly irregular, S1 and S2 Gastrointestional: soft, audible bowel sounds; No spleenomegaly Extremities: normal range of motion, non-tender, normal inspection; No clubbing, No cyanosis; no lower extremity edema bilateral; No significant edema Neurologic/Psychiatric: alert, normal mood/affect, oriented x 3, power is 5/5 both on sides Skin: normal color; No rash, No ulcerations Results/Procedures: Labs Laboratory Tests 05/05/20 18:58: White Blood Count 5.7, Red Blood Count 2.83L, Hemoglobin 9.9L, Hematocrit 31L, Mean Corpuscular Volume 110H, Mean Corpuscular Hemoglobin 35H, Mean Corpuscular Hemoglobin Concent 32, Red Cell Distribution Width 18.5H, Platelet Count 108L, Mean Platelet Volume 11.3, Immature Granulocyte % (Auto) 0, Neutrophils (%) (Auto) 73, Lymphocytes (%) (Auto) 17, Monocytes (%) (Auto) 7, Eosinophils (%) (Auto) 3, Basophils (%) (Auto) 0, Neutrophils # (Auto) 4.1, Lymphocytes # (Auto) 0.9L, Monocytes # (Auto) 0.4, Eosinophils # (Auto) 0.2, Basophils # (Auto) 0.0, Immature Granulocyte # (Auto) 0.0, Sodium Level 138, Potassium Level 4.7, Chloride Level 112H, Carbon Dioxide Level 17L, Anion Gap 9, Blood Urea Nitrogen 46H, Creatinine 1.90H, Estimat Glomerular Filtration Rate 26, BUN/Creatinine Ratio 24, Glucose Level 191H, Lactic Acid Level 0.43L, Calcium Level 8.1L, Corrected Calcium 8.5, Total Bilirubin 0.4, Aspartate Amino Transf (AST/SGOT) 23, Alanine Aminotransferase (ALT/SGPT) 24, Alkaline Phosphatase 98, B-Type Natriuretic Peptide 553.3H, Total Protein 5.7L, Albumin 3.5, Procalcitonin 0.06 05/05/20 20:20: Blood Gas Puncture Site LEFT RADIAL, Blood Gas Patient Temperature 37.2, Arterial Blood pH 7.25*L, Arterial Blood Partial Pressure CO2 42, Arterial Blood Partial Pressure O2 89, Arterial Blood HCO3 18L, Arterial Blood Total CO2 19.1L, Arterial Blood Oxygen Saturation 93L, Arterial Blood Base Excess -8.1L, Tello Test POSITIVE, Blood Gas Ventilator Setting NO, Blood Gas Inspired Oxygen RA 05/06/20 05:45: White Blood Count 4.9, Red Blood Count 2.79L, Hemoglobin 9.6L, Hematocrit 31L, Mean Corpuscular Volume 109H, Mean Corpuscular Hemoglobin 34, Mean Corpuscular Hemoglobin Concent 32, Red Cell Distribution Width 18.1H, Platelet Count 109L, Mean Platelet Volume 11.3, Immature Granulocyte % (Auto) 0, Neutrophils (%) (Auto) 71, Lymphocytes (%) (Auto) 18, Monocytes (%) (Auto) 8, Eosinophils (%) (Auto) 4, Basophils (%) (Auto) 0, Neutrophils # (Auto) 3.5, Lymphocytes # (Auto) 0.9L, Monocytes # (Auto) 0.4, Eosinophils # (Auto) 0.2, Basophils # (Auto) 0.0, Immature Granulocyte # (Auto) 0.0, Sodium Level 137, Potassium Level 4.2, Chloride Level 111H, Carbon Dioxide Level 18L, Anion Gap 8, Blood Urea Nitrogen 48H, Creatinine 1.90H, Estimat Glomerular Filtration Rate 26, BUN/Creatinine Ratio 25, Glucose Level 94, Lactic Acid Level 0.35L, Calcium Level 8.2L, Corrected Calcium 8.7, Total Bilirubin 0.5, Aspartate Amino Transf (AST/SGOT) 22, Alanine Aminotransferase (ALT/SGPT) 23, Alkaline Phosphatase 97, Total Protein 5.8L, Albumin 3.4, Procalcitonin 0.06 05/06/20 09:29: A/P: Assessment/Dx: Recent CVA, Persistent atrial fibrillation, Subdural hematoma, Shortness of breath, Metabolic acidosis Plan: EKG shows persistent atrial fibrillation. However due to history of recent stroke and subdural hematoma oral anticoagulation is not recommended. Echocardiogram showed normal LV function with moderate LVH. Bilateral atrial enlargement. Moderate to severe pulmonary hypertension. Shortness of breath is likely multifactorial. Mildly elevated BNP. Diastolic dysfunction could not be evaluated since the patient was in atrial fibrillation. However due to moderate LVH, elevated BNP and bilateral atrial enlargement, patient likely has at least moderate diastolic dysfunction. However Dr. Orlando is holding Lasix for now and giving IV fluids. Thank you for your consultation. Please call me if you have any questions. Gómez Vigil MD, FACP, FACC, FSCAI, FHRS, CCDS Interventional Cardiology Cardiac Electrophysiology Vascular Medicine and Endovascular Interventions Focused Exam Lactate Level 05/05/20 18:58: Lactic Acid Level 0.43L 05/06/20 05:45: Lactic Acid Level 0.35L Michael VIGIL MD May 06, 2020 16:26
--- NOTE | 2020-05-06 19:03 | NUR ---
bedside report received from BRYAN HOFFMAN, assume care of pt
[2020-05-06] MEDS: MELATONIN 3 MG TABLET PO PRN (21:09)
--- NOTE | 2020-05-06 21:09 | NUR ---
pt refused Colace, Senokot & miralax due to loose stools
--- NOTE | 2020-05-06 22:15 | NUR ---
pt c/o rt shoulder pain level 7/10 on numeric scale, LORTAB 5 1 tab given
--- NOTE | 2020-05-06 22:55 | NUR ---
resting quietly in bed, pain level 0/10 on CNPI scale
[2020-05-07 05:36] LABS: BASOPHILS % (AUTO) 0 % (0-10); EOSINOPHILS # (AUTO) 0.2 10^3/uL (0.0-0.3); EOSINOPHILS % (AUTO) 4 % (0-10); HEMATOCRIT 30 % (35-52); HEMOGLOBIN 9.7 g/dL (11.5-16.0); LYMPHOCYTES % (AUTO) 22 % (12-44); MEAN CORPUSCULAR HEMOGLOBIN 35 pg (25-34); MEAN CORPUSCULAR HGB CONC 32 g/dL (32-36); MEAN CORPUSCULAR VOLUME 109 fL (80-99); MEAN PLATELET VOLUME 10.9 fL (9.0-12.2); MONOCYTES # (AUTO) 0.4 10^3/uL (0.0-1.0); MONOCYTES % (AUTO) 9 % (0-12); NEUTROPHILS # (AUTO) 2.9 10^3/uL (1.8-7.8); NEUTROPHILS % (AUTO) 64 % (42-75); PLATELET COUNT 111 10^3/uL (130-400); WHITE BLOOD COUNT 4.5 10^3/uL (4.3-11.0)
[2020-05-07 05:44] LABS: ALBUMIN 3.3 GM/DL (3.2-4.5); POTASSIUM 4.3 MMOL/L (3.6-5.0)
[2020-05-07 05:46] LABS: CALCIUM 8.3 MG/DL (8.5-10.1)
[2020-05-07 05:47] LABS: TOTAL PROTEIN 5.5 GM/DL (6.4-8.2)
[2020-05-07 05:48] LABS: BILIRUBIN,TOTAL 0.5 MG/DL (0.1-1.0)
[2020-05-07 05:50] LABS: CREATININE SERUM 1.78 MG/DL (0.60-1.30)
[2020-05-07] MEDS: MULTIVIT W/MINERALS TAB (THERAGRAN M) PO SCH (06:31)
[2020-05-07 06:54] VITALS: BP 144/60
[2020-05-07] MEDS: FOLIC ACID 1 MG TAB PO SCH (07:47)
[2020-05-07] MEDS: LACTATED RINGERS 1,000 ML IV SCH (07:47)
[2020-05-07] MEDS: ACYCLOVIR 400 MG TABLET (ZOVIRAX) PO SCH ×2 (07:47→20:38)
[2020-05-07] MEDS: SUCRALFATE 1 GM (CARAFATE) TAB PO SCH ×4 (07:47→20:38)
[2020-05-07] MEDS: LEVETIRACETAM 500 MG (KEPPRA) TAB PO SCH ×2 (07:48→20:38)
[2020-05-07] MEDS: ASPIRIN E.C. 81 MG (ECOTRIN) TAB PO SCH (07:48)
[2020-05-07] MEDS: CARVEDILOL 12.5 MG (COREG) TABLET PO SCH ×2 (07:48→20:39)
[2020-05-07] MEDS: HYDROcodone/APAP 5 MG/325 MG (LORTAB) TAB PO PRN ×2 (07:48→20:43)
[2020-05-07] MEDS: SPRYCEL 100 MG PO SCH (07:51)
--- NOTE | 2020-05-07 08:18 | Progress Note - Surgery ---
SMILEY CHO MED STUDENT 05/07/20 0818: Subjective Date Seen by a Provider: May 07, 2020 Time Seen by a Provider: 07:15 Subjective/Events-last exam Pt states she's doing better and was smiling this morning. Pt denies pain. Last BM was yesterday, pt unsure if blood was present or not. Pt denies problems with urination. Pt is walking w/ assist. Pt is tolerating food, denies N/V. Pt still has GILLETTE, weakness, and worsening edema today. Review of Systems General: No Chills, No Night Sweats HEENT: Head Aches (d/t hematoma); No Visual Changes, No Eye Pain, No Ear Pain Pulmonary: No Dyspnea, No Cough Cardiovascular: No: Chest Pain Gastrointestinal: No: Nausea, Vomiting, Abdominal Pain Musculoskeletal: No: arm pain, leg pain Neurological: Weakness (on L d/t stroke) Focused Exam Lactate Level 05/05/20 18:58: Lactic Acid Level 0.43L 05/06/20 05:45: Lactic Acid Level 0.35L Objective Exam Vital Signs Date Time Temp Pulse Resp B/P (MAP) Pulse Ox O2 Delivery O2 Flow Rate FiO2 05/07/20 06:54 37.2 83 18 144/60 (88) 92 Room Air 05/06/20 21:15 97 Room Air 05/06/20 18:05 Room Air 05/06/20 16:02 37.0 74 16 156/67 (96) 97 Room Air 05/06/20 10:01 77 150/70 (96) 05/06/20 09:36 Room Air I & O 05/07/20 07:00 Intake Total 1040 ml Balance 1040 ml Capillary Refill : Less Than 3 SecondsLess Than 3 Seconds General Appearance: No Apparent Distress, WD/WN, Chronically ill, Thin HEENT: PERRL/EOMI Respiratory: Chest Non Tender, Lungs Clear, Normal Breath Sounds, No Accessory Muscle Use, No Respiratory Distress Cardiovascular: Systolic Murmur Gastrointestinal: non tender, soft Extremity: Normal Capillary Refill, Normal Range of Motion (except left sided weakness 3/5 and right arm in sling and soft cast), No Pedal Edema, Other (calf edema worse today in R) Neurologic/Psychiatric: Alert, Oriented x3, Normal Mood/Affect, Abnormal Gait, Facial Droop, Motor Weakness Skin: Normal Color, Warm/Dry Lymphatic: No Adenopathy Results Lab Laboratory Tests 05/06/20 09:29: Coronavirus (COVID-19)(PCR) Negative 05/07/20 05:05: White Blood Count 4.5, Red Blood Count 2.78L, Hemoglobin 9.7L, Hematocrit 30L, Mean Corpuscular Volume 109H, Mean Corpuscular Hemoglobin 35H, Mean Corpuscular Hemoglobin Concent 32, Red Cell Distribution Width 18.0H, Platelet Count 111L, Mean Platelet Volume 10.9, Immature Granulocyte % (Auto) 0, Neutrophils (%) (Auto) 64, Lymphocytes (%) (Auto) 22, Monocytes (%) (Auto) 9, Eosinophils (%) (Auto) 4, Basophils (%) (Auto) 0, Neutrophils # (Auto) 2.9, Lymphocytes # (Auto) 1.0, Monocytes # (Auto) 0.4, Eosinophils # (Auto) 0.2, Basophils # (Auto) 0.0, Immature Granulocyte # (Auto) 0.0, Sodium Level 141, Potassium Level 4.3, Chloride Level 112H, Carbon Dioxide Level 19L, Anion Gap 10, Blood Urea Nitrogen 43H, Creatinine 1.78H, Estimat Glomerular Filtration Rate 28, BUN/Creatinine Ratio 24, Glucose Level 90, Calcium Level 8.3L, Corrected Calcium 8.9, Total Bilirubin 0.5, Aspartate Amino Transf (AST/SGOT) 20, Alanine Aminotransferase (ALT/SGPT) 19, Alkaline Phosphatase 97, Total Protein 5.5L, Albumin 3.3 Microbiology 05/06/20 MRSA Screen - Final, Complete MRSA not isolated Assessment/Plan Assessment/Plan Assessment/Plan Hemoccult positive anemia - EGD yesterday showed an ulcer. possibly add acid mac. Clinical Quality Measures DVT/VTE Risk/Contraindication: Risk Factor Score Per Nursin RFS Level Per Nursing on Admit: 4+=Very High Contraindications-Pharm: Other *list below* Other: recent subarachnoid hemorrhage MASSIMO WATSON DO 05/08/20 1203: Subjective Time Seen by a Provider: 15:58 Subjective/Events-last exam Pt seen and examined, no complaints today. Tolerating diet. Review of Systems General: No Chills, No Night Sweats; Fatigue Pulmonary: No Dyspnea, No Cough Cardiovascular: No: Chest Pain Gastrointestinal: No: Nausea, Vomiting, Abdominal Pain Objective Exam General Appearance: No Apparent Distress, Chronically ill HEENT: Other (Left sided facial droop) Respiratory: Lungs Clear, Normal Breath Sounds, No Accessory Muscle Use, No Respiratory Distress Cardiovascular: Regular Rate, Rhythm, Systolic Murmur Gastrointestinal: non tender, soft, no organomegaly Assessment/Plan Assessment/Plan Assessment/Plan Hemoccult + Anemia Pt had what looked like ulcer, will await pathology. In the meantime continue acid blockers. Supervisory-Addendum Brief Verification & Attestation Participated in pt care: history, MDM, physical Personally performed: exam, history, MDM Care discussed with: Medical Student Procedures: n/a Verification and Attestation of Medical Student E/M Service A medical student performed and documented this service. I then reviewed and verified all information documented by the medical student and made modifications to such information, when appropriate. I personally performed a physical exam, medical decision making and then discussed any differences between the notes and made revisions as necessary to create one note. Massimo Watson , 05/08/20 , 12:02 SMILEY CHO MED STUDENT May 07, 2020 08:18 MASSIMO WATSON DO May 08, 2020 12:03
--- NOTE | 2020-05-07 09:00 | NUR ---
DR SALDAÑA HERE. NOTIFIED OF PATIENT DECREASED LUNG SOUNDS, NEW ORDER FOR I.S. PATIENT HAS INCREASED LE EDEMA 2-3+ AND 1+SACRAL EDEMA. REFER TO CARDIOLOGY. PATIENT IS A/O ORIENTED. REQUIRES REINFORCEMENT OF WEIGHT BEARING PRECAUTIONS OF LEFT ARM. Addendum: 05/07/20 at 1540 by JOHANNY JUSTIN RN 1020 CORRECT TIME
--- NOTE | 2020-05-07 09:07 | Speech Therapy Daily Note ---
Speech Daily Progress Note Subjective Date Seen by Provider: May 07, 2020 Time Seen by Provider: 00:30 Patient was resting in her bed following her OT session. The patient was notably tired. Objective Patient completed OME x10 with significant improvement of left side facial droop. Assessment Assessment Current Status: Good Progress Treatment Plan Continue Plan of Care Speech Short Term Goals Short Term Goals Short Term Goals 1) The patient will complete memory tasks related to her daily needs with minimal cues at 90% or greater. 2) The patient will complete safety awareness tasks related to her daily needs with minimal cues at 90% or greater. 3) The patient will complete problem solving tasks related to her daily needs with minimal cues at 90% or greater. 4) The patient will complete OME at 90% or greater with minimal cues. Speech Fork Repairer Goals Long-Term Goals Patient will improve her speech production and cognitive function in order to return home safer. Speech-Plan Patient/Family Goals Patient/Family Goals: Patient plans on returning to her home where she lives with her . Treatment Plan Speech Therapy Treatment Plan: Continue Plan of Care Treatment Duration: May 14, 2020 Frequency: 4 times per week (Patient will receive skilled ST 4-5x per week) Estimated Hrs Per Day: .5 hour per day Rehab Potential: Good Barriers to Learning: Patient's recent CVA, although deficits are resolving Pt/Family Agrees to Plan: Yes Safety Risks/Education Teaching Recipient: Patient Teaching Methods: Demonstration, Discussion Response to Teaching: Verbalize Understanding, Return Demonstration Education Topics Provided: Continued safety and communication Time Speech Therapy Time In: 08:30 Speech Therapy Time Out: 09:00 Total Billed Time: 30 Billed Treatment Time 1, SHARIR Cruz May 07, 2020 09:07
--- NOTE | 2020-05-07 09:34 | PM&R Progress Note ---
Subjective HPI/CC On Admission Date Seen by Provider: May 07, 2020 Time Seen by Provider: 09:30 Subjective/Events-last exam 05/07/20: Cardiology consultation appreciated Edema is noted and she feels like she has a lot of fluid on board Dyspnea is noted with 92% on room air IV fluids still going at 80 Will update cardiology and Dr. Orlando 05/06/20: Septic workup last night returned without evidence of sepsis Dr. Orlando consulted and started her on Sodium Bicarbonate for metabolic acidosis with pH of 7. 25 Overall very fragile Has become a bit somatic EGD today by Dr. Rosas Echocardiogram will be performed Remains on lactated ringers at 80 CCs per hour Overall improved Hgb stable 05/05/20: Bowels moved yesterday Nausea and emesis continue Labs stable, Hgb 9.9 Hemoccult positive stools so Dr. Rosas has been consulted BUN elevated suspicious for blood in the gut 05/04/20: Loose stools today Nausea today but has passed Doing OK 05/03/20: Hgb 9.8 today after 2 units of blood yesterday She receives a lot of transfusions due to leukemia Coloring is improved now since transfusion BM yesterday Creat 1.7 Hgb 7.1 will need 2 units of blood Creatinine 1.56 Talked to her about overall status and she is doing well otherwise Checked meds and labs Conferred with RN Reviewed therapy notes Review of Systems General: Fatigue, Malaise Pulmonary: Dyspnea Cardiovascular: Edema Focused Exam Lactate Level 05/05/20 18:58: Lactic Acid Level 0.43L 05/06/20 05:45: Lactic Acid Level 0.35L Objective Exam Vital Signs Vital Signs Date Time Temp Pulse Resp B/P (MAP) Pulse Ox O2 Delivery O2 Flow Rate FiO2 05/08/20 05:08 37.0 75 18 157/64 (95) 94 Room Air Capillary Refill : Less Than 3 SecondsLess Than 3 Seconds General Appearance: No Apparent Distress, WD/WN, Chronically ill, Thin HEENT: PERRL/EOMI, Normal ENT Inspection, Pharynx Normal Neck: Full Range of Motion, Normal Inspection, Non Tender, Supple Respiratory: Chest Non Tender, Lungs Clear, Normal Breath Sounds, No Accessory Muscle Use, No Respiratory Distress Cardiovascular: Regular Rate, Rhythm, No JVD, No Murmur, Normal Peripheral Pulses, Systolic Murmur Gastrointestinal: Normal Bowel Sounds, No Organomegaly, No Pulsatile Mass, Non Tender, Soft Back: Normal Inspection, No CVA Tenderness, No Vertebral Tenderness Extremity: Normal Capillary Refill, Normal Range of Motion (except left sided weakness 3/5 and right arm in sling and soft cast), Non Tender, No Calf Tenderness, Pedal Edema, Other (calf edema worse today in R) Neurologic/Psychiatric: Alert, Oriented x3, Normal Mood/Affect, tire vulcanizer II-XII Norm as Tested, Abnormal Gait, Facial Droop, Motor Weakness Skin: Normal Color, Warm/Dry Lymphatic: No Adenopathy Results/Procedures Lab Patient resulted labs reviewed. FIM Transfers Therapy Code Descriptions/Definitions Functional [place] Measure: 0=Not Assessed/NA 4=Minimal Assistance 1=Total Assistance 5=Supervision or Setup 2=Maximal Assistance 6=Modified [place] 3=Moderate Assistance 7=Complete IndependenceSCALE: Activities may be completed with or without assistive devices. 6-Pahyzevjkg-pwdxmea completes the activity by him/herself with no assistance from a helper. 5-Set-up or Clean-up Assistance-helper sets up or cleans up; patient completes activity. [place] assists only prior to or following the activity. 4-Supervision or Touching Assistance-helper provides verbal cues and/or touching/steadying and/or contact guard assistance as patient completes activity. Assistance may be provided throughout the activity or intermittently. 3-Partial/Moderate Assistance-helper does LESS THAN HALF the effort. [place] lifts, holds or supports trunk or limbs, but provides less than half the effort. 2-Substantial/Maximal Assistance-helper does MORE THAN HALF the effort. [place] lifts or holds trunk or limbs and provides more than half the effort. 8-Wzuypyhpl-jgboij does ALL the effort. Patient does none of the effort to compl ete the activity. Or, the assistance of 2 or more helpers is required for the patient to complete the activity. If activity was not attempted, code reason: 7-Patient Refused. 9-Not Applicable-not attempted and the patient did not perform the activity before the current illness, exacerbation or injury. 10-Not Attempted due to Environmental Limitations-(lack of equipment, weather restraints, etc.). 88-Not Attempted due to Medical Conditions or Safety Concerns. Roll Left to Right (QC): 6 Sit to Lying (QC): 6 (with much effort) Sit to Stand (QC): 6 Chair/Fum-qn-Yhdmk Xfer(QC): 6 Car Transfer (QC): 4 Gait Training Walk 10 feet (QC): 4 Walk 50 ft with 2 Turns(QC): 4 Walk 150 ft (QC): 4 Walking 10ft/uneven surface-QC: 3 Gait Persons Needed: 1 Gait Assistive Device: Handheld Assist (L) Wheelchair Training Wheel 50 ft with 2 turns (QC): 9 Wheel 150 ft (QC): 9 Stair Training 1 Step (curb) (QC): 3 4 Steps (QC): 3 12 Steps (QC): 88 Balance Picking up an Object (QC): 88 ADL-Treatment Eating (QC): 5 (Pt reports requiring set up assistance with breakfast to open containers and cut food, pt states she is then able to use utensils to eat.) Oral Hygiene (QC): 6 Bathing Location: R Arm, L Upper Leg, R Upper Leg, L Lower Leg (including foot), R Lower Leg (including foot), Chest, Abdomen, Buttocks, Perineal Area Shower/Bathe Self (QC): 4 Upper Body Dressing (QC): 3 Lower Body Dressing (QC): 3 On/Off Footwear (QC): 4 Toileting Hygiene (QC): 3 Toilet Transfer (QC): 4 Assessment/Plan Assessment and Plan Assess & Plan/Chief Complaint Assessment: 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 (1) CVA (cerebral vascular accident) (2) CLL (chronic lymphocytic leukemia) (3) Subdural hematoma (4) Closed fracture of right olecranon process (5) Hyperlipemia (6) GERD (gastroesophageal reflux disease) ANTOINE SALDAÑA DO May 07, 2020 09:34
--- NOTE | 2020-05-07 10:10 | Physical Therapy Daily Note ---
PT Daily Note-Current Subjective Pt lying Supine in bed upon arrival. Pt agrees to PT despite reporting having a busy morning already. Pain Location: No Pain Reported Mental Status Patient Orientation: Person, Place, Situation Attachments: IV Transfers SCALE: Activities may be completed with or without assistive devices. 8-Mtujtlsjne-tlrmfll completes the activity by him/herself with no assistance from a helper. 5-Set-up or Clean-up Assistance-helper sets up or cleans up; patient completes activity. [place] assists only prior to or following the activity. 4-Supervision or Touching Assistance-helper provides verbal cues and/or touching/steadying and/or contact guard assistance as patient completes activity. Assistance may be provided throughout the activity or intermittently. 3-Partial/Moderate Assistance-helper does LESS THAN HALF the effort. [place] lifts, holds or supports trunk or limbs, but provides less than half the effort. 2-Substantial/Maximal Assistance-helper does MORE THAN HALF the effort. [place] lifts or holds trunk or limbs and provides more than half the effort. 2-Wesoajlur-dppqdn does ALL the effort. Patient does none of the effort to complete the activity. Or, the assistance of 2 or more helpers is required for the patient to complete the activity. If activity was not attempted, code reason: 7-Patient Refused. 9-Not Applicable-not attempted and the patient did not perform the activity before the current illness, exacerbation or injury. 10-Not Attempted due to Environmental Limitations-(lack of equipment, weather restraints, etc.). 88-Not Attempted due to Medical Conditions or Safety Concerns. Roll Left & Right (QC): 4 Sit to Lying (QC): 4 Lying to Sitting/Side of Bed(Q: 4 Sit to Stand (QC): 4 Toilet Transfer (QC): 4 Weight Bearing Full Weight Bearing Full Weight Bearing Gait Training Does the Patient Walk?: Yes Distance: 450' Walk 10 feet (QC): 4 Walk 50 ft with 2 Turns(QC): 4 Walk 150 ft (QC): 4 Gait Persons Needed: 1 Gait Assistive Device: Handheld Assist Wheelchair Training Does the Pt Use a Wheelchair?: No Stair Training Stair Training: Handrails/: 2 handrails #of Steps: 4 1 Step (curb) (QC): 4 4 Steps (QC): 4 Stairs: Pattern: Step to Exercises Seated Therapy Exercises: Ankle pumps, Long arc quads, Hip flexion, Kicking activity, Glut set Seated Reps: 15 Treatments TF to EOB and completes Seated Ex. Pt uses BR before leaving room. Pt amb. in hallway before amb. steps. Pt amb. in hallway then returns to room to rest at end of tx with all needs met, call light in hand. Assessment Current Status: Good Progress Pt is fatigued from busy morning. PT Short Term Goals Short Term Goals Time Frame: May 08, 2020 Sit to lyin Lying to sitting on side of be: 4 Sit to stand: 4 Chair/atw-ae-xzrkw transfer: 4 Walk 150 feet: 4 PT Legal Collector Goals Legal Collector Goals PT Legal Collector Goals Time Frame: May 16, 2020 Roll Left & Right (QC): 6 Sit to Lying (QC): 6 Lying-Sitting on Side/Bed(QC): 6 Sit to Stand (QC): 6 Chair/Uit-gl-Qtymx Xfer(QC): 6 Toilet Transfer (QC): 6 Car Transfer (QC): 6 Does the Patient Walk: Yes Walk 10 feet (QC): 6 Walk 50ft with 2 Turns (QC): 6 Walk 150 ft (QC): 6 Walking 10ft on Uneven Surface: 6 1 Step (curb) (QC): 6 4 Steps (QC): 6 12 Steps (QC): 6 Picking up an Object (QC): 4 Does the Pt use WC or Scooter?: No Wheel 50 feet with 2 turns (QC: 9 Wheel 150 feet: 9 PT Plan Problem List Problem List: Activity Tolerance Treatment/Plan Treatment Plan: Continue Plan of Care Treatment Plan: Bed Mobility, Education, Functional Activity Concepcion, Functional Strength, Group Therapy, Gait, Safety, Therapeutic Exercise, Transfers Treatment Duration: May 16, 2020 Frequency: At least 5 of 7 days/Wk (IRF) Estimated Hrs Per Day: 1.5 hours per day Patient and/or Family Agrees t: Yes Time/GCodes Time In: 900 Time Out: 1000 Total Billed Treatment Time: 60 Total Billed Treatment 1, GT x2 (25m), FA (15m) & EX (20m) JOHANNY RIVAS AIR GRINDER May 07, 2020 10:10
--- NOTE | 2020-05-07 10:29 | Occupational Ther Daily Note ---
OT Current Status-Daily Note Subjective Pt alert, lying in bed. Pt agrees to therapy. Pt states that her headache is still there. Mental Status/Objective Patient Orientation: Person, Place, Time, Situation Attachments: IV (midline) ADL-Treatment Pt agrees to shower. Pt requires assist to set up due to cast on R UE. Min A for clothing manipulation for toileting, completes hygiene by self sitting on toilet. Transfers with hand hold assist. Pt stands at sink to complete oral care independently. Supervision to complete shower. Pt able to don/doff shirt by self. Min A for lower body dressing. Max A for donning/doffing socks and UMANG hose. Pt introduced to AE for lower body dressing unable to use during this session due to time constraints. After therapy, pt lying in bed with call light/phone in reach. QUILL BUNCHER AND SORTER took over care. All needs met. Therapy Code Descriptions/Definitions Functional [place] Measure: 0=Not Assessed/NA 4=Minimal Assistance 1=Total Assistance 5=Supervision or Setup 2=Maximal Assistance 6=Modified [place] 3=Moderate Assistance 7=Complete IndependenceSCALE: Activities may be completed with or without assistive devices. 7-Lexogozpwe-bfxkhlc completes the activity by him/herself with no assistance from a helper. 5-Set-up or Clean-up Assistance-helper sets up or cleans up; patient completes activity. [place] assists only prior to or following the activity. 4-Supervision or Touching Assistance-helper provides verbal cues and/or touching/steadying and/or contact guard assistance as patient completes activity. Assistance may be provided throughout the activity or intermittently. 3-Partial/Moderate Assistance-helper does LESS THAN HALF the effort. [place] lifts, holds or supports trunk or limbs, but provides less than half the effort. 2-Substantial/Maximal Assistance-helper does MORE THAN HALF the effort. [place] lifts or holds trunk or limbs and provides more than half the effort. 8-Bbkzlpvdx-tonulm does ALL the effort. Patient does none of the effort to complete the activity. Or, the assistance of 2 or more helpers is required for the patient to complete the activity. If activity was not attempted, code reason: 7-Patient Refused. 9-Not Applicable-not attempted and the patient did not perform the activity before the current illness, exacerbation or injury. 10-Not Attempted due to Environmental Limitations-(lack of equipment, weather restraints, etc.). 88-Not Attempted due to Medical Conditions or Safety Concerns. Oral Hygiene (QC): 6 Shower/Bathe Self (QC): 4 Upper Body Dressing (QC): 5 Lower Body Dressing (QC): 3 On/Off Footwear: 2 Toileting Hygiene (QC): 3 Toilet Transfer (QC): 4 OT Fdc Goals Executive Director Contract Shop Goals Time Frame: May 16, 2020 Eating (QC): 6 Oral Hygiene (QC): 6 Toileting Hygiene (QC): 6 Shower/Bathe Self (QC): 5 Upper Body Dressing (QC): 6 Lower Body Dressing (QC): 6 On/Off Footwear (QC): 6 Additional Goals: 1-Demonstrate ADL Tasks, 2-Verbalize Understanding, 3- ImproveStrength/Concepcion 1=Demonstrate adherence to instructed precautions during ADL tasks. 2=Patient will verbalize/demonstrate understanding of assistive d evices/modifications for ADL. 3=Patient will improve strength/tolerance for activity to enable patient to perform ADL's. OT Education/Plan Problem List/Assessment Assessment: Decreased Activ Tolerance, Decreased UE Strength, Impaired Self- Care Skills, Restricted Funct UE ROM Discharge Recommendations Plan/Recommendations: Continue POC Treatment Plan/Plan of Care Patient would benefit from OT for education, treatment and training to promote independence in ADL's, mobility, safety and/or upper extremity function for ADL's. Plan of Care: ADL Retraining, Functional Mobility, Group Exercise/Act as Ind, UE Funct Exercise/Act, UE Neuromus Re-Ed/Coord Treatment Duration: May 16, 2020 Frequency: At least 5 of 7 days/Wk (IRF) Estimated Hrs Per Day: 1.5 hours per day Agreement: Yes Rehab Potential: Good Time/GCodes Start Time: 07:15 Stop Time: 08:30 Total Time Billed (hr/min): 75 Billed Treatment Time 1 visit-ADL 5 (75 min) JACKLYN DE LEON May 07, 2020 10:29
--- NOTE | 2020-05-07 10:33 | NUR ---
RT NOTIFIED OF NEW I.S. START
[2020-05-07] MEDS: DOCUSATE SODIUM 100 MG (COLACE) CAP PO SCH ×2 (11:25→20:38)
[2020-05-07] MEDS: BISACODYL 10 MG SUPP (DULCOLAX) RC SCH (11:25)
[2020-05-07] MEDS: polyethylene glycoL POWDER 17 GM (MIRALAX) PACK PO SCH ×2 (11:25→20:39)
[2020-05-07] MEDS: SENNA W/DOCUSATE (SENOKOT S) TABLET PO SCH ×2 (11:25→20:39)
--- NOTE | 2020-05-07 11:45 | Cardiology Progress Note ---
Subjective Date Seen by Provider: May 07, 2020 Time Seen by Provider: 11:00 Subjective/Events-last exam Patient in bed, complaining of some mild dyspnea and increased peripheral edema. Denies any chest pain Review of Systems General: No Chills, No Night Sweats; Fatigue, Malaise; No Appetite, No Other HEENT: No Head Aches, No Visual Changes, No Eye Pain, No Ear Pain, No Dysphasia, No Sinus Congestion, No Post Nasal Drip, No Sore Throat, No Other Pulmonary: No Dyspnea, No Cough, No Pleuritic Chest Pain, No Other Cardiovascular: Edema; No: Chest Pain, Palpitations, Orthopnea, Paroxysmal Noc. Dyspnea, Lt Headedness, Other Focused Exam Lactate Level 05/05/20 18:58: Lactic Acid Level 0.43L 05/06/20 05:45: Lactic Acid Level 0.35L Objective-Cardiology Exam Last Set of Vital Signs Vital Signs 05/07/20 05/07/20 05/07/20 06:54 08:01 12:05 Temp 37.2 Pulse 83 Resp 18 B/P (MAP) 144/60 (88) Pulse Ox 92 O2 Delivery Room Air Capillary Refill : Less Than 3 SecondsLess Than 3 Seconds I&O Intake and Output 05/07/20 00:00 Intake Total 690 ml Balance 690 ml Intake Oral 690 ml # Voids 8 # Bowel Movements 3 General: Alert, Oriented X3, Cooperative HEENT: Atraumatic, PERRLA Neck: Supple, No JVD, No Thyromegaly Lungs: Normal Air Movement, Other (diminished breath sounds LLL) Heart: Normal S1, Normal S2, Other (irregularly irregular) Abdomen: Soft, No Tenderness Extremities: Other (+2-3 pitting edema) Skin: No Rashes, No Significant Lesion Neuro: Normal Speech Psych/Mental Status: Mental Status NL, Mood NL Results Lab Laboratory Tests 05/07/20 05:05 A/P-Cardiology Admission Diagnosis CVA Persistent atrial fibrillation dyspnea metabolic acidosis Assessment/Plan Recent CVA, continue with PT/OT. Unable to tolerate OAC d/t recent subdural hematoma. Echocardiogram done 05/06/2020 showed normal LV function with moderate LVH. Bilateral atrial enlargement. Moderate to severe pulmonary hypertension with PA 75-80mmHg Persistent atrial fibrillation, unable to tolerate OAC, currently on ASA. Rate is controlled. Peripheral edema worsening recently, has been off diuretics, I'll restart Lasix and evaluate tolerance and response History of recent Subdural hematoma, Shortness of breath, likely multifactorial. Mildly elevated BNP. Diastolic dysfunction could not be evaluated since the patient was in atrial fibrillation. However due to moderate LVH, elevated BNP and bilateral atrial enlargement, patient likely has at least moderate diastolic dysfunction. However Dr. Orlando is holding Lasix for now and giving IV fluids. Diruese when tolerated Metabolic acidosis, management per Dr. Orlando Acute on chronic renal insufficiency- continue to monitor renal function CLL Anemia- received blood transfusion, continue to monitor Patient was seen and evaluated with Almaz, examination performed, management plan was discussed, agree with the current scribed note, I made few changes to the note using Italic font Patient was seen at bedside sitting comfortably, having worsening edema. Worsening dyspnea I will restart Lasix 20 mg daily and evaluate tolerance and response Clinical Quality Measures DVT/VTE Risk/Contraindication: Risk Factor Score Per Nursin RFS Level Per Nursing on Admit: 4+=Very High Contraindications-Pharm: Other *list below* Other: recent subarachnoid hemorrhage ALMAZ ROSS May 07, 2020 11:44 am COLBY BARILLAS MD May 07, 2020 2:54 pm
[2020-05-07] MEDS ORDERED: SODIUM BICARB 8.4% 50 MEQ/50 ML (ABBOTT) SYR IV NR (11:48)
--- NOTE | 2020-05-07 12:00 | NUR ---
JAVIER MALDONADO HERE TO ASSESS PATIENT. NOTIFIED OF CARDIAC ASSESSMENT. NO NEW ORDERS AT THIS TIME. PATIENT DOES NOT EXHIBIT ANY SOA WITH EXERTION. CONTINUE I.S.
--- NOTE | 2020-05-07 13:36 | Physical Therapy Daily Note ---
PT Daily Note-Current Subjective Pt laying Supine in bed upon arrival. Pt reports taking long nap after morning tx but still fatigued. Pt reports pressure in chest, Nurse notified. Mental Status Patient Orientation: Person, Place, Situation Attachments: IV Transfers SCALE: Activities may be completed with or without assistive devices. 2-Mlczhaokul-zrvmgqe completes the activity by him/herself with no assistance from a helper. 5-Set-up or Clean-up Assistance-helper sets up or cleans up; patient completes activity. [place] assists only prior to or following the activity. 4-Supervision or Touching Assistance-helper provides verbal cues and/or touching/steadying and/or contact guard assistance as patient completes activity. Assistance may be provided throughout the activity or intermittently. 3-Partial/Moderate Assistance-helper does LESS THAN HALF the effort. [place] lifts, holds or supports trunk or limbs, but provides less than half the effort. 2-Substantial/Maximal Assistance-helper does MORE THAN HALF the effort. [place] lifts or holds trunk or limbs and provides more than half the effort. 4-Auxmvwual-xazrpv does ALL the effort. Patient does none of the effort to complete the activity. Or, the assistance of 2 or more helpers is required for the patient to complete the activity. If activity was not attempted, code reason: 7-Patient Refused. 9-Not Applicable-not attempted and the patient did not perform the activity before the current illness, exacerbation or injury. 10-Not Attempted due to Environmental Limitations-(lack of equipment, weather restraints, etc.). 88-Not Attempted due to Medical Conditions or Safety Concerns. Weight Bearing Full Weight Bearing Full Weight Bearing Treatments Pt asked for assistance for repositioning. Pt cannot tolerate HOB being lowered and assistance is needed. Pt resting at end of tx with all needs met, call light in hand. Assessment Current Status: Fair Progress When pt is being transferred, pt reports feeeling as though she had a lot of pressure at chest and couldn't breathe until HOB is raised again. Nurse is no tified. PT Short Term Goals Short Term Goals Time Frame: May 08, 2020 Sit to lyin Lying to sitting on side of be: 4 Sit to stand: 4 Chair/scj-uv-frcnh transfer: 4 Walk 150 feet: 4 PT Reexaminer Goals Reexaminer Goals PT Custodial Goals Time Frame: May 16, 2020 Roll Left & Right (QC): 6 Sit to Lying (QC): 6 Lying-Sitting on Side/Bed(QC): 6 Sit to Stand (QC): 6 Chair/Qlp-ki-Gcntg Xfer(QC): 6 Toilet Transfer (QC): 6 Car Transfer (QC): 6 Does the Patient Walk: Yes Walk 10 feet (QC): 6 Walk 50ft with 2 Turns (QC): 6 Walk 150 ft (QC): 6 Walking 10ft on Uneven Surface: 6 1 Step (curb) (QC): 6 4 Steps (QC): 6 12 Steps (QC): 6 Picking up an Object (QC): 4 Does the Pt use WC or Scooter?: No Wheel 50 feet with 2 turns (QC: 9 Wheel 150 feet: 9 PT Plan Problem List Problem List: Activity Tolerance, Safety, Bed Mobility Treatment/Plan Treatment Plan: Continue Plan of Care Treatment Plan: Bed Mobility, Education, Functional Activity Concepcion, Functional Strength, Group Therapy, Gait, Safety, Therapeutic Exercise, Transfers Treatment Duration: May 16, 2020 Frequency: At least 5 of 7 days/Wk (IRF) Estimated Hrs Per Day: 1.5 hours per day Patient and/or Family Agrees t: Yes Safety Risks/Education Patient Education: Correct Positioning, Safety Issues Teaching Recipient: Patient Teaching Methods: Discussion Response to Teaching: Verbalize Understanding Time/GCodes Time In: 1300 Time Out: 1315 Total Billed Treatment Time: 15 Total Billed Treatment 1, FA (15m) JOHANNY RIVAS [facility] May 07, 2020 13:36
[2020-05-07 18:23] VITALS: BP 118/67
--- NOTE | 2020-05-07 18:56 | NUR ---
PATIENT'S SON CALLED FOR UPDATE ON PATIENT. SPOKE AT LENGTH WITH SON AND ANSWERED ALL QUESTIONS. SON APPRECIATIVE OF CARE.
[2020-05-07 20:39] VITALS: BP 153/63
[2020-05-08 05:08] VITALS: BP 157/64
[2020-05-08] MEDS: MULTIVIT W/MINERALS TAB (THERAGRAN M) PO SCH (06:12)
--- NOTE | 2020-05-08 08:29 | Occupational Ther Daily Note ---
OT Current Status-Daily Note Subjective Pt alert, sitting in recliner. Pt's edema in feet have decreased, R lower leg skin shiny and edema is present though decreased from yesterday. Increased SOB with minimal movement or task. Pt agrees to therapy. Mental Status/Objective Patient Orientation: Person, Place, Time, Situation Attachments: IV (miline) ADL-Treatment Pt declines shower or changing clothing. Completes oral care standing at sink, independently. Pt able to doff socks with dressing stick and don with sock aide. Assist to don/doff UMANG hose. Therapy Code Descriptions/Definitions Functional [place] Measure: 0=Not Assessed/NA 4=Minimal Assistance 1=Total Assistance 5=Supervision or Setup 2=Maximal Assistance 6=Modified [place] 3=Moderate Assistance 7=Complete IndependenceSCALE: Activities may be completed with or without assistive devices. 6-Ggtsixutzz-sswskil completes the activity by him/herself with no assistance from a helper. 5-Set-up or Clean-up Assistance-helper sets up or cleans up; patient completes activity. [place] assists only prior to or following the activity. 4-Supervision or Touching Assistance-helper provides verbal cues and/or touching/steadying and/or contact guard assistance as patient completes activity. Assistance may be provided throughout the activity or intermittently. 3-Partial/Moderate Assistance-helper does LESS THAN HALF the effort. [place] lifts, holds or supports trunk or limbs, but provides less than half the effort. 2-Substantial/Maximal Assistance-helper does MORE THAN HALF the effort. [place] lifts or holds trunk or limbs and provides more than half the effort. 6-Pqvtahtef-evqybt does ALL the effort. Patient does none of the effort to complete the activity. Or, the assistance of 2 or more helpers is required for the patient to complete the activity. If activity was not attempted, code reason: 7-Patient Refused. 9-Not Applicable-not attempted and the patient did not perform the activity before the current illness, exacerbation or injury. 10-Not Attempted due to Environmental Limitations-(lack of equipment, weather restraints, etc.). 88-Not Attempted due to Medical Conditions or Safety Concerns. Oral Hygiene (QC): 6 On/Off Footwear: 3 Other Treatment Pt ambulates to therapy gym with hand hold. Pt completes 10 min on arm bike using only L UE without resistance (due to increased SOA) to increase activity tolerance and strength in L UE for daily functional tasks. Pt completed fine motor strengthening exercises to increase pinch/executive assistant to president. Pt ambulated back to room and completed 2 light resistance theraband with L UE to increase strength, 3 sets 5 reps. Skilled instruction for technique and modifications to complete exercises. After session, pt sitting in recliner with call light/phone in reach. All needs met in room. OT Pattern Attendant Goals Pattern Attendant Goals Time Frame: May 16, 2020 Eating (QC): 6 Oral Hygiene (QC): 6 Toileting Hygiene (QC): 6 Shower/Bathe Self (QC): 5 Upper Body Dressing (QC): 6 Lower Body Dressing (QC): 6 On/Off Footwear (QC): 6 Additional Goals: 1-Demonstrate ADL Tasks, 2-Verbalize Understanding, 3- ImproveStrength/Concepcion 1=Demonstrate adherence to instructed precautions during ADL tasks. 2=Patient will verbalize/demonstrate understanding of assistive devices/modifications for ADL. 3=Patient will improve strength/tolerance for activity to enable patient to perform ADL's. OT Education/Plan Problem List/Assessment Assessment: Decreased Activ Tolerance, Decreased UE Strength, Impaired Self- Care Skills, Restricted Funct UE ROM Discharge Recommendations Plan/Recommendations: Continue POC Treatment Plan/Plan of Care Patient would benefit from OT for education, treatment and training to promote independence in ADL's, mobility, safety and/or upper extremity function for ADL's. Plan of Care: ADL Retraining, Functional Mobility, Group Exercise/Act as Ind, UE Funct Exercise/Act, UE Neuromus Re-Ed/Coord Treatment Duration: May 16, 2020 Frequency: At least 5 of 7 days/Wk (IRF) Estimated Hrs Per Day: 1.5 hours per day Agreement: Yes Rehab Potential: Good Time/GCodes Start Time: 07:15 Stop Time: 08:30 Total Time Billed (hr/min): 75 Billed Treatment Time 1 visit-ADL 2 (30 min) FA 1 (15 min) EX 2 (30 min) JACKLYN DE LEON May 08, 2020 08:29
--- NOTE | 2020-05-08 08:56 | Progress Note - Surgery ---
SMILEY CHO MED STUDENT 05/08/20 0856: Subjective Date Seen by a Provider: May 08, 2020 Time Seen by a Provider: 07:50 Subjective/Events-last exam Pt states she feels the same as yesterday. Pt has some difficulty keeping food down. Last BM was yesterday. Pt denies looking to see if blood was present or not. Pt is walking around as tolerated and denies difficulty w/ urination. Pt is working with PT on L sided weakness d/t stroke. Pt still has GILLETTE from hematoma d/t fall. Pt has slight cough but denies N/V, abdominal pain. Pt still has mild leg swelling that's improved from yesterday. Review of Systems General: No Chills, No Night Sweats; Fatigue (d/t leukemia) HEENT: Head Aches (d/t hematoma); No Visual Changes, No Eye Pain, No Ear Pain Pulmonary: Cough Cardiovascular: No: Chest Pain Gastrointestinal: No: Nausea, Vomiting, Abdominal Pain Musculoskeletal: No: arm pain, leg pain Neurological: Weakness (on L arm and face d/t stroke); No: Numbness Focused Exam Lactate Level 05/05/20 18:58: Lactic Acid Level 0.43L 05/06/20 05:45: Lactic Acid Level 0.35L Objective Exam Vital Signs Date Time Temp Pulse Resp B/P (MAP) Pulse Ox O2 Delivery O2 Flow Rate FiO2 05/08/20 05:08 37.0 75 18 157/64 (95) 94 Room Air 05/07/20 21:00 Room Air 05/07/20 20:39 73 153/63 (93) 05/07/20 18:23 37.2 83 18 118/67 (84) 96 Room Air 05/07/20 12:05 Room Air I & O 05/08/20 07:00 Intake Total 3100 ml Balance 3100 ml Capillary Refill : Less Than 3 SecondsLess Than 3 Seconds General Appearance: No Apparent Distress, WD/WN, Chronically ill, Thin HEENT: PERRL/EOMI Neck: Normal Inspection, Non Tender, Supple Respiratory: Chest Non Tender, Lungs Clear, Normal Breath Sounds, No Accessory Muscle Use, No Respiratory Distress Cardiovascular: Systolic Murmur Gastrointestinal: non tender, soft Extremity: Normal Capillary Refill, Normal Range of Motion (except left sided weakness 3/5 and right arm in sling and soft cast), Non Tender, No Calf Tenderness, Pedal Edema Neurologic/Psychiatric: Alert, Oriented x3, Normal Mood/Affect (pt was sassy today and playing pranks), Abnormal Gait, Facial Droop, Motor Weakness Skin: Normal Color, Warm/Dry Results Lab Microbiology 05/06/20 MRSA Screen - Final, Complete MRSA not isolated Assessment/Plan Assessment/Plan Assessment/Plan Hemoccult positive anemia - continue acid mac. monitor for changes Clinical Quality Measures DVT/VTE Risk/Contraindication: Risk Factor Score Per Nursin RFS Level Per Nursing on Admit: 4+=Very High Contraindications-Pharm: Other *list below* Other: recent subarachnoid hemorrhage MASSIMO WATSON DO 05/08/20 1208: Subjective Time Seen by a Provider: 11:43 Subjective/Events-last exam Pt seen and examined, no changes. Denies melena. Review of Systems General: No Chills, No Night Sweats; Fatigue (d/t leukemia) Pulmonary: No Dyspnea, No Cough Cardiovascular: No: Chest Pain Gastrointestinal: No: Nausea, Vomiting, Abdominal Pain Objective Exam General Appearance: No Apparent Distress, Chronically ill Respiratory: Lungs Clear, Normal Breath Sounds, No Accessory Muscle Use, No Respiratory Distress Cardiovascular: Regular Rate, Rhythm, Systolic Murmur Gastrointestinal: non tender, soft, no organomegaly Assessment/Plan Assessment/Plan Assessment/Plan Hemoccult + - most likely due to marginal Ulcer Anemia - probably secondary to her chronic Leukemia I placed pt on a PPI as well as her Sucralfate; she should continue these and get a repeat EGD in 4-6 months. In addition we got the colonoscopy report from [place], it was done in 2005; therefore she is due for another one. I recommended she get this as an outpt. Supervisory-Addendum Brief Verification & Attestation Participated in pt care: history, MDM, physical Personally performed: history, MDM Care discussed with: Medical Student Procedures: n/a Verification and Attestation of Medical Student E/M Service A medical student performed and documented this service. I then reviewed and verified all information documented by the medical student and made modifications to such information, when appropriate. I personally performed a physical exam, medical decision making and then discussed any differences between the notes and made revisions as necessary to create one note. Massimo Watson , 05/08/20 , 12:08 SMILEY CHO MED STUDENT May 08, 2020 08:56 MASSIMO WATSON DO May 08, 2020 12:08
--- NOTE | 2020-05-08 09:26 | Physical Therapy Daily Note ---
PT Daily Note-Current Subjective Pt sitting in recliner upon arrival. Pt agrees to PT. Pain Location: No Pain Reported Mental Status Patient Orientation: Person, Place, Situation Transfers SCALE: Activities may be completed with or without assistive devices. 4-Rlikxhvwei-udawfux completes the activity by him/herself with no assistance from a helper. 5-Set-up or Clean-up Assistance-helper sets up or cleans up; patient completes activity. [place] assists only prior to or following the activity. 4-Supervision or Touching Assistance-helper provides verbal cues and/or touching/steadying and/or contact guard assistance as patient completes activity. Assistance may be provided throughout the activity or intermittently. 3-Partial/Moderate Assistance-helper does LESS THAN HALF the effort. [place] lifts, holds or supports trunk or limbs, but provides less than half the effort. 2-Substantial/Maximal Assistance-helper does MORE THAN HALF the effort. [place] lifts or holds trunk or limbs and provides more than half the effort. 8-Qttkntwwq-lmfczs does ALL the effort. Patient does none of the effort to complete the activity. Or, the assistance of 2 or more helpers is required for the patient to complete the activity. If activity was not attempted, code reason: 7-Patient Refused. 9-Not Applicable-not attempted and the patient did not perform the activity before the current illness, exacerbation or injury. 10-Not Attempted due to Environmental Limitations-(lack of equipment, weather restraints, etc.). 88-Not Attempted due to Medical Conditions or Safety Concerns. Sit to Stand (QC): 6 Toilet Transfer (QC): 5 Weight Bearing Full Weight Bearing Full Weight Bearing Gait Training Does the Patient Walk?: Yes Distance: 450' Walk 10 feet (QC): 4 Walk 50 ft with 2 Turns(QC): 4 Gait Assistive Device: Handheld Assist Pt uses COMMERCIAL DRIVER for emotional support more than physical support. Pt voices feeling more safe with COMMERCIAL DRIVER but demonstrates improved steadiness. Wheelchair Training Does the Pt Use a Wheelchair?: No Exercises NuStep Minutes: 5 NuStep Workload: 3 Treatments TF to standing and uses BR before leaving room. Amb. in hallway with standing RB. Uses NuStep for 5m before pt reporting needing to quit due to fatigue. Amb. in hallway again for returning to room to rest. All needs met, call light in hand. Assessment Current Status: Good Progress Pt is very fatigued and demonstrates some reluctancy to complete Therapy, little down today. PT Short Term Goals Short Term Goals Time Frame: May 08, 2020 Sit to lyin Lying to sitting on side of be: 4 Sit to stand: 4 Chair/fzj-ab-binoh transfer: 4 Walk 150 feet: 4 PT Fdc Goals Fdc Goals PT Radar Repairer Goals Time Frame: May 16, 2020 Roll Left & Right (QC): 6 Sit to Lying (QC): 6 Lying-Sitting on Side/Bed(QC): 6 Sit to Stand (QC): 6 Chair/Des-wl-Wvzkp Xfer(QC): 6 Toilet Transfer (QC): 6 Car Transfer (QC): 6 Does the Patient Walk: Yes Walk 10 feet (QC): 6 Walk 50ft with 2 Turns (QC): 6 Walk 150 ft (QC): 6 Walking 10ft on Uneven Surface: 6 1 Step (curb) (QC): 6 4 Steps (QC): 6 12 Steps (QC): 6 Picking up an Object (QC): 4 Does the Pt use WC or Scooter?: No Wheel 50 feet with 2 turns (QC: 9 Wheel 150 feet: 9 PT Plan Problem List Problem List: Activity Tolerance, Functional Strength Treatment/Plan Treatment Plan: Continue Plan of Care Treatment Plan: Bed Mobility, Education, Functional Activity Concepcion, Functional Strength, Group Therapy, Gait, Safety, Therapeutic Exercise, Transfers Treatment Duration: May 16, 2020 Frequency: At least 5 of 7 days/Wk (IRF) Estimated Hrs Per Day: 1.5 hours per day Patient and/or Family Agrees t: Yes Time/GCodes Time In: 845 Time Out: 930 Total Billed Treatment Time: 45 Total Billed Treatment 1, GT (20m), EX (10m) & FA (15m) JOHANNY RIVAS LIBRARY MONITOR May 08, 2020 09:26
[2020-05-08] MEDS: SUCRALFATE 1 GM (CARAFATE) TAB PO SCH ×4 (09:36→20:09)
[2020-05-08] MEDS: ACYCLOVIR 400 MG TABLET (ZOVIRAX) PO SCH ×2 (09:37→20:09)
[2020-05-08] MEDS: DOCUSATE SODIUM 100 MG (COLACE) CAP PO SCH ×2 (09:37→20:09)
[2020-05-08] MEDS: FOLIC ACID 1 MG TAB PO SCH (09:37)
[2020-05-08] MEDS: ASPIRIN E.C. 81 MG (ECOTRIN) TAB PO SCH (09:37)
[2020-05-08] MEDS: SENNA W/DOCUSATE (SENOKOT S) TABLET PO SCH ×2 (09:37→20:10)
[2020-05-08] MEDS: LEVETIRACETAM 500 MG (KEPPRA) TAB PO SCH ×2 (09:37→20:09)
[2020-05-08] MEDS: FUROSEMIDE 20 MG (LASIX) TAB PO SCH (09:37)
[2020-05-08] MEDS: CARVEDILOL 12.5 MG (COREG) TABLET PO SCH ×2 (09:42→20:09)
[2020-05-08] MEDS: SPRYCEL 100 MG PO SCH (09:42)
[2020-05-08] MEDS: polyethylene glycoL POWDER 17 GM (MIRALAX) PACK PO SCH ×2 (09:51→20:10)
[2020-05-08] MEDS: BISACODYL 10 MG SUPP (DULCOLAX) RC SCH (09:51)
--- NOTE | 2020-05-08 10:26 | PM&R Progress Note ---
Subjective HPI/CC On Admission Date Seen by Provider: May 08, 2020 Time Seen by Provider: 10:30 Subjective/Events-last exam 05/08/20: BM yesterday Wrapping legs with UMANG's and wide boone wraps Laxatives taken though SOB noted 05/07/20: Cardiology consultation appreciated Edema is noted and she feels like she has a lot of fluid on board Dyspnea is noted with 92% on room air IV fluids still going at 80 Will update cardiology and Dr. Orlando 05/06/20: Septic workup last night returned without evidence of sepsis Dr. Orlando consulted and started her on Sodium Bicarbonate for metabolic acidosis with pH of 7. 25 Overall very fragile Has become a bit somatic EGD today by Dr. Rosas Echocardiogram will be performed Remains on lactated ringers at 80 CCs per hour Overall improved Hgb stable 05/05/20: Bowels moved yesterday Nausea and emesis continue Labs stable, Hgb 9.9 Hemoccult positive stools so Dr. Rosas has been consulted BUN elevated suspicious for blood in the gut 05/04/20: Loose stools today Nausea today but has passed Doing OK 05/03/20: Hgb 9.8 today after 2 units of blood yesterday She receives a lot of transfusions due to leukemia Coloring is improved now since transfusion BM yesterday Creat 1.7 Hgb 7.1 will need 2 units of blood Creatinine 1.56 Talked to her about overall status and she is doing well otherwise Checked meds and labs Conferred with RN Reviewed therapy notes Review of Systems General: Fatigue Pulmonary: Dyspnea Neurological: Weakness, Incoordination Focused Exam Lactate Level 05/06/20 05:45: Lactic Acid Level 0.35L Objective Exam Vital Signs Vital Signs Date Time Temp Pulse Resp B/P (MAP) Pulse Ox O2 Delivery O2 Flow Rate FiO2 05/08/20 18:52 37.0 74 18 150/77 (101) 97 Room Air Capillary Refill : Less Than 3 SecondsLess Than 3 Seconds General Appearance: No Apparent Distress, WD/WN, Chronically ill, Thin HEENT: PERRL/EOMI Neck: Normal Inspection, Non Tender, Supple Respiratory: Chest Non Tender, Lungs Clear, Normal Breath Sounds, No Accessory Muscle Use, No Respiratory Distress Cardiovascular: Systolic Murmur Gastrointestinal: Normal Bowel Sounds, No Organomegaly, No Pulsatile Mass, Non Tender, Soft Back: Normal Inspection, No CVA Tenderness, No Vertebral Tenderness Extremity: Normal Capillary Refill, Normal Range of Motion (except left sided weakness 3/5 and right arm in sling and soft cast), Non Tender, No Calf Tenderness, Pedal Edema Neurologic/Psychiatric: Alert, Oriented x3, Normal Mood/Affect (pt was sassy today and playing pranks), Abnormal Gait, Facial Droop, Motor Weakness Skin: Normal Color, Warm/Dry Results/Procedures Lab Patient resulted labs reviewed. FIM Transfers Therapy Code Descriptions/Definitions Functional [place] Measure: 0=Not Assessed/NA 4=Minimal Assistance 1=Total Assistance 5=Supervision or Setup 2=Maximal Assistance 6=Modified [place] 3=Moderate Assistance 7=Complete IndependenceSCALE: Activities may be completed with or without assistive devices. 7-Ejjndplftz-qqacfok completes the activity by him/herself with no assistance from a helper. 5-Set-up or Clean-up Assistance-helper sets up or cleans up; patient completes activity. [place] assists only prior to or following the activity. 4-Supervision or Touching Assistance-helper provides verbal cues and/or touching/steadying and/or contact guard assistance as patient completes activity. Assistance may be provided throughout the activity or intermittently. 3-Partial/Moderate Assistance-helper does LESS THAN HALF the effort. [place] lifts, holds or supports trunk or limbs, but provides less than half the effort. 2-Substantial/Maximal Assistance-helper does MORE THAN HALF the effort. [place] lifts or holds trunk or limbs and provides more than half the effort. 9-Wnttxcwcd-vvobun does ALL the effort. Patient does none of the effort to comp lete the activity. Or, the assistance of 2 or more helpers is required for the patient to complete the activity. If activity was not attempted, code reason: 7-Patient Refused. 9-Not Applicable-not attempted and the patient did not perform the activity before the current illness, exacerbation or injury. 10-Not Attempted due to Environmental Limitations-(lack of equipment, weather restraints, etc.). 88-Not Attempted due to Medical Conditions or Safety Concerns. Roll Left to Right (QC): 4 Sit to Lying (QC): 4 Sit to Stand (QC): 6 Chair/Fec-hh-Ousvu Xfer(QC): 6 Car Transfer (QC): 4 Gait Training Does the Patient Walk?: Yes Distance: 450' Walk 10 feet (QC): 4 Walk 50 ft with 2 Turns(QC): 4 Walk 150 ft (QC): 4 Walking 10ft/uneven surface-QC: 3 Gait Persons Needed: 1 Gait Assistive Device: Handheld Assist Wheelchair Training Does the Pt Use a Wheelchair?: No Wheel 50 ft with 2 turns (QC): 9 Wheel 150 ft (QC): 9 Stair Training Stair Training: Handrails/: 2 handrails #of Steps: 4 1 Step (curb) (QC): 4 4 Steps (QC): 4 12 Steps (QC): 88 Stairs: Pattern: Step to Balance Picking up an Object (QC): 88 ADL-Treatment Eating (QC): 5 (Pt reports requiring set up assistance with breakfast to open containers and cut food, pt states she is then able to use utensils to eat.) Oral Hygiene (QC): 6 Bathing Location: R Arm, L Upper Leg, R Upper Leg, L Lower Leg (including foot), R Lower Leg (including foot), Chest, Abdomen, Buttocks, Perineal Area Shower/Bathe Self (QC): 4 Upper Body Dressing (QC): 5 Lower Body Dressing (QC): 3 On/Off Footwear (QC): 3 Toileting Hygiene (QC): 3 Toilet Transfer (QC): 4 Assessment/Plan Assessment and Plan Assess & Plan/Chief Complaint Assessment: 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 05/08/20: Restarted Lasix Monitor closely (1) CVA (cerebral vascular accident) (2) CLL (chronic lymphocytic leukemia) (3) Subdural hematoma (4) Closed fracture of right olecranon process (5) Hyperlipemia (6) GERD (gastroesophageal reflux disease) ANTOINE SALDAÑA DO May 08, 2020 10:26
--- NOTE | 2020-05-08 10:44 | NUR ---
CM/SS PATIENT CARE CONFERENCE Reviewed Summary with patient to her satisfaction, signed, charted. Patient is in agreement to a target discharge of May 14. With patient permission, returned a call to her niece Mary Linder [phone] regarding patient's overall progress and anticipated return home. HHC: Patient is established with [facility], they have intermittently called Mr. Zavala to check on potential discharge date. Weapons Designer will update with resume orders when appropriate. DME: No new assistive devices are anticipated, patient has a wide variety of DME at this time: Ramp, FWW, BSC, cane, handicap toilets, walk in showers, grab bars. Mary is happy to transport patient at discharge, she indicated it would be after her work in [place] and she couldn't be here until 1529. She will communicate this to the children and the family in general will identify a pickling tank operator person. BARRIERS TO DISCHARGE, UPDATE: Per Mary, the family is very supportive and caring. Mr. Zavala will be at home with her, he is described as absolutely willing but may need guidance about what to do when. The sons and DIL's all work as does Mary so those are obvious gaps regarding availability. Patient is progressing well and is able to express her needs. Sons are: Jamie and Bliss ([phone]) Lucas and they reside in [place] [facility]. [phone] Justice and Clemencia Zavala and they reside in [facility]. [phone]
[2020-05-08] MEDS: HYDROcodone/APAP 5 MG/325 MG (LORTAB) TAB PO PRN (14:05)
--- NOTE | 2020-05-08 14:46 | Physical Therapy Daily Note ---
PT Daily Note-Current Subjective Pt laying Supine in bed upon arrival. Pt agrees to PT but report discomfort in L ankle due to ABDIFATAH wrap. Pain Numeric Pain Scale: 5-Moderate Pain Location: Left, Anterior Location Body Site: Ankle Pain Description: Ache, Tightness Mental Status Patient Orientation: Person, Place, Situation Attachments: Other-See Comments (UMANG desai & ABDIFATAH wrap on B LE) Transfers SCALE: Activities may be completed with or without assistive devices. 2-Wdypjlohnc-gxhoplj completes the activity by him/herself with no assistance from a helper. 5-Set-up or Clean-up Assistance-helper sets up or cleans up; patient completes activity. [place] assists only prior to or following the activity. 4-Supervision or Touching Assistance-helper provides verbal cues and/or touching/steadying and/or contact guard assistance as patient completes activity. Assistance may be provided throughout the activity or intermittently. 3-Partial/Moderate Assistance-helper does LESS THAN HALF the effort. [place] lifts, holds or supports trunk or limbs, but provides less than half the effort. 2-Substantial/Maximal Assistance-helper does MORE THAN HALF the effort. [place] lifts or holds trunk or limbs and provides more than half the effort. 3-Allfgzxvb-yccbkx does ALL the effort. Patient does none of the effort to complete the activity. Or, the assistance of 2 or more helpers is required for the patient to complete the activity. If activity was not attempted, code reason: 7-Patient Refused. 9-Not Applicable-not attempted and the patient did not perform the activity before the current illness, exacerbation or injury. 10-Not Attempted due to Environmental Limitations-(lack of equipment, weather restraints, etc.). 88-Not Attempted due to Medical Conditions or Safety Concerns. Weight Bearing Full Weight Bearing Full Weight Bearing Exercises Supine Ex: Ankle pumps, Quad Set, Glut sets, Heel Slides, Straight leg raise, Hip abd/add Supine Reps: 15 Treatments Completed Supine Ex in bed followed by checking swelling on B LE as pt asked. Unwrap/Rewrap & positioning B LE to elevate for swelling. All needs met, call light in hand. Assessment Current Status: Fair Progress Pt demonstrates feeling down. Pt needs encouragement. PT Short Term Goals Short Term Goals Time Frame: May 08, 2020 Sit to lyin Lying to sitting on side of be: 4 Sit to stand: 4 Chair/mni-yo-zorrg transfer: 4 Walk 150 feet: 4 PT Microcomputer Support Specialist Goals Retirement Goals PT Retirement Goals Time Frame: May 16, 2020 Roll Left & Right (QC): 6 Sit to Lying (QC): 6 Lying-Sitting on Side/Bed(QC): 6 Sit to Stand (QC): 6 Chair/Rfo-hj-Sictz Xfer(QC): 6 Toilet Transfer (QC): 6 Car Transfer (QC): 6 Does the Patient Walk: Yes Walk 10 feet (QC): 6 Walk 50ft with 2 Turns (QC): 6 Walk 150 ft (QC): 6 Walking 10ft on Uneven Surface: 6 1 Step (curb) (QC): 6 4 Steps (QC): 6 12 Steps (QC): 6 Picking up an Object (QC): 4 Does the Pt use WC or Scooter?: No Wheel 50 feet with 2 turns (QC: 9 Wheel 150 feet: 9 PT Plan Problem List Problem List: Activity Tolerance, Functional Strength Treatment/Plan Treatment Plan: Continue Plan of Care Treatment Plan: Bed Mobility, Education, Functional Activity Concepcion, Functional Strength, Group Therapy, Gait, Safety, Therapeutic Exercise, Transfers Treatment Duration: May 16, 2020 Frequency: At least 5 of 7 days/Wk (IRF) Estimated Hrs Per Day: 1.5 hours per day Patient and/or Family Agrees t: Yes Safety Risks/Education Patient Education: Correct Positioning Time/GCodes Time In: 1345 Time Out: 1415 Total Billed Treatment Time: 30 Total Billed Treatment 1, EX (20m) & FA x2 (25m) JOHANNY RIVAS ROTARY OPERATOR May 08, 2020 14:46
--- NOTE | 2020-05-08 15:26 | Speech Therapy Daily Note ---
Speech Daily Progress Note Subjective Date Seen by Provider: May 08, 2020 Time Seen by Provider: 00:30 Patient was resting in her bed and states she is really tired, however she did participate in the session. Objective Patient completed a series of general information questions with 85% accuracy given 10% cues/repetitions. Assessment Assessment Current Status: Good Progress Treatment Plan Continue Plan of Care Speech Short Term Goals Short Term Goals Short Term Goals 1) The patient will complete memory tasks related to her daily needs with minimal cues at 90% or greater. 2) The patient will complete safety awareness tasks related to her daily needs with minimal cues at 90% or greater. 3) The patient will complete problem solving tasks related to her daily needs with minimal cues at 90% or greater. 4) The patient will complete OME at 90% or greater with minimal cues. Speech Radiology Technologist Goals Prison Goals Patient will improve her speech production and cognitive function in order to return home safer. Speech-Plan Patient/Family Goals Patient/Family Goals: Patient plans on returning to her home where she lives with her . Treatment Plan Speech Therapy Treatment Plan: Continue Plan of Care Treatment Duration: May 14, 2020 Frequency: 4 times per week (Patient will receive skilled ST 4-5x per week) Estimated Hrs Per Day: .5 hour per day Rehab Potential: Good Barriers to Learning: Patient's recent CVA cognitive affects, patient's deficits are resolving well Pt/Family Agrees to Plan: Yes Safety Risks/Education Teaching Recipient: Patient Teaching Methods: Demonstration, Discussion Response to Teaching: Verbalize Understanding, Return Demonstration Education Topics Provided: Continued safety within her room, communication of wants/needs Time Speech Therapy Time In: 14:30 Speech Therapy Time Out: 15:00 Total Billed Time: 30 Billed Treatment Time 1[address] May 08, 2020 15:26
[2020-05-08 18:52] VITALS: BP 150/77
[2020-05-08] MEDS: fluCOnazole (DIFLUCAN) 100 MG TAB PO SCH (20:09)
[2020-05-08] MEDS: MELATONIN 3 MG TABLET PO PRN (20:09)
[2020-05-09 05:34] LABS: BASOPHILS % (AUTO) 0 % (0-10); LYMPHOCYTES # (AUTO) 1.1 10^3/uL (1.0-4.0)
[2020-05-09 05:36] LABS: EOSINOPHILS # (AUTO) 0.2 10^3/uL (0.0-0.3); EOSINOPHILS % (AUTO) 5 % (0-10); HEMATOCRIT 31 % (35-52); HEMOGLOBIN 9.7 g/dL (11.5-16.0); LYMPHOCYTES % (AUTO) 28 % (12-44); MEAN CORPUSCULAR HEMOGLOBIN 35 pg (25-34); MEAN CORPUSCULAR HGB CONC 32 g/dL (32-36); MEAN CORPUSCULAR VOLUME 110 fL (80-99); MONOCYTES # (AUTO) 0.4 10^3/uL (0.0-1.0); MONOCYTES % (AUTO) 10 % (0-12); NEUTROPHILS # (AUTO) 2.3 10^3/uL (1.8-7.8); NEUTROPHILS % (AUTO) 57 % (42-75); PLATELET COUNT 97 10^3/uL (130-400); WHITE BLOOD COUNT 4.1 10^3/uL (4.3-11.0)
[2020-05-09] MEDS: MULTIVIT W/MINERALS TAB (THERAGRAN M) PO SCH (05:49)
[2020-05-09 05:55] LABS: ALBUMIN 3.4 GM/DL (3.2-4.5); BILIRUBIN,TOTAL 0.5 MG/DL (0.1-1.0); CALCIUM 8.5 MG/DL (8.5-10.1); CREATININE SERUM 1.67 MG/DL (0.60-1.30); POTASSIUM 4.1 MMOL/L (3.6-5.0); TOTAL PROTEIN 5.6 GM/DL (6.4-8.2)
--- NOTE | 2020-05-09 06:13 | PM&R Progress Note ---
Subjective HPI/CC On Admission Date Seen by Provider: May 09, 2020 Time Seen by Provider: 06:00 Subjective/Events-last exam 05/09/20: Pain control Lasix ABDIFATAH wraps to legs 05/08/20: BM yesterday Wrapping legs with UMANG's and wide abdifatah wraps Laxatives taken though SOB noted 05/07/20: Cardiology consultation appreciated Edema is noted and she feels like she has a lot of fluid on board Dyspnea is noted with 92% on room air IV fluids still going at 80 Will update cardiology and Dr. Orlando 05/06/20: Septic workup last night returned without evidence of sepsis Dr. Orlando consulted and started her on Sodium Bicarbonate for metabolic acidosis with pH of 7. 25 Overall very fragile Has become a bit somatic EGD today by Dr. Rosas Echocardiogram will be performed Remains on lactated ringers at 80 CCs per hour Overall improved Hgb stable 05/05/20: Bowels moved yesterday Nausea and emesis continue Labs stable, Hgb 9.9 Hemoccult positive stools so Dr. Rosas has been consulted BUN elevated suspicious for blood in the gut 05/04/20: Loose stools today Nausea today but has passed Doing OK 05/03/20: Hgb 9.8 today after 2 units of blood yesterday She receives a lot of transfusions due to leukemia Coloring is improved now since transfusion BM yesterday Creat 1.7 Hgb 7.1 will need 2 units of blood Creatinine 1.56 Talked to her about overall status and she is doing well otherwise Checked meds and labs Conferred with RN Reviewed therapy notes Review of Systems General: Fatigue Neurological: Weakness, Incoordination Objective Exam Vital Signs Vital Signs Date Time Temp Pulse Resp B/P (MAP) Pulse Ox O2 Delivery O2 Flow Rate FiO2 05/10/20 08:38 Room Air 05/10/20 06:00 37.2 82 16 157/69 (98) 93 Capillary Refill : Less Than 3 SecondsLess Than 3 Seconds General Appearance: No Apparent Distress, WD/WN, Chronically ill, Thin HEENT: PERRL/EOMI Neck: Normal Inspection, Non Tender, Supple Respiratory: Chest Non Tender, Lungs Clear, Normal Breath Sounds, No Accessory Muscle Use, No Respiratory Distress Cardiovascular: Systolic Murmur Gastrointestinal: Normal Bowel Sounds, No Organomegaly, No Pulsatile Mass, Non Tender, Soft Back: Normal Inspection, No CVA Tenderness, No Vertebral Tenderness Extremity: Normal Capillary Refill, Normal Range of Motion (except left sided weakness 3/5 and right arm in sling and soft cast), Non Tender, No Calf Tenderness, Pedal Edema Neurologic/Psychiatric: Alert, Oriented x3, Normal Mood/Affect (pt was sassy today and playing pranks), Abnormal Gait, Facial Droop, Motor Weakness Skin: Normal Color, Warm/Dry Results/Procedures Lab Patient resulted labs reviewed. FIM Transfers Therapy Code Descriptions/Definitions Functional [place] Measure: 0=Not Assessed/NA 4=Minimal Assistance 1=Total Assistance 5=Supervision or Setup 2=Maximal Assistance 6=Modified [place] 3=Moderate Assistance 7=Complete IndependenceSCALE: Activities may be completed with or without assistive devices. 6-Dclaforffi-ctjntpq completes the activity by him/herself with no assistance from a helper. 5-Set-up or Clean-up Assistance-helper sets up or cleans up; patient completes activity. [place] assists only prior to or following the activity. 4-Supervision or Touching Assistance-helper provides verbal cues and/or touching/steadying and/or contact guard assistance as patient completes activity. Assistance may be provided throughout the activity or intermittently. 3-Partial/Moderate Assistance-helper does LESS THAN HALF the effort. [place] lifts, holds or supports trunk or limbs, but provides less than half the effort. 2-Substantial/Maximal Assistance-helper does MORE THAN HALF the effort. [place] lifts or holds trunk or limbs and provides more than half the effort. 1-Omcymguoe-yjbimj does ALL the effort. Patient does none of the effort to complete the activity. Or, the assistance of 2 or more helpers is required for the patient to complete the activity. If activity was not attempted, code reason: 7-Patient Refused. 9-Not Applicable-not attempted and the patient did not perform the activity before the current illness, exacerbation or injury. 10-Not Attempted due to Environmental Limitations-(lack of equipment, weather restraints, etc.). 88-Not Attempted due to Medical Conditions or Safety Concerns. Roll Left to Right (QC): 4 Sit to Lying (QC): 4 Sit to Stand (QC): 6 Chair/Ojg-os-Hhuuj Xfer(QC): 6 Car Transfer (QC): 4 Gait Training Does the Patient Walk?: Yes Distance: 450' Walk 10 feet (QC): 4 Walk 50 ft with 2 Turns(QC): 4 Walk 150 ft (QC): 4 Walking 10ft/uneven surface-QC: 3 Gait Persons Needed: 1 Gait Assistive Device: Handheld Assist Wheelchair Training Does the Pt Use a Wheelchair?: No Wheel 50 ft with 2 turns (QC): 9 Wheel 150 ft (QC): 9 Stair Training Stair Training: Handrails/: 2 handrails #of Steps: 4 1 Step (curb) (QC): 4 4 Steps (QC): 4 12 Steps (QC): 88 Stairs: Pattern: Step to Balance Picking up an Object (QC): 88 ADL-Treatment Eating (QC): 5 (Pt reports requiring set up assistance with breakfast to open containers and cut food, pt states she is then able to use utensils to eat.) Oral Hygiene (QC): 6 Bathing Location: R Arm, L Upper Leg, R Upper Leg, L Lower Leg (including foot), R Lower Leg (including foot), Chest, Abdomen, Buttocks, Perineal Area Shower/Bathe Self (QC): 4 Upper Body Dressing (QC): 5 Lower Body Dressing (QC): 3 On/Off Footwear (QC): 3 Toileting Hygiene (QC): 3 Toilet Transfer (QC): 4 Assessment/Plan Assessment and Plan Assess & Plan/Chief Complaint Assessment: 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 05/08/20: Restarted Lasix Monitor closely 05/09/20: Monitor creatinine Lasix (1) CVA (cerebral vascular accident) (2) CLL (chronic lymphocytic leukemia) (3) Subdural hematoma (4) Closed fracture of right olecranon process (5) Hyperlipemia (6) GERD (gastroesophageal reflux disease) ANTOINE SALDAÑA DO May 09, 2020 06:12
[2020-05-09 06:34] VITALS: BP 177/72
[2020-05-09] MEDS: ACYCLOVIR 400 MG TABLET (ZOVIRAX) PO SCH ×2 (07:30→21:43)
[2020-05-09] MEDS: DOCUSATE SODIUM 100 MG (COLACE) CAP PO SCH ×2 (07:30→21:44)
[2020-05-09] MEDS: ASPIRIN E.C. 81 MG (ECOTRIN) TAB PO SCH (07:30)
[2020-05-09] MEDS: SUCRALFATE 1 GM (CARAFATE) TAB PO SCH ×4 (07:30→21:43)
[2020-05-09] MEDS: CARVEDILOL 12.5 MG (COREG) TABLET PO SCH ×2 (07:31→21:44)
[2020-05-09] MEDS: FOLIC ACID 1 MG TAB PO SCH (07:31)
[2020-05-09] MEDS: PANTOPRAZOLE 40 MG (PROTONIX) TAB PO SCH (07:31)
[2020-05-09] MEDS: SENNA W/DOCUSATE (SENOKOT S) TABLET PO SCH ×2 (07:31→21:53)
[2020-05-09] MEDS: FUROSEMIDE 20 MG (LASIX) TAB PO SCH (07:31)
[2020-05-09] MEDS: LEVETIRACETAM 500 MG (KEPPRA) TAB PO SCH ×2 (07:31→21:44)
[2020-05-09] MEDS: SPRYCEL 100 MG PO SCH (07:33)
[2020-05-09] MEDS: polyethylene glycoL POWDER 17 GM (MIRALAX) PACK PO SCH ×2 (07:44→21:53)
[2020-05-09] MEDS: BISACODYL 10 MG SUPP (DULCOLAX) RC SCH (07:44)
--- NOTE | 2020-05-09 09:55 | Physical Therapy Daily Note ---
PT Daily Note-Current Subjective Pt. agrees to Rx, hoping to g3et rid of some edema in LEs. Laying with LEs elevated in air. Pain Location: No Pain Reported Mental Status Patient Orientation: Normal For Age Attachments: Other-See Comments (casted R UE, Jose Cruz wraps bilat LEs) Transfers SCALE: Activities may be completed with or without assistive devices. 4-Glqhivdwsv-nkzypij completes the activity by him/herself with no assistance from a helper. 5-Set-up or Clean-up Assistance-helper sets up or cleans up; patient completes activity. [place] assists only prior to or following the activity. 4-Supervision or Touching Assistance-helper provides verbal cues and/or touching/steadying and/or contact guard assistance as patient completes activity. Assistance may be provided throughout the activity or intermittently. 3-Partial/Moderate Assistance-helper does LESS THAN HALF the effort. [place] lifts, holds or supports trunk or limbs, but provides less than half the effort. 2-Substantial/Maximal Assistance-helper does MORE THAN HALF the effort. [place] lifts or holds trunk or limbs and provides more than half the effort. 2-Cdiaaaohb-pcmjoa does ALL the effort. Patient does none of the effort to complete the activity. Or, the assistance of 2 or more helpers is required for the patient to complete the activity. If activity was not attempted, code reason: 7-Patient Refused. 9-Not Applicable-not attempted and the patient did not perform the activity before the current illness, exacerbation or injury. 10-Not Attempted due to Environmental Limitations-(lack of equipment, weather restraints, etc.). 88-Not Attempted due to Medical Conditions or Safety Concerns. Roll Left & Right (QC): 4 Sit to Lying (QC): 6 Lying to Sitting/Side of Bed(Q: 4 Sit to Stand (QC): 6 Chair/Kuk-ty-Iyioi Xfer(QC): 6 Toilet Transfer (QC): 6 pt. can only tolerate laying supine briefly secondary to SOB but did so to perform flat supine to sit , sit to supine as will be the situation at home Weight Bearing Full Weight Bearing Full Weight Bearing Gait Training Does the Patient Walk?: Yes Walk 10 feet (QC): 6 Walk 50 ft with 2 Turns(QC): 6 Walk 150 ft (QC): 6 Gait Persons Needed: 0 Gait Assistive Device: None Exercises Supine Ex: Ankle pumps, Quad Set, Rolling, Glut sets, Heel Slides, Short Arc Quads, Straight leg raise, Hip abd/add Supine Reps: 15 Seated Therapy Exercises: Ankle pumps, Sit to stand, Long arc quads, Hip flexion Seated Reps: 15 NuStep Minutes: 8 NuStep Workload: 2 Treatments leg presses on Nustep x10 Assessment Current Status: Good Progress noted edema LEs limits pts functional movement and comfort PT Short Term Goals Short Term Goals Time Frame: May 08, 2020 Sit to lyin Lying to sitting on side of be: 4 Sit to stand: 4 Chair/zvb-gh-tuhnr transfer: 4 Walk 150 feet: 4 PT Long-Term Goals Pewter Caster Goals PT Long-Term Goals Time Frame: May 16, 2020 Roll Left & Right (QC): 6 Sit to Lying (QC): 6 Lying-Sitting on Side/Bed(QC): 6 Sit to Stand (QC): 6 Chair/Kph-kq-Igeja Xfer(QC): 6 Toilet Transfer (QC): 6 Car Transfer (QC): 6 Does the Patient Walk: Yes Walk 10 feet (QC): 6 Walk 50ft with 2 Turns (QC): 6 Walk 150 ft (QC): 6 Walking 10ft on Uneven Surface: 6 1 Step (curb) (QC): 6 4 Steps (QC): 6 12 Steps (QC): 6 Picking up an Object (QC): 4 Does the Pt use WC or Scooter?: No Wheel 50 feet with 2 turns (QC: 9 Wheel 150 feet: 9 PT Plan Treatment/Plan Treatment Plan: Continue Plan of Care Treatment Plan: Bed Mobility, Education, Functional Activity Concepcion, Functional Strength, Group Therapy, Gait, Safety, Therapeutic Exercise, Transfers Treatment Duration: May 16, 2020 Frequency: At least 5 of 7 days/Wk (IRF) Estimated Hrs Per Day: 1.5 hours per day Patient and/or Family Agrees t: Yes Safety Risks/Education Patient Education: Gait Training, Transfer Techniques, Correct Positioning, Disease Process, Safety Issues Teaching Recipient: Patient Teaching Methods: Demonstration, Discussion Response to Teaching: Verbalize Understanding, Return Demonstration, Reinforcement Needed Time/GCodes Time In: 900 Time Out: 1000 Total Billed Treatment Time: 60 Total Billed Treatment 1,GT20m,EX25m,FA15m SANDRA LEE PATTERN STORAGE CLERK May 09, 2020 09:55
--- NOTE | 2020-05-09 13:52 | Physical Therapy Daily Note ---
PT Daily Note-Current Subjective Pt. agrees to Rx but states she is concerned about the edema in her LEs . Pain Location: No Pain Reported Appearance c/o fatigue Mental Status Patient Orientation: Normal For Age Transfers SCALE: Activities may be completed with or without assistive devices. 0-Ohbyfhnkji-atcfvcz completes the activity by him/herself with no assistance from a helper. 5-Set-up or Clean-up Assistance-helper sets up or cleans up; patient completes activity. [place] assists only prior to or following the activity. 4-Supervision or Touching Assistance-helper provides verbal cues and/or touching/steadying and/or contact guard assistance as patient completes activity. Assistance may be provided throughout the activity or intermittently. 3-Partial/Moderate Assistance-helper does LESS THAN HALF the effort. [place] lifts, holds or supports trunk or limbs, but provides less than half the effort. 2-Substantial/Maximal Assistance-helper does MORE THAN HALF the effort. [place] lifts or holds trunk or limbs and provides more than half the effort. 8-Fxpazpyjx-atzife does ALL the effort. Patient does none of the effort to complete the activity. Or, the assistance of 2 or more helpers is required for the patient to complete the activity. If activity was not attempted, code reason: 7-Patient Refused. 9-Not Applicable-not attempted and the patient did not perform the activity before the current illness, exacerbation or injury. 10-Not Attempted due to Environmental Limitations-(lack of equipment, weather restraints, etc.). 88-Not Attempted due to Medical Conditions or Safety Concerns. rolling left and right CGA, scooting up in bed with assist Weight Bearing Full Weight Bearing Full Weight Bearing Exercises Supine Ex: Ankle pumps, Quad Set, Rolling, Glut sets, Straight leg raise, Hip abd/add Supine Reps: 15 Treatments left positioned with LEs elevated bilat, head lowered as much as pt can tolerate without c/o SOB Assessment Current Status: Good Progress PT Short Term Goals Short Term Goals Time Frame: May 08, 2020 Sit to lyin Lying to sitting on side of be: 4 Sit to stand: 4 Chair/irj-jz-fxilv transfer: 4 Walk 150 feet: 4 PT Snf Goals Snf Goals PT Lumber Buyer Goals Time Frame: May 16, 2020 Roll Left & Right (QC): 6 Sit to Lying (QC): 6 Lying-Sitting on Side/Bed(QC): 6 Sit to Stand (QC): 6 Chair/Dmd-yd-Jdfcz Xfer(QC): 6 Toilet Transfer (QC): 6 Car Transfer (QC): 6 Does the Patient Walk: Yes Walk 10 feet (QC): 6 Walk 50ft with 2 Turns (QC): 6 Walk 150 ft (QC): 6 Walking 10ft on Uneven Surface: 6 1 Step (curb) (QC): 6 4 Steps (QC): 6 12 Steps (QC): 6 Picking up an Object (QC): 4 Does the Pt use WC or Scooter?: No Wheel 50 feet with 2 turns (QC: 9 Wheel 150 feet: 9 PT Plan Treatment/Plan Treatment Plan: Continue Plan of Care Treatment Plan: Bed Mobility, Education, Functional Activity Concepcion, Functional Strength, Group Therapy, Gait, Safety, Therapeutic Exercise, Transfers Treatment Duration: May 16, 2020 Frequency: At least 5 of 7 days/Wk (IRF) Estimated Hrs Per Day: 1.5 hours per day Patient and/or Family Agrees t: Yes Safety Risks/Education Patient Education: Correct Positioning Time/GCodes Time In: 1330 Time Out: 1400 Total Billed Treatment Time: 30 Total Billed Treatment 1,EX30m SANDRA LEE MOTOR VEHICLE REPRESENTATIVE May 09, 2020 13:52
[2020-05-09] MEDS: HYDROcodone/APAP 5 MG/325 MG (LORTAB) TAB PO PRN (13:53)
[2020-05-09 13:58] VITALS: BP 111/69
--- NOTE | 2020-05-09 14:09 | Occupational Ther Daily Note ---
OT Current Status-Daily Note Subjective Pt alert, sitting in recliner. Pt agrees to therapy. No c/o pain at this time. Pt states that she is breathing better today. Mental Status/Objective Patient Orientation: Person, Place, Time, Situation Attachments: Central Line ADL-Treatment 1ST TREATMENT () Pt is ambulated without AD or hand hold, no LOB noted. Pt agrees to sponge bath and donning clothing. Pt has difficulty with completing lower body dressing due to increase edema of the lower body. Pt refused to use AE for lower body dressing today. Assist given for threading pants and socks over feet then pt was able to pull pants over feet and socks up legs. Assist to wrap B lower legs to decrease edema. 2ND TREATMENT ([id number]) Pt ambulated to bathroom without ADL or hand hold and completed toileting and toilet transfers independently. Pt c/o pain with wrappings. Took wrappings off completed edema massage and raised lower legs above heart in supine. After session, pt lying in bed with call light/phone in reach. All needs met in room. Therapy Code Descriptions/Definitions Functional [place] Measure: 0=Not Assessed/NA 4=Minimal Assistance 1=Total Assistance 5=Supervision or Setup 2=Maximal Assistance 6=Modified [place] 3=Moderate Assistance 7=Complete IndependenceSCALE: Activities may be completed with or without assistive devices. 4-Koaoalbdhb-qysxhaf completes the activity by him/herself with no assistance from a helper. 5-Set-up or Clean-up Assistance-helper sets up or cleans up; patient completes activity. [place] assists only prior to or following the activity. 4-Supervision or Touching Assistance-helper provides verbal cues and/or touching/steadying and/or contact guard assistance as patient completes activity. Assistance may be provided throughout the activity or intermittently. 3-Partial/Moderate Assistance-helper does LESS THAN HALF the effort. [place] lifts, holds or supports trunk or limbs, but provides less than half the effort. 2-Substantial/Maximal Assistance-helper does MORE THAN HALF the effort. [place] lifts or holds trunk or limbs and provides more than half the effort. 7-Mafzksmgq-kyfiof does ALL the effort. Patient does none of the effort to complete the activity. Or, the assistance of 2 or more helpers is required for the patient to complete the activity. If activity was not attempted, code reason: 7-Patient Refused. 9-Not Applicable-not attempted and the patient did not perform the activity before the current illness, exacerbation or injury. 10-Not Attempted due to Environmental Limitations-(lack of equipment, weather restraints, etc.). 88-Not Attempted due to Medical Conditions or Safety Concerns. Oral Hygiene (QC): 6 Shower/Bathe Self (QC): 4 (Supervision after set up to complete sponge bath at sink.) Upper Body Dressing (QC): 3 (Min A to manipulate material to place L UE sleeve.) Lower Body Dressing (QC): 3 On/Off Footwear: 2 Toileting Hygiene (QC): 6 Toilet Transfer (QC): 6 OT Custodial Goals Custodial Goals Time Frame: May 16, 2020 Eating (QC): 6 Oral Hygiene (QC): 6 Toileting Hygiene (QC): 6 Shower/Bathe Self (QC): 5 Upper Body Dressing (QC): 6 Lower Body Dressing (QC): 6 On/Off Footwear (QC): 6 Additional Goals: 1-Demonstrate ADL Tasks, 2-Verbalize Understanding, 3- ImproveStrength/Concepcion 1=Demonstrate adherence to instructed precautions during ADL tasks. 2=Patient will verbalize/demonstrate understanding of assistive devices/modifications for ADL. 3=Patient will improve strength/tolerance for activity to enable patient to perform ADL's. OT Education/Plan Problem List/Assessment Assessment: Decreased Activ Tolerance, Impaired Self-Care Skills Discharge Recommendations Plan/Recommendations: Continue POC Treatment Plan/Plan of Care Patient would benefit from OT for education, treatment and training to promote independence in ADL's, mobility, safety and/or upper extremity function for ADL's. Plan of Care: ADL Retraining, Functional Mobility, Group Exercise/Act as Ind, UE Funct Exercise/Act, UE Neuromus Re-Ed/Coord Treatment Duration: May 16, 2020 Frequency: At least 5 of 7 days/Wk (IRF) Estimated Hrs Per Day: 1.5 hours per day Agreement: Yes Rehab Potential: Good Time/GCodes Start Time: 07:15 ([id number]) Stop Time: 13:15 ([id number]) Total Time Billed (hr/min): 90 Billed Treatment Time 2 visits-ADL 5 (75 min) FA 1 (15 min) JACKLYN DE LEON May 09, 2020 14:09
--- NOTE | 2020-05-09 14:31 | Cardiology Progress Note ---
Subjective Date Seen by Provider: May 09, 2020 Time Seen by Provider: 14:28 Subjective/Events-last exam Patient was seen at bedside laying down comfortably, denied any pain, feeling better Review of Systems General: No Chills, No Night Sweats, No Fatigue, No Malaise, No Appetite, No Other HEENT: No Head Aches, No Visual Changes, No Eye Pain, No Ear Pain, No Dysphasi a, No Sinus Congestion, No Post Nasal Drip, No Sore Throat, No Other Pulmonary: No Dyspnea, No Cough, No Pleuritic Chest Pain, No Other Cardiovascular: No: Chest Pain, Palpitations, Orthopnea, Paroxysmal Noc. Dyspnea, Edema, Lt Headedness, Other Objective-Cardiology Exam Last Set of Vital Signs Vital Signs 05/09/20 05/09/20 05/09/20 06:34 07:46 13:58 Temp 36.7 Pulse 58 Resp 20 B/P (MAP) 111/69 (83) Pulse Ox 97 O2 Delivery Room Air Capillary Refill : Less Than 3 SecondsLess Than 3 Seconds I&O Intake and Output 05/09/20 00:00 Intake Total 2050 ml Balance 2050 ml Intake Oral 2050 ml # Voids 9 # Bowel Movements 1 General: Alert, Oriented X3, Cooperative HEENT: Atraumatic, PERRLA Neck: Supple, No JVD, No Thyromegaly Lungs: Normal Air Movement, Other (diminished breath sounds LLL) Heart: Normal S1, Normal S2, Other (irregularly irregular) Abdomen: Soft, No Tenderness Extremities: Other (+2-3 pitting edema) Skin: No Rashes, No Significant Lesion Neuro: Normal Speech Psych/Mental Status: Mental Status NL, Mood NL Results Lab Laboratory Tests 05/09/20 05:10 A/P-Cardiology Admission Diagnosis CVA Persistent atrial fibrillation dyspnea metabolic acidosis Assessment/Plan Recent CVA, continue with PT/OT. Unable to tolerate OAC d/t recent subdural hematoma. Echocardiogram done 05/06/2020 showed normal LV function with moderate LVH. Bilateral atrial enlargement. Moderate to severe pulmonary hypertension with PA 75-80mmHg Persistent atrial fibrillation, unable to tolerate OAC, currently on ASA. Rate is controlled. Next Hypertension, blood pressure is better at this time. Continue to monitor Peripheral edema, reporting improvement, continue to monitor tolerance and response. History of recent Subdural hematoma, Shortness of breath, likely multifactorial. Mildly elevated BNP. Diastolic dysfunction could not be evaluated since the patient was in atrial fibrillation. However due to moderate LVH, elevated BNP and bilateral atrial enlargement, patient likely has at least moderate diastolic dysfunction. However Dr. Orlando is holding Lasix for now and giving IV fluids. Diruese when tolerated Metabolic acidosis, management per Dr. Orlando Acute on chronic renal insufficiency- continue to monitor renal function CLL Anemia- received blood transfusion, continue to monitor Clinical Quality Measures DVT/VTE Risk/Contraindication: Risk Factor Score Per Nursin RFS Level Per Nursing on Admit: 4+=Very High Contraindications-Pharm: Other *list below* Other: recent subarachnoid hemorrhage COLBY BARILLAS MD May 09, 2020 2:31 pm
[2020-05-09 16:30] VITALS: BP 143/64
--- NOTE | 2020-05-09 17:39 | NUR ---
"RD ASSESSMENT PMHx: hypercholesterolemia; HTN; stroke; chronic diarrhea; leukemia; PT INTERACTION: Pt was awake and pleasant during nutrition follow-up. Pt states she has been eating okay since last assessment. Note avg PO intake 65% x4d, per chart review. Pt states no issues with nausea, vomiting, constipation, or diarrhea since last assessment. Note last BM was 05/08, and pt currently on bowel regimen of bisacodyl qd, colace BID, senna BID, and miralax BID, per chart review. ABNORMAL NUTRITION-RELATED LAB VALUES LOW: Pro 5.6; HIGH: Cl 110; BUN 43; cr 1.67 Est. kcal needs: 9124-9752 kcal | 20-25 kcal/kg Est. Pro needs: 56-70 g Pro | 0.8-1.0 g Pro/kg PES STATEMENT: Inadequate oral intake (NI-2.1) related to loss of appetite as evidenced by pt interview and avg PO intake 65% x4d. INTERVENTION: Continue with current diet order of Regular diet. Pt may benefit from nutrition supplementation if PO intake declines. Will continue to follow and reassess as pt needs, intake, and status change. [place] wOens, MS RD LD"
--- NOTE | 2020-05-09 19:12 | NUR ---
Bedside report received from JOHANNY HOFFMAN, assume care of pt
[2020-05-09 21:40] VITALS: BP 149/70
[2020-05-09] MEDS: MELATONIN 3 MG TABLET PO PRN (21:44)
--- NOTE | 2020-05-09 21:45 | NUR ---
pt took Colace but refused miralax & Senokot
[2020-05-09] MEDS: fluCOnazole (DIFLUCAN) 100 MG TAB PO SCH (21:47)
[2020-05-10] MEDS: HYDROcodone/APAP 5 MG/325 MG (LORTAB) TAB PO PRN ×2 (01:02→15:03)
--- NOTE | 2020-05-10 01:02 | NUR ---
c/o rt shoulder pain level 8/10 on numeric scale, Lortab 5 1 tab given
--- NOTE | 2020-05-10 01:45 | NUR ---
resting quietly in bed, pain level 0/10 on CNPI SCALE
[2020-05-10 06:00] VITALS: BP 157/69
[2020-05-10] MEDS: MULTIVIT W/MINERALS TAB (THERAGRAN M) PO SCH (06:48)
[2020-05-10] MEDS: LEVETIRACETAM 500 MG (KEPPRA) TAB PO SCH ×2 (09:16→20:03)
[2020-05-10] MEDS: FUROSEMIDE 20 MG (LASIX) TAB PO SCH (09:16)
[2020-05-10] MEDS: PANTOPRAZOLE 40 MG (PROTONIX) TAB PO SCH (09:16)
[2020-05-10] MEDS: FOLIC ACID 1 MG TAB PO SCH (09:16)
[2020-05-10] MEDS: SUCRALFATE 1 GM (CARAFATE) TAB PO SCH ×4 (09:16→20:02)
[2020-05-10] MEDS: ASPIRIN E.C. 81 MG (ECOTRIN) TAB PO SCH (09:16)
[2020-05-10] MEDS: ACYCLOVIR 400 MG TABLET (ZOVIRAX) PO SCH ×2 (09:17→20:03)
[2020-05-10] MEDS: CARVEDILOL 12.5 MG (COREG) TABLET PO SCH ×2 (09:17→20:02)
[2020-05-10] MEDS: SENNA W/DOCUSATE (SENOKOT S) TABLET PO SCH ×2 (09:18→19:26)
[2020-05-10] MEDS: polyethylene glycoL POWDER 17 GM (MIRALAX) PACK PO SCH ×2 (09:18→19:26)
[2020-05-10] MEDS: BISACODYL 10 MG SUPP (DULCOLAX) RC SCH (09:18)
[2020-05-10] MEDS: DOCUSATE SODIUM 100 MG (COLACE) CAP PO SCH ×2 (09:18→19:25)
[2020-05-10] MEDS: SPRYCEL 100 MG PO SCH (09:27)
--- NOTE | 2020-05-10 09:29 | NUR ---
Pt reports that her Eliquis costs $132/month. Wondered if the Borough Coordinator knew any way that she could get it at reduced cost.
--- NOTE | 2020-05-10 09:30 | Physical Therapy Daily Note ---
PT Daily Note-Current Subjective pt. up in bathroom indep, did sink bath and dressed herself, ambulated back to recliner, declines Rx,"tired now" Transfers SCALE: Activities may be completed with or without assistive devices. 8-Dthynwazdw-exvjdun completes the activity by him/herself with no assistance from a helper. 5-Set-up or Clean-up Assistance-helper sets up or cleans up; patient completes activity. [place] assists only prior to or following the activity. 4-Supervision or Touching Assistance-helper provides verbal cues and/or touching/steadying and/or contact guard assistance as patient completes activity. Assistance may be provided throughout the activity or intermittently. 3-Partial/Moderate Assistance-helper does LESS THAN HALF the effort. [place] lifts, holds or supports trunk or limbs, but provides less than half the effort. 2-Substantial/Maximal Assistance-helper does MORE THAN HALF the effort. [place] lifts or holds trunk or limbs and provides more than half the effort. 7-Fgujvhqqg-wtrqii does ALL the effort. Patient does none of the effort to com plete the activity. Or, the assistance of 2 or more helpers is required for the patient to complete the activity. If activity was not attempted, code reason: 7-Patient Refused. 9-Not Applicable-not attempted and the patient did not perform the activity before the current illness, exacerbation or injury. 10-Not Attempted due to Environmental Limitations-(lack of equipment, weather restraints, etc.). 88-Not Attempted due to Medical Conditions or Safety Concerns. Weight Bearing Full Weight Bearing Full Weight Bearing Assessment Current Status: Good Progress, Refused Treatment PT Short Term Goals Short Term Goals Time Frame: May 08, 2020 Sit to lyin Lying to sitting on side of be: 4 Sit to stand: 4 Chair/jim-ew-zsofj transfer: 4 Walk 150 feet: 4 PT Jail Goals Jail Goals PT Jail Goals Time Frame: May 16, 2020 Roll Left & Right (QC): 6 Sit to Lying (QC): 6 Lying-Sitting on Side/Bed(QC): 6 Sit to Stand (QC): 6 Chair/Kzo-xm-Iquhd Xfer(QC): 6 Toilet Transfer (QC): 6 Car Transfer (QC): 6 Does the Patient Walk: Yes Walk 10 feet (QC): 6 Walk 50ft with 2 Turns (QC): 6 Walk 150 ft (QC): 6 Walking 10ft on Uneven Surface: 6 1 Step (curb) (QC): 6 4 Steps (QC): 6 12 Steps (QC): 6 Picking up an Object (QC): 4 Does the Pt use WC or Scooter?: No Wheel 50 feet with 2 turns (QC: 9 Wheel 150 feet: 9 PT Plan Treatment/Plan Treatment Plan: Continue Plan of Care Treatment Plan: Bed Mobility, Education, Functional Activity Concepcion, Functional Strength, Group Therapy, Gait, Safety, Therapeutic Exercise, Transfers Treatment Duration: May 16, 2020 Frequency: At least 5 of 7 days/Wk (IRF) Estimated Hrs Per Day: 1.5 hours per day Patient and/or Family Agrees t: Yes Time/GCodes Time In: 855 Time Out: 900 Total Billed Treatment Time: 0 Total Billed Treatment 1,no Rx, NO chg SANDRA LEE TOOL HONING MACHINE SET UP OPERATOR May 10, 2020 09:29
--- NOTE | 2020-05-10 16:41 | PM&R Progress Note ---
Subjective HPI/CC On Admission Date Seen by Provider: May 10, 2020 Time Seen by Provider: 06:00 Subjective/Events-last exam 05/10/20: Lets much improved with compression therapy No pain reported No SOB 05/09/20: Pain control Lasix JOSE CRUZ wraps to legs 05/08/20: BM yesterday Wrapping legs with UMANG's and wide jose cruz wraps Laxatives taken though SOB noted 05/07/20: Cardiology consultation appreciated Edema is noted and she feels like she has a lot of fluid on board Dyspnea is noted with 92% on room air IV fluids still going at 80 Will update cardiology and Dr. Orlando 05/06/20: Septic workup last night returned without evidence of sepsis Dr. Orlando consulted and started her on Sodium Bicarbonate for metabolic acidosis with pH of 7. 25 Overall very fragile Has become a bit somatic EGD today by Dr. Rosas Echocardiogram will be performed Remains on lactated ringers at 80 CCs per hour Overall improved Hgb stable 05/05/20: Bowels moved yesterday Nausea and emesis continue Labs stable, Hgb 9.9 Hemoccult positive stools so Dr. Rosas has been consulted BUN elevated suspicious for blood in the gut 05/04/20: Loose stools today Nausea today but has passed Doing OK 05/03/20: Hgb 9.8 today after 2 units of blood yesterday She receives a lot of transfusions due to leukemia Coloring is improved now since transfusion BM yesterday Creat 1.7 Hgb 7.1 will need 2 units of blood Creatinine 1.56 Talked to her about overall status and she is doing well otherwise Checked meds and labs Conferred with RN Reviewed therapy notes Review of Systems General: Fatigue Cardiovascular: Edema Neurological: Weakness, Incoordination Objective Exam Vital Signs Vital Signs Date Time Temp Pulse Resp B/P (MAP) Pulse Ox O2 Delivery O2 Flow Rate FiO2 05/10/20 08:38 Room Air 05/10/20 06:00 37.2 82 16 157/69 (98) 93 Capillary Refill : Less Than 3 SecondsLess Than 3 Seconds General Appearance: No Apparent Distress, WD/WN, Chronically ill, Thin HEENT: PERRL/EOMI Neck: Normal Inspection, Non Tender, Supple Respiratory: Chest Non Tender, Lungs Clear, Normal Breath Sounds, No Accessory Muscle Use, No Respiratory Distress Cardiovascular: Systolic Murmur Gastrointestinal: Normal Bowel Sounds, No Organomegaly, No Pulsatile Mass, Non Tender, Soft Back: Normal Inspection, No CVA Tenderness, No Vertebral Tenderness Extremity: Normal Capillary Refill, Normal Range of Motion (except left sided weakness 3/5 and right arm in sling and soft cast), Non Tender, No Calf Tenderness, Pedal Edema Neurologic/Psychiatric: Alert, Oriented x3, Normal Mood/Affect (pt was sassy today and playing pranks), Abnormal Gait, Facial Droop, Motor Weakness Skin: Normal Color, Warm/Dry Lymphatic: No Adenopathy Results/Procedures Lab Patient resulted labs reviewed. FIM Transfers Therapy Code Descriptions/Definitions Functional [place] Measure: 0=Not Assessed/NA 4=Minimal Assistance 1=Total Assistance 5=Supervision or Setup 2=Maximal Assistance 6=Modified [place] 3=Moderate Assistance 7=Complete IndependenceSCALE: Activities may be completed with or without assistive devices. 0-Xvtksjepkk-pikkapb completes the activity by him/herself with no assistance from a helper. 5-Set-up or Clean-up Assistance-helper sets up or cleans up; patient completes activity. [place] assists only prior to or following the activity. 4-Supervision or Touching Assistance-helper provides verbal cues and/or touching/steadying and/or contact guard assistance as patient completes activity. Assistance may be provided throughout the activity or intermittently. 3-Partial/Moderate Assistance-helper does LESS THAN HALF the effort. [place] lifts, holds or supports trunk or limbs, but provides less than half the effort. 2-Substantial/Maximal Assistance-helper does MORE THAN HALF the effort. [place] lifts or holds trunk or limbs and provides more than half the effort. 6-Wessehlmh-cyenpr does ALL the effort. Patient does none of the effort to complete the activity. Or, the assistance of 2 or more helpers is required for the patient to complete the activity. If activity was not attempted, code reason: 7-Patient Refused. 9-Not Applicable-not attempted and the patient did not perform the activity before the current illness, exacerbation or injury. 10-Not Attempted due to Environmental Limitations-(lack of equipment, weather restraints, etc.). 88-Not Attempted due to Medical Conditions or Safety Concerns. Roll Left to Right (QC): 4 Sit to Lying (QC): 6 Sit to Stand (QC): 6 Chair/Jdn-ul-[place]zi[place] Xfer(QC): 6 Car Transfer (QC): 4 Gait Training Does the Patient Walk?: Yes Distance: 450' Walk 10 feet (QC): 6 Walk 50 ft with 2 Turns(QC): 6 Walk 150 ft (QC): 6 Walking 10ft/uneven surface-QC: 3 Gait Persons Needed: 0 Gait Assistive Device: None Wheelchair Training Does the Pt Use a Wheelchair?: No Wheel 50 ft with 2 turns (QC): 9 Wheel 150 ft (QC): 9 Stair Training Stair Training: Handrails/: 2 handrails #of Steps: 4 1 Step (curb) (QC): 4 4 Steps (QC): 4 12 Steps (QC): 88 Stairs: Pattern: Step to Balance Picking up an Object (QC): 88 ADL-Treatment Eating (QC): 5 (Pt reports requiring set up assistance with breakfast to open containers and cut food, pt states she is then able to use utensils to eat.) Oral Hygiene (QC): 6 Bathing Location: R Arm, L Upper Leg, R Upper Leg, L Lower Leg (including foot), R Lower Leg (including foot), Chest, Abdomen, Buttocks, Perineal Area Shower/Bathe Self (QC): 4 (Supervision after set up to complete sponge bath at sink.) Upper Body Dressing (QC): 3 (Min A to manipulate material to place L UE sleeve.) Lower Body Dressing (QC): 3 On/Off Footwear (QC): 2 Toileting Hygiene (QC): 6 Toilet Transfer (QC): 6 Assessment/Plan Assessment and Plan Assess & Plan/Chief Complaint Assessment: 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 05/08/20: Restarted Lasix Monitor closely 05/09/20: Monitor creatinine Lasix 05/10/20 Monitor edema Lasix Jose Cruz wraps (1) CVA (cerebral vascular accident) (2) CLL (chronic lymphocytic leukemia) (3) Subdural hematoma (4) Closed fracture of right olecranon process (5) Hyperlipemia (6) GERD (gastroesophageal reflux disease) ANTOINE SALDAÑA DO May 10, 2020 16:41
[2020-05-10 18:07] VITALS: BP 182/84
[2020-05-10 18:12] VITALS: BP 177/74
[2020-05-10 18:21] VITALS: BP 176/71
[2020-05-10 18:33] VITALS: BP 161/72
[2020-05-10] MEDS: fluCOnazole (DIFLUCAN) 100 MG TAB PO SCH (20:03)
[2020-05-10] MEDS: ACETAMINOPHEN 325 MG TABLET PO PRN (21:57)
[2020-05-11] MEDS: HYDROcodone/APAP 5 MG/325 MG (LORTAB) TAB PO PRN ×3 (00:47→21:56)
[2020-05-11 06:00] VITALS: BP 170/74
--- NOTE | 2020-05-11 06:16 | PM&R Progress Note ---
Subjective HPI/CC On Admission Date Seen by Provider: May 11, 2020 Time Seen by Provider: 06:00 Subjective/Events-last exam 05/11/20: Patient feels good Less edema JOSE CRUZ wraps helping edema 05/10/20: Lets much improved with compression therapy No pain reported No SOB 05/09/20: Pain control Lasix JOSE CRUZ wraps to legs 05/08/20: BM yesterday Wrapping legs with UMANG's and wide jose cruz wraps Laxatives taken though SOB noted 05/07/20: Cardiology consultation appreciated Edema is noted and she feels like she has a lot of fluid on board Dyspnea is noted with 92% on room air IV fluids still going at 80 Will update cardiology and Dr. Orlando 05/06/20: Septic workup last night returned without evidence of sepsis Dr. Orlando consulted and started her on Sodium Bicarbonate for metabolic acidosis with pH of 7. 25 Overall very fragile Has become a bit somatic EGD today by Dr. Rosas Echocardiogram will be performed Remains on lactated ringers at 80 CCs per hour Overall improved Hgb stable 05/05/20: Bowels moved yesterday Nausea and emesis continue Labs stable, Hgb 9.9 Hemoccult positive stools so Dr. Rosas has been consulted BUN elevated suspicious for blood in the gut 05/04/20: Loose stools today Nausea today but has passed Doing OK 05/03/20: Hgb 9.8 today after 2 units of blood yesterday She receives a lot of transfusions due to leukemia Coloring is improved now since transfusion BM yesterday Creat 1.7 Hgb 7.1 will need 2 units of blood Creatinine 1.56 Talked to her about overall status and she is doing well otherwise Checked meds and labs Conferred with RN Reviewed therapy notes Review of Systems Cardiovascular: Edema Musculoskeletal: arm pain, leg pain Neurological: Weakness, Incoordination Objective Exam Vital Signs Vital Signs Date Time Temp Pulse Resp B/P (MAP) Pulse Ox O2 Delivery O2 Flow Rate FiO2 05/11/20 21:52 72 18 174/70 (104) 97 Room Air 05/11/20 17:22 36.3 Capillary Refill : Less Than 3 SecondsLess Than 3 Seconds General Appearance: No Apparent Distress, WD/WN, Chronically ill, Thin HEENT: PERRL/EOMI Neck: Normal Inspection, Non Tender, Supple Respiratory: Chest Non Tender, Lungs Clear, Normal Breath Sounds, No Accessory Muscle Use, No Respiratory Distress Cardiovascular: Systolic Murmur Gastrointestinal: Normal Bowel Sounds, No Organomegaly, No Pulsatile Mass, Non Tender, Soft Back: Normal Inspection, No CVA Tenderness, No Vertebral Tenderness Extremity: Normal Capillary Refill, Normal Range of Motion (except left sided weakness 3/5 and right arm in sling and soft cast), Non Tender, No Calf Tenderness, Pedal Edema Neurologic/Psychiatric: Alert, Oriented x3, Normal Mood/Affect (pt was sassy today and playing pranks), Abnormal Gait, Facial Droop, Motor Weakness Skin: Normal Color, Warm/Dry Lymphatic: No Adenopathy Results/Procedures Lab Patient resulted labs reviewed. FIM Transfers Therapy Code Descriptions/Definitions Functional [place] Measure: 0=Not Assessed/NA 4=Minimal Assistance 1=Total Assistance 5=Supervision or Setup 2=Maximal Assistance 6=Modified [place] 3=Moderate Assistance 7=Complete IndependenceSCALE: Activities may be completed with or without assistive devices. 1-Bzmtrtubko-qnsgnvk completes the activity by him/herself with no assistance from a helper. 5-Set-up or Clean-up Assistance-helper sets up or cleans up; patient completes activity. [place] assists only prior to or following the activity. 4-Supervision or Touching Assistance-helper provides verbal cues and/or touching/steadying and/or contact guard assistance as patient completes activity. Assistance may be provided throughout the activity or intermittently. 3-Partial/Moderate Assistance-helper does LESS THAN HALF the effort. [place] lifts, holds or supports trunk or limbs, but provides less than half the effort. 2-Substantial/Maximal Assistance-helper does MORE THAN HALF the effort. [place] lifts or holds trunk or limbs and provides more than half the effort. 8-Sjuukpevx-djfzpa does ALL the effort. Patient does none of the effort to complete the activity. Or, the assistance of 2 or more helpers is required for the patient to complete the activity. If activity was not attempted, code reason: 7-Patient Refused. 9-Not Applicable-not attempted and the patient did not perform the activity before the current illness, exacerbation or injury. 10-Not Attempted due to Environmental Limitations-(lack of equipment, weather restraints, etc.). 88-Not Attempted due to Medical Conditions or Safety Concerns. Roll Left to Right (QC): 4 Sit to Lying (QC): 6 Sit to Stand (QC): 6 Chair/[place] Xfer(QC): 6 Car Transfer (QC): 4 Gait Training Does the Patient Walk?: Yes Distance: 450' Walk 10 feet (QC): 6 Walk 50 ft with 2 Turns(QC): 6 Walk 150 ft (QC): 6 Walking 10ft/uneven surface-QC: 3 Gait Persons Needed: 0 Gait Assistive Device: None Wheelchair Training Does the Pt Use a Wheelchair?: No Wheel 50 ft with 2 turns (QC): 9 Wheel 150 ft (QC): 9 Stair Training Stair Training: Handrails/: 2 handrails #of Steps: 4 1 Step (curb) (QC): 4 4 Steps (QC): 4 12 Steps (QC): 88 Stairs: Pattern: Step to Balance Picking up an Object (QC): 88 ADL-Treatment Eating (QC): 5 (Pt reports requiring set up assistance with breakfast to open containers and cut food, pt states she is then able to use utensils to eat.) Oral Hygiene (QC): 6 Bathing Location: R Arm, L Upper Leg, R Upper Leg, L Lower Leg (including foot), R Lower Leg (including foot), Chest, Abdomen, Buttocks, Perineal Area Shower/Bathe Self (QC): 4 (Supervision after set up to complete sponge bath at sink.) Upper Body Dressing (QC): 3 (Min A to manipulate material to place L UE sleeve.) Lower Body Dressing (QC): 3 On/Off Footwear (QC): 2 Toileting Hygiene (QC): 6 Toilet Transfer (QC): 6 Assessment/Plan Assessment and Plan Assess & Plan/Chief Complaint Assessment: 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 05/08/20: Restarted Lasix Monitor closely 05/09/20: Monitor creatinine Lasix 05/10/20 Monitor edema Lasix Jose Cruz wraps 05/11/20: Monitor edema Labs due tomorrow (1) CVA (cerebral vascular accident) (2) CLL (chronic lymphocytic leukemia) (3) Subdural hematoma (4) Closed fracture of right olecranon process (5) Hyperlipemia (6) GERD (gastroesophageal reflux disease) ANTOINE SALDAÑA DO May 11, 2020 06:16
[2020-05-11] MEDS: MULTIVIT W/MINERALS TAB (THERAGRAN M) PO SCH (06:17)
[2020-05-11] MEDS: LEVETIRACETAM 500 MG (KEPPRA) TAB PO SCH ×2 (09:02→21:55)
[2020-05-11] MEDS: FOLIC ACID 1 MG TAB PO SCH (09:02)
[2020-05-11] MEDS: LOSARTAN 50 MG (COZAAR) TAB PO SCH (09:02)
[2020-05-11] MEDS: PANTOPRAZOLE 40 MG (PROTONIX) TAB PO SCH (09:02)
[2020-05-11] MEDS: ASPIRIN E.C. 81 MG (ECOTRIN) TAB PO SCH (09:02)
[2020-05-11] MEDS: FUROSEMIDE 20 MG (LASIX) TAB PO SCH (09:02)
[2020-05-11] MEDS: CARVEDILOL 12.5 MG (COREG) TABLET PO SCH ×2 (09:02→21:55)
[2020-05-11] MEDS: ACYCLOVIR 400 MG TABLET (ZOVIRAX) PO SCH ×2 (09:02→21:55)
[2020-05-11] MEDS: SUCRALFATE 1 GM (CARAFATE) TAB PO SCH ×4 (09:02→21:55)
[2020-05-11] MEDS: BISACODYL 10 MG SUPP (DULCOLAX) RC SCH (09:03)
[2020-05-11] MEDS: DOCUSATE SODIUM 100 MG (COLACE) CAP PO SCH ×2 (09:03→22:01)
[2020-05-11] MEDS: SENNA W/DOCUSATE (SENOKOT S) TABLET PO SCH ×2 (09:03→22:02)
[2020-05-11] MEDS: polyethylene glycoL POWDER 17 GM (MIRALAX) PACK PO SCH ×2 (09:03→22:02)
[2020-05-11] MEDS: SPRYCEL 100 MG PO SCH (09:32)
--- NOTE | 2020-05-11 10:38 | Cardiology Progress Note ---
Subjective Date Seen by Provider: May 11, 2020 Time Seen by Provider: 10:37 Subjective/Events-last exam Patient is laying down in bed, no new complaint. Feeling well Review of Systems General: No Chills, No Night Sweats, No Fatigue, No Malaise, No Appetite, No Other HEENT: No Head Aches, No Visual Changes, No Eye Pain, No Ear Pain, No Dysphasia, No Sinus Congestion, No Post Nasal Drip, No Sore Throat, No Other Pulmonary: No Dyspnea, No Cough, No Pleuritic Chest Pain, No Other Cardiovascular: No: Chest Pain, Palpitations, Orthopnea, Paroxysmal Noc. Dyspnea, Edema, Lt Headedness, Other Objective-Cardiology Exam Last Set of Vital Signs Vital Signs 05/11/20 06:00 Temp 36.7 Pulse 71 Resp 17 B/P (MAP) 170/74 (106) Pulse Ox 95 O2 Delivery Room Air Capillary Refill : Less Than 3 SecondsLess Than 3 Seconds I&O Intake and Output 05/10/20 23:59 Intake Total 1500 ml Balance 1500 ml Intake Oral 1500 ml # Voids 9 # Bowel Movements 3 General: Alert, Oriented X3, Cooperative HEENT: Atraumatic, PERRLA Neck: Supple, No JVD, No Thyromegaly Lungs: Normal Air Movement, Other (diminished breath sounds LLL) Heart: Normal S1, Normal S2, Other (irregularly irregular) Abdomen: Soft, No Tenderness Extremities: Other (+2-3 pitting edema) Skin: No Rashes, No Significant Lesion Neuro: Normal Speech Psych/Mental Status: Mental Status NL, Mood NL A/P-Cardiology Admission Diagnosis CVA Persistent atrial fibrillation dyspnea metabolic acidosis Assessment/Plan Recent CVA, continue with PT/OT. Unable to tolerate OAC d/t recent subdural hematoma. Managed by primary care team Echocardiogram done 05/06/2020 showed normal LV function with moderate LVH. Bilateral atrial enlargement. Moderate to severe pulmonary hypertension with PA 75-80mmHg, continue to monitor Persistent atrial fibrillation, unable to tolerate OAC, currently on ASA. Rate is controlled. Hypertension, poor control, I added losartan today, continue to monitor blood pressure Peripheral edema, reporting improvement, continue to monitor tolerance and response. History of recent Subdural hematoma, Shortness of breath, likely multifactorial. Mildly elevated BNP. Diastolic dysfunction could not be evaluated since the patient was in atrial fibrillation. However due to moderate LVH, elevated BNP and bilateral atrial enlargement, patient likely has at least moderate diastolic dysfunction. However Dr. Orlando is holding Lasix for now and giving IV fluids. Diruese when tolerated Metabolic acidosis, management per Dr. Orlando Acute on chronic renal insufficiency- continue to monitor renal function CLL Anemia- received blood transfusion, continue to monitor Clinical Quality Measures DVT/VTE Risk/Contraindication: Risk Factor Score Per Nursin RFS Level Per Nursing on Admit: 4+=Very High Contraindications-Pharm: Other *list below* Other: recent subarachnoid hemorrhage COLBY BARILLAS MD May 11, 2020 10:38
[2020-05-11 14:08] VITALS: BP 141/64
[2020-05-11 17:22] VITALS: BP 150/70
--- NOTE | 2020-05-11 19:27 | NUR ---
Bedside report received from AARNO HOFFMAN, assume care of pt
[2020-05-11 21:52] VITALS: BP 174/70
[2020-05-11] MEDS: MELATONIN 3 MG TABLET PO PRN (21:55)
--- NOTE | 2020-05-11 21:56 | NUR ---
refused COLACE,Miralax & SENARETHA, C/O pain to rt shoulder pain level 6/10 on numeric scale, LORTAB 5 1 tab given
--- NOTE | 2020-05-11 22:40 | NUR ---
resting quietly in bed, pain level level 0/10 on CNPI SCALE
[2020-05-12 06:00] VITALS: BP 153/70
[2020-05-12 06:03] LABS: BASOPHILS % (AUTO) 0 % (0-10); LYMPHOCYTES # (AUTO) 1.1 10^3/uL (1.0-4.0); LYMPHOCYTES % (AUTO) 29 % (12-44); WHITE BLOOD COUNT 3.7 10^3/uL (4.3-11.0)
[2020-05-12 06:04] LABS: EOSINOPHILS # (AUTO) 0.2 10^3/uL (0.0-0.3); EOSINOPHILS % (AUTO) 5 % (0-10); HEMATOCRIT 30 % (35-52); HEMOGLOBIN 9.4 g/dL (11.5-16.0); MEAN CORPUSCULAR HEMOGLOBIN 35 pg (25-34); MEAN CORPUSCULAR HGB CONC 31 g/dL (32-36); MEAN CORPUSCULAR VOLUME 110 fL (80-99); MEAN PLATELET VOLUME 11.5 fL (9.0-12.2); MONOCYTES # (AUTO) 0.4 10^3/uL (0.0-1.0); MONOCYTES % (AUTO) 12 % (0-12); NEUTROPHILS % (AUTO) 54 % (42-75); PLATELET COUNT 93 10^3/uL (130-400)
[2020-05-12 06:14] LABS: ALBUMIN 3.2 GM/DL (3.2-4.5)
[2020-05-12 06:16] LABS: CALCIUM 8.3 MG/DL (8.5-10.1)
[2020-05-12 06:17] LABS: TOTAL PROTEIN 5.3 GM/DL (6.4-8.2)
[2020-05-12 06:19] LABS: BILIRUBIN,TOTAL 0.4 MG/DL (0.1-1.0)
[2020-05-12 06:21] LABS: CREATININE SERUM 1.86 MG/DL (0.60-1.30)
[2020-05-12] MEDS: MULTIVIT W/MINERALS TAB (THERAGRAN M) PO SCH (06:46)
[2020-05-12 08:00] VITALS: BP 153/70
--- NOTE | 2020-05-12 08:34 | Occupational Ther Daily Note ---
OT Current Status-Daily Note Subjective Pt alert, sitting in recliner. Pt agrees to therapy. Edema still present in B LE's. No c/o pain. Small red area at back of ankle, placed bandage on area. Mental Status/Objective Patient Orientation: Person, Place, Time, Situation Attachments: Central Line ADL-Treatment Pt agrees to shower. Pt ambulated to shower, independently. Pt completed shower using shower bench, hand held shower and grabbars independently. After set up, pt completed upper body dressing by self. Pt declined using AE for lower body dressing, completed with SBA to hike pants over hips. Pt uses sock aide to don socks and doffs socks by self. Sitting at sink, pt complete oral care by self. Pt able to complete toileting by self and transferred by self. Pt ambulated back to bed, independently. Pt got into bed by self and adjusted self. Edema massage to lower legs and elevated B LE above heart. Pt took increased time due to recovery breaks throughout session. After session, pt lying in bed with call light/phone in reach. All needs met in room. Therapy Code Descriptions/Definitions Functional [place] Measure: 0=Not Assessed/NA 4=Minimal Assistance 1=Total Assistance 5=Supervision or Setup 2=Maximal Assistance 6=Modified [place] 3=Moderate Assistance 7=Complete IndependenceSCALE: Activities may be completed with or without assistive devices. 9-Mkkodwjbfv-laufrvm completes the activity by him/herself with no assistance from a helper. 5-Set-up or Clean-up Assistance-helper sets up or cleans up; patient completes activity. [place] assists only prior to or following the activity. 4-Supervision or Touching Assistance-helper provides verbal cues and/or t ouching/steadying and/or contact guard assistance as patient completes activity. Assistance may be provided throughout the activity or intermittently. 3-Partial/Moderate Assistance-helper does LESS THAN HALF the effort. [place] lifts, holds or supports trunk or limbs, but provides less than half the effort. 2-Substantial/Maximal Assistance-helper does MORE THAN HALF the effort. [place] lifts or holds trunk or limbs and provides more than half the effort. 4-Xfxxdytaw-iyezff does ALL the effort. Patient does none of the effort to complete the activity. Or, the assistance of 2 or more helpers is required for the patient to complete the activity. If activity was not attempted, code reason: 7-Patient Refused. 9-Not Applicable-not attempted and the patient did not perform the activity before the current illness, exacerbation or injury. 10-Not Attempted due to Environmental Limitations-(lack of equipment, weather restraints, etc.). 88-Not Attempted due to Medical Conditions or Safety Concerns. Eating (QC): 6 (Using clinical judgement, pt able to complete independently.) Oral Hygiene (QC): 6 Shower/Bathe Self (QC): 6 Upper Body Dressing (QC): 5 Lower Body Dressing (QC): 4 On/Off Footwear: 5 Toileting Hygiene (QC): 6 Toilet Transfer (QC): 6 OT Nursing Home Goals Nursing Home Goals Time Frame: May 16, 2020 Eating (QC): 6 (met) Oral Hygiene (QC): 6 (met) Toileting Hygiene (QC): 6 (met) Shower/Bathe Self (QC): 5 (met) Upper Body Dressing (QC): 6 Lower Body Dressing (QC): 6 On/Off Footwear (QC): 6 Additional Goals: 1-Demonstrate ADL Tasks, 2-Verbalize Understanding, 3- ImproveStrength/Concepcion 1=Demonstrate adherence to instructed precautions during ADL tasks. 2=Patient will verbalize/demonstrate understanding of assistive devices/modifications for ADL. 3=Patient will improve strength/tolerance for activity to enable patient to perform ADL's. OT Education/Plan Problem List/Assessment Assessment: Decreased Activ Tolerance, Impaired Self-Care Skills Discharge Recommendations Plan/Recommendations: Continue POC Treatment Plan/Plan of Care Patient would benefit from OT for education, treatment and training to promote independence in ADL's, mobility, safety and/or upper extremity function for ADL's. Plan of Care: ADL Retraining, Functional Mobility, Group Exercise/Act as Ind, UE Funct Exercise/Act, UE Neuromus Re-Ed/Coord Treatment Duration: May 16, 2020 Frequency: At least 5 of 7 days/Wk (IRF) Estimated Hrs Per Day: 1.5 hours per day Agreement: Yes Rehab Potential: Good Time/GCodes Start Time: 07:15 Stop Time: 08:30 Total Time Billed (hr/min): 75 Billed Treatment Time 1 visit-ADL 5 (75 min) JACKLYN DE LEON May 12, 2020 08:34
--- NOTE | 2020-05-12 08:56 | Cardiology Progress Note ---
Subjective Date Seen by Provider: May 12, 2020 Time Seen by Provider: 08:30 Subjective/Events-last exam Patient is in bed, denies any chest pain or dyspnea. C/o lower extremity edema. Review of Systems General: No Chills, No Night Sweats, No Fatigue, No Malaise, No Appetite, No Other HEENT: No Head Aches, No Visual Changes, No Eye Pain, No Ear Pain, No Dysphasia, No Sinus Congestion, No Post Nasal Drip, No Sore Throat, No Other Pulmonary: No Dyspnea, No Cough, No Pleuritic Chest Pain, No Other Cardiovascular: Edema; No: Chest Pain, Palpitations, Orthopnea, Paroxysmal Noc. Dyspnea, Lt Headedness, Other Objective-Cardiology Exam Last Set of Vital Signs Vital Signs 05/12/20 05/12/20 06:00 09:00 Temp 36.8 Pulse 65 Resp 16 B/P (MAP) 153/70 (97) Pulse Ox 94 O2 Delivery Room Air Capillary Refill : Less Than 3 SecondsLess Than 3 Seconds I&O Intake and Output 05/12/20 00:00 Intake Total 1370 ml Balance 1370 ml Intake Oral 1370 ml # Voids 9 # Bowel Movements 1 General: Alert, Oriented X3, Cooperative HEENT: Atraumatic, PERRLA Neck: Supple, No JVD, No Thyromegaly Lungs: Normal Air Movement, Other (diminished breath sounds LLL) Heart: Normal S1, Normal S2, Other (irregularly irregular) Abdomen: Soft, No Tenderness Extremities: Other (+2-3 pitting edema) Skin: No Rashes, No Significant Lesion Neuro: Normal Speech Psych/Mental Status: Mental Status NL, Mood NL Results Lab Laboratory Tests 05/12/20 05:30 A/P-Cardiology Admission Diagnosis CVA Persistent atrial fibrillation dyspnea metabolic acidosis Assessment/Plan Recent CVA, continue with PT/OT. Unable to tolerate OAC d/t recent subdural hematoma. Managed by primary care team Echocardiogram done 05/06/2020 showed normal LV function with moderate LVH. Bilateral atrial enlargement. Moderate to severe pulmonary hypertension with PA 75-80mmHg, continue to monitor Persistent atrial fibrillation, unable to tolerate OAC, currently on ASA. Rate is controlled. Hypertension, poor control, I added losartan then I added hydrochlorothiazide and will continue to monitor blood pressure and electrolytes Peripheral edema, continue on lasix, continue to monitor tolerance and response. History of recent Subdural hematoma, Shortness of breath, likely multifactorial. Patient reporting some improvement. Mildly elevated BNP. Diastolic dysfunction could not be evaluated since the patient was in atrial fibrillation. However due to moderate LVH, elevated BNP and bilateral atrial enlargement, patient likely has at least moderate diastolic dysfunction. Metabolic acidosis, management per Dr. Orlando Acute on chronic renal insufficiency- continue to monitor renal function CLL Anemia- received blood transfusion, continue to monitor Patient was seen and evaluated with Almaz, examination performed, management plan was discussed, agree with the current scribed note, I made few changes to the note using Italic font Still having elevated blood pressure and peripheral edema, I am adding hydrochlorothiazide and monitor tolerance and response Clinical Quality Measures DVT/VTE Risk/Contraindication: Risk Factor Score Per Nursin RFS Level Per Nursing on Admit: 4+=Very High Contraindications-Pharm: Other *list below* Other: recent subarachnoid hemorrhage ALMAZ ROSS May 12, 2020 8:56 am COLBY BARILLAS MD May 12, 2020 11:21 am
--- NOTE | 2020-05-12 09:08 | PM&R Progress Note ---
Subjective HPI/CC On Admission Date Seen by Provider: May 12, 2020 Time Seen by Provider: 09:00 Subjective/Events-last exam 05/12/20: Labs stable No new issues Bowels are moving Set for discharge soon Will wrap her legs No other pain is reported 05/11/20: Patient feels good Less edema JOSE CRUZ wraps helping edema 05/10/20: Lets much improved with compression therapy No pain reported No SOB 05/09/20: Pain control Lasix JOSE CRUZ wraps to legs 05/08/20: BM yesterday Wrapping legs with UMANG's and wide jose cruz wraps Laxatives taken though SOB noted 05/07/20: Cardiology consultation appreciated Edema is noted and she feels like she has a lot of fluid on board Dyspnea is noted with 92% on room air IV fluids still going at 80 Will update cardiology and Dr. Orlando 05/06/20: Septic workup last night returned without evidence of sepsis Dr. Orlando consulted and started her on Sodium Bicarbonate for metabolic acidosis with pH of 7. 25 Overall very fragile Has become a bit somatic EGD today by Dr. Rosas Echocardiogram will be performed Remains on lactated ringers at 80 CCs per hour Overall improved Hgb stable 05/05/20: Bowels moved yesterday Nausea and emesis continue Labs stable, Hgb 9.9 Hemoccult positive stools so Dr. Rosas has been consulted BUN elevated suspicious for blood in the gut 05/04/20: Loose stools today Nausea today but has passed Doing OK 05/03/20: Hgb 9.8 today after 2 units of blood yesterday She receives a lot of transfusions due to leukemia Coloring is improved now since transfusion BM yesterday Creat 1.7 Hgb 7.1 will need 2 units of blood Creatinine 1.56 Talked to her about overall status and she is doing well otherwise Checked meds and labs Conferred with RN Reviewed therapy notes Review of Systems General: Fatigue, Malaise Cardiovascular: Edema Neurological: Weakness, Incoordination Objective Exam Vital Signs Vital Signs Date Time Temp Pulse Resp B/P (MAP) Pulse Ox O2 Delivery O2 Flow Rate FiO2 05/13/20 05:07 37.0 85 17 150/67 (94) 94 Room Air Capillary Refill : Less Than 3 SecondsLess Than 3 Seconds General Appearance: No Apparent Distress, WD/WN, Chronically ill, Thin HEENT: PERRL/EOMI Neck: Normal Inspection, Non Tender, Supple Respiratory: Chest Non Tender, Lungs Clear, Normal Breath Sounds, No Accessory Muscle Use, No Respiratory Distress Cardiovascular: Systolic Murmur Gastrointestinal: Normal Bowel Sounds, No Organomegaly, No Pulsatile Mass, Non Tender, Soft Back: Normal Inspection, No CVA Tenderness, No Vertebral Tenderness Extremity: Normal Capillary Refill, Normal Range of Motion (except left sided weakness 3/5 and right arm in sling and soft cast), Non Tender, No Calf Tenderness, Pedal Edema Neurologic/Psychiatric: Alert, Oriented x3, Normal Mood/Affect (pt was sassy today and playing pranks), Abnormal Gait, Facial Droop, Motor Weakness Skin: Normal Color, Warm/Dry Lymphatic: No Adenopathy Results/Procedures Lab Laboratory Tests 05/12/20 05:30 Patient resulted labs reviewed. FIM Transfers Therapy Code Descriptions/Definitions Functional [place] Measure: 0=Not Assessed/NA 4=Minimal Assistance 1=Total Assistance 5=Supervision or Setup 2=Maximal Assistance 6=Modified [place] 3=Moderate Assistance 7=Complete IndependenceSCALE: Activities may be completed with or without assistive devices. 6-Uvrokqaffh-ddoqnph completes the activity by him/herself with no assistance from a helper. 5-Set-up or Clean-up Assistance-helper sets up or cleans up; patient completes activity. [place] assists only prior to or following the activity. 4-Supervision or Touching Assistance-helper provides verbal cues and/or touching/steadying and/or contact guard assistance as patient completes activity. Assistance may be provided throughout the activity or intermittently. 3-Partial/Moderate Assistance-helper does LESS THAN HALF the effort. [place] lifts, holds or supports trunk or limbs, but provides less than half the effort. 2-Substantial/Maximal Assistance-helper does MORE THAN HALF the effort. [place] lifts or holds trunk or limbs and provides more than half the effort. 2-Iwbqkjaht-unydxy does ALL the effort. Patient does none of the effort to complete the activity. Or, the assistance of 2 or more helpers is required for the patient to complete the activity. If activity was not attempted, code reason: 7-Patient Refused. 9-Not Applicable-not attempted and the patient did not perform the activity before the current illness, exacerbation or injury. 10-Not Attempted due to Environmental Limitations-(lack of equipment, weather restraints, etc.). 88-Not Attempted due to Medical Conditions or Safety Concerns. Roll Left to Right (QC): 4 Sit to Lying (QC): 6 Sit to Stand (QC): 6 Chair/Llu-jz-Wmqbh Xfer(QC): 6 Car Transfer (QC): 4 Gait Training Does the Patient Walk?: Yes Distance: 450' Walk 10 feet (QC): 6 Walk 50 ft with 2 Turns(QC): 6 Walk 150 ft (QC): 6 Walking 10ft/uneven surface-QC: 3 Gait Persons Needed: 0 Gait Assistive Device: None Wheelchair Training Does the Pt Use a Wheelchair?: No Wheel 50 ft with 2 turns (QC): 9 Wheel 150 ft (QC): 9 Stair Training Stair Training: Handrails/: 2 handrails #of Steps: 4 1 Step (curb) (QC): 4 4 Steps (QC): 4 12 Steps (QC): 88 Stairs: Pattern: Step to Balance Picking up an Object (QC): 88 ADL-Treatment Eating (QC): 6 (Using clinical judgement, pt able to complete independently.) Oral Hygiene (QC): 6 Bathing Location: R Arm, L Upper Leg, R Upper Leg, L Lower Leg (including foot), R Lower Leg (including foot), Chest, Abdomen, Buttocks, Perineal Area Shower/Bathe Self (QC): 6 Upper Body Dressing (QC): 5 Lower Body Dressing (QC): 4 On/Off Footwear (QC): 5 Toileting Hygiene (QC): 6 Toilet Transfer (QC): 6 Assessment/Plan Assessment and Plan Assess & Plan/Chief Complaint Assessment: 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 05/08/20: Restarted Lasix Monitor closely 05/09/20: Monitor creatinine Lasix 05/10/20 Monitor edema Lasix Jose Cruz wraps 05/11/20: Monitor edema Labs due tomorrow 05/12/20: Monitor closely JOSE CRUZ wraps (1) CVA (cerebral vascular accident) (2) CLL (chronic lymphocytic leukemia) (3) Subdural hematoma (4) Closed fracture of right olecranon process (5) Hyperlipemia (6) GERD (gastroesophageal reflux disease) ANTOINE SALDAÑA DO May 12, 2020 09:08
[2020-05-12] MEDS: BISACODYL 10 MG SUPP (DULCOLAX) RC SCH (09:34)
[2020-05-12] MEDS: ASPIRIN E.C. 81 MG (ECOTRIN) TAB PO SCH (09:46)
[2020-05-12] MEDS: PANTOPRAZOLE 40 MG (PROTONIX) TAB PO SCH (09:46)
[2020-05-12] MEDS: LEVETIRACETAM 500 MG (KEPPRA) TAB PO SCH ×2 (09:46→21:46)
[2020-05-12] MEDS: FOLIC ACID 1 MG TAB PO SCH (09:46)
[2020-05-12] MEDS: LOSARTAN 50 MG (COZAAR) TAB PO SCH (09:46)
[2020-05-12] MEDS: FUROSEMIDE 20 MG (LASIX) TAB PO SCH (09:46)
[2020-05-12] MEDS: ACYCLOVIR 400 MG TABLET (ZOVIRAX) PO SCH ×2 (09:46→21:46)
[2020-05-12] MEDS: SUCRALFATE 1 GM (CARAFATE) TAB PO SCH ×4 (09:46→21:46)
[2020-05-12] MEDS: CARVEDILOL 12.5 MG (COREG) TABLET PO SCH ×2 (09:47→21:46)
[2020-05-12] MEDS: SPRYCEL 100 MG PO SCH (09:51)
[2020-05-12] MEDS: DOCUSATE SODIUM 100 MG (COLACE) CAP PO SCH ×2 (09:51→21:57)
[2020-05-12] MEDS: SENNA W/DOCUSATE (SENOKOT S) TABLET PO SCH ×2 (09:52→21:57)
[2020-05-12] MEDS: polyethylene glycoL POWDER 17 GM (MIRALAX) PACK PO SCH ×2 (09:52→21:57)
--- NOTE | 2020-05-12 11:54 | Speech Therapy Daily Note ---
Speech Daily Progress Note Subjective Date Seen by Provider: May 12, 2020 Time Seen by Provider: 00:30 Patient was resting in her bed and states she is finally able to breath better that she has been. Objective Patient completed safety awareness q/a related to her return home with 90% without cuing. Assessment Assessment Current Status: Good Progress Treatment Plan Continue Plan of Care Speech Short Term Goals Short Term Goals Short Term Goals 1) The patient will complete memory tasks related to her daily needs with minimal cues at 90% or greater. 2) The patient will complete safety awareness tasks related to her daily needs with minimal cues at 90% or greater. 3) The patient will complete problem solving tasks related to her daily needs with minimal cues at 90% or greater. 4) The patient will complete OME at 90% or greater with minimal cues. Speech Birdcage Assembler Goals Longterm Goals Patient will improve her speech production and cognitive function in order to return home safer. Speech-Plan Patient/Family Goals Patient/Family Goals: Patient is returning to her home on Tuesday where she lives with her . Treatment Plan Speech Therapy Treatment Plan: Continue Plan of Care Treatment Duration: May 14, 2020 Frequency: 4 times per week (Patient will receive skilled ST 4-5x per week) Estimated Hrs Per Day: .5 hour per day Rehab Potential: Good Barriers to Learning: Patient's recent CVA and other health issues, age Pt/Family Agrees to Plan: Yes Safety Risks/Education Teaching Recipient: Patient Teaching Methods: Demonstration, Discussion Response to Teaching: Verbalize Understanding, Return Demonstration Education Topics Provided: Patient's return home safely Time Speech Therapy Time In: 09:30 Speech Therapy Time Out: 10:00 Total Billed Time: 30 Billed Treatment Time 1[address] May 12, 2020 11:54
--- NOTE | 2020-05-12 12:15 | Physical Therapy Daily Note ---
PT Daily Note-Current Subjective Pt laying Supine in bed with HOB raised upon arrival. Pt agrees to PT. Pain Location: No Pain Reported Mental Status Patient Orientation: Person, Place, Time, Situation Transfers SCALE: Activities may be completed with or without assistive devices. 7-Plryuzngen-jwyfete completes the activity by him/herself with no assistance fr om a helper. 5-Set-up or Clean-up Assistance-helper sets up or cleans up; patient completes activity. [place] assists only prior to or following the activity. 4-Supervision or Touching Assistance-helper provides verbal cues and/or touching/steadying and/or contact guard assistance as patient completes activity. Assistance may be provided throughout the activity or intermittently. 3-Partial/Moderate Assistance-helper does LESS THAN HALF the effort. [place] lifts, holds or supports trunk or limbs, but provides less than half the effort. 2-Substantial/Maximal Assistance-helper does MORE THAN HALF the effort. [place] lifts or holds trunk or limbs and provides more than half the effort. 2-Tpfptkcpf-mboiqc does ALL the effort. Patient does none of the effort to complete the activity. Or, the assistance of 2 or more helpers is required for the patient to complete the activity. If activity was not attempted, code reason: 7-Patient Refused. 9-Not Applicable-not attempted and the patient did not perform the activity before the current illness, exacerbation or injury. 10-Not Attempted due to Environmental Limitations-(lack of equipment, weather restraints, etc.). 88-Not Attempted due to Medical Conditions or Safety Concerns. Lying to Sitting/Side of Bed(Q: 6 Sit to Stand (QC): 6 Toilet Transfer (QC): 6 Weight Bearing Full Weight Bearing Full Weight Bearing Gait Training Does the Patient Walk?: Yes Distance: 150', 450' Walk 10 feet (QC): 5 Walk 50 ft with 2 Turns(QC): 5 Walk 150 ft (QC): 5 Gait Persons Needed: 1 Gait Assistive Device: None Wheelchair Training Does the Pt Use a Wheelchair?: No Exercises Supine Ex: Ankle pumps, Quad Set, Glut sets, Heel Slides, Straight leg raise, Hip abd/add Supine Reps: 15 Treatments Completes Supine Ex then TF to standing and uses BR. Amb. in hallway before using NuStep for 12m at WL 5. Pt again amb in hallway before returning to room to rest in recliner. All needs met, call light in hand. Assessment Current Status: Good Progress Pt phuong. tx well. PT Short Term Goals Short Term Goals Time Frame: May 08, 2020 Sit to lyin Lying to sitting on side of be: 4 Sit to stand: 4 Chair/snu-ff-slowt transfer: 4 Walk 150 feet: 4 PT Chcf Goals Chcf Goals PT Foster Care Therapist Goals Time Frame: May 16, 2020 Roll Left & Right (QC): 6 Sit to Lying (QC): 6 Lying-Sitting on Side/Bed(QC): 6 Sit to Stand (QC): 6 Chair/Jyu-fd-Hrjnf Xfer(QC): 6 Toilet Transfer (QC): 6 Car Transfer (QC): 6 Does the Patient Walk: Yes Walk 10 feet (QC): 6 Walk 50ft with 2 Turns (QC): 6 Walk 150 ft (QC): 6 Walking 10ft on Uneven Surface: 6 1 Step (curb) (QC): 6 4 Steps (QC): 6 12 Steps (QC): 6 Picking up an Object (QC): 4 Does the Pt use WC or Scooter?: No Wheel 50 feet with 2 turns (QC: 9 Wheel 150 feet: 9 PT Plan Problem List Problem List: Activity Tolerance Treatment/Plan Treatment Plan: Continue Plan of Care Treatment Plan: Bed Mobility, Education, Functional Activity Conce[place], Functional Strength, Group Therapy, Gait, Safety, Therapeutic Exercise, Transfers Treatment Duration: May 16, 2020 Frequency: At least 5 of 7 days/Wk (IRF) Estimated Hrs Per Day: 1.5 hours per day Patient and/or Family Agrees t: Yes Safety Risks/Education Patient Education: Gait Training, Correct Positioning, Safety Issues Teaching Recipient: Patient Teaching Methods: Discussion Response to Teaching: Verbalize Understanding Time/GCodes Time In: 1100 Time Out: 1215 Total Billed Treatment Time: 75 Total Billed Treatment 1, GT x2 (30m), EX (20m) & FA x2 (25m) JOHANNY RIVAS TECHNICAL FELLOW May 12, 2020 12:15
[2020-05-12] MEDS: HYDROCHLOROTHIAZIDE 25 MG (HCTZ) TAB PO SCH (12:25)
[2020-05-12] MEDS: HYDROcodone/APAP 5 MG/325 MG (LORTAB) TAB PO PRN ×2 (13:53→21:47)
[2020-05-12 18:00] VITALS: BP 155/69
--- NOTE | 2020-05-12 19:21 | NUR ---
Bedside report received from ALVINA HOFFMAN, assume care of pt
[2020-05-12 21:40] VITALS: BP 149/70
[2020-05-12] MEDS: MELATONIN 3 MG TABLET PO PRN (21:46)
--- NOTE | 2020-05-12 21:47 | NUR ---
pt refused colace, miralax & senoskehindet, c/o rt shoulder pain level 5/10 on numeric scale, LORTAB 5 1 tab given
--- NOTE | 2020-05-12 22:30 | NUR ---
resting quietly in bed, pain level 0/10 on CNPI SCALE
[2020-05-13 05:07] VITALS: BP 150/67
--- NOTE | 2020-05-13 05:45 | PM&R Progress Note ---
Subjective HPI/CC On Admission Date Seen by Provider: May 13, 2020 Time Seen by Provider: 09:00 Subjective/Events-last exam 05/13/20: BP doing very well Walking very well Hydrocodone given BID Discharge is planned for tomorrow 05/12/20: Labs stable No new issues Bowels are moving Set for discharge soon Will wrap her legs No other pain is reported 05/11/20: Patient feels good Less edema JOSE CRUZ wraps helping edema 05/10/20: Lets much improved with compression therapy No pain reported No SOB 05/09/20: Pain control Lasix JOSE CRUZ wraps to legs 05/08/20: BM yesterday Wrapping legs with UMANG's and wide jose cruz wraps Laxatives taken though SOB noted 05/07/20: Cardiology consultation appreciated Edema is noted and she feels like she has a lot of fluid on board Dyspnea is noted with 92% on room air IV fluids still going at 80 Will update cardiology and Dr. Orlando 05/06/20: Septic workup last night returned without evidence of sepsis Dr. Orlando consulted and started her on Sodium Bicarbonate for metabolic acidosis with pH of 7. 25 Overall very fragile Has become a bit somatic EGD today by Dr. Rosas Echocardiogram will be performed Remains on lactated ringers at 80 CCs per hour Overall improved Hgb stable 05/05/20: Bowels moved yesterday Nausea and emesis continue Labs stable, Hgb 9.9 Hemoccult positive stools so Dr. Rosas has been consulted BUN elevated suspicious for blood in the gut 05/04/20: Loose stools today Nausea today but has passed Doing OK 05/03/20: Hgb 9.8 today after 2 units of blood yesterday She receives a lot of transfusions due to leukemia Coloring is improved now since transfusion BM yesterday Creat 1.7 Hgb 7.1 will need 2 units of blood Creatinine 1.56 Talked to her about overall status and she is doing well otherwise Checked meds and labs Conferred with RN Reviewed therapy notes Review of Systems General: Fatigue, Malaise Musculoskeletal: arm pain Neurological: Weakness, Incoordination Objective Exam Vital Signs Vital Signs Date Time Temp Pulse Resp B/P (MAP) Pulse Ox O2 Delivery O2 Flow Rate FiO2 05/13/20 21:04 Room Air 96 05/13/20 20:50 76 16 150/63 (92) 96 05/13/20 18:32 36.8 Capillary Refill : Less Than 3 SecondsLess Than 3 Seconds General Appearance: No Apparent Distress, WD/WN, Chronically ill, Thin HEENT: PERRL/EOMI Neck: Normal Inspection, Non Tender, Supple Respiratory: Chest Non Tender, Lungs Clear, Normal Breath Sounds, No Accessory Muscle Use, No Respiratory Distress Cardiovascular: Systolic Murmur Gastrointestinal: Normal Bowel Sounds, No Organomegaly, No Pulsatile Mass, Non Tender, Soft Back: Normal Inspection, No CVA Tenderness, No Vertebral Tenderness Extremity: Normal Capillary Refill, Normal Range of Motion (except left sided weakness 3/5 and right arm in sling and soft cast), Non Tender, No Calf Tenderness, Pedal Edema Neurologic/Psychiatric: Alert, Oriented x3, Normal Mood/Affect (pt was sassy today and playing pranks), Abnormal Gait, Facial Droop, Motor Weakness Skin: Normal Color, Warm/Dry Lymphatic: No Adenopathy Results/Procedures Lab Patient resulted labs reviewed. FIM Transfers Therapy Code Descriptions/Definitions Functional [place] Measure: 0=Not Assessed/NA 4=Minimal Assistance 1=Total Assistance 5=Supervision or Setup 2=Maximal Assistance 6=Modified [place] 3=Moderate Assistance 7=Complete IndependenceSCALE: Activities may be completed with or without assistive devices. 5-Ihhtazgyuz-rznilsr completes the activity by him/herself with no assistance from a helper. 5-Set-up or Clean-up Assistance-helper sets up or cleans up; patient completes activity. [place] assists only prior to or following the activity. 4-Supervision or Touching Assistance-helper provides verbal cues and/or touching/steadying and/or contact guard assistance as patient completes activity. Assistance may be provided throughout the activity or intermittently. 3-Partial/Moderate Assistance-helper does LESS THAN HALF the effort. [place] lifts, holds or supports trunk or limbs, but provides less than half the effort. 2-Substantial/Maximal Assistance-helper does MORE THAN HALF the effort. [place] lifts or holds trunk or limbs and provides more than half the effort. 4-Ombwyfiol-twmhho does ALL the effort. Patient does none of the effort to complete the activity. Or, the assistance of 2 or more helpers is required for the patient to complete the activity. If activity was not attempted, code reason: 7-Patient Refused. 9-Not Applicable-not attempted and the patient did not perform the activity before the current illness, exacerbation or injury. 10-Not Attempted due to Environmental Limitations-(lack of equipment, weather restraints, etc.). 88-Not Attempted due to Medical Conditions or Safety Concerns. Roll Left to Right (QC): 4 Sit to Lying (QC): 6 Sit to Stand (QC): 6 Chair/Uef-oq-Wvafb Xfer(QC): 6 Car Transfer (QC): 4 Gait Training Does the Patient Walk?: Yes Distance: 150', 450' Walk 10 feet (QC): 5 Walk 50 ft with 2 Turns(QC): 5 Walk 150 ft (QC): 5 Walking 10ft/uneven surface-QC: 3 Gait Persons Needed: 1 Gait Assistive Device: None Wheelchair Training Does the Pt Use a Wheelchair?: No Wheel 50 ft with 2 turns (QC): 9 Wheel 150 ft (QC): 9 Stair Training Stair Training: Handrails/: 2 handrails #of Steps: 4 1 Step (curb) (QC): 4 4 Steps (QC): 4 12 Steps (QC): 88 Stairs: Pattern: Step to Balance Picking up an Object (QC): 88 ADL-Treatment Eating (QC): 6 (Using clinical judgement, pt able to complete independently.) Oral Hygiene (QC): 6 Bathing Location: R Arm, L Upper Leg, R Upper Leg, L Lower Leg (including foot), R Lower Leg (including foot), Chest, Abdomen, Buttocks, Perineal Area Shower/Bathe Self (QC): 6 Upper Body Dressing (QC): 5 Lower Body Dressing (QC): 4 On/Off Footwear (QC): 5 Toileting Hygiene (QC): 6 Toilet Transfer (QC): 6 Assessment/Plan Assessment and Plan Assess & Plan/Chief Complaint Assessment: 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 05/08/20: Restarted Lasix Monitor closely 05/09/20: Monitor creatinine Lasix 05/10/20 Monitor edema Lasix Jose Cruz wraps 05/11/20: Monitor edema Labs due tomorrow 05/12/20: Monitor closely JOSE CRUZ wraps 05/13/20: DC home tomorrow Doing well (1) CVA (cerebral vascular accident) (2) CLL (chronic lymphocytic leukemia) (3) Subdural hematoma (4) Closed fracture of right olecranon process (5) Hyperlipemia (6) GERD (gastroesophageal reflux disease) ANTOINE SALDAÑA DO May 13, 2020 05:45
[2020-05-13] MEDS: MULTIVIT W/MINERALS TAB (THERAGRAN M) PO SCH (06:55)
--- NOTE | 2020-05-13 08:42 | Occupational Ther Daily Note ---
OT Current Status-Daily Note Subjective Pt alert, sitting in recliner. Pt agrees to therapy. No c/o pain. Mental Status/Objective Patient Orientation: Person, Place, Time, Situation Attachments: Central Line ADL-Treatment Therapy Code Descriptions/Definitions Functional [place] Measure: 0=Not Assessed/NA 4=Minimal Assistance 1=Total Assistance 5=Supervision or Setup 2=Maximal Assistance 6=Modified [place] 3=Moderate Assistance 7=Complete IndependenceSCALE: Activities may be completed with or without assistive devices. 2-Gpipjfyhxa-qwmkvgw completes the activity by him/herself with no assistance from a helper. 5-Set-up or Clean-up Assistance-helper sets up or cleans up; patient completes activity. [place] assists only prior to or following the activity. 4-Supervision or Touching Assistance-helper provides verbal cues and/or touching/steadying and/or contact guard assistance as patient completes activity. Assistance may be provided throughout the activity or intermittently. 3-Partial/Moderate Assistance-helper does LESS THAN HALF the effort. [place] lifts, holds or supports trunk or limbs, but provides less than half the effort. 2-Substantial/Maximal Assistance-helper does MORE THAN HALF the effort. [place] lifts or holds trunk or limbs and provides more than half the effort. 3-Ipurxbwrb-bcfgbp does ALL the effort. Patient does none of the effort to complete the activity. Or, the assistance of 2 or more helpers is required for the patient to complete the activity. If activity was not attempted, code reason: 7-Patient Refused. 9-Not Applicable-not attempted and the patient did not perform the activity before the current illness, exacerbation or injury. 10-Not Attempted due to Environmental Limitations-(lack of equipment, weather restraints, etc.). 88-Not Attempted due to Medical Conditions or Safety Concerns. On/Off Footwear: 6 (Pt able to use AE to don/doff socks.) Toileting Hygiene (QC): 6 (Independent with hygiene and manipulating clothing.) Toilet Transfer (QC): 6 (Completes transfer without AD independently.) Other Treatment Pt completed B UE exercises to increase strength and activity tolerance for daily functional tasks. Arm bike completed 10 min minimal resistance using only L UE. Nut/bolt task to increase manager dental/pinch strength of B hands and gross motor strength of B UE. [place] Quan exercises (2) for B shldr strengthening, 2 sets 10 reps. Shldr elevation and retraction against gravity, 2 sets 10 reps. Pt then ambulated back to room to complete light resistance L UE theraband exercises, 1 set 15 reps with verbal cues for technique. After session, pt sitting in recliner with call light/phone in reach. All needs met in room. OT Managing Director Goals Managing Director Goals Time Frame: May 16, 2020 Eating (QC): 6 (met) Oral Hygiene (QC): 6 (met) Toileting Hygiene (QC): 6 (met) Shower/Bathe Self (QC): 5 (met) Upper Body Dressing (QC): 6 (not met-set up only) Lower Body Dressing (QC): 6 (not met-set up only) On/Off Footwear (QC): 6 (met) Additional Goals: 1-Demonstrate ADL Tasks, 2-Verbalize Understanding, 3- ImproveStrength/Concepcion 1=Demonstrate adherence to instructed precautions during ADL tasks. 2=Patient will verbalize/demonstrate understanding of assistive devices/modifications for ADL. 3=Patient will improve strength/tolerance for activity to enable patient to perform ADL's. OT Education/Plan Problem List/Assessment Assessment: Decreased Activ Tolerance, Decreased UE Strength, Impaired Self- Care Skills Discharge Recommendations Plan/Recommendations: Continue POC Equpiment Recommendations-D/C: Line Helper, Dressing Stick Treatment Plan/Plan of Care Patient would benefit from OT for education, treatment and training to promote independence in ADL's, mobility, safety and/or upper extremity function for ADL's. Plan of Care: ADL Retraining, Functional Mobility, Group Exercise/Act as Ind, UE Funct Exercise/Act, UE Neuromus Re-Ed/Coord Treatment Duration: May 16, 2020 Frequency: At least 5 of 7 days/Wk (IRF) Estimated Hrs Per Day: 1.5 hours per day Agreement: Yes Rehab Potential: Good Time/GCodes Start Time: 07:30 Stop Time: 08:45 Total Time Billed (hr/min): 75 Billed Treatment Time 1 visit-ADL 1 (20 min) EX 4 (55 min) JACKLYN DE LEON May 13, 2020 08:42
[2020-05-13] MEDS: LEVETIRACETAM 500 MG (KEPPRA) TAB PO SCH ×2 (09:16→20:56)
[2020-05-13] MEDS: FOLIC ACID 1 MG TAB PO SCH (09:16)
[2020-05-13] MEDS: LOSARTAN 50 MG (COZAAR) TAB PO SCH (09:16)
[2020-05-13] MEDS: HYDROCHLOROTHIAZIDE 25 MG (HCTZ) TAB PO SCH (09:16)
[2020-05-13] MEDS: ASPIRIN E.C. 81 MG (ECOTRIN) TAB PO SCH (09:16)
[2020-05-13] MEDS: PANTOPRAZOLE 40 MG (PROTONIX) TAB PO SCH (09:16)
[2020-05-13] MEDS: ACYCLOVIR 400 MG TABLET (ZOVIRAX) PO SCH ×2 (09:17→20:56)
[2020-05-13] MEDS: FUROSEMIDE 20 MG (LASIX) TAB PO SCH (09:17)
[2020-05-13] MEDS: SUCRALFATE 1 GM (CARAFATE) TAB PO SCH ×4 (09:17→20:56)
[2020-05-13] MEDS: CARVEDILOL 12.5 MG (COREG) TABLET PO SCH ×2 (09:17→20:56)
[2020-05-13] MEDS: DOCUSATE SODIUM 100 MG (COLACE) CAP PO SCH ×2 (09:18→21:02)
[2020-05-13] MEDS: polyethylene glycoL POWDER 17 GM (MIRALAX) PACK PO SCH ×2 (09:18→21:02)
[2020-05-13] MEDS: BISACODYL 10 MG SUPP (DULCOLAX) RC SCH (09:18)
[2020-05-13] MEDS: SENNA W/DOCUSATE (SENOKOT S) TABLET PO SCH ×2 (09:18→21:02)
[2020-05-13] MEDS: SPRYCEL 100 MG PO SCH (10:15)
--- NOTE | 2020-05-13 10:59 | Physical Therapy Daily Note ---
PT Daily Note-Current Subjective Pt. states she is so ready to get home, no pain Pain Location: No Pain Reported Mental Status Patient Orientation: Normal For Age Attachments: Other-See Comments (TUE cast, mask while out of room) Transfers SCALE: Activities may be completed with or without assistive devices. 9-Dtqiyyfrsj-ccklalq completes the activity by him/herself with no assistance from a helper. 5-Set-up or Clean-up Assistance-helper sets up or cleans up; patient completes activity. [place] assists only prior to or following the activity. 4-Supervision or Touching Assistance-helper provides verbal cues and/or touching/steadying and/or contact guard assistance as patient completes activity. Assistance may be provided throughout the activity or intermittently. 3-Partial/Moderate Assistance-helper does LESS THAN HALF the effort. [place] lifts, holds or supports trunk or limbs, but provides less than half the effort. 2-Substantial/Maximal Assistance-helper does MORE THAN HALF the effort. [place] lifts or holds trunk or limbs and provides more than half the effort. 4-Lzkqcxbaf-fqnksu does ALL the effort. Patient does none of the effort to complete the activity. Or, the assistance of 2 or more helpers is required for the patient to complete the activity. If activity was not attempted, code reason: 7-Patient Refused. 9-Not Applicable-not attempted and the patient did not perform the activity before the current illness, exacerbation or injury. 10-Not Attempted due to Environmental Limitations-(lack of equipment, weather restraints, etc.). 88-Not Attempted due to Medical Conditions or Safety Concerns. Roll Left & Right (QC): 6 Sit to Lying (QC): 6 Lying to Sitting/Side of Bed(Q: 6 Sit to Stand (QC): 6 Chair/Vfl-vh-Wmfox Xfer(QC): 6 Toilet Transfer (QC): 6 Car Transfer (QC): 6 Weight Bearing Full Weight Bearing Full Weight Bearing Gait Training Does the Patient Walk?: Yes Walk 10 feet (QC): 6 Walk 50 ft with 2 Turns(QC): 6 Walk 150 ft (QC): 6 Walking 10ft/uneven surface-QC: 6 Gait Persons Needed: 0 Gait Assistive Device: None up ad rosetta in room Stair Training Stair Training: Handrails/: 2 handrails #of Steps: 4 1 Step (curb) (QC): 4 4 Steps (QC): 4 12 Steps (QC): 88 Stairs: Pattern: Reciprocal Exercises Seated Therapy Exercises: Ankle pumps, Sit to stand, Long arc quads, Hip flexion, Hip abd/add Seated Reps: 15 NuStep Minutes: 8 NuStep Workload: 3 Assessment Current Status: Good Progress meets goals, doing well, fatigues, some dyspnea with mask on while out of room PT Short Term Goals Short Term Goals Time Frame: May 08, 2020 Sit to lyin Lying to sitting on side of be: 4 Sit to stand: 4 Chair/ihq-hd-gstai transfer: 4 Walk 150 feet: 4 PT Typewriter Operator Automatic Goals Typewriter Operator Automatic Goals PT Typewriter Operator Automatic Goals Time Frame: May 16, 2020 Roll Left & Right (QC): 6 Sit to Lying (QC): 6 Lying-Sitting on Side/Bed(QC): 6 Sit to Stand (QC): 6 Chair/Dhv-kv-Blqez Xfer(QC): 6 Toilet Transfer (QC): 6 Car Transfer (QC): 6 Does the Patient Walk: Yes Walk 10 feet (QC): 6 Walk 50ft with 2 Turns (QC): 6 Walk 150 ft (QC): 6 Walking 10ft on Uneven Surface: 6 1 Step (curb) (QC): 6 4 Steps (QC): 6 12 Steps (QC): 6 Picking up an Object (QC): 4 Does the Pt use WC or Scooter?: No Wheel 50 feet with 2 turns (QC: 9 Wheel 150 feet: 9 PT Plan Treatment/Plan Treatment Plan: Continue Plan of Care Treatment Plan: Bed Mobility, Education, Functional Activity Concepcion, Functional Strength, Group Therapy, Gait, Safety, Therapeutic Exercise, Transfers Treatment Duration: May 16, 2020 Frequency: At least 5 of 7 days/Wk (IRF) Estimated Hrs Per Day: 1.5 hours per day Patient and/or Family Agrees t: Yes Safety Risks/Education Patient Education: Gait Training, Transfer Techniques, Steps, Correct Positioning, Disease Process, Safety Issues Teaching Recipient: Patient Teaching Methods: Demonstration, Discussion Response to Teaching: Verbalize Understanding, Return Demonstration Time/GCodes Time In: 1000 Time Out: 1100 Total Billed Treatment Time: 60 Total Billed Treatment 1,FA30m,GT15m,EX15m SANDRA LEE SEARCH MARKETING ANALYST May 13, 2020 10:59
--- NOTE | 2020-05-13 11:36 | Speech Therapy Daily Note ---
Speech Daily Progress Note Subjective Date Seen by Provider: May 13, 2020 Time Seen by Provider: 00:30 Patient was sitting up in her recliner with her legs elevated. She states she is ready to get home tomorrow. Objective Patient completed a series of safety awareness questions related to her return home at 95% without cues. Assessment Assessment Current Status: Good Progress Treatment Plan Discontinue ST, Goals Met Speech Short Term Goals Short Term Goals Short Term Goals 1) The patient will complete memory tasks related to her daily needs with minimal cues at 90% or greater. 2) The patient will complete safety awareness tasks related to her daily needs with minimal cues at 90% or greater. 3) The patient will complete problem solving tasks related to her daily needs with minimal cues at 90% or greater. 4) The patient will complete OME at 90% or greater with minimal cues. Speech Gas Station Supervisor Goals Gas Station Supervisor Goals Patient will improve her speech production and cognitive function in order to return home safer. Speech-Plan Patient/Family Goals Patient/Family Goals: Patient is scheduled to return home tomorrow, 05/14/2020. Treatment Plan Speech Therapy Treatment Plan: Discontinue ST, Goals Met Treatment Duration: May 14, 2020 Frequency: 4 times per week (Patient will receive skilled ST 4-5x per week) Estimated Hrs Per Day: .5 hour per day Rehab Potential: Good Barriers to Learning: Patient's new CVA Pt/Family Agrees to Plan: Yes Safety Risks/Education Teaching Recipient: Patient Teaching Methods: Demonstration, Discussion Response to Teaching: Verbalize Understanding, Return Demonstration Education Topics Provided: Continued safety upon her return home Time Speech Therapy Time In: 09:30 Speech Therapy Time Out: 10:00 Total Billed Time: 30 Billed Treatment Time 1, SLTS No QUALITY CODES: EXPRESSION OF IDEAS/WANTS: 4 UNDERSTANDING VERBAL CONTENT: 4 BRIEF INTERVIEW MENTAL STATUS: YES REPETITION OF 3 WORDS: 3 TEMPORAL ORIENTATION: YEAR: CORRECT, MONTH: CORRECT, DAY: CORRECT RECALL SOCK: YES, COLOR: YES, BED: YES MEMORY/RECALL ABILITY SHARRI PENNINGTON May 13, 2020 11:36
[2020-05-13] MEDS: ONDANSETRON 4 MG (ZOFRAN) ORAL DISSOLVE TAB PO PRN (12:54)
--- NOTE | 2020-05-13 13:32 | Physical Therapy Daily Note ---
PT Daily Note-Current Subjective Pt. coming out of bathroom as this LOG DATA TECHNICIAN enters . Pt. states she has been very nauseous since lunch. Agrees to short ex session in bed then wants to elevate feet in bed. Pain Location: No Pain Reported Mental Status Patient Orientation: Normal For Age Transfers SCALE: Activities may be completed with or without assistive devices. 0-Nabkchmmmf-zyxdtmy completes the activity by him/herself with no assistance from a helper. 5-Set-up or Clean-up Assistance-helper sets up or cleans up; patient completes activity. [place] assists only prior to or following the activity. 4-Supervision or Touching Assistance-helper provides verbal cues and/or touching/steadying and/or contact guard assistance as patient completes activity. Assistance may be provided throughout the activity or intermittently. 3-Partial/Moderate Assistance-helper does LESS THAN HALF the effort. [place] lifts, holds or supports trunk or limbs, but provides less than half the effort. 2-Substantial/Maximal Assistance-helper does MORE THAN HALF the effort. [place] lifts or holds trunk or limbs and provides more than half the effort. 3-Atjzzfamf-tnkzkj does ALL the effort. Patient does none of the effort to complete the activity. Or, the assistance of 2 or more helpers is required for the patient to complete the activity. If activity was not attempted, code reason: 7-Patient Refused. 9-Not Applicable-not attempted and the patient did not perform the activity before the current illness, exacerbation or injury. 10-Not Attempted due to Environmental Limitations-(lack of equipment, weather restraints, etc.). 88-Not Attempted due to Medical Conditions or Safety Concerns. on off toilet, in bed all mod I Weight Bearing Full Weight Bearing Full Weight Bearing Gait Training up ad rosetta about room no AD, no LOB or incident Exercises Supine Ex: Bridging, Ankle pumps, Quad Set, Glut sets, Heel Slides, Scooting, Straight leg raise, Hip abd/add Supine Reps: 15 Treatments pt. in LEs elevated position with heels free and pillow under RUE for elevation as well as SCDs on, call [place] at hand Assessment Current Status: Good Progress PT Short Term Goals Short Term Goals Time Frame: May 08, 2020 Sit to lyin Lying to sitting on side of be: 4 Sit to stand: 4 Chair/szw-dc-xudbp transfer: 4 Walk 150 feet: 4 PT Correction Goals Correction Goals PT Manager Document Control Goals Time Frame: May 16, 2020 Roll Left & Right (QC): 6 Sit to Lying (QC): 6 Lying-Sitting on Side/Bed(QC): 6 Sit to Stand (QC): 6 Chair/Cxp-ze-Lqkea Xfer(QC): 6 Toilet Transfer (QC): 6 Car Transfer (QC): 6 Does the Patient Walk: Yes Walk 10 feet (QC): 6 Walk 50ft with 2 Turns (QC): 6 Walk 150 ft (QC): 6 Walking 10ft on Uneven Surface: 6 1 Step (curb) (QC): 6 4 Steps (QC): 6 12 Steps (QC): 6 Picking up an Object (QC): 4 Does the Pt use WC or Scooter?: No Wheel 50 feet with 2 turns (QC: 9 Wheel 150 feet: 9 PT Plan Treatment/Plan Treatment Plan: Continue Plan of Care Treatment Plan: Bed Mobility, Education, Functional Activity Concepcion, Functional Strength, Group Therapy, Gait, Safety, Therapeutic Exercise, Transfers Treatment Duration: May 16, 2020 Frequency: At least 5 of 7 days/Wk (IRF) Estimated Hrs Per Day: 1.5 hours per day Patient and/or Family Agrees t: Yes Time/GCodes Time In: 1315 Time Out: 1330 Total Billed Treatment Time: 15 Total Billed Treatment 1,FACareym SANDRA LEE LOG DATA TECHNICIAN May 13, 2020 13:32
--- NOTE | 2020-05-13 16:09 | NUR ---
CM/SS DISCHARGE PLANNING Patient expresses her readiness to discharge home tomorrow. HHC: Established services with [facility] will be resumed when new orders are available, RN PT OT. DME: Hip Kit has been reserved for patient with [facility], patient/niece will picking belt operator and understand this is a private pay item. IMM2 presented, discussed, signed, charted.
[2020-05-13 18:32] VITALS: BP 147/64
--- NOTE | 2020-05-13 19:23 | NUR ---
Bedside report received from AARON HOFFMAN, assume care of pt
[2020-05-13 20:50] VITALS: BP 150/63
[2020-05-13] MEDS: MELATONIN 3 MG TABLET PO PRN (20:56)
[2020-05-13] MEDS: HYDROcodone/APAP 5 MG/325 MG (LORTAB) TAB PO PRN (20:57)
--- NOTE | 2020-05-13 20:57 | NUR ---
Pt refused Colace, Senokot & miralax, c/o rt shoulder pain level 4/10 on numeric scale, Lortab 5 1 tab given
--- NOTE | 2020-05-13 21:45 | NUR ---
resting quietly in bed, pain level 0/10 on CNPI SCALE
[2020-05-14] MEDS ORDERED: HYDR25TA4 PO (05:21)
[2020-05-14] MEDS ORDERED: PANT40TA52 PO (05:21)
[2020-05-14] MEDS ORDERED: ASPI-1238 PO (05:21)
[2020-05-14] MEDS ORDERED: LOSA50TA63 PO (05:21)
--- NOTE | 2020-05-14 05:23 | D/C HH Face to Face Order ---
D/C Face to Face Orders Reconcile Patient Problems Problems Reviewed?: Yes Instructions for Patient [facility] Patient Instructions/FollowUp: PCP 1 week Physician to follow Patient: PCP Discharge Diet for Home: No Restrictions Patient Problems: CVA HTN CRI Patient Data-Allergies,Ht & Wt Patient Allergies: Coded Allergies: Sulfa (Sulfonamide Antibiotics) (Verified Allergy, Mild, Rash, 05/02/20) NSAIDS (Non-Steroidal Anti-Inflamma (Verified Adverse Reaction, Unknown, 05/02/20) PT STATES THAT SHE WAS TOLD NOT TO TAKE NSAIDS AFTER HAVING GASTRIC BYPASS SURGERY Home Health Need/Face to Face Date of Face to Face: May 14, 2020 Clinical Findings: Generalized weakness and fatigue, Instability, Muscle weakness, Unsteady gait I have seen Pt ozmb-tj-gsks: Yes Discharged To: Home Diagnosis/Conditions: CVA HTN CRI Patient is Homebound due to: [place] fall risk due to instabilty, Muscle weakness Homebound Status Due to the above stated illness, injury or surgical procedure (medical condition or diagnosis) and associated clinical findings, the patient is homebound because of his/her inability to leave home except with aid of a supportive device and/or person AND leaving the home requires a considerable and taxing effort or is medically contraindicated. Pt req the following assistanc: [facility] Nursing Orders Home Health Services Order: Nursing Services, Maintenance Service Technician-Evaluate & Treat, Physical Therapy-Evaluate & Treat Certify Stmt I certify that this patient is under my care and that I, a nurse practitioner or a physician; a speech correction assistant working with me, had a face to face encounter that - meets the physician face to face encounter requirements with this patient as dated. ANTOINE SALDAÑA DO May 14, 2020 05:23
[2020-05-14 05:47] VITALS: BP 142/67
[2020-05-14] MEDS: MULTIVIT W/MINERALS TAB (THERAGRAN M) PO SCH (07:02)
[2020-05-14] MEDS: LOSARTAN 50 MG (COZAAR) TAB PO SCH (07:53)
[2020-05-14] MEDS: CARVEDILOL 12.5 MG (COREG) TABLET PO SCH (07:53)
[2020-05-14] MEDS: SUCRALFATE 1 GM (CARAFATE) TAB PO SCH (07:54)
[2020-05-14] MEDS: FUROSEMIDE 20 MG (LASIX) TAB PO SCH (07:54)
[2020-05-14] MEDS: ASPIRIN E.C. 81 MG (ECOTRIN) TAB PO SCH (07:54)
[2020-05-14] MEDS: ACYCLOVIR 400 MG TABLET (ZOVIRAX) PO SCH (07:54)
[2020-05-14] MEDS: HYDROCHLOROTHIAZIDE 25 MG (HCTZ) TAB PO SCH (07:54)
[2020-05-14] MEDS: LEVETIRACETAM 500 MG (KEPPRA) TAB PO SCH (07:54)
[2020-05-14] MEDS: FOLIC ACID 1 MG TAB PO SCH (07:54)
[2020-05-14] MEDS: PANTOPRAZOLE 40 MG (PROTONIX) TAB PO SCH (07:55)
[2020-05-14] MEDS: HYDROcodone/APAP 5 MG/325 MG (LORTAB) TAB PO PRN (07:55)
[2020-05-14] MEDS: SPRYCEL 100 MG PO SCH (07:58)
[2020-05-14] MEDS ORDERED: ACHD5005 PO (09:23)
--- NOTE | 2020-05-14 10:25 | Therapy Team Discharge Summary ---
Therapy Discharge Summary Discharge Recommendations Date of Discharge Occupational Therapy Decreased Activ Tolerance, Decreased UE Strength, Impaired Self-Care Skills Speech-Language Pathology Patient was admitted to the ARU s/p CVA. Patient had MNCD as indicated by the SLUMS. Patient received skilled ST services with deficits resolved and all goals met. Patient is discharging to her home where she lives with her . PT Mcfp Goals Blocker And Polisher Gold Wheel Goals PT Blocker And Polisher Gold Wheel Goals Time Frame: May 16, 2020 Roll Left to Right (QC): 6 Sit to Lying (QC): 6 Lying-Sitting on Side/Bed(QC): 6 Sit to Stand (QC): 6 Chair/Ltj-zs-Sdyga Xfer(QC): 6 Car Transfer (QC): 6 Does the Patient Walk: Yes Walk 10 feet (QC): 6 Walk 10ft-Uneven Surface(QC): 6 Walk 50ft with 2 Turns (QC): 6 Walk 150 ft (QC): 6 Does the Pt use WC or Scooter?: No Wheel 50 feet with 2 turns (QC: 9 1 Step (curb) (QC): 6 4 Steps (QC): 6 12 Steps (QC): 6 Picking up an Object (QC): 4 OT Mcfp Goals Mcfp Goals Time Frame: May 16, 2020 Eating (FIM): 6 Eating (QC): 6 (met) Oral Hygiene (QC): 6 (met) Shower/Bathe Self (QC): 5 (met) Upper Body Dressing (QC): 6 (not met-set up only) Lower Body Dressing (QC): 6 (not met-set up only) On/Off Footwear (QC): 6 (met) Toileting(FIM): 6 Toileting Hygiene (QC): 6 (met) Toilet/Commode Transfer (QC): 6 Additional Goals: 1-Demonstrate ADL Tasks, 2-Verbalize Understanding, 3- ImproveStrength/Concepcion 1=Demonstrate adherence to instructed precautions during ADL tasks. 2=Patient will verbalize/demonstrate understanding of assistive devices/modifications for ADL. 3=Patient will improve strength/tolerance for activity to enable patient to perform ADL's. Speech Blocker And Polisher Gold Wheel Goals Mcfp Goals Patient will improve her speech production and cognitive function in order to return home safer. SHARRI PENNINGTON May 14, 2020 10:25
[2020-05-14] MEDS: BISACODYL 10 MG SUPP (DULCOLAX) RC SCH (10:26)
[2020-05-14] MEDS: DOCUSATE SODIUM 100 MG (COLACE) CAP PO SCH (10:26)
[2020-05-14] MEDS: polyethylene glycoL POWDER 17 GM (MIRALAX) PACK PO SCH (10:26)
[2020-05-14] MEDS: SENNA W/DOCUSATE (SENOKOT S) TABLET PO SCH (10:26)
--- NOTE | 2020-05-14 11:47 | Discharge Summary ---
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 05/08/20: Restarted Lasix Monitor closely 05/09/20: Monitor creatinine Lasix 05/10/20 Monitor edema Lasix Jose Cruz wraps 05/11/20: Monitor edema Labs due tomorrow 05/12/20: Monitor closely JOSE CRUZ wraps 05/13/20: DC home tomorrow Doing well (1) CVA (cerebral vascular accident) (2) CLL (chronic lymphocytic leukemia) (3) Subdural hematoma (4) Closed fracture of right olecranon process (5) Hyperlipemia (6) GERD (gastroesophageal reflux disease) Discharge Summary Discharge Physical Examination Allergies: Coded Allergies: Sulfa (Sulfonamide Antibiotics) (Verified Allergy, Mild, Rash, 05/02/20) NSAIDS (Non-Steroidal Anti-Inflamma (Verified Adverse Reaction, Unknown, 05/02/20) PT STATES THAT SHE WAS TOLD NOT TO TAKE NSAIDS AFTER HAVING GASTRIC BYPASS SURGERY Vitals & I&Os Vital Signs Date Time Temp Pulse Resp B/P (MAP) Pulse Ox O2 Delivery O2 Flow Rate FiO2 05/14/20 09:00 Room Air 95 05/14/20 05:47 37.0 73 16 142/67 (92) 94 General Appearance: Alert, Oriented X3, Cooperative Respiratory: Clear to Auscultation Cardiovascular: Regular Rate Neuro: Normal Gait, Normal Speech Psych/Mental Status: Mental Status NL Hospital Course Was the Problem List Reviewed?: Yes Hospital Course: Pt had an uneventful two week hospital course after returning from after a stroke. She had Hydrocodone for headache and right arm fracture pain which was successful. Overall she as able to participate in all therapies. Labs remained stable but she did require two units of blood since her Hgb was 7.1 at one point. She had no evidence of any infection during the hospital course and overall she was deemed stable and did very well at [place]. Labs (last 24 hrs) Laboratory Tests 05/01/20 16:42: Glucometer 90 05/01/20 20:56: Glucometer 163H 05/02/20 05:30: Glucometer 92, White Blood Count 3.5L, Red Blood Count 1.94L, Hemoglobin 7.1L, Hematocrit 23L, Mean Corpuscular Volume 116H, Mean Corpuscular Hemoglobin 37H, Mean Corpuscular Hemoglobin Concent 32, Red Cell Distribution Width 13.7, Platelet Count 144, Mean Platelet Volume 10.8, Immature Granulocyte % (Auto) 0, Neutrophils (%) (Auto) 61, Lymphocytes (%) (Auto) 26, Monocytes (%) (Auto) 9, Eosinophils (%) (Auto) 4, Basophils (%) (Auto) 1, Neutrophils # (Auto) 2.1, Lymphocytes # (Auto) 0.9L, Monocytes # (Auto) 0.3, Eosinophils # (Auto) 0.1, Basophils # (Auto) 0.0, Immature Granulocyte # (Auto) 0.0, Sodium Level 140, Potassium Level 3.8, Chloride Level 114H, Carbon Dioxide Level 18L, Anion Gap 8, Blood Urea Nitrogen 34H, Creatinine 1.56H, Estimat Glomerular Filtration Rate 32, BUN/Creatinine Ratio 22, Glucose Level 97, Calcium Level 8.0L, Corrected Calcium 8.6, Iron Level 87, Total Bilirubin 0.3, Aspartate Amino Transf (AST/SGOT) 22, Alanine Aminotransferase (ALT/SGPT) 20, Alkaline Phosphatase 92, Total Protein 5.2L, Albumin 3.2 05/02/20 10:55: Glucometer 107 05/02/20 15:34: Glucometer 144H 05/02/20 20:27: Glucometer 176H 05/03/20 05:00: White Blood Count 4.1L, Red Blood Count 2.82L, Hemoglobin 9.8#L, Hematocrit 30L, Mean Corpuscular Volume 106H, Mean Corpuscular Hemoglobin 35H, Mean Corpuscular Hemoglobin Concent 33, Red Cell Distribution Width 20.4H, Platelet Count 127L, Mean Platelet Volume 10.1, Immature Granulocyte % (Auto) 0, Neutrophils (%) (Auto) 50, Lymphocytes (%) (Auto) 35, Monocytes (%) (Auto) 11, Eosinophils (%) (Auto) 5, Basophils (%) (Auto) 0, Neutrophils # (Auto) 2.0, Lymphocytes # (Auto) 1.4, Monocytes # (Auto) 0.4, Eosinophils # (Auto) 0.2, Basophils # (Auto) 0.0, Immature Granulocyte # (Auto) 0.0, Sodium Level 138, Potassium Level 4.0, Chloride Level 112H, Carbon Dioxide Level 18L, Anion Gap 8, Blood Urea Nitrogen 37H, Creatinine 1.70H, Estimat Glomerular Filtration Rate 29, BUN/Creatinine Ratio 22, Glucose Level 101, Calcium Level 8.1L, Corrected Calcium 8.6, Total Bilirubin 0.5, Aspartate Amino Transf (AST/SGOT) 28, Alanine Aminotransferase (ALT/SGPT) 24, Alkaline Phosphatase 105, Total Protein 5.5L, Albumin 3.4 05/03/20 11:42: Glucometer 100 05/03/20 17:05: Glucometer 103 05/03/20 20:42: Glucometer 125H 05/04/20 05:20: Glucometer 87 05/04/20 11:40: Glucometer 103 05/04/20 16:18: Glucometer 103 05/05/20 05:55: White Blood Count 5.7, Red Blood Count 2.87L, Hemoglobin 9.9L, Hematocrit 31L, Mean Corpuscular Volume 109H, Mean Corpuscular Hemoglobin 35H, Mean Corpuscular Hemoglobin Concent 32, Red Cell Distribution Width 18.5H, Platelet Count 119L, Mean Platelet Volume 10.9, Immature Granulocyte % (Auto) 0, Neutrophils (%) (Auto) 72, Lymphocytes (%) (Auto) 17, Monocytes (%) (Auto) 8, Eosinophils (%) (Auto) 3, Basophils (%) (Auto) 0, Neutrophils # (Auto) 4.1, Lymphocytes # (Auto) 0.9L, Monocytes # (Auto) 0.4, Eosinophils # (Auto) 0.2, Basophils # (Auto) 0.0, Immature Granulocyte # (Auto) 0.0, Sodium Level 140, Potassium Level 4.8, Chloride Level 113H, Carbon Dioxide Level 17L, Anion Gap 10, Blood Urea Nitrogen 46H, Creatinine 1.83H, Estimat Glomerular Filtration Rate 27, BUN/Creatinine Ratio 25, Glucose Level 94, Calcium Level 8.3L, Corrected Calcium 8.8, Total Bilirubin 0.4, Aspartate Amino Transf (AST/SGOT) 21, Alanine Aminotransferase (ALT/SGPT) 21, Alkaline Phosphatase 104, Total Protein 5.5L, Albumin 3.4 05/05/20 10:00: Stool Occult Blood Immunoassay POSITIVEH 05/05/20 18:58: White Blood Count 5.7, Red Blood Count 2.83L, Hemoglobin 9.9L, Hematocrit 31L, Mean Corpuscular Volume 110H, Mean Corpuscular Hemoglobin 35H, Mean Corpuscular Hemoglobin Concent 32, Red Cell Distribution Width 18.5H, Platelet Count 108L, Mean Platelet Volume 11.3, Immature Granulocyte % (Auto) 0, Neutrophils (%) (Auto) 73, Lymphocytes (%) (Auto) 17, Monocytes (%) (Auto) 7, Eosinophils (%) (Auto) 3, Basophils (%) (Auto) 0, Neutrophils # (Auto) 4.1, Lymphocytes # (Auto) 0.9L, Monocytes # (Auto) 0.4, Eosinophils # (Auto) 0.2, Basophils # (Auto) 0.0, Immature Granulocyte # (Auto) 0.0, Sodium Level 138, Potassium Level 4.7, Chloride Level 112H, Carbon Dioxide Level 17L, Anion Gap 9, Blood Urea Nitrogen 46H, Creatinine 1.90H, Estimat Glomerular Filtration Rate 26, BUN/Creatinine Ratio 24, Glucose Level 191H, Calcium Level 8.1L, Corrected Calcium 8.5, Total Bilirubin 0.4, Aspartate Amino Transf (AST/SGOT) 23, Alanine Aminotransferase (ALT/SGPT) 24, Alkaline Phosphatase 98, Total Protein 5.7L, Albumin 3.5, Lactic Acid Level 0.43L, B-Type Natriuretic Peptide 553.3H, Procalcitonin 0.06 05/05/20 20:20: Blood Gas Puncture Site LEFT RADIAL, Blood Gas Patient Temperature 37.2, Arterial Blood pH 7.25*L, Arterial Blood Partial Pressure CO2 42, Arterial Blood Partial Pressure O2 89, Arterial Blood HCO3 18L, Arterial Blood Total CO2 19.1L, Arterial Blood Oxygen Saturation 93L, Arterial Blood Base Excess -8.1L, Tello Test POSITIVE, Blood Gas Ventilator Setting NO, Blood Gas Inspired Oxygen RA 05/06/20 05:45: White Blood Count 4.9, Red Blood Count 2.79L, Hemoglobin 9.6L, Hematocrit 31L, Mean Corpuscular Volume 109H, Mean Corpuscular Hemoglobin 34, Mean Corpuscular Hemoglobin Concent 32, Red Cell Distribution Width 18.1H, Platelet Count 109L, Mean Platelet Volume 11.3, Immature Granulocyte % (Auto) 0, Neutrophils (%) (Auto) 71, Lymphocytes (%) (Auto) 18, Monocytes (%) (Auto) 8, Eosinophils (%) (Auto) 4, Basophils (%) (Auto) 0, Neutrophils # (Auto) 3.5, Lymphocytes # (Auto) 0.9L, Monocytes # (Auto) 0.4, Eosinophils # (Auto) 0.2, Basophils # (Auto) 0.0, Immature Granulocyte # (Auto) 0.0, Sodium Level 137, Potassium Level 4.2, Chloride Level 111H, Carbon Dioxide Level 18L, Anion Gap 8, Blood Urea Nitrogen 48H, Creatinine 1.90H, Estimat Glomerular Filtration Rate 26, BUN/Creatinine Ratio 25, Glucose Level 94, Lactic Acid Level 0.35L, Calcium Level 8.2L, Corrected Calcium 8.7, Total Bilirubin 0.5, Aspartate Amino Transf (AST/SGOT) 22, Alanine Aminotransferase (ALT/SGPT) 23, Alkaline Phosphatase 97, Total Protein 5.8L, Albumin 3.4, Procalcitonin 0.06 05/06/20 09:29: Coronavirus (COVID-19)(PCR) Negative 05/07/20 05:05: White Blood Count 4.5, Red Blood Count 2.78L, Hemoglobin 9.7L, Hematocrit 30L, Mean Corpuscular Volume 109H, Mean Corpuscular Hemoglobin 35H, Mean Corpuscular Hemoglobin Concent 32, Red Cell Distribution Width 18.0H, Platelet Count 111L, Mean Platelet Volume 10.9, Immature Granulocyte % (Auto) 0, Neutrophils (%) (Auto) 64, Lymphocytes (%) (Auto) 22, Monocytes (%) (Auto) 9, Eosinophils (%) (Auto) 4, Basophils (%) (Auto) 0, Neutrophils # (Auto) 2.9, Lymphocytes # (Auto) 1.0, Monocytes # (Auto) 0.4, Eosinophils # (Auto) 0.2, Basophils # (Auto) 0.0, Immature Granulocyte # (Auto) 0.0, Sodium Level 141, Potassium Level 4.3, Chloride Level 112H, Carbon Dioxide Level 19L, Anion Gap 10, Blood Urea Nitrogen 43H, Creatinine 1.78H, Estimat Glomerular Filtration Rate 28, BUN/Creatinine Ratio 24, Glucose Level 90, Calcium Level 8.3L, Corrected Calcium 8.9, Total Bilirubin 0.5, Aspartate Amino Transf (AST/SGOT) 20, Alanine Aminotransferase (ALT/SGPT) 19, Alkaline Phosphatase 97, Total Protein 5.5L, Albumin 3.3 05/09/20 05:10: White Blood Count 4.1L, Red Blood Count 2.77L, Hemoglobin 9.7L, Hematocrit 31L, Mean Corpuscular Volume 110H, Mean Corpuscular Hemoglobin 35H, Mean Corpuscular Hemoglobin Concent 32, Red Cell Distribution Width 17.6H, Platelet Count 97L, Mean Platelet Volume 11.0, Immature Granulocyte % (Auto) 0, Neutrophils (%) (Auto) 57, Lymphocytes (%) (Auto) 28, Monocytes (%) (Auto) 10, Eosinophils (%) (Auto) 5, Basophils (%) (Auto) 0, Neutrophils # (Auto) 2.3, Lymphocytes # (Auto) 1.1, Monocytes # (Auto) 0.4, Eosinophils # (Auto) 0.2, Basophils # (Auto) 0.0, Immature Granulocyte # (Auto) 0.0, Sodium Level 141, Potassium Level 4.1, Chloride Level 110H, Carbon Dioxide Level 20L, Anion Gap 11, Blood Urea Nitrogen 43H, Creatinine 1.67H, Estimat Glomerular Filtration Rate 30, BUN/Creatinine Ratio 26, Glucose Level 93, Calcium Level 8.5, Corrected Calcium 9.0, Total Bilirubin 0.5, Aspartate Amino Transf (AST/SGOT) 23, Alanine Aminotransferase (ALT/SGPT) 21, Alkaline Phosphatase 103, Total Protein 5.6L, Albumin 3.4 05/12/20 05:30: White Blood Count 3.7L, Red Blood Count 2.71L, Hemoglobin 9.4L, Hematocrit 30L, Mean Corpuscular Volume 110H, Mean Corpuscular Hemoglobin 35H, Mean Corpuscular Hemoglobin Concent 31L, Red Cell Distribution Width 17.1H, Platelet Count 93L, Mean Platelet Volume 11.5, Immature Granulocyte % (Auto) 0, Neutrophils (%) (Auto) 54, Lymphocytes (%) (Auto) 29, Monocytes (%) (Auto) 12, Eosinophils (%) (Auto) 5, Basophils (%) (Auto) 0, Neutrophils # (Auto) 2.0, Lymphocytes # (Auto) 1.1, Monocytes # (Auto) 0.4, Eosinophils # (Auto) 0.2, Basophils # (Auto) 0.0, Immature Granulocyte # (Auto) 0.0, Sodium Level 141, Potassium Level 4.0, Chloride Level 109H, Carbon Dioxide Level 21, Anion Gap 11, Blood Urea Nitrogen 42H, Creatinine 1.86H, Estimat Glomerular Filtration Rate 26, BUN/Creatinine Ratio 23, Glucose Level 82, Calcium Level 8.3L, Corrected Calcium 8.9, Total Bilirubin 0.4, Aspartate Amino Transf (AST/SGOT) 28, Alanine Aminotransferase (ALT/SGPT) 28, Alkaline Phosphatase 95, Total Protein 5.3L, Albumin 3.2 Microbiology 05/06/20 MRSA Screen - Final, Complete MRSA not isolated Pending Labs Microbiology Date/Time Source Procedure Growth Status 05/06/20 08:37 Nasal MRSA Screen - Final MRSA not isolated Complete Laboratory Tests 05/01/20 16:42: Glucometer 90 05/01/20 20:56: Glucometer 163 05/02/20 05:30: Glucometer 92, White Blood Count 3.5, Red Blood Count 1.94, Hemoglobin 7.1, Hematocrit 23, Mean Corpuscular Volume 116, Mean Corpuscular Hemoglobin 37, Mean Corpuscular Hemoglobin Concent 32, Red Cell Distribution Width 13.7, Platelet Count 144, Mean Platelet Volume 10.8, Immature Granulocyte % (Auto) 0, Neutrophils (%) (Auto) 61, Lymphocytes (%) (Auto) 26, Monocytes (%) (Auto) 9, Eosinophils (%) (Auto) 4, Basophils (%) (Auto) 1, Neutrophils # (Auto) 2.1, Lymphocytes # (Auto) 0.9, Monocytes # (Auto) 0.3, Eosinophils # (Auto) 0.1, Basophils # (Auto) 0.0, Immature Granulocyte # (Auto) 0.0, Sodium Level 140, Potassium Level 3.8, Chloride Level 114, Carbon Dioxide Level 18, Anion Gap 8, Blood Urea Nitrogen 34, Creatinine 1.56, Estimat Glomerular Filtration Rate 32, BUN/Creatinine Ratio 22, Glucose Level 97, Calcium Level 8.0, Corrected Calcium 8.6, Iron Level 87, Total Bilirubin 0.3, Aspartate Amino Transf (AST/SGOT) 22, Alanine Aminotransferase (ALT/SGPT) 20, Alkaline Phosphatase 92, Total Protein 5.2, Albumin 3.2 05/02/20 10:55: Glucometer 107 05/02/20 15:34: Glucometer 144 05/02/20 20:27: Glucometer 176 05/03/20 05:00: White Blood Count 4.1, Red Blood Count 2.82, Hemoglobin 9.8, Hematocrit 30, Mean Corpuscular Volume 106, Mean Corpuscular Hemoglobin 35, Mean Corpuscular Hemoglobin Concent 33, Red Cell Distribution Width 20.4, Platelet Count 127, Mean Platelet Volume 10.1, Immature Granulocyte % (Auto) 0, Neutrophils (%) (Auto) 50, Lymphocytes (%) (Auto) 35, Monocytes (%) (Auto) 11, Eosinophils (%) (Auto) 5, Basophils (%) (Auto) 0, Neutrophils # (Auto) 2.0, Lymphocytes # (Auto) 1.4, Monocytes # (Auto) 0.4, Eosinophils # (Auto) 0.2, Basophils # (Auto) 0.0, Immature Granulocyte # (Auto) 0.0, Sodium Level 138, Potassium Level 4.0, Chloride Level 112, Carbon Dioxide Level 18, Anion Gap 8, Blood Urea Nitrogen 37, Creatinine 1.70, Estimat Glomerular Filtration Rate 29, BUN/Creatinine Ratio 22, Glucose Level 101, Calcium Level 8.1, Corrected Calcium 8.6, Total Bilirubin 0.5, Aspartate Amino Transf (AST/SGOT) 28, Alanine Aminotransferase (ALT/SGPT) 24, Alkaline Phosphatase 105, Total Protein 5.5, Albumin 3.4 05/03/20 11:42: Glucometer 100 05/03/20 17:05: Glucometer 103 05/03/20 20:42: Glucometer 125 05/04/20 05:20: Glucometer 87 05/04/20 11:40: Glucometer 103 05/04/20 16:18: Glucometer 103 05/05/20 05:55: White Blood Count 5.7, Red Blood Count 2.87, Hemoglobin 9.9, Hematocrit 31, Mean Corpuscular Volume 109, Mean Corpuscular Hemoglobin 35, Mean Corpuscular Hemoglobin Concent 32, Red Cell Distribution Width 18.5, Platelet Count 119, Mean Platelet Volume 10.9, Immature Granulocyte % (Auto) 0, Neutrophils (%) (Auto) 72, Lymphocytes (%) (Auto) 17, Monocytes (%) (Auto) 8, Eosinophils (%) (Auto) 3, Basophils (%) (Auto) 0, Neutrophils # (Auto) 4.1, Lymphocytes # (Auto) 0.9, Monocytes # (Auto) 0.4, Eosinophils # (Auto) 0.2, Basophils # (Auto) 0.0, Immature Granulocyte # (Auto) 0.0, Sodium Level 140, Potassium Level 4.8, Chloride Level 113, Carbon Dioxide Level 17, Anion Gap 10, Blood Urea Nitrogen 46, Creatinine 1.83, Estimat Glomerular Filtration Rate 27, BUN/Creatinine Ratio 25, Glucose Level 94, Calcium Level 8.3, Corrected Calcium 8.8, Total Bilirubin 0.4, Aspartate Amino Transf (AST/SGOT) 21, Alanine Aminotransferase (ALT/SGPT) 21, Alkaline Phosphatase 104, Total Protein 5.5, Albumin 3.4 05/05/20 10:00: Stool Occult Blood Immunoassay POSITIVE 05/05/20 18:58: White Blood Count 5.7, Red Blood Count 2.83, Hemoglobin 9.9, Hematocrit 31, Mean Corpuscular Volume 110, Mean Corpuscular Hemoglobin 35, Mean Corpuscular Hemoglobin Concent 32, Red Cell Distribution Width 18.5, Platelet Count 108, Mean Platelet Volume 11.3, Immature Granulocyte % (Auto) 0, Neutrophils (%) (Auto) 73, Lymphocytes (%) (Auto) 17, Monocytes (%) (Auto) 7, Eosinophils (%) (Auto) 3, Basophils (%) (Auto) 0, Neutrophils # (Auto) 4.1, Lymphocytes # (Auto) 0.9, Monocytes # (Auto) 0.4, Eosinophils # (Auto) 0.2, Basophils # (Auto) 0.0, Immature Granulocyte # (Auto) 0.0, Sodium Level 138, Potassium Level 4.7, Chloride Level 112, Carbon Dioxide Level 17, Anion Gap 9, Blood Urea Nitrogen 46, Creatinine 1.90, Estimat Glomerular Filtration Rate 26, BUN/Creatinine Ratio 24, Glucose Level 191, Calcium Level 8.1, Corrected Calcium 8.5, Total Bilirubin 0.4, Aspartate Amino Transf (AST/SGOT) 23, Alanine Aminotransferase (ALT/SGPT) 24, Alkaline Phosphatase 98, Total Protein 5.7, Albumin 3.5, Lactic Acid Level 0.43, B-Type Natriuretic Peptide 553.3, Procalcitonin 0.06 05/05/20 20:20: Blood Gas Puncture Site LEFT RADIAL, Blood Gas Patient Temperature 37.2, Arterial Blood pH 7.25, Arterial Blood Partial Pressure CO2 42, Arterial Blood Partial Pressure O2 89, Arterial Blood HCO3 18, Arterial Blood Total CO2 19.1, Arterial Blood Oxygen Saturation 93, Arterial Blood Base Excess -8.1, Tello Test POSITIVE, Blood Gas Ventilator Setting NO, Blood Gas Inspired Oxygen RA 05/06/20 05:45: White Blood Count 4.9, Red Blood Count 2.79, Hemoglobin 9.6, Hematocrit 31, Mean Corpuscular Volume 109, Mean Corpuscular Hemoglobin 34, Mean Corpuscular Hemoglobin Concent 32, Red Cell Distribution Width 18.1, Platelet Count 109, Mean Platelet Volume 11.3, Immature Granulocyte % (Auto) 0, Neutrophils (%) (Auto) 71, Lymphocytes (%) (Auto) 18, Monocytes (%) (Auto) 8, Eosinophils (%) (Auto) 4, Basophils (%) (Auto) 0, Neutrophils # (Auto) 3.5, Lymphocytes # (Auto) 0.9, Monocytes # (Auto) 0.4, Eosinophils # (Auto) 0.2, Basophils # (Auto) 0.0, Immature Granulocyte # (Auto) 0.0, Sodium Level 137, Potassium Level 4.2, Chloride Level 111, Carbon Dioxide Level 18, Anion Gap 8, Blood Urea Nitrogen 48, Creatinine 1.90, Estimat Glomerular Filtration Rate 26, BUN/Creatinine Ratio 25, Glucose Level 94, Lactic Acid Level 0.35, Calcium Level 8.2, Corrected Calcium 8.7, Total Bilirubin 0.5, Aspartate Amino Transf (AST/SGOT) 22, Alanine Aminotransferase (ALT/SGPT) 23, Alkaline Phosphatase 97, Total Protein 5.8, Albumin 3.4, Procalcitonin 0.06 05/06/20 09:29: Coronavirus (COVID-19)(PCR) Negative 05/07/20 05:05: White Blood Count 4.5, Red Blood Count 2.78, Hemoglobin 9.7, Hematocrit 30, Mean Corpuscular Volume 109, Mean Corpuscular Hemoglobin 35, Mean Corpuscular Hemoglobin Concent 32, Red Cell Distribution Width 18.0, Platelet Count 111, Mean Platelet Volume 10.9, Immature Granulocyte % (Auto) 0, Neutrophils (%) (Auto) 64, Lymphocytes (%) (Auto) 22, Monocytes (%) (Auto) 9, Eosinophils (%) (Auto) 4, Basophils (%) (Auto) 0, Neutrophils # (Auto) 2.9, Lymphocytes # (Auto) 1.0, Monocytes # (Auto) 0.4, Eosinophils # (Auto) 0.2, Basophils # (Auto) 0.0, Immature Granulocyte # (Auto) 0.0, Sodium Level 141, Potassium Level 4.3, Chloride Level 112, Carbon Dioxide Level 19, Anion Gap 10, Blood Urea Nitrogen 43, Creatinine 1.78, Estimat Glomerular Filtration Rate 28, BUN/Creatinine Ratio 24, Glucose Level 90, Calcium Level 8.3, Corrected Calcium 8.9, Total Bilirubin 0.5, Aspartate Amino Transf (AST/SGOT) 20, Alanine Aminotransferase (ALT/SGPT) 19, Alkaline Phosphatase 97, Total Protein 5.5, Albumin 3.3 05/09/20 05:10: White Blood Count 4.1, Red Blood Count 2.77, Hemoglobin 9.7, Hematocrit 31, Mean Corpuscular Volume 110, Mean Corpuscular Hemoglobin 35, Mean Corpuscular Hemoglobin Concent 32, Red Cell Distribution Width 17.6, Platelet Count 97, Mean Platelet Volume 11.0, Immature Granulocyte % (Auto) 0, Neutrophils (%) (Auto) 57, Lymphocytes (%) (Auto) 28, Monocytes (%) (Auto) 10, Eosinophils (%) (Auto) 5, Basophils (%) (Auto) 0, Neutrophils # (Auto) 2.3, Lymphocytes # (Auto) 1.1, Monocytes # (Auto) 0.4, Eosinophils # (Auto) 0.2, Basophils # (Auto) 0.0, I mmature Granulocyte # (Auto) 0.0, Sodium Level 141, Potassium Level 4.1, Chloride Level 110, Carbon Dioxide Level 20, Anion Gap 11, Blood Urea Nitrogen 43, Creatinine 1.67, Estimat Glomerular Filtration Rate 30, BUN/Creatinine Ratio 26, Glucose Level 93, Calcium Level 8.5, Corrected Calcium 9.0, Total Bilirubin 0.5, Aspartate Amino Transf (AST/SGOT) 23, Alanine Aminotransferase (ALT/SGPT) 21, Alkaline Phosphatase 103, Total Protein 5.6, Albumin 3.4 05/12/20 05:30: White Blood Count 3.7, Red Blood Count 2.71, Hemoglobin 9.4, Hematocrit 30, Mean Corpuscular Volume 110, Mean Corpuscular Hemoglobin 35, Mean Corpuscular Hemoglobin Concent 31, Red Cell Distribution Width 17.1, Platelet Count 93, Mean Platelet Volume 11.5, Immature Granulocyte % (Auto) 0, Neutrophils (%) (Auto) 54, Lymphocytes (%) (Auto) 29, Monocytes (%) (Auto) 12, Eosinophils (%) (Auto) 5, Basophils (%) (Auto) 0, Neutrophils # (Auto) 2.0, Lymphocytes # (Auto) 1.1, Monocytes # (Auto) 0.4, Eosinophils # (Auto) 0.2, Basophils # (Auto) 0.0, Immature Granulocyte # (Auto) 0.0, Sodium Level 141, Potassium Level 4.0, Chloride Level 109, Carbon Dioxide Level 21, Anion Gap 11, Blood Urea Nitrogen 42, Creatinine 1.86, Estimat Glomerular Filtration Rate 26, BUN/Creatinine Ratio 23, Glucose Level 82, Calcium Level 8.3, Corrected Calcium 8.9, Total Bilirubin 0.4, Aspartate Amino Transf (AST/SGOT) 28, Alanine Aminotransferase (ALT/SGPT) 28, Alkaline Phosphatase 95, Total Protein 5.3, Albumin 3.2 Discharge Home Medications: Active Scripts Active Hydrocodone-Acetamin 5-325 mg (Hydrocodone/Acetaminophen) 1 Each Tablet 1 Each PO Q8H PRN Pantoprazole Sodium 40 Mg Tablet.dr 40 Mg PO DAILY Hydrochlorothiazide 25 Mg Tablet 25 Mg PO DAILY Aspirin EC (Aspirin) 81 Mg Tablet.dr 81 Mg PO DAILY Losartan Potassium 50 Mg Tablet 50 Mg PO DAILY Reported Atorvastatin Calcium 10 Mg Tablet 10 Mg PO DAILY Carvedilol 25 Mg Tablet 25 Mg PO BID Acyclovir 800 Mg Tablet 800 Mg PO BID Sucralfate 1 Gm Tablet 1 Gm PO QID Spironolactone 25 Mg Tablet 12.5 Mg PO HS TAKES OF A 25MG Ondansetron HCl 8 Mg Tablet 8 Mg PO Q8H PRN Multivitamin 1 Each Tablet 1 Each PO DAILY Milk of Magnesia (Magnesium Hydroxide) 400 Mg/5 Ml Oral.susp 30 Ml PO DAILY PRN Levetiracetam 500 Mg Tablet 500 Mg PO BID Furosemide 40 Mg Tablet 40 Mg PO DAILY PRN WEIGHT GAIN >3LBS IN 24 HOURS [Folic Acid] 1 Mg PO DAILY Sprycel (Dasatinib) 100 Mg Tablet 100 Mg PO DAILY Citalopram HBr (Citalopram Hydrobromide) 20 Mg Tablet 20 Mg PO DAILY Bisacodyl 10 Mg Supp.rect 10 Mg RC DAILY Instructions to patient/family Please see electronic discharge instructions given to patient. Diagnosis/Problems Diagnosis/Problems (1) CVA (cerebral vascular accident) (2) CLL (chronic lymphocytic leukemia) (3) Subdural hematoma (4) Closed fracture of right olecranon process (5) Hyperlipemia (6) GERD (gastroesophageal reflux disease) Clinical Quality Measures DVT/VTE Risk/Contraindication: Risk Factor Score Per Nursin RFS Level Per Nursing on Admit: 4+=Very High Contraindications-Pharm: Other *list below* Other: recent subarachnoid hemorrhage ANTOINE SALDAÑA DO May 14, 2020 11:47
--- NOTE | 2020-05-14 13:14 | NUR ---
CM/SS DISCHARGED Patient discharged home as planned. 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 Agency was informed yesterday of patient's dismissal, fax confirmations received. Left message for her crew team member, Lexis Herrera, , Ext [phone]. Patient niece provided transport. Patient was going to [facility], provided address/phone/directions re same.
--- NOTE | 2020-05-14 14:30 | Therapy Team Discharge Summary ---
Therapy Discharge Summary Discharge Recommendations Date of Discharge May 14, 2020 at 11:30 Physical Therapy Patient came to rehab following a CVA. Upon evaluation patient performed bed mobility and supine <-> sit with min assist, sit <-> stand and transfers with CGA, car transfer min assist, ambulated 150' with IMPROVEMENT RN min assist (including 50' with at least 2 turns of 90 degrees and 10' over an uneven surface), and went up and down 4 steps with min assist. Patient has been performing bed mobility and transfer training, balance and endurance training, functional strengthening, stair training, gait training, and education. 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 Now, patient performs bed mobility and transfers with independence, car transfer independent, ambulates over 150' without an assistive device with independence (including 50' with at least 2 turns of 90 degrees and 10' over an uneven surface), and can go up and down 4 steps using 2 handrails with SBA. Patient discharged from this facility today and will be discharged from PT at this time. Occupational Therapy Decreased Activ Tolerance, Decreased UE Strength, Impaired Self-Care Skills PT Rn Hemodialysis Charge Goals Rn Hemodialysis Charge Goals PT Rn Hemodialysis Charge Goals Time Frame: May 16, 2020 Roll Left to Right (QC): 6 Sit to Lying (QC): 6 Lying-Sitting on Side/Bed(QC): 6 Sit to Stand (QC): 6 Chair/Kap-gk-Tshwi Xfer(QC): 6 Car Transfer (QC): 6 Does the Patient Walk: Yes Walk 10 feet (QC): 6 Walk 10ft-Uneven Surface(QC): 6 Walk 50ft with 2 Turns (QC): 6 Walk 150 ft (QC): 6 Does the Pt use WC or Scooter?: No Wheel 50 feet with 2 turns (QC: 9 1 Step (curb) (QC): 6 4 Steps (QC): 6 12 Steps (QC): 6 Picking up an Object (QC): 4 OT Rn Hemodialysis Charge Goals Rn Hemodialysis Charge Goals Time Frame: May 16, 2020 Eating (FIM): 6 Eating (QC): 6 (met) Oral Hygiene (QC): 6 (met) Shower/Bathe Self (QC): 5 (met) Upper Body Dressing (QC): 6 (not met-set up only) Lower Body Dressing (QC): 6 (not met-set up only) On/Off Footwear (QC): 6 (met) Toileting(FIM): 6 Toileting Hygiene (QC): 6 (met) Toilet/Commode Transfer (QC): 6 Additional Goals: 1-Demonstrate ADL Tasks, 2-Verbalize Understanding, 3- ImproveStrength/Concepcion 1=Demonstrate adherence to instructed precautions during ADL tasks. 2=Patient will verbalize/demonstrate understanding of assistive devices/modifications for ADL. 3=Patient will improve strength/tolerance for activity to enable patient to perform ADL's. Speech Rn Hemodialysis Charge Goals Assisted Goals Patient will improve her speech production and cognitive function in order to return home safer. JODI CARPENTER PT May 14, 2020 14:30
--- NOTE | 2020-05-15 08:18 | Therapy Team Discharge Summary ---
Therapy Discharge Summary Discharge Recommendations Date of Discharge May 14, 2020 at 11:30 Occupational Therapy Pt admits to ARU with dx of CVA. Pt initially has decreased ADL abilities with QC's as follows: eating 5, bathing 4, LB dressing 3, toilet hygiene 2, and footwear 1. Pt and OT staff work towards higher fx IND through ADL retraining, IADL tasks, fx activity tolerance, UE retraining and exercise, and safety training. Pt dc's with an increased ability to complete ADL tasks, though all LTGs not reached. Pt d/c's with IND through footwear/ toilet hygiene and paul wering, SBA for LB dressing and s/u UB dressing. Pt d/c's home with spouse support with OT recommendations of crew chief and dressing stick. D/c OT at this time. Decreased Activ Tolerance, Decreased UE Strength, Impaired Self-Care Skills PT Pinking Machine Operator Goals [facility] Goals PT Pinking Machine Operator Goals Time Frame: May 16, 2020 Roll Left to Right (QC): 6 Sit to Lying (QC): 6 Lying-Sitting on Side/Bed(QC): 6 Sit to Stand (QC): 6 Chair/Fto-kn-Eydez Xfer(QC): 6 Car Transfer (QC): 6 Does the Patient Walk: Yes Walk 10 feet (QC): 6 Walk 10ft-Uneven Surface(QC): 6 Walk 50ft with 2 Turns (QC): 6 Walk 150 ft (QC): 6 Does the Pt use WC or Scooter?: No Wheel 50 feet with 2 turns (QC: 9 1 Step (curb) (QC): 6 4 Steps (QC): 6 12 Steps (QC): 6 Picking up an Object (QC): 4 OT Pinking Machine Operator Goals [facility]iary Goals Time Frame: May 16, 2020 Eating (FIM): 6 Eating (QC): 6 (met) Oral Hygiene (QC): 6 (met) Shower/Bathe Self (QC): 5 (met) Upper Body Dressing (QC): 6 (not met-set up only) Lower Body Dressing (QC): 6 (not met-set up only) On/Off Footwear (QC): 6 (met) Toileting(FIM): 6 Toileting Hygiene (QC): 6 (met) Toilet/Commode Transfer (QC): 6 Additional Goals: 1-Demonstrate ADL Tasks, 2-Verbalize Understanding, 3-ImproveStrength/Concepcion 1=Demonstrate adherence to instructed precautions during ADL tasks. 2=Patient will verbalize/demonstrate understanding of assistive devices/modifications for ADL. 3=Patient will improve strength/tolerance for activity to enable patient to perform ADL's. Speech Pinking Machine Operator Goals [facility]itentiary Goals Patient will improve her speech production and cognitive function in order to return home safer. CHRISTINE VALENZUELA OTR May 15, 2020 08:18
== END 2020-05-14 11:30 | disposition home health service (06) | DRG 57 ==
PROVIDERS: ADMIT Internal Medicine; ATTEND Internal Medicine
DX: I69.354 Hemiplegia and hemiparesis following cerebral infarction affecting left non-dominant side (principal); C91.10 Chronic lymphocytic leukemia of B-cell type not having achieved remission; E87.2 Acidosis; N17.9 Acute kidney failure, unspecified; I48.19 Other persistent atrial fibrillation; I13.0 Hypertensive heart and chronic kidney disease with heart failure and stage 1 through stage 4 chronic kidney disease, or unspecified chronic kidney disease; S06.5X9D Traumatic subdural hemorrhage with loss of consciousness of unspecified duration, subsequent encounter; S52.021D Displaced fracture of olecranon process without intraarticular extension of right ulna, subsequent encounter for closed fracture with routine healing; Z20.828 Contact with and (suspected) exposure to other viral communicable diseases; S42.291D Other displaced fracture of upper end of right humerus, subsequent encounter for fracture with routine healing; R60.0 Localized edema; N18.9 Chronic kidney disease, unspecified; E78.5 Hyperlipidemia, unspecified; K21.9 Gastro-esophageal reflux disease without esophagitis; D64.9 Anemia, unspecified; E78.00 Pure hypercholesterolemia, unspecified; K52.9 Noninfective gastroenteritis and colitis, unspecified; F41.9 Anxiety disorder, unspecified; E11.9 Type 2 diabetes mellitus without complications; I50.9 Heart failure, unspecified; I27.20 Pulmonary hypertension, unspecified; M19.91 Primary osteoarthritis, unspecified site; R19.5 Other fecal abnormalities; Z92.21 Personal history of antineoplastic chemotherapy; Z86.718 Personal history of other venous thrombosis and embolism; W19.XXXD Unspecified fall, subsequent encounter
CPT/HCPCS: 36415; 36600; 71045; 71046; 80053; 82274; 82805; 82962; 83540; 83605; 83880; 84145; 85025; 86850; 86900; 86901; 86920; 87081; 87635; 93005; 93306; 94664

== ENCOUNTER → 2020-05-06 | Day surgery (SDC) | payer MEDICARE, OTHER ==
[~2020-05-06] MED LIST: ACHD5005 PO; ACYC800T PO; ASPI-1238 PO; ATOR10TA66 PO; ATOR40TA70 PO; BISA10SU8 RC; CARV25TA PO; CARV3.12 PO; CITA20TA9 PO; DASA100T PO; FOLIC ACID PO; FURO40TA4 PO; HURRICAINE EXT TUBE (BENZOCAINE) ONE; HURRICAINE EXT TUBE (BENZOCAINE) XX PRN; HYDR25TA4 PO; LACTATED RINGERS 1,000 ML IV ONE; LACTATED RINGERS 1,000 ML IV STA; LEVE500T6 PO; LOSA50TA63 PO; MAGN400O7 PO; MULT-1136 PO; ONDA8TAB15 PO; PANT40TA52 PO; SPIR25TA5 PO; SUCR1TAB PO; [UNRECOGNIZED DRUG - CODE] IH; [UNRECOGNIZED DRUG - CODE] IJ
--- NOTE | 2020-05-06 12:47 | Anesthesia-General Post-Op ---
MAC Patient Condition Mental Status/LOC: Same as Preop Cardiovascular: Satisfactory Nausea/Vomiting: Absent Respiratory: Satisfactory Pain: Controlled Complications: Absent Post Op Complications Complications None Follow Up Care/Instructions Patient Instructions None needed. Anesthesiology Discharge Order Discharge Order Patient is doing well, no complaints, stable vital signs, no apparent adverse anesthesia problems. No complications reported per nursing. HANG RICHMOND CRNA May 06, 2020 12:47
[2020-05-06 12:50] VITALS: BP 141/68
[2020-05-06 12:55] VITALS: BP 130/61
--- NOTE | 2020-05-06 12:56 | Progress Note-Post Operative ---
Post-Operative Progess Note Surgeon (s)/Customer Service Agent (s) Surgeon CHRISTOPHER WATSON DO Customer Service Agent: none Pre-Operative Diagnosis Anemia, Hemoccult + Post-Operative Diagnosis ?Marginal ulcer Hiatal Hernia Procedure & Operative Findings Date of Procedure 05/06/20 Procedure Performed/Findings EGD with Bx Anesthesia Type IV sedation by PLASTIC PANEL INSTALLER Estimated Blood Loss Estimated blood loss (mL): scant Specimens/Packing Specimens Removed GJ jxn GE jxn CHRISTOPHER WATSON DO May 06, 2020 12:56
--- NOTE | 2020-05-06 20:49 | OPERATIVE REPORT ---
DATE OF SERVICE: PREOPERATIVE DIAGNOSIS: Anemia, hemoccult positive. POSTOPERATIVE DIAGNOSES: Anemia, hemoccult positive, questionable marginal ulcer, hiatal hernia, possible esophagitis. PROCEDURE: EGD with biopsy. SURGEON: Massimo Rosas DO LPTA: None. ANESTHESIA: IV sedation by the MANAGER OF ENVIRONMENTAL SERVICES. SPECIMEN: Biopsy from the gastrojejunal junction as well as gastroesophageal junction. BLOOD LOSS: Scant. FLUIDS: Per anesthesia. POSTOPERATIVE CONDITION: Stable. INDICATION FOR PROCEDURE: The patient is a 74-year-old female who has some chronic anemia may be due to her leukemia. She had a Hemoccult positive stool, needed a workup. She had a colonoscopy she does not remember exactly when. We get those reports and she has not had an EGD, needs a workup. FINDINGS: She had a bypass, so she has a small gastric pouch straight to the jejunum and looked like she had a possibly marginal ulcer as well as a hiatal hernia. PROCEDURE NOTE: After informed consent was obtained, the patient was brought to the endoscopy suite, placed in bed in left lateral decubitus position. She was administered IV sedation by the MANAGER OF ENVIRONMENTAL SERVICES who then monitored his vitals the entire time, heart rate, blood pressure and pulse ox and the scope was inserted down the mouth through the esophagus into the stomach, right immediately past the stomach noted we were into the GJ, saw the Fred-en-Y anastomosis, looked like there may have been marginal ulcer right at the GJ junction. Pictures were taken. Biopsy performed. The small intestine itself looked fine. Pulled back, looked like could see a hiatal hernia and then did biopsy of the GE junction. At this point, then pulled the scope up the esophagus and out the mouth. The patient tolerated the procedure. She was recovered in endoscopy suite. Job ID: [id number] DocumentID: [id number] Dictated Date: 05/06/2020 14:11:08 Chair Finisher Date: 05/06/2020 20:47:15 Dictated By: MASSIMO ROSAS DO [facility]
== END ==
LOC: SDC 12:17
PROVIDERS: ATTEND Surgery
DX: K44.9 Diaphragmatic hernia without obstruction or gangrene (principal); D64.9 Anemia, unspecified; R19.5 Other fecal abnormalities; K52.9 Noninfective gastroenteritis and colitis, unspecified; K21.9 Gastro-esophageal reflux disease without esophagitis; I10 Essential (primary) hypertension; I48.91 Unspecified atrial fibrillation; E11.9 Type 2 diabetes mellitus without complications; N17.9 Acute kidney failure, unspecified; E78.00 Pure hypercholesterolemia, unspecified; J18.9 Pneumonia, unspecified organism; M19.90 Unspecified osteoarthritis, unspecified site; F41.9 Anxiety disorder, unspecified; Z79.82 Long term (current) use of aspirin; Z79.899 Other long term (current) drug therapy; Z88.2 Allergy status to sulfonamides; Z88.5 Allergy status to narcotic agent; Z85.6 Personal history of leukemia; Z86.73 Personal history of transient ischemic attack (TIA), and cerebral infarction without residual deficits
CPT/HCPCS: 88305